=== PATIENT | male | born 1960 | race Caucasian/White ===

== ENCOUNTER 2019-03-09 16:16 | Inpatient (IN) | payer OTHER ==
[2019-03-09 19:29] VITALS: BMI 25.8
--- NOTE | 2019-03-09 21:44 | HP ---
COWS - Scale Resting Pulse: 0= OR 80 or Below Sweatin=Flushed/Facial Moisture Restless Observation: 1= Difficult to Sit Still Pupil Size: 1= Pupils >than Normal Bone or Joint Aches: 2= Severe Diffuse Aches Runny Nose/ Eye Tearin= Runny Nose/Eyes GI Upset > 30mins: 2= Nausea/Diarrhea Tremor Observation: 2= Slight Tremor Visible Yawning Observation: 0= None Anxiety or Irritability: 1=Feels Anxious/Irritable Goose Flesh Skin: 0=Smooth Skin COWS Score: 13 CIWA Score Nausea/Vomitin Muscle Tremors: 2 Anxiety: 2 Agitation: 2 Paroxysmal Sweats: 2 Orientation: 0-Oriented Tacttile Disturbances: 2-Mild Itch/Numbness/Burn Auditory Disturbances: 2-Mild Harshness/Frighten Visual Disturbances: 2-Mild Sensitivity Headache: 2-Mild CIWA-Ar Total Score: 18 - Admission Criteria OASAS Guidelines: Admission for Medically Managed Detox: Requires at least one of the followin. CIWA greater than 12 2. Seizures within the past 24 hours 3. Delirium tremens within the past 24 hours 4. Hallucinations within the past 24 hours 5. Acute intervention needed for co occurring medical disorder 6. Acute intervention needed for co occurring psychiatric disorder 7. Severe withdrawal that cannot be handled at a lower level of care (continued vomiting, continued diarrhea, abnormal vital signs) requiring intravenous medication and/or fluids 8. Admission ROS BHS - HPI Chief Complaint: DEPENDENT ON ETOH AND HEROIN ON 120 MG. OF MMTP - LAST DOSE THIS AM Allergies/Adverse Reactions: Allergies Allergy/AdvReac Type Severity Reaction Status Date / Time fish derived Allergy Verified 03/09/19 19:17 History of Present Illness: THE PT. IS REQUESTING ADMISSION TO THE DETOX UNIT AND CAME FOR MEDICAL CLEARANCE AND H AND PE Exam Limitations: No Limitations - Ebola screening Have you traveled outside of the country in the last 21 days: No Have you had contact with anyone from an Ebola affected area: No Have you been sick,other than usual withdrawal symptoms: No Do you have a fever: No - Review of Systems Constitutional: See HPI, Malaise, Weakness, Unintentional Wgt. Loss EENT: reports: See HPI Respiratory: reports: See HPI Cardiac: reports: See HPI GI: reports: See HPI, Nausea, Abdominal cramping : reports: See HPI Musculoskeletal: reports: Muscle Pain, Muscle Weakness Neuro: reports: See HPI, Headache, Tremors, Weakness Endocrine: reports: See HPI, Increased Thirst, Increased Urine Hematology: reports: See HPI Psychiatric: reports: Judgement Intact, Orientated x3, Anxious, Depressed Patient History - Patient Medical History Hx Asthma: No Hx Cardiac Disorders: No Hx Hypertension: Yes Hx Pacemaker: Yes Hx Seizures: No Hx Diabetes: Yes (TYPE I) Hx Gastrointestinal Disorders: No Hx Sexually Transmitted Disorders: No Hx Renal Disease (ESRD): No Hx Human Immunodeficiency Virus (HIV): No Hx Hepatitis C: No Hx Depression: Yes (ANXIETY) - Patient Surgical History Past Surgical History: No - Smoking Cessation Smoking history: Never smoked Have you smoked in the past 12 months: No Hx Chewing Tobacco Use: No Initiated information on smoking cessation: No 'Breaking Loose' booklet given: 03/09/19 - Substance & Tx. History Hx Alcohol Use: Yes Hx Substance Use: Yes Substance Use Type: Alcohol, Heroin Hx Substance Use Treatment: Yes - Substances abused Alcohol Substance route: Oral Frequency: Daily Amount used: 6 packs Age of first use: 17 Date of last use: 03/09/19 Heroin Other (specify): SNIFF Frequency: Daily Amount used: 6 BAGS Age of first use: 18 Date of last use: 03/09/19 Family Disease History - Family Disease History Family Disease History: Diabetes: Mother (), Heart Disease: Mother, CA: Father () Admission Physical Exam BHS - Vital Signs Vital Signs: Vital Signs - 24 hr 03/09/19 03/09/19 19:06 21:15 Temperature 98.6 F 98.6 F Pulse Rate 55 L 55 L Respiratory 18 18 Rate Blood Pressure 112/68 112/68 - Physical General Appearance: Yes: No Apparent Distress, Nourished, Appropriately Dressed , Tremorous, Sweating, Anxious HEENTM: Yes: Hearing grossly Normal, Normocephalic, Normal Voice, EMMA, Pharynx Normal Respiratory: Yes: Chest Non-Tender, Lungs Clear, Normal Breath Sounds, No Respiratory Distress, No Accessory Muscle Use Neck: Yes: No masses,lesions,Nodules, Supple, Trachea in good position Breast: Yes: Breast Exam Deferred, Axillae without masses Cardiology: Yes: Regular Rhythm, S1, S2, Bradycardia Abdominal: Yes: Normal Bowel Sounds, Non Tender, Flat, Soft Back: Yes: Normal Inspection Musculoskeletal: Yes: full range of Motion, Muscle Pain, Muscle weakness Extremities: Yes: Normal Capillary Refill, Normal Range of Motion, Non-Tender, Tremors 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: 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 NML intact, Fully Oriented, Alert, Motor Strength 5/5, Normal Response, Numbness, Depressed Affect Integumentary: Yes: Normal Color, Warm, Moist Lymphatic: Yes: Within Normal Limits - Diagnostic (1) EtOH dependence Current Visit: Yes Status: Chronic Qualifiers: Substance use status: uncomplicated Qualified Code(s): F10.20 - Alcohol dependence, uncomplicated (2) Heroin dependence Current Visit: Yes Status: Chronic (3) Diabetes 1.5, managed as type 1 Current Visit: Yes Status: Acute (4) HTN (hypertension) Current Visit: Yes Status: Chronic Qualifiers: Hypertension type: essential hypertension Qualified Code(s): I10 - Essential (primary) hypertension (5) Hypercholesteremia Current Visit: Yes Status: Chronic (6) Neuropathy Current Visit: Yes Status: Chronic (7) Anxiety and depression Current Visit: Yes Status: Chronic (8) Methadone maintenance therapy patient Current Visit: Yes Status: Chronic Cleared for Admission S - Detox or Rehab [facility] Level of Care: Medically Supervised Detox Regimen/Protocol: Librium Breathalyzer - Breathalyzer Breathalyzer: 0 Urine Drug Screen - Test Device Lot number: [id number] Expiration date: 12/04/20 - Control Is test valid?: Yes - Results Drug screen NEGATIVE: No Urine drug screen results: SIVA-Cocaine, FEN-Fentanyl, MOP-Opiates, MTD-Methadone Inpatient Rehab Admission - Rehab Decision to Admit Inpatient rehab admission?: No
[2019-03-09] MEDS ORDERED: MENTHOL/PHENOL 1 EACH UD MM PRN (21:52)
[2019-03-09] MEDS ORDERED: MAG HYDROX/AL HYDROX/SIMETH 30 ML UNIT-DOSE CUP PO PRN (21:52)
[2019-03-09] MEDS ORDERED: METHOCARBAMOL 500 MG TABLET PO PRN (21:52)
[2019-03-09] MEDS ORDERED: MAGNESIUM HYDROX 2400MG/30ML ORAL SUSPENSION 30 ML CUP PO PRN (21:52)
[2019-03-09] MEDS ORDERED: MAGNESIUM CITRATE 300 ML BOTTLE PO PRN (21:52)
[2019-03-09] MEDS ORDERED: chlordiazePOXIDE HCL 25 MG CAPSULE PO ONE (21:52)
[2019-03-09] MEDS ORDERED: ACETAMINOPHEN 325 MG TABLET (FP) PO PRN ×2 (21:52)
[2019-03-09] MEDS ORDERED: MELATONIN 5 MG TABLETS PO PRN (21:52)
[2019-03-09] MEDS ORDERED: BISMUTH SUBSALICYLATE 524 MG/30 ML UD PO PRN (21:52)
[2019-03-09] MEDS ORDERED: hydrOXYzine PAMOATE 25 MG CAPSULE (FP) PO PRN (21:52)
[2019-03-09] MEDS ORDERED: chlordiazePOXIDE HCL 25 MG CAPSULE PO PRN (21:52)
[2019-03-09] MEDS ORDERED: IBUPROFEN 400 MG TABLET (FP) PO PRN (21:52)
[2019-03-09] MEDS ORDERED: PATIENT'S OWN MEDICATION (NON-FORMULARY) (Gabapentin [Gabapentin] 600 MG) PO SCH (22:00)
[2019-03-09] MEDS ORDERED: PATIENT'S OWN MEDICATION (NON-FORMULARY) (Enalapril Maleate [Vasotec] 20 MG) PO SCH (22:00)
[2019-03-09] MEDS: LEVOTHYROXINE NA 100 MCG TABLET (FP) PO SCH (23:33)
[2019-03-09] MEDS: ATORVASTATIN CA 40 MG TABLET (FP) PO SCH (23:47)
[2019-03-09] MEDS: THIAMINE HCL 100 MG TABLET (FP) PO SCH (23:48)
[2019-03-09] MEDS: ENALAPRIL MALEATE 10 MG TABLET (FP) PO SCH (23:48)
[2019-03-09] MEDS: GABAPENTIN 300 MG CAPSULE (FP) PO SCH (23:48)
[2019-03-09] MEDS: INSULIN SLIDING SCALE (NOVOLOG) 1 VIAL SQ SCH (23:48)
[2019-03-09] MEDS: amLODIPine BESYLATE 10 MG TABLET (FP) PO SCH (23:48)
[2019-03-09] MEDS: chlordiazePOXIDE HCL 25 MG CAPSULE PO SCH (23:56)
[2019-03-10] MEDS: chlordiazePOXIDE HCL 25 MG CAPSULE PO SCH ×4 (05:21→22:20)
[2019-03-10] MEDS: INSULIN SLIDING SCALE (NOVOLOG) 1 VIAL SQ SCH ×4 (07:11→22:32)
[2019-03-10] MEDS: LEVOTHYROXINE NA 100 MCG TABLET (FP) PO SCH (07:11)
[2019-03-10] MEDS: GABAPENTIN 300 MG CAPSULE (FP) PO SCH ×2 (10:09→22:19)
[2019-03-10] MEDS: amLODIPine BESYLATE 10 MG TABLET (FP) PO SCH (10:09)
[2019-03-10] MEDS: PRENATAL VITAMINS W/ FOLIC ACID TABLET (FP) PO SCH (10:09)
[2019-03-10] MEDS: ENALAPRIL MALEATE 10 MG TABLET (FP) PO SCH (10:12)
[2019-03-10 10:32] LABS: HEMATOCRIT 34.2 % (35.4-49); HEMOGLOBIN 11.6 GM/dL (11.7-16.9); MCH 31.5 pg (25.7-33.7); MCHC 33.9 g/dl (32.0-35.9); MEAN CELL VOLUME 93.1 fl (80-96); MEAN PLT VOLUME 9.2 fl (7.5-11.1); PLATELET COUNT 202 K/MM3 (134-434); RBC 3.67 M/mm3 (4.00-5.60); RDW 12.4 % (11.9-15.9); WHITE BLOOD COUNT 4.6 K/mm3 (4.0-10.0)
[2019-03-10 10:47] LABS: ALBUMIN 2.8 g/dl (3.4-5.0); BILIRUBIN,TOTAL 0.2 mg/dL (0.2-1); CALCIUM 8.8 mg/dL (8.5-10.1); CREATININE 1.3 mg/dL (0.55-1.3); TOT PROT 5.6 g/dl (6.4-8.2)
[2019-03-10] MEDS: METHADONE HCL 40 MG DISPERSABLE TABLET PO SCH (11:50)
--- NOTE | 2019-03-10 12:19 | PN ---
S CIWA - CIWA Score Nausea/Vomitin Muscle Tremors: 2 Anxiety: 2 Agitation: 2 Paroxysmal Sweats: 1-Minimal Palms Moist Orientation: 0-Oriented Tacttile Disturbances: 1-Very Mild Itch/Numbness Auditory Disturbances: 1-Very Mild Visual Disturbances: 0-None Headache: 2-Mild CIWA-Ar Total Score: 13 BHS COWS - Scale Resting Pulse: 0= [place] 80 or Below Sweatin= Chills/Flushing Restless Observation: 1= Difficult to Sit Still Pupil Size: 1= Pupils >than Normal Bone or Joint Aches: 2= Severe Diffuse Aches Runny Nose/ Eye Tearin= Nasal Congestion GI Upset > 30mins: 2= Nausea/Diarrhea Tremor Observation of Outstretched Hands: 2= Slight Tremor Visible Yawning Observation: 1= 1-2x During Session Anxiety or Irritability: 2=Irritable/Anxious Goose Flesh Skin: 0=Smooth Skin COWS Score: 13 BHS Progress Note (SOAP) Subjective: alert,irritable,anxious,pain in the body and back,tremor Objective: 03/10/19 12:17 Vital Signs Temperature 97.6 F 03/10/19 10:05 Pulse Rate 53 L 03/10/19 10:05 Respiratory Rate 20 03/10/19 10:05 Blood Pressure 102/61 03/10/19 10:05 O2 Sat by Pulse Oximetry (%) Laboratory Last Values WBC 4.6 K/mm3 (4.0-10.0) 03/10/19 07:00 RBC 3.67 M/mm3 (4.00-5.60) L 03/10/19 07:00 Hgb 11.6 GM/dL (11.7-16.9) L 03/10/19 07:00 Hct 34.2 % (35.4-49) L 03/10/19 07:00 MCV 93.1 fl (80-96) 03/10/19 07:00 MCH 31.5 pg (25.7-33.7) 03/10/19 07:00 MCHC 33.9 g/dl (32.0-35.9) 03/10/19 07:00 RDW 12.4 % (11.9-15.9) 03/10/19 07:00 Plt Count 202 K/MM3 (134-434) 03/10/19 07:00 MPV 9.2 fl (7.5-11.1) 03/10/19 07:00 Sodium 137 mmol/L (136-145) 03/10/19 07:00 Potassium 4.0 mmol/L (3.5-5.1) 03/10/19 07:00 Chloride 101 mmol/L (98-107) 03/10/19 07:00 Carbon Dioxide 32 mmol/L (21-32) 03/10/19 07:00 Anion Gap 5 MMOL/L (8-16) L 03/10/19 07:00 BUN 16 mg/dL (7-18) 03/10/19 07:00 Creatinine 1.3 mg/dL (0.55-1.3) 03/10/19 07:00 Est GFR (CKD-EPI)AfAm 70.69 03/10/19 07:00 Est GFR (CKD-EPI)NonAf 60.99 03/10/19 07:00 POC Glucometer 480 UNITS (80-120) 03/10/19 11:45 Random Glucose 180 mg/dL (74-106) H 03/10/19 07:00 Calcium 8.8 mg/dL (8.5-10.1) 03/10/19 07:00 Total Bilirubin 0.2 mg/dL (0.2-1) 03/10/19 07:00 AST 19 U/L (15-37) 03/10/19 07:00 ALT 30 U/L (13-61) 03/10/19 07:00 Alkaline Phosphatase 144 U/L (45-117) H 03/10/19 07:00 Total Protein 5.6 g/dl (6.4-8.2) L 03/10/19 07:00 Albumin 2.8 g/dl (3.4-5.0) L 03/10/19 07:00 RPR Titer Nonreactive (NONREACTIVE) 03/10/19 07:00 other labs pending Assessment: 03/10/19 12:18 withdrawal symptom Plan: continue detox librium regimen,mmtp 120 mgs/day,bgm monitoring with insulin coverage
[2019-03-10] MEDS: THIAMINE HCL 100 MG TABLET (FP) PO SCH (22:19)
[2019-03-10] MEDS: ATORVASTATIN CA 40 MG TABLET (FP) PO SCH (22:20)
[2019-03-11] MEDS: METHADONE HCL 40 MG DISPERSABLE TABLET PO SCH (05:17)
[2019-03-11] MEDS: chlordiazePOXIDE HCL 25 MG CAPSULE PO SCH ×3 (05:18→18:26)
[2019-03-11] MEDS: INSULIN SLIDING SCALE (NOVOLOG) 1 VIAL SQ SCH ×4 (06:27→22:55)
[2019-03-11] MEDS: LEVOTHYROXINE NA 100 MCG TABLET (FP) PO SCH (06:27)
--- NOTE | 2019-03-11 10:25 | PN ---
[facility] CIWA - CIWA Score Nausea/Vomitin-Mild Nausea/No Vomiting Muscle Tremors: 3 Anxiety: 2 Agitation: 2 Paroxysmal Sweats: 1-Minimal Palms Moist Orientation: 0-Oriented Tacttile Disturbances: 1-Very Mild Itch/Numbness Auditory Disturbances: 0-None Visual Disturbances: 0-None Headache: 0-None Present CIWA-Ar Total Score: 10 S Progress Note (SOAP) Subjective: ambulating with cane received methadone 120 mg po today feeling better discuss alcohol misuse related hyper and hypo glycemia Objective: 03/11/19 10:24 Vital Signs Temperature 97.2 F L 03/11/19 09:36 Pulse Rate 57 L 03/11/19 09:36 Respiratory Rate 20 03/11/19 09:36 Blood Pressure 98/56 L 03/11/19 09:36 O2 Sat by Pulse Oximetry (%) Laboratory Last Values WBC 4.6 K/mm3 (4.0-10.0) 03/10/19 07:00 RBC 3.67 M/mm3 (4.00-5.60) L 03/10/19 07:00 Hgb 11.6 GM/dL (11.7-16.9) L 03/10/19 07:00 Hct 34.2 % (35.4-49) L 03/10/19 07:00 MCV 93.1 fl (80-96) 03/10/19 07:00 MCH 31.5 pg (25.7-33.7) 03/10/19 07:00 MCHC 33.9 g/dl (32.0-35.9) 03/10/19 07:00 RDW 12.4 % (11.9-15.9) 03/10/19 07:00 Plt Count 202 K/MM3 (134-434) 03/10/19 07:00 MPV 9.2 fl (7.5-11.1) 03/10/19 07:00 Sodium 137 mmol/L (136-145) 03/10/19 07:00 Potassium 4.0 mmol/L (3.5-5.1) 03/10/19 07:00 Chloride 101 mmol/L (98-107) 03/10/19 07:00 Carbon Dioxide 32 mmol/L (21-32) 03/10/19 07:00 Anion Gap 5 MMOL/L (8-16) L 03/10/19 07:00 BUN 16 mg/dL (7-18) 03/10/19 07:00 Creatinine 1.3 mg/dL (0.55-1.3) 03/10/19 07:00 Est GFR (CKD-EPI)AfAm 70.69 03/10/19 07:00 Est GFR (CKD-EPI)NonAf 60.99 03/10/19 07:00 POC Glucometer 464 UNITS (80-120) 03/11/19 05:17 Random Glucose 180 mg/dL (74-106) H 03/10/19 07:00 Calcium 8.8 mg/dL (8.5-10.1) 03/10/19 07:00 Total Bilirubin 0.2 mg/dL (0.2-1) 03/10/19 07:00 AST 19 U/L (15-37) 03/10/19 07:00 ALT 30 U/L (13-61) 03/10/19 07:00 Alkaline Phosphatase 144 U/L (45-117) H 03/10/19 07:00 Total Protein 5.6 g/dl (6.4-8.2) L 03/10/19 07:00 Albumin 2.8 g/dl (3.4-5.0) L 03/10/19 07:00 RPR Titer Nonreactive (NONREACTIVE) 03/10/19 07:00 lab noted Assessment: 03/11/19 10:24 alcohol withdrawal sx Plan: continue detox
[2019-03-11] MEDS: PRENATAL VITAMINS W/ FOLIC ACID TABLET (FP) PO SCH (10:48)
[2019-03-11] MEDS: amLODIPine BESYLATE 10 MG TABLET (FP) PO SCH (10:49)
[2019-03-11] MEDS: GABAPENTIN 300 MG CAPSULE (FP) PO SCH ×2 (10:49→22:49)
[2019-03-11] MEDS: ENALAPRIL MALEATE 10 MG TABLET (FP) PO SCH (10:50)
[2019-03-11] MEDS: THIAMINE HCL 100 MG TABLET (FP) PO SCH (22:49)
[2019-03-11] MEDS: ATORVASTATIN CA 40 MG TABLET (FP) PO SCH (22:49)
[2019-03-11] MEDS: chlordiazePOXIDE HCL 10 MG CAPSULE PO SCH (22:49)
[2019-03-11] MEDS: INSULIN (LEVEMIR) 100 UNITS/ML UNITS SQ SCH (22:52)
[2019-03-11] MEDS ORDERED: chlordiazePOXIDE HCL 10 MG CAPSULE PO PRN (23:00)
[2019-03-12] MEDS: INSULIN SLIDING SCALE (NOVOLOG) 1 VIAL SQ SCH ×4 (02:00→22:44)
[2019-03-12] MEDS: chlordiazePOXIDE HCL 10 MG CAPSULE PO SCH ×4 (05:38→22:45)
[2019-03-12] MEDS: METHADONE HCL 40 MG DISPERSABLE TABLET PO SCH (05:38)
[2019-03-12] MEDS: LEVOTHYROXINE NA 100 MCG TABLET (FP) PO SCH (07:53)
[2019-03-12] MEDS: GABAPENTIN 300 MG CAPSULE (FP) PO SCH ×2 (10:16→22:41)
[2019-03-12] MEDS: amLODIPine BESYLATE 10 MG TABLET (FP) PO SCH (10:16)
[2019-03-12] MEDS: ENALAPRIL MALEATE 10 MG TABLET (FP) PO SCH (10:16)
[2019-03-12] MEDS: PRENATAL VITAMINS W/ FOLIC ACID TABLET (FP) PO SCH (10:16)
--- NOTE | 2019-03-12 15:46 | PN ---
S CIWA - CIWA Score Nausea/Vomitin-No Nausea/No Vomiting Muscle Tremors: None Anxiety: 3 Agitation: 2 Paroxysmal Sweats: No Perspiration Orientation: 0-Oriented Tacttile Disturbances: 1-Very Mild Itch/Numbness Auditory Disturbances: 0-None Visual Disturbances: 1-Very Mild Sensitivity Headache: 0-None Present CIWA-Ar Total Score: 7 BHS Progress Note (SOAP) Subjective: Body Aches, Anxious. Objective: PATIENT A & O X 3, OBSERVED AMBULATING ON UNIT UNASSISTED. IN NO ACUTE DISTRESS. 03/12/19 15:43 Vital Signs Temperature 98.4 F 03/12/19 13:48 Pulse Rate 65 03/12/19 13:48 Respiratory Rate 16 03/12/19 13:48 Blood Pressure 101/58 L 03/12/19 13:48 O2 Sat by Pulse Oximetry (%) Laboratory Tests 03/09/19 03/10/19 03/10/19 23:37 05:22 07:00 WBC 4.6 RBC 3.67 L Hgb 11.6 L Hct 34.2 L MCV 93.1 MCH 31.5 MCHC 33.9 RDW 12.4 Plt Count 202 MPV 9.2 Sodium Potassium Chloride Carbon Dioxide Anion Gap BUN Creatinine Est GFR (CKD-EPI)AfAm Est GFR (CKD-EPI)NonAf POC Glucometer 377 127 Random Glucose Hemoglobin A1c % Calcium Total Bilirubin AST ALT Alkaline Phosphatase Total Protein Albumin RPR Titer 03/10/19 03/10/19 03/10/19 07:00 07:00 11:45 WBC RBC Hgb Hct MCV MCH MCHC RDW Plt Count MPV Sodium 137 Potassium 4.0 Chloride 101 Carbon Dioxide 32 Anion Gap 5 L BUN 16 Creatinine 1.3 Est GFR (CKD-EPI)AfAm 70.69 Est GFR (CKD-EPI)NonAf 60.99 POC Glucometer 480 Random Glucose 180 H Hemoglobin A1c % Calcium 8.8 Total Bilirubin 0.2 AST 19 ALT 30 Alkaline Phosphatase 144 H Total Protein 5.6 L Albumin 2.8 L RPR Titer Nonreactive 03/10/19 03/10/19 03/11/19 16:39 22:17 05:17 WBC RBC Hgb Hct MCV MCH MCHC RDW Plt Count MPV Sodium Potassium Chloride Carbon Dioxide Anion Gap BUN Creatinine Est GFR (CKD-EPI)AfAm Est GFR (CKD-EPI)NonAf POC Glucometer [phone] Random Glucose Hemoglobin A1c % Calcium Total Bilirubin AST ALT Alkaline Phosphatase Total Protein Albumin RPR Titer 03/11/19 03/11/19 03/11/19 11:21 16:29 20:45 WBC RBC Hgb Hct MCV MCH MCHC RDW Plt Count MPV Sodium Potassium Chloride Carbon Dioxide Anion Gap BUN Creatinine Est GFR (CKD-EPI)AfAm Est GFR (CKD-EPI)NonAf POC Glucometer 473 318 376 Random Glucose Hemoglobin A1c % Calcium Total Bilirubin AST ALT Alkaline Phosphatase Total Protein Albumin RPR Titer 03/12/19 03/12/19 03/12/19 05:41 07:30 14:54 WBC RBC Hgb Hct MCV MCH MCHC RDW Plt Count MPV Sodium Potassium Chloride Carbon Dioxide Anion Gap BUN Creatinine Est GFR (CKD-EPI)AfAm Est GFR (CKD-EPI)NonAf POC Glucometer [phone] Random Glucose Hemoglobin A1c % 15.6 H Calcium Total Bilirubin AST ALT Alkaline Phosphatase Total Protein Albumin RPR Titer LABS NOTED. Assessment: 03/12/19 15:44 WITHDRAWAL SYMPTOMS. HYPERGLYCEMIA. ELEVATED ALKALINE PHOSPHATASE LEVEL. ANEMIA. 03/12/19 15:45 Plan: CONTINUE DETOX. INCREASE DAILY PO WATER INTAKE. PATIENT IS CURRENTLY RECEIVING DAILY MVI CONTAINING B VITAMINS AND IRON WHILE ADMITTED FOR DETOX. PATIENT SCHEDULED FOR D/C TOMORROW.
[2019-03-12] MEDS: ATORVASTATIN CA 40 MG TABLET (FP) PO SCH (22:41)
[2019-03-12] MEDS: THIAMINE HCL 100 MG TABLET (FP) PO SCH (22:41)
[2019-03-12] MEDS: INSULIN (LEVEMIR) 100 UNITS/ML UNITS SQ SCH (22:44)
[2019-03-13] MEDS: METHADONE HCL 40 MG DISPERSABLE TABLET PO SCH (05:48)
[2019-03-13] MEDS: LEVOTHYROXINE NA 100 MCG TABLET (FP) PO SCH (06:01)
[2019-03-13] MEDS ORDERED: INSULIN SLIDING SCALE (NOVOLOG) 1 VIAL SQ ONE (07:34)
[2019-03-13] MEDS: INSULIN SLIDING SCALE (NOVOLOG) 1 VIAL SQ SCH ×2 (07:35→11:42)
[2019-03-13 09:33] VITALS: BP 92/58; PULSE 65; TEMP 97.6
[2019-03-13] MEDS: PRENATAL VITAMINS W/ FOLIC ACID TABLET (FP) PO SCH (10:14)
[2019-03-13] MEDS: GABAPENTIN 300 MG CAPSULE (FP) PO SCH (10:15)
[2019-03-13] MEDS: amLODIPine BESYLATE 10 MG TABLET (FP) PO SCH (10:15)
[2019-03-13] MEDS: chlordiazePOXIDE HCL 10 MG CAPSULE PO SCH (10:15)
[2019-03-13] MEDS: ENALAPRIL MALEATE 10 MG TABLET (FP) PO SCH (10:15)
--- NOTE | 2019-03-13 19:36 | DS ---
[facility] Detox Discharge Summary Admission Date: 03/09/19 Discharge Date: 03/13/19 - History Present History: Alcohol Dependence, Opioid Dependence, MMTP Additional Comments: PATIENT GOING TO [facility] ([place], [place]) FOR AFTERCARE. PATIENT WAS DISCHARGED FROM DETOX UNIT IN STABLE MEDICAL CONDITION. Pertinent Past History: Type I DM, HTN, Hypercholesterolemia, History Of Neuropathy, Depression, Anxiety , History Of Pacemaker Placement. M.M.T.P. - Physical Exam Results Vital Signs: Vital Signs Temperature 97.6 F 03/13/19 09:33 Pulse Rate 65 03/13/19 09:33 Respiratory Rate 17 03/13/19 09:33 Blood Pressure 92/58 L 03/13/19 09:33 O2 Sat by Pulse Oximetry (%) Pertinent Admission Physical Exam Findings: WITHDRAWAL SYMPTOMS. Laboratory Tests 03/09/19 03/10/19 03/10/19 23:37 05:22 07:00 WBC 4.6 RBC 3.67 L Hgb 11.6 L Hct 34.2 L MCV 93.1 MCH 31.5 MCHC 33.9 RDW 12.4 Plt Count 202 MPV 9.2 Sodium Potassium Chloride Carbon Dioxide Anion Gap BUN Creatinine Est GFR (CKD-EPI)AfAm Est GFR (CKD-EPI)NonAf POC Glucometer 377 127 Random Glucose Hemoglobin A1c % Calcium Total Bilirubin AST ALT Alkaline Phosphatase Total Protein Albumin RPR Titer 03/10/19 03/10/19 03/10/19 07:00 07:00 11:45 WBC RBC Hgb Hct MCV MCH MCHC RDW Plt Count MPV Sodium 137 Potassium 4.0 Chloride 101 Carbon Dioxide 32 Anion Gap 5 L BUN 16 Creatinine 1.3 Est GFR (CKD-EPI)AfAm 70.69 Est GFR (CKD-EPI)NonAf 60.99 POC Glucometer 480 Random Glucose 180 H Hemoglobin A1c % Calcium 8.8 Total Bilirubin 0.2 AST 19 ALT 30 Alkaline Phosphatase 144 H Total Protein 5.6 L Albumin 2.8 L RPR Titer Nonreactive 03/10/19 03/10/19 03/11/19 16:39 22:17 05:17 WBC RBC Hgb Hct MCV MCH MCHC RDW Plt Count MPV Sodium Potassium Chloride Carbon Dioxide Anion Gap BUN Creatinine Est GFR (CKD-EPI)AfAm Est GFR (CKD-EPI)NonAf POC Glucometer [phone] Random Glucose Hemoglobin A1c % Calcium Total Bilirubin AST ALT Alkaline Phosphatase Total Protein Albumin RPR Titer 03/11/19 03/11/19 03/11/19 11:21 16:29 20:45 WBC RBC Hgb Hct MCV MCH MCHC RDW Plt Count MPV Sodium Potassium Chloride Carbon Dioxide Anion Gap BUN Creatinine Est GFR (CKD-EPI)AfAm Est GFR (CKD-EPI)NonAf POC Glucometer 473 318 376 Random Glucose Hemoglobin A1c % Calcium Total Bilirubin AST ALT Alkaline Phosphatase Total Protein Albumin RPR Titer 03/12/19 03/12/19 03/12/19 05:41 07:30 14:54 WBC RBC Hgb Hct MCV MCH MCHC RDW Plt Count MPV Sodium Potassium Chloride Carbon Dioxide Anion Gap BUN Creatinine Est GFR (CKD-EPI)AfAm Est GFR (CKD-EPI)NonAf POC Glucometer [phone] Random Glucose Hemoglobin A1c % 15.6 H Calcium Total Bilirubin AST ALT Alkaline Phosphatase Total Protein Albumin RPR Titer 03/12/19 03/12/19 03/13/19 16:31 21:28 05:48 WBC RBC Hgb Hct MCV MCH MCHC RDW Plt Count MPV Sodium Potassium Chloride Carbon Dioxide Anion Gap BUN Creatinine Est GFR (CKD-EPI)AfAm Est GFR (CKD-EPI)NonAf POC Glucometer [phone] Random Glucose Hemoglobin A1c % Calcium Total Bilirubin AST ALT Alkaline Phosphatase Total Protein Albumin RPR Titer 03/13/19 11:39 WBC RBC Hgb Hct MCV MCH MCHC RDW Plt Count MPV Sodium Potassium Chloride Carbon Dioxide Anion Gap BUN Creatinine Est GFR (CKD-EPI)AfAm Est GFR (CKD-EPI)NonAf POC Glucometer 418 Random Glucose Hemoglobin A1c % Calcium Total Bilirubin AST ALT Alkaline Phosphatase Total Protein Albumin RPR Titer LABS NOTED. - Treatment Hospital Course: Detox Protocol Followed, Detoxed Safely, Responded well, Discharged Condition Good, Rehab Referral Accepted Patient has Accepted a Rehab Referral to: [facility] ([place], [place]). - Medication Discharge Medications: Ambulatory Orders Insulin Glargine,Hum.rec.anlog [Lantus] 20 unit SQ HS 03/09/19 Amlodipine Besylate 10 mg PO DAILY 30 Days #30 tablet 03/13/19 Atorvastatin Ca [Lipitor] 40 mg PO HS 30 Days #30 tablet 03/13/19 Enalapril Maleate [Vasotec] 20 mg PO DAILY 30 Days #30 tablet 03/13/19 Levothyroxine Sodium [Synthroid] 200 mcg PO DAILY 30 Days #30 tablet 03/13/19 Pantoprazole Sodium [Protonix] 40 mg PO DAILY 30 Days #30 tablet. 03/13/19 - Diagnosis (1) Diabetes 1.5, managed as type 1 Status: Acute (2) Anxiety and depression Status: Chronic (3) EtOH dependence Status: Chronic Qualifiers: Substance use status: uncomplicated Qualified Code(s): F10.20 - Alcohol dependence, uncomplicated (4) HTN (hypertension) Status: Chronic Qualifiers: Hypertension type: essential hypertension Qualified Code(s): I10 - Essential (primary) hypertension (5) Heroin dependence Status: Chronic (6) Hypercholesteremia Status: Chronic (7) Methadone maintenance therapy patient Status: Chronic (8) Neuropathy Status: Chronic - AMA Did Patient Leave Against Medical Advice: No
== END 2019-03-13 17:15 | disposition home or self-care (01) | DRG 773 ==
LOC: YASAS 16:16 → Y3N 22:54
PROVIDERS: ADMIT Surgery; ATTEND Surgery
PROC: HZ2ZZZZ Detoxification Services for Substance Abuse Treatment (ICD-10-PCS; principal; 2019-03-09)
DX: F10.230 Alcohol dependence with withdrawal, uncomplicated (principal); F11.20 Opioid dependence, uncomplicated; F41.9 Anxiety disorder, unspecified; F32.9 Major depressive disorder, single episode, unspecified; G62.9 Polyneuropathy, unspecified; E10.9 Type 1 diabetes mellitus without complications; Z79.4 Long term (current) use of insulin; I10 Essential (primary) hypertension; E78.00 Pure hypercholesterolemia, unspecified; D64.9 Anemia, unspecified; R94.5 Abnormal results of liver function studies; Z95.0 Presence of cardiac pacemaker
CPT/HCPCS: 36415; 80053; 82962; 83036; 85027; 86593

== ENCOUNTER 2020-01-17 13:49 | Day surgery (SDC) | payer OTHER ==
[2020-01-17] MEDS ORDERED: CEFTRIAXONE 2 GM in DEXTROSE 5%-WATER 100 ML IVPB ONE (14:30)
[2020-01-17] MEDS ORDERED: DEXTROSE 5%-WATER 100 ML IVPB ONE (14:46)
[2020-01-17 15:37] VITALS: BP 124/78; PULSE 76; TEMP 98.4
== END 2020-01-17 15:40 | disposition home or self-care (01) ==
LOC: JINFUSION 13:49 → J7W 13:51 → JINFUSION 15:40
PROVIDERS: ATTEND Internal Medicine Infectious Disease
PROC: 3E033GC Introduction of Other Therapeutic Substance into Peripheral Vein, Percutaneous Approach (ICD-10-PCS; principal; 2020-01-17)
DX: M86.9 Osteomyelitis, unspecified (principal); L03.116 Cellulitis of left lower limb; E13.40 Other specified diabetes mellitus with diabetic neuropathy, unspecified; I10 Essential (primary) hypertension
CPT/HCPCS: 96365

== ENCOUNTER 2020-02-25 12:50 | Inpatient (IN) | payer OTHER ==
--- NOTE | 2020-02-25 13:40 | PDOC ---
History of Present Illness - General Chief Complaint: Wound Stated Complaint: ADMIT PER DOCTOR Time Seen by Provider: 02/25/20 13:30 History Source: Patient - History of Present Illness Initial Comments: 02/25/20 14:06 Chief complaint: Gangrene to the toe Patient 59-year-old male with history of diabetes, prior amputation to the left little toe who was sent by his it assistant to be admitted to have the second toe amputated as it has now turned black. Patient denies any fever or feeling ill. GENERAL/CONSTITUTIONAL: No fever, weakness. dizziness HEAD, EYES, EARS, NOSE AND THROAT: No change in vision. No ear pain or discharge. No sore throat. CARDIOVASCULAR: No chest pain RESPIRATORY: No shortness of breath or cough GASTROINTESTINAL: No pain, nausea, vomiting, diarrhea or constipation GENITOURINARY: No dysuria MUSCULOSKELETAL: No neck or back pain SKIN: No rash, + gangrene to toe NEUROLOGIC: No headache, vertigo, loss of consciousness, or loss of sensation. GENERAL: The patient is awake, alert, and fully oriented, in no acute distress. HEAD: Normal with no signs of trauma. EYES: Pupils equal, round and reactive to light, sclera anicteric, conjunctiva clear. ENT: pharynx: no erythema, no exudate, uvula midline NECK: supple CHEST: clear, nontender, rr ABD: soft, nontender BACK: no tenderness or signs of injury EXTREMITIES: Left foot with right toe previously amputated, second left toe black, no signs of cellulitis. Rest of extremities, normal range of motion, no edema. NEUROLOGICAL: Normal speech, normal gait. SKIN: Warm, Dry Past History - Past Medical History Allergies/Adverse Reactions: Allergies Allergy/AdvReac Type Severity Reaction Status Date / Time fish derived Allergy Verified 01/09/20 11:30 Home Medications: Ambulatory Orders Levothyroxine Sodium [Levo-T] 175 mcg PO DAILY 01/09/20 Docusate Sodium [Colace -] 100 mg PO Q8H PRN #90 capsule 01/14/20 Methadone 130 mg 02/04/20 Amox-Tr/K Cl [Augmentin - 875Mg Tablet] 1 tab PO BID #28 tablet 02/16/20 Collagenase Clostridium Hist. [Santyl -] 1 applic TP DAILY #1 tube 02/16/20 Gabapentin 600 mg PO TID #90 tablet 02/16/20 Insulin Glargine,Hum.rec.anlog [Harshaaglliliya Mohanpen U-100] 35 unit SQ HS #3 insuln.pen 02/16/20 Levothyroxine [Synthroid -] 75 mcg PO DAILY@0700 #30 tablet 02/16/20 Levothyroxine [Synthroid -] 100 mcg PO DAILY@0700 #30 tablet 02/16/20 Lisinopril 20 mg PO DAILY #30 tablet 02/16/20 Metformin HCl [Glucophage] 1,000 mg PO BID #60 tablet 02/16/20 Methadone [Dolophine -] 130 mg PO DAILY@0600 tablet 02/16/20 Methadone [Dolophine -] 130 mg PO DAILY@0600 tablet 02/16/20 Anemia: No Asthma: No Cardiac Disorders: No COPD: No Diabetes: Yes GI Disorders: No HTN: Yes Seizures: No Thyroid Disease: Yes - Surgical History Neurologic Surgery: No - Immunization History Immunization Up to Date: No - Psycho Social/Smoking Cessation Hx Smoking History: Never smoked Have you smoked in the past 12 months: No Number of Cigarettes Smoked Daily: 10 Information on smoking cessation initiated: No 'Breaking Loose' booklet given: 03/09/19 Hx Alcohol Use: No Drug/Substance Use Hx: No Substance Use Type: Heroin Hx Substance Use Treatment: Yes *Physical Exam - Vital Signs Last Vital Signs Temp Pulse Resp BP Pulse Ox 98.3 F 70 18 163/80 100 02/25/20 12:51 02/25/20 12:51 02/25/20 12:51 02/25/20 12:51 02/25/20 12:51 Heart Score/ECG Review - ECG Intrepretation Rhythm: Regular Rhythm Comment:: 02/25/20 14:29 Normal sinus rhythm at 61, QTc 416, no ST or T wave changes, done at 14: 20 ED Treatment Course - LABORATORY CBC & Chemistry Diagram: 02/25/20 14:15 02/25/20 14:15 Medical Decision Making - Medical Decision Making 02/25/20 14:27 59-year-old male with history of diabetes, sent by his it assistant for admission for amputation of the left second toe. Patient will get preop labs, no signs of illness, fever or sepsis. No signs of cellulitis. Discussed with his it assistant, Dr. Rothman, patient to be admitted under his regular medical doctor. 02/25/20 15:30 Discussed with patient's primary care doctor, Dr. Valentine. She will admit patient. She is requesting lactic acid, blood cultures, Zosyn and vancomycin. Work-up is stable. Discharge - Discharge Information Problems reviewed: Yes Clinical Impression/Diagnosis: Gangrene of toe of left foot Condition: Disposition: HOME - Admission Yes - Follow up/Referral - Patient Discharge Instructions - Post Discharge Activity
--- NOTE | 2020-02-25 14:53 | PDOC ---
*Physical Exam - Vital Signs Last Vital Signs Temp Pulse Resp BP Pulse Ox 98.3 F 70 18 163/80 100 02/25/20 12:51 02/25/20 12:51 02/25/20 12:51 02/25/20 12:51 02/25/20 12:51 ED Treatment Course - LABORATORY CBC & Chemistry Diagram: 03/02/20 11:57 03/01/20 07:15 Medical Decision Making - Medical Decision Making 02/25/20 14:52 The patient was seen and evaluated in conjunction with MAKI Cohen under my direct supervision, ancillary studies were reviewed. I independently interviewed and evaluated the patient and I agree with the plan as outlined by MAKI Cohen . 59-year-old gentleman presenting with a necrotic/gangreneous 2nd toe without any systemic complaints including fever. he well-appearing in no distress, afebrile with normal vital signs Will admit for further management Discharge - Discharge Information Problems reviewed: Yes Clinical Impression/Diagnosis: Gangrene of toe of left foot Condition: Disposition: HOME - Follow up/Referral - Patient Discharge Instructions - Post Discharge Activity
[2020-02-25 14:57] LABS: BASO % 1.1 % (0-2.0); HEMATOCRIT 29.1 % (35.4-49); HEMOGLOBIN 9.7 GM/dL (11.7-16.9); LYMPH % 18.8 % (8-40); MCH 28.2 pg (25.7-33.7); MCHC 33.3 g/dl (32.0-35.9); MEAN CELL VOLUME 84.8 fl (80-96); MEAN PLT VOLUME 7.7 fl (7.5-11.1); NEUT % 64.1 % (42.8-82.8); PLATELET COUNT 345 K/MM3 (134-434); RBC 3.43 M/mm3 (4.00-5.60); WHITE BLOOD COUNT 4.9 K/mm3 (4.0-10.0)
[2020-02-25] MEDS ORDERED: PIPERACILLIN/TAZOB 3.375 GM 3.375 GM in DEXTROSE 5%-WATER - 50 ML IVPB ONE (15:01)
[2020-02-25] MEDS ORDERED: VANCOMYCIN 1 GM in D5W (PRE-DOCKED) 1,000 MG/250 ML IVPB ONE (15:01)
[2020-02-25 15:04] LABS: INR 1.1 (0.83-1.09)
[2020-02-25 15:07] LABS: ACTIVATED PTT 35.4 SECONDS (25.2-36.5)
--- NOTE | 2020-02-25 15:18 | EKG ---
Test Reason : Blood Pressure : / mmHG Vent. Rate : 061 BPM Atrial Rate : 061 BPM P-R Int : 138 ms QRS Dur : 074 ms QT Int : 414 ms P-R-T Axes : 062 044 030 degrees QTc Int : 416 ms NORMAL SINUS RHYTHM NORMAL ECG WHEN COMPARED WITH ECG OF 04-FEB-2020 15:42, NONSPECIFIC T WAVE ABNORMALITY, IMPROVED IN INFERIOR LEADS NONSPECIFIC T WAVE ABNORMALITY NO LONGER EVIDENT IN ANTEROLATERAL LEADS QT HAS SHORTENED Confirmed by ANITA HA, FILEMON ([id number]) on 02/25/2020 3:17:43 PM Referred By: Confirmed By:FILEMON HOWARD MD
[2020-02-25 15:31] LABS: BILIRUBIN,TOTAL 0.2 mg/dL (0.2-1); BLOOD UREA NITROGEN 21.9 mg/dL (7-18); CALCIUM 9.2 mg/dL (8.5-10.1); CREATININE 1.1 mg/dL (0.55-1.3); POTASSIUM 5.6 mmol/L (3.5-5.1); TOT PROT 7.7 g/dl (6.4-8.2)
[2020-02-25] MEDS ORDERED: VANCOMYCIN 1 GRAM (PRE-DOCKED) 1,000 MG/250 ML BAG IVPB ONE (15:36)
[2020-02-25] MEDS ORDERED: PIPERACILLIN/TAZOB 3.375 GM 3.375 GM/50 ML BAG IVPB ONE (15:37)
--- NOTE | 2020-02-25 20:56 | HP ---
Admitting History and Physical - Admission History of Present Illness: Pt is a 59 y/o male w/ PMH significant for diabetes, HTN and substance abuse(on methadone) who was recently dc'ed from [facility] for diabetic foot ulcer/gangrene(s/p amputation Lt 5th digit) presenting with a necrotic/gangreneous Lt 2nd toe. Pt complains of pain to lt 2nd toe but denies any fever/chills/oozing from toe. Pt was sent by his php mysql developer for probable amputation of that toe. - Past Medical History Cardiovascular: Yes: HTN Psych: Yes: Addictions Endocrine: Yes: Diabetes Mellitus, Hypothyroidism - Past Surgical History Additional Past Surgical History: Amputation lt 5th digit - Smoking History Smoking history: Never smoked Have you smoked in the past 12 months: No Aproximately how many cigarettes per day: 10 - Alcohol/Substance Use Hx Alcohol Use: No - Social History History of Recent Travel: No Home Medications - Allergies Allergies/Adverse Reactions: Allergies Allergy/AdvReac Type Severity Reaction Status Date / Time fish derived Allergy Verified 01/09/20 11:30 - Home Medications Home Medications: Ambulatory Orders Levothyroxine Sodium [Levo-T] 175 mcg PO DAILY 01/09/20 Docusate Sodium [Colace -] 100 mg PO Q8H PRN #90 capsule 01/14/20 Methadone 130 mg 02/04/20 Amox-Tr/K Cl [Augmentin - 875Mg Tablet] 1 tab PO BID #28 tablet 02/16/20 Collagenase Clostridium Hist. [Santyl -] 1 applic TP DAILY #1 tube 02/16/20 Gabapentin 600 mg PO TID #90 tablet 02/16/20 Insulin Glargine,Hum.rec.anlog [Basaglar Kwikpen U-100] 35 unit SQ HS #3 insuln.pen 02/16/20 Levothyroxine [Synthroid -] 75 mcg PO DAILY@0700 #30 tablet 02/16/20 Levothyroxine [Synthroid -] 100 mcg PO DAILY@0700 #30 tablet 02/16/20 Lisinopril 20 mg PO DAILY #30 tablet 02/16/20 Metformin HCl [Glucophage] 1,000 mg PO BID #60 tablet 02/16/20 Methadone [Dolophine -] 130 mg PO DAILY@0600 tablet 02/16/20 Methadone [Dolophine -] 130 mg PO DAILY@0600 tablet 02/16/20 Family Medical History Family History: Unremarkable Review of Systems - Review of Systems Constitutional: reports: No Symptoms Eyes: reports: No Symptoms HENT: reports: No Symptoms Neck: reports: No Symptoms Cardiovascular: reports: No Symptoms Respiratory: reports: No Symptoms Gastrointestinal: reports: No Symptoms Genitourinary: reports: No Symptoms Physical Examination Vital Signs: Vital Signs Temperature 98.6 F 02/25/20 16:57 Pulse Rate 78 02/25/20 16:57 Respiratory Rate 19 02/25/20 16:57 Blood Pressure 148/76 02/25/20 16:57 O2 Sat by Pulse Oximetry (%) 98 02/25/20 16:57 Constitutional: Yes: No Distress Eyes: Yes: WNL HENT: Yes: WNL Neck: Yes: WNL, Supple Cardiovascular: Yes: WNL, Regular Rate and Rhythm Respiratory: Yes: WNL, Regular, CTA Bilaterally Gastrointestinal: Yes: WNL, Normal Bowel Sounds, Soft Extremities: Yes: Other (Lt 5th toe amputation Lt 2nd toe gangrene) Edema: No 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: WNL, Alert, Oriented ...Motor Strength: WNL Labs: CBC, BMP 02/25/20 14:15 02/25/20 14:15 Problem List - Problems (1) Gangrene of toe of left foot Assessment/Plan: Cont IV zosyn/vanco Podiatry/ID consults Probable amputation Code(s): I96 - GANGRENE, NOT ELSEWHERE CLASSIFIED (2) Diabetes Assessment/Plan: Cont sliding scale w/ coverage Code(s): E11.9 - TYPE 2 DIABETES MELLITUS WITHOUT COMPLICATIONS (3) Hypothyroid Code(s): E03.9 - HYPOTHYROIDISM, UNSPECIFIED (4) HTN (hypertension) Code(s): I10 - ESSENTIAL (PRIMARY) HYPERTENSION Qualifiers: Hypertension type: essential hypertension Qualified Code(s): I10 - Essential (primary) hypertension (5) Methadone maintenance therapy patient Code(s): F11.20 - OPIOID DEPENDENCE, UNCOMPLICATED
[2020-02-25] MEDS ORDERED: DOCUSATE SODIUM 100 MG CAPSULE (FP) PO PRN (23:00)
[2020-02-25] MEDS: GABAPENTIN 300 MG CAPSULE PO SCH (23:46)
[2020-02-26] MEDS ORDERED: METHADONE HCL 10 MG TABLET PO SCH (06:00)
[2020-02-26] MEDS: INSULIN SLIDING SCALE (NOVOLOG) 1 VIAL SQ SCH ×4 (06:03→21:37)
[2020-02-26] MEDS ORDERED: LEVOTHYROXINE NA 75 MCG TABLET (FP) ONE (06:07)
[2020-02-26] MEDS ORDERED: LEVOTHYROXINE NA 100 MCG TABLET (FP) ONE (06:07)
[2020-02-26] MEDS: LEVOTHYROXINE 75 MCG, LEVOTHYROXINE 100 MCG PO SCH (06:08)
[2020-02-26] MEDS: GABAPENTIN 300 MG CAPSULE PO SCH ×3 (06:08→21:37)
[2020-02-26] MEDS ORDERED: LEVOTHYROXINE NA 100 MCG TABLET (FP) PO SCH (07:00)
[2020-02-26] MEDS ORDERED: LEVOTHYROXINE NA 75 MCG TABLET (FP) PO SCH (07:00)
[2020-02-26 07:59] LABS: BASO % 1.2 % (0-2.0); EOS % 12.5 % (0-4.5); HEMATOCRIT 27.8 % (35.4-49); HEMOGLOBIN 9.3 GM/dL (11.7-16.9); LYMPH % 27.4 % (8-40); MCH 28.3 pg (25.7-33.7); MCHC 33.5 g/dl (32.0-35.9); MEAN CELL VOLUME 84.5 fl (80-96); MEAN PLT VOLUME 7.5 fl (7.5-11.1); MONO % 7.2 % (3.8-10.2); NEUT % 51.7 % (42.8-82.8); PLATELET COUNT 351 K/MM3 (134-434); RDW 14.8 % (11.9-15.9); WHITE BLOOD COUNT 4.6 K/mm3 (4.0-10.0)
[2020-02-26 08:33] LABS: ALBUMIN 2.9 g/dl (3.4-5.0); BILIRUBIN,TOTAL 0.4 mg/dL (0.2-1); BLOOD UREA NITROGEN 16.8 mg/dL (7-18); CALCIUM 9.4 mg/dL (8.5-10.1); CREATININE 1.1 mg/dL (0.55-1.3); POTASSIUM 5.3 mmol/L (3.5-5.1); TOT PROT 7.4 g/dl (6.4-8.2)
[2020-02-26] MEDS: LISINOPRIL 20 MG TABLET (FP) PO SCH (10:25)
[2020-02-26] MEDS: HEPARIN NA (PORCINE) 5,000 UNITS/ML 1ML VIAL SQ SCH ×2 (10:25→21:37)
[2020-02-26] MEDS: COLLAGENASE CLOSTRIDIUM HIST. 30 GRAMS TUBE TP SCH (11:14)
[2020-02-26] MEDS ORDERED: METHADONE 120 MG, METHADONE 10 MG PO ONE (11:30)
--- NOTE | 2020-02-26 11:38 | CON.ID ---
Consult Consult Specialty:: infectious diseases Referred by:: Reason for Consultation:: gangrene of the toe - History of Present Illness Chief Complaint: gangrene of the toe History of Present Illness: 59 y/o male w/ PMH significant for diabetes, HTN and substance abuse(on methadone) who was recently dc'ed from [facility] for diabetic foot ulcer/gangrene(s/p amputation Lt 5th digit) presenting with a necro tic/gangreneous Lt 2nd toe. Pt complains of pain to lt 2nd toe but denies any fever/chills/oozing from toe. pakn is for amputation of the other toe also - History Source History Provided By: Patient Limitations to Obtaining History: No Limitations - Past Medical History Cardio/Vascular: Yes: HTN Psych: Yes: Addictions Endocrine: Yes: Diabetes Mellitus, Hypothyroidism - Alcohol/Substance Use Hx Alcohol Use: No - Smoking History Smoking history: Never smoked Have you smoked in the past 12 months: No Aproximately how many cigarettes per day: 10 - Social History Usual Living Arrangement: Other (with sister) History of Recent Travel: No Home Medications - Allergies Allergies/Adverse Reactions: Allergies Allergy/AdvReac Type Severity Reaction Status Date / Time fish derived Allergy Verified 01/09/20 11:30 - Home Medications Home Medications: Ambulatory Orders Levothyroxine Sodium [Levo-T] 175 mcg PO DAILY 01/09/20 Docusate Sodium [Colace -] 100 mg PO Q8H PRN #90 capsule 01/14/20 Methadone 130 mg 02/04/20 Amox-Tr/K Cl [Augmentin - 875Mg Tablet] 1 tab PO BID #28 tablet 02/16/20 Collagenase Clostridium Hist. [Santyl -] 1 applic TP DAILY #1 tube 02/16/20 Gabapentin 600 mg PO TID #90 tablet 02/16/20 Insulin Glargine,Hum.rec.anlog [Basaglar Kwikpen U-100] 35 unit SQ HS #3 insuln.pen 02/16/20 Levothyroxine [Synthroid -] 75 mcg PO DAILY@0700 #30 tablet 02/16/20 Levothyroxine [Synthroid -] 100 mcg PO DAILY@0700 #30 tablet 02/16/20 Lisinopril 20 mg PO DAILY #30 tablet 02/16/20 Metformin HCl [Glucophage] 1,000 mg PO BID #60 tablet 02/16/20 Methadone [Dolophine -] 130 mg PO DAILY@0600 tablet 02/16/20 Methadone [Dolophine -] 130 mg PO DAILY@0600 tablet 02/16/20 Review of Systems - Review of Systems Constitutional: reports: No Symptoms Eyes: reports: No Symptoms HENT: reports: No Symptoms Neck: reports: No Symptoms Cardiovascular: reports: No Symptoms Respiratory: reports: No Symptoms Gastrointestinal: reports: No Symptoms Genitourinary: reports: No Symptoms Musculoskeletal: reports: No Symptoms Integumentary: reports: No Symptoms Neurological: reports: No Symptoms Endocrine: reports: No Symptoms Hematology/Lymphatic: reports: No Symptoms Psychiatric: reports: No Symptoms Physical Exam Vital Signs: Vital Signs Temperature 97.8 F 02/26/20 06:00 Pulse Rate 59 L 02/26/20 06:00 Respiratory Rate 20 02/26/20 06:00 Blood Pressure 112/59 L 02/26/20 06:00 O2 Sat by Pulse Oximetry (%) 100 02/25/20 22:01 Constitutional: Yes: Well Nourished, No Distress, Calm Eyes: Yes: Conjunctiva Clear, EOM Intact HENT: Yes: Atraumatic, Normocephalic Neck: Yes: Supple, Trachea Midline Cardiovascular: Yes: Regular Rate and Rhythm Respiratory: Yes: Regular, CTA Bilaterally Gastrointestinal: Yes: Normal Bowel Sounds, Soft Musculoskeletal: Yes: WNL Extremities: Yes: Other Wound/Incision: Yes: Dressing Dry and Intact 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: Alert, Oriented Psychiatric: Yes: Alert, Oriented Labs: CBC, BMP 02/26/20 07:00 02/26/20 07:00 Assessment/Plan Assessment/Plan Problem List - Problems (1) Gangrenous toe Code(s): I96 - GANGRENE, NOT ELSEWHERE CLASSIFIED (2) Diabetes 1.5, managed as type 1 Code(s): E13.9 - OTHER SPECIFIED DIABETES MELLITUS WITHOUT COMPLICATIONS (3) HTN (hypertension) Code(s): I10 - ESSENTIAL (PRIMARY) HYPERTENSION Qualifiers: Hypertension type: essential hypertension Qualified Code(s): I10 - Essential (primary) hypertension (4) Methadone maintenance therapy patient Code(s): F11.20 - OPIOID DEPENDENCE, UNCOMPLICATED (5) Neuropathy Code(s): G62.9 - POLYNEUROPATHY, UNSPECIFIED Assessment/Plan Lt toe/MT OM/ cellulitis, Gangrene Lt foot /soft tissue air Nonhealing diabetic foot wound Uncontrolled IDDM HTN diabetic neuropathy plan will start patient on ceftriaxone plan for amputation rest as per the team
[2020-02-26] MEDS ORDERED: METHADONE HCL 10 MG TABLET ONE (12:12)
[2020-02-26] MEDS ORDERED: METHADONE HCL 40 MG DISPERSABLE TABLET ONE (12:12)
[2020-02-26] MEDS ORDERED: DEXTROSE 5%-WATER - 50 ML IVPB ONE (12:12)
[2020-02-26] MEDS ORDERED: cefTRIAXone SODIUM 1 GM VIAL ONE (12:12)
--- NOTE | 2020-02-26 12:15 | CONSULT ---
- Consultation REQUESTING PROVIDER: Adolfo Hernandez - Vascular Surgery CONSULT REQUEST: We have been asked to surgically evaluate this patient for (specify). PCP: Jimena Valentine HPI: Called to eval 59 yo male with PMHX as noted below. Well know to the Vascular Surgery Service. Last seen/consult by Dr. Hernandez 02/05/20 for same problem. He had Arterial Doppler/PVR which showed arterial calcification with good flow to the foot. Patient is followed by Dr. Ott (Podiatry). Smoking history: Former smoker Have you smoked in the past 12 months: No PMHx: HTN, DM, Hypothyroidism PSHx: 02/11/20: Amputation 5th toe left and 5th met head distal 1/4 to 1/3 left. debridement dorsal necrotic wound and I&D abscess over shaft of 2nd metatarsal. skin flap 5th metatarsophalangeal joint area (Stepp[place]) Allergies: Fish derived. ROS: Constitutional: Yes: No Distress Edema: No Peripheral Pulses WNL: No (Right DP 1+, left pedal not palpable.) Wound/Incision: Yes: Other (Necrotic wound dorsal left foot ~3 cm, discolored 5th toe.) PE: GEN: a&o. nad LLE: left foot 2nd toe mumified (tip to base), well demarcated. No streaking cellulitis. Dopplerable AT, PT, DP NEURO: Normal speech, gait not observed. PSYCH: Cooperative. Good eye contact. Appropriate mood and affect. Last Vital Signs Temp Pulse Resp BP Pulse Ox 97.8 F 59 L 20 112/59 L 100 02/26/20 06:00 02/26/20 06:00 02/26/20 06:00 02/26/20 06:00 02/25/20 22:01 CBC, BMP 02/26/20 07:00 02/26/20 07:00 INR, PTT INR 1.10 (0.83-1.09) H 02/25/20 14:15 Problem List - Problems (1) Gangrene of toe of left foot Assessment/Plan: Worsening infection of left foot without evidence for severe arterial occlusive disease. Normal PVR suggests adequate flow to foot and most likely distal disease in the pedal branches. There is no indication for vascular intervention. Cont medical management Podiatry/[place] for wound management On behalf of Dr. Hernandez, thank you for the opportunity to participate in your patient's care Code(s): I96 - GANGRENE, NOT ELSEWHERE CLASSIFIED (2) Diabetes Code(s): E11.9 - TYPE 2 DIABETES MELLITUS WITHOUT COMPLICATIONS (3) Hypothyroid Code(s): E03.9 - HYPOTHYROIDISM, UNSPECIFIED (4) HTN (hypertension) Code(s): I10 - ESSENTIAL (PRIMARY) HYPERTENSION Qualifiers: Hypertension type: essential hypertension Qualified Code(s): I10 - Essential (primary) hypertension Visit type - Case Type Case Type: ED Admission - Emergency Emergency Visit: Yes ED Registration Date: 02/25/20 Care time: The patient presented to the Emergency Department on the above date and was hospitalized for further evaluation of their emergent condition. - New patient This patient is new to me today: Yes Date on this admission: 02/26/20
[2020-02-26] MEDS: CEFTRIAXONE 1 GM in DEXTROSE 5%-WATER - 50 ML IVPB SCH (12:33)
--- NOTE | 2020-02-26 15:52 | CONSULT ---
Consult Consult Specialty:: Podiatry - History of Present Illness Chief Complaint: Gangarene with chronic wounds left foot History of Present Illness: Pt is known to me from previous admission. Amputation on last admission 5th toe and 5th met head left. Was offered debridement and amputation of second toe but refused at that time. Presented to office with gangarene 2nd toe left and previous sx left and wound with exposed tendon over 2nd metatarsal. - Past Medical History Cardio/Vascular: Yes: HTN Psych: Yes: Addictions Endocrine: Yes: Diabetes Mellitus, Hypothyroidism - Alcohol/Substance Use Hx Alcohol Use: No - Smoking History Smoking history: Never smoked Have you smoked in the past 12 months: No Aproximately how many cigarettes per day: 10 - Social History Usual Living Arrangement: Other (with sister) History of Recent Travel: No Home Medications - Allergies Allergies/Adverse Reactions: Allergies Allergy/AdvReac Type Severity Reaction Status Date / Time fish derived Allergy Verified 01/09/20 11:30 - Home Medications Home Medications: Ambulatory Orders Levothyroxine Sodium [Levo-T] 175 mcg PO DAILY 01/09/20 Docusate Sodium [Colace -] 100 mg PO Q8H PRN #90 capsule 01/14/20 Methadone 130 mg 02/04/20 Amox-Tr/K Cl [Augmentin - 875Mg Tablet] 1 tab PO BID #28 tablet 02/16/20 Collagenase Clostridium Hist. [Santyl -] 1 applic TP DAILY #1 tube 02/16/20 Gabapentin 600 mg PO TID #90 tablet 02/16/20 Insulin Glargine,Hum.rec.anlog [Basaglar Kwikpen U-100] 35 unit SQ HS #3 insuln.pen 02/16/20 Levothyroxine [Synthroid -] 75 mcg PO DAILY@0700 #30 tablet 02/16/20 Levothyroxine [Synthroid -] 100 mcg PO DAILY@0700 #30 tablet 02/16/20 Lisinopril 20 mg PO DAILY #30 tablet 02/16/20 Metformin HCl [Glucophage] 1,000 mg PO BID #60 tablet 02/16/20 Methadone [Dolophine -] 130 mg PO DAILY@0600 tablet 02/16/20 Methadone [Dolophine -] 130 mg PO DAILY@0600 tablet 02/16/20 Physical Exam Vital Signs: Vital Signs Temperature 97.8 F 02/26/20 06:00 Pulse Rate 59 L 02/26/20 06:00 Respiratory Rate 20 02/26/20 06:00 Blood Pressure 112/59 L 02/26/20 06:00 O2 Sat by Pulse Oximetry (%) 100 02/25/20 22:01 Wound/Incision: Yes: Other (+retention sutures in place lateral left foot, +necrosis noted over wound, +dry gangarene 2nd toe to MPJ left, +grade 2-3 wound left dorsum 2nd metatarsal with exposed tendon,) Labs: CBC, BMP 02/26/20 07:00 02/26/20 07:00 Assessment/Plan gangarene left wounds x 2 left pvd Read and appreciated vascular recommendations stating no vascular intervention at this time again. Discussed with patient and agreed to amputation of 2nd toe and debridement of 2nd metatarsal with resection and debridement of wound. Also agreed to removal of sutures and further debridement lateral left foot. Sanyl to wound on dorsum of foot. Will schedule for OR Saturday or Saturday. Please maximize for OR. Will follow. MRI left foot. Hgba1c 14 on 01/11. Will consult endocrinology as well. ID on case.
[2020-02-26] MEDS: ACETAMINOPHEN 325 MG TABLET (FP) PO PRN (16:38)
--- NOTE | 2020-02-26 17:09 | PN ---
Progress Note, Physician History of Present Illness: no complaints - Current Medication List Current Medications: Active Medications Acetaminophen (Tylenol -) 650 mg PO Q6H PRN PRN Reason: MODERATE PAIN Last Admin: 02/26/20 16:38 Dose: 650 mg Documented by: Collagenase (Santyl -) 1 applic TP DAILY [facility]; Protocol Last Admin: 02/26/20 11:14 Dose: 1 applic Documented by: Docusate Sodium (Colace -) 100 mg PO Q8H PRN PRN Reason: CONSTIPATION Gabapentin (Neurontin -) 600 mg PO TID [facility] Last Admin: 02/26/20 15:07 Dose: 600 mg Documented by: Heparin Sodium (Porcine) (Heparin -) 5,000 unit SQ BID [facility] Last Admin: 02/26/20 10:25 Dose: 5,000 unit Documented by: Ceftriaxone Sodium 1 gm/ (Dextrose) 50 mls @ 100 mls/hr IVPB DAILY [facility]; Protocol Last Admin: 02/26/20 12:33 Dose: 100 mls/hr Documented by: Insulin Aspart (Novolog Vial Sliding Scale -) 1 vial SQ ACHS [facility]; Protocol Last Admin: 02/26/20 16:40 Dose: 2 units Documented by: Levothyroxine Sodium 75 mcg/ (Levothyroxine Sodium 100 mcg) 175 mcg PO DAILY@0700 [facility] Last Admin: 02/26/20 06:08 Dose: 175 mcg Documented by: Lisinopril (Prinivil) 20 mg PO DAILY [facility] Last Admin: 02/26/20 10:25 Dose: 20 mg Documented by: Methadone HCl 120 mg/ (Methadone HCl 10 mg) 130 mg PO DAILY@0600 [facility] - Objective Vital Signs: Vital Signs Temperature 97.9 F 02/26/20 16:11 Pulse Rate 60 02/26/20 16:11 Respiratory Rate 20 02/26/20 16:11 Blood Pressure 139/77 02/26/20 16:11 O2 Sat by Pulse Oximetry (%) 100 02/25/20 22:01 Constitutional: Yes: No Distress HENT: Yes: Atraumatic Neck: Yes: Supple Cardiovascular: Yes: Regular Rate and Rhythm Respiratory: Yes: CTA Bilaterally Gastrointestinal: Yes: Normal Bowel Sounds Extremities: Yes: Other (left foot/ 2 toe gangreane) 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: Alert, Oriented Labs: CBC, BMP 02/26/20 07:00 02/26/20 07:00 INR, PTT INR 1.10 (0.83-1.09) H 02/25/20 14:15 Problem List - Problems (1) Gangrene of toe of left foot Assessment/Plan: iv abx for debridement all consults reviewed Code(s): I96 - GANGRENE, NOT ELSEWHERE CLASSIFIED (2) Diabetes Code(s): E11.9 - TYPE 2 DIABETES MELLITUS WITHOUT COMPLICATIONS (3) Hyperglycemia Code(s): R73.9 - HYPERGLYCEMIA, UNSPECIFIED (4) Hypothyroid Code(s): E03.9 - HYPOTHYROIDISM, UNSPECIFIED (5) HTN (hypertension) Code(s): I10 - ESSENTIAL (PRIMARY) HYPERTENSION Qualifiers: Hypertension type: essential hypertension Qualified Code(s): I10 - Essential (primary) hypertension (6) Hypercholesteremia Code(s): E78.00 - PURE HYPERCHOLESTEROLEMIA, UNSPECIFIED Assessment/Plan COVERING FOR DR ODOM TODAY
[2020-02-27] MEDS: ACETAMINOPHEN 325 MG TABLET (FP) PO PRN ×4 (01:33→21:42)
[2020-02-27] MEDS ORDERED: METHADONE HCL 40 MG DISPERSABLE TABLET ONE (06:05)
[2020-02-27] MEDS ORDERED: METHADONE HCL 10 MG TABLET ONE (06:05)
[2020-02-27] MEDS ORDERED: LEVOTHYROXINE NA 75 MCG TABLET (FP) ONE (06:06)
[2020-02-27] MEDS ORDERED: LEVOTHYROXINE NA 100 MCG TABLET (FP) ONE (06:06)
[2020-02-27] MEDS: LEVOTHYROXINE 75 MCG, LEVOTHYROXINE 100 MCG PO SCH (06:07)
[2020-02-27] MEDS: METHADONE 120 MG, METHADONE 10 MG PO SCH (06:08)
[2020-02-27] MEDS: GABAPENTIN 300 MG CAPSULE PO SCH ×3 (06:08→21:37)
[2020-02-27] MEDS: INSULIN SLIDING SCALE (NOVOLOG) 1 VIAL SQ SCH ×4 (06:14→21:37)
[2020-02-27 07:35] LABS: BASO % 1.2 % (0-2.0); EOS % 11.7 % (0-4.5); HEMATOCRIT 28.5 % (35.4-49); HEMOGLOBIN 9.6 GM/dL (11.7-16.9); LYMPH % 15.2 % (8-40); MCH 28.2 pg (25.7-33.7); MCHC 33.5 g/dl (32.0-35.9); MEAN CELL VOLUME 84.2 fl (80-96); MEAN PLT VOLUME 7.7 fl (7.5-11.1); MONO % 6.8 % (3.8-10.2); NEUT % 65.1 % (42.8-82.8); PLATELET COUNT 345 K/MM3 (134-434); RBC 3.39 M/mm3 (4.00-5.60); RDW 14.6 % (11.9-15.9); WHITE BLOOD COUNT 3.6 K/mm3 (4.0-10.0)
[2020-02-27 07:50] LABS: ALBUMIN 2.7 g/dl (3.4-5.0); BILIRUBIN,TOTAL 0.4 mg/dL (0.2-1); BLOOD UREA NITROGEN 21.5 mg/dL (7-18); CALCIUM 9.2 mg/dL (8.5-10.1); CREATININE 1.1 mg/dL (0.55-1.3); POTASSIUM 5.3 mmol/L (3.5-5.1)
[2020-02-27] MEDS ORDERED: PT OWN MED DRAWER 7, Y5N ONE (09:32)
[2020-02-27] MEDS ORDERED: DEXTROSE 5%-WATER - 50 ML IVPB ONE (09:32)
[2020-02-27] MEDS ORDERED: cefTRIAXone SODIUM 1 GM VIAL ONE (09:32)
[2020-02-27] MEDS: LISINOPRIL 20 MG TABLET (FP) PO SCH (10:06)
[2020-02-27] MEDS: HEPARIN NA (PORCINE) 5,000 UNITS/ML 1ML VIAL SQ SCH ×2 (10:07→21:37)
[2020-02-27] MEDS: CEFTRIAXONE 1 GM in DEXTROSE 5%-WATER - 50 ML IVPB SCH (10:07)
[2020-02-27] MEDS: COLLAGENASE CLOSTRIDIUM HIST. 30 GRAMS TUBE TP SCH (10:16)
[2020-02-27] MEDS ORDERED: INSULIN (NOVOLOG) ASPART 100 UNITS/ML 10ML VIAL ONE (12:05)
--- NOTE | 2020-02-27 20:02 | PN ---
Progress Note, Physician History of Present Illness: Pt without specific complaints. Pain in foot controlled. Afebrile, tolerating antibiotics. - Current Medication List Current Medications: Active Medications Acetaminophen (Tylenol -) 650 mg PO Q6H PRN PRN Reason: MODERATE PAIN Last Admin: 02/27/20 15:01 Dose: 650 mg Documented by: Collagenase (Santyl -) 1 applic TP DAILY [facility]; Protocol Last Admin: 02/27/20 10:16 Dose: 1 applic Documented by: Docusate Sodium (Colace -) 100 mg PO Q8H PRN PRN Reason: CONSTIPATION Gabapentin (Neurontin -) 600 mg PO TID [facility] Last Admin: 02/27/20 14:55 Dose: 600 mg Documented by: Heparin Sodium (Porcine) (Heparin -) 5,000 unit SQ BID [facility] Last Admin: 02/27/20 10:07 Dose: 5,000 unit Documented by: Ceftriaxone Sodium 1 gm/ (Dextrose) 50 mls @ 100 mls/hr IVPB DAILY [facility]; Protocol Last Admin: 02/27/20 10:07 Dose: 100 mls/hr Documented by: Insulin Aspart (Novolog Vial Sliding Scale -) 1 vial SQ ACHS [facility]; Protocol Last Admin: 02/27/20 16:44 Dose: 4 units Documented by: Levothyroxine Sodium 75 mcg/ (Levothyroxine Sodium 100 mcg) 175 mcg PO DAILY@0700 [facility] Last Admin: 02/27/20 06:07 Dose: 175 mcg Documented by: Lisinopril (Prinivil) 20 mg PO DAILY [facility] Last Admin: 02/27/20 10:06 Dose: 20 mg Documented by: Methadone HCl 120 mg/ (Methadone HCl 10 mg) 130 mg PO DAILY@0600 [facility] Last Admin: 02/27/20 06:08 Dose: 130 mg Documented by: - Objective Vital Signs: Vital Signs Temperature 97.8 F 02/27/20 16:48 Pulse Rate 61 02/27/20 16:48 Respiratory Rate 17 02/27/20 16:48 Blood Pressure 103/58 L 02/27/20 16:48 O2 Sat by Pulse Oximetry (%) 100 02/25/20 22:01 Constitutional: Yes: No Distress, Calm Cardiovascular: Yes: Regular Rate and Rhythm Respiratory: Yes: Regular Gastrointestinal: Yes: Normal Bowel Sounds, Soft Genitourinary: Yes: WNL Extremities: Yes: Other (2nd toe gangrenous, +pain/edema 5th toe amputated) Wound/Incision: Yes: Dressing Dry and Intact 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: Alert, Oriented Labs: CBC, BMP 02/27/20 06:18 02/27/20 06:18 INR, PTT INR 1.10 (0.83-1.09) H 02/25/20 14:15 Microbiology 02/25/20 15:27 Blood - Peripheral Venous Blood Culture - Preliminary NO GROWTH OBTAINED AFTER 48 HOURS, INCUBATION TO CONTINUE FOR 3 DAYS. 02/25/20 15:15 Blood - Peripheral Venous Blood Culture - Preliminary NO GROWTH OBTAINED AFTER 48 HOURS, INCUBATION TO CONTINUE FOR 3 DAYS. - ....Imaging X-ray: Report Reviewed MRI: Pending Assessment/Plan Lt 2nd toe gangrene s/p Lt 5th toe ampution/OM, exposed tendon/wound Uncontrolled DM -- continue antibiotics -- awaiting amputation -- Podiatry following -- follow up MRI results -- Endocrine eval -- continue wound care
--- NOTE | 2020-02-27 22:22 | PN ---
Progress Note, Physician History of Present Illness: Pt complains of pain to lt foot - Current Medication List Current Medications: Active Medications Acetaminophen (Tylenol -) 650 mg PO Q6H PRN PRN Reason: MODERATE PAIN Last Admin: 02/27/20 21:42 Dose: 650 mg Documented by: Collagenase (Santyl -) 1 applic TP DAILY [facility]; Protocol Last Admin: 02/27/20 10:16 Dose: 1 applic Documented by: Docusate Sodium (Colace -) 100 mg PO Q8H PRN PRN Reason: CONSTIPATION Gabapentin (Neurontin -) 600 mg PO TID [facility] Last Admin: 02/27/20 21:37 Dose: 600 mg Documented by: Heparin Sodium (Porcine) (Heparin -) 5,000 unit SQ BID [facility] Last Admin: 02/27/20 21:37 Dose: 5,000 unit Documented by: Ceftriaxone Sodium 1 gm/ (Dextrose) 50 mls @ 100 mls/hr IVPB DAILY [facility]; Protocol Last Admin: 02/27/20 10:07 Dose: 100 mls/hr Documented by: Insulin Aspart (Novolog Vial Sliding Scale -) 1 vial SQ ACHS [facility]; Protocol Last Admin: 02/27/20 21:37 Dose: 6 units Documented by: Levothyroxine Sodium 75 mcg/ (Levothyroxine Sodium 100 mcg) 175 mcg PO DAILY@0700 [facility] Last Admin: 02/27/20 06:07 Dose: 175 mcg Documented by: Lisinopril (Prinivil) 20 mg PO DAILY [facility] Last Admin: 02/27/20 10:06 Dose: 20 mg Documented by: Methadone HCl 120 mg/ (Methadone HCl 10 mg) 130 mg PO DAILY@0600 [facility] Last Admin: 02/27/20 06:08 Dose: 130 mg Documented by: - Objective Vital Signs: Vital Signs Temperature 97.8 F 02/27/20 16:48 Pulse Rate 61 02/27/20 16:48 Respiratory Rate 17 02/27/20 16:48 Blood Pressure 103/58 L 02/27/20 16:48 O2 Sat by Pulse Oximetry (%) 100 02/25/20 22:01 Cardiovascular: Yes: WNL, Regular Rate and Rhythm Respiratory: Yes: WNL, Regular, CTA Bilaterally Gastrointestinal: Yes: WNL, Normal Bowel Sounds, Soft Extremities: Yes: Other (Lt 2nd toe gangrenous) Labs: CBC, BMP 02/27/20 06:18 05/23/20 06:18 INR, PTT INR 1.10 (0.83-1.09) H 02/25/20 14:15 Problem List - Problems (1) Gangrene of toe of left foot Assessment/Plan: Cont IV antibiotics No vascular intervention Podiatry consult/ID consults Code(s): I96 - GANGRENE, NOT ELSEWHERE CLASSIFIED (2) Diabetes Assessment/Plan: Cont sliding scale w/ coverage Code(s): E11.9 - TYPE 2 DIABETES MELLITUS WITHOUT COMPLICATIONS (3) Hypothyroid Assessment/Plan: Cont levothyroxine Code(s): E03.9 - HYPOTHYROIDISM, UNSPECIFIED (4) HTN (hypertension) Assessment/Plan: BP stable Code(s): I10 - ESSENTIAL (PRIMARY) HYPERTENSION Qualifiers: Hypertension type: essential hypertension Qualified Code(s): I10 - Essential (primary) hypertension (5) Methadone maintenance therapy patient Assessment/Plan: Cont methadone Code(s): F11.20 - OPIOID DEPENDENCE, UNCOMPLICATED
--- NOTE | 2020-02-27 23:57 | CONSULT ---
Consult Consult Specialty:: Endocrine Referred by:: DMT2 Reason for Consultation:: DMT2/Hypothyroidism - History of Present Illness Chief Complaint: feet pain/ tired History of Present Illness: 59 y/o male w/ PMH DMT2,HYpothyroidism,HTN and substance abuse(on methadone) who was recently dc'ed from [facility] for diabetic foot ulcer/gangrene(s/p amputation Lt 5th digit) presenting with a necrotic/gangreneous Lt 2nd toe. Pt complains of pain to lt 2nd toe surgical amputation of left 2nd toe planned for gangrenous infection, has had recurrent high sugars,and feels diet as well as insulin not enough for control denies low sugars. - Past Medical History Cardio/Vascular: Yes: HTN Psych: Yes: Addictions Endocrine: Yes: Diabetes Mellitus, Hypothyroidism - Alcohol/Substance Use Hx Alcohol Use: No - Smoking History Smoking history: Never smoked Have you smoked in the past 12 months: No Aproximately how many cigarettes per day: 10 - Social History Usual Living Arrangement: Other (with sister) History of Recent Travel: No Home Medications - Allergies Allergies/Adverse Reactions: Allergies Allergy/AdvReac Type Severity Reaction Status Date / Time fish derived Allergy Verified 01/09/20 11:30 - Home Medications Home Medications: Ambulatory Orders Levothyroxine Sodium [Levo-T] 175 mcg PO DAILY 01/09/20 Docusate Sodium [Colace -] 100 mg PO Q8H PRN #90 capsule 01/14/20 Methadone 130 mg 02/04/20 Amox-Tr/K Cl [Augmentin - 875Mg Tablet] 1 tab PO BID #28 tablet 02/16/20 Collagenase Clostridium Hist. [Santyl -] 1 applic TP DAILY #1 tube 02/16/20 Gabapentin 600 mg PO TID #90 tablet 02/16/20 Insulin Glargine,Hum.rec.anlog [Basaglar Kwikpen U-100] 35 unit SQ HS #3 insuln.pen 02/16/20 Levothyroxine [Synthroid -] 75 mcg PO DAILY@0700 #30 tablet 02/16/20 Levothyroxine [Synthroid -] 100 mcg PO DAILY@0700 #30 tablet 02/16/20 Lisinopril 20 mg PO DAILY #30 tablet 02/16/20 Metformin HCl [Glucophage] 1,000 mg PO BID #60 tablet 02/16/20 Methadone [Dolophine -] 130 mg PO DAILY@0600 tablet 02/16/20 Methadone [Dolophine -] 130 mg PO DAILY@0600 tablet 02/16/20 Review of Systems - Review of Systems Constitutional: reports: Lethargy, Unintentional Wgt. Loss Eyes: reports: No Symptoms HENT: reports: No Symptoms Neck: reports: No Symptoms Cardiovascular: reports: No Symptoms Respiratory: reports: No Symptoms Gastrointestinal: reports: Constipation, Indigestion, Nausea Genitourinary: reports: No Symptoms Breasts: reports: No Symptoms Reported Musculoskeletal: reports: Decreased ROM, Extremity Pain, Joint Pain, Muscle Pain, Muscle Cramps, Muscle Weakness Integumentary: reports: Wound Neurological: reports: Numbness, Weakness Endocrine: reports: Unexplained Weight Loss Physical Exam Vital Signs: Vital Signs Temperature 98.3 F 02/27/20 22:00 Pulse Rate 68 02/27/20 22:00 Respiratory Rate 20 02/27/20 22:00 Blood Pressure 132/74 02/27/20 22:00 O2 Sat by Pulse Oximetry (%) 100 02/25/20 22:01 Labs: CBC, BMP 02/27/20 06:18 02/27/20 06:18 Problem List - Problems (1) Gangrene of toe of left foot Code(s): I96 - GANGRENE, NOT ELSEWHERE CLASSIFIED (2) Diabetes Code(s): E11.9 - TYPE 2 DIABETES MELLITUS WITHOUT COMPLICATIONS (3) Diabetes Code(s): E11.9 - TYPE 2 DIABETES MELLITUS WITHOUT COMPLICATIONS (4) Diabetes 1.5, managed as type 1 Code(s): E13.9 - OTHER SPECIFIED DIABETES MELLITUS WITHOUT COMPLICATIONS (5) Hyperglycemia Code(s): R73.9 - HYPERGLYCEMIA, UNSPECIFIED Assessment/Plan Current Active Problems dmt2,diabetic neuropathy hyperglycmeia htn hypothyroidism Gangrene of toe of left foot (Acute) Abnormal Lab Results 02/27/20 02/27/20 06:18 06:18 WBC 3.6 L RBC 3.39 L Hgb 9.6 L Hct 28.5 L Eosinophils % 11.7 H Potassium 5.3 H Anion Gap 2 L BUN 21.5 H Random Glucose 131 H Alkaline Phosphatase 139 H C-Reactive Protein 2.5 H Albumin 2.7 L Laboratory Results - last 24 hr 02/27/20 02/27/2020 05:56 06:18 06:18 WBC 3.6 L RBC 3.39 L Hgb 9.6 L Hct 28.5 L MCV 84.2 MCH 28.2 MCHC 33.5 RDW 14.6 Plt Count 345 MPV 7.7 Absolute Neuts (auto) 2.3 Neutrophils % 65.1 D Lymphocytes % 15.2 D Monocytes % 6.8 Eosinophils % 11.7 H Basophils % 1.2 Nucleated RBC % 0 Sodium 136 Potassium 5.3 H Chloride 102 Carbon Dioxide 31 Anion Gap 2 L BUN 21.5 H Creatinine 1.1 Est GFR (CKD-EPI)AfAm 85.91 Est GFR (CKD-EPI)NonAf 74.12 POC Glucometer 136 Random Glucose 131 H Calcium 9.2 Total Bilirubin 0.4 AST 37 ALT 33 Alkaline Phosphatase 139 H C-Reactive Protein 2.5 H Total Protein 7.0 Albumin 2.7 L 02/27/20 02/27/20 02/27/20 12:15 16:43 21:35 WBC RBC Hgb Hct MCV MCH MCHC RDW Plt Count MPV Absolute Neuts (auto) Neutrophils % Lymphocytes % Monocytes % Eosinophils % Basophils % Nucleated RBC % Sodium Potassium Chloride Carbon Dioxide Anion Gap BUN Creatinine Est GFR (CKD-EPI)AfAm Est GFR (CKD-EPI)NonAf POC Glucometer 194 217 272 Random Glucose Calcium Total Bilirubin AST ALT Alkaline Phosphatase C-Reactive Protein Total Protein Albumin Laboratory Tests 01/12/20 01/14/20 07:34 06:00 Hemoglobin A1c % 14.0 H TSH 6.06 H plan: levemir 25units am novolog scale acmeal levothyroxine 200mcg am
[2020-02-28] MEDS ORDERED: METHADONE HCL 40 MG DISPERSABLE TABLET ONE (06:13)
[2020-02-28] MEDS ORDERED: METHADONE HCL 10 MG TABLET ONE (06:13)
[2020-02-28] MEDS: LEVOTHYROXINE NA 200 MCG TABLET PO SCH (06:18)
[2020-02-28] MEDS: GABAPENTIN 300 MG CAPSULE PO SCH ×3 (06:18→21:05)
[2020-02-28] MEDS: METHADONE 120 MG, METHADONE 10 MG PO SCH (06:18)
[2020-02-28] MEDS: INSULIN SLIDING SCALE (NOVOLOG) 1 VIAL SQ SCH ×4 (06:18→21:05)
[2020-02-28] MEDS: INSULIN (LEVEMIR) 100 UNITS/ML UNITS SQ SCH (06:19)
--- NOTE | 2020-02-28 06:45 | CON.CARD ---
Consult Consult Specialty:: Cardiology - History of Present Illness History of Present Illness: Pt is a 59 y/o male w/ PMH significant for diabetes, HTN and substance abuse(on methadone) who was recently dc'ed from [facility] for diabetic foot ulcer/gangrene(s/p amputation Lt 5th digit) presenting with a necrotic/gangreneous Lt 2nd toe. Pt complains of pain to lt 2nd toe but denies any fever/chills/oozing from toe. Pt was sent by his sprinkler repair technician for probable amputation of that toe. - History Source History Provided By: Patient, Medical Record - Past Medical History Cardio/Vascular: Yes: HTN Psych: Yes: Addictions Endocrine: Yes: Diabetes Mellitus, Hypothyroidism - Alcohol/Substance Use Hx Alcohol Use: No - Smoking History Smoking history: Never smoked Have you smoked in the past 12 months: No Aproximately how many cigarettes per day: 10 - Social History Usual Living Arrangement: Other (with sister) History of Recent Travel: No Home Medications - Allergies Allergies/Adverse Reactions: Allergies Allergy/AdvReac Type Severity Reaction Status Date / Time fish derived Allergy Verified 01/09/20 11:30 - Home Medications Home Medications: Ambulatory Orders Levothyroxine Sodium [Levo-T] 175 mcg PO DAILY 01/09/20 Docusate Sodium [Colace -] 100 mg PO Q8H PRN #90 capsule 01/14/20 Methadone 130 mg 02/04/20 Amox-Tr/K Cl [Augmentin - 875Mg Tablet] 1 tab PO BID #28 tablet 02/16/20 Collagenase Clostridium Hist. [Santyl -] 1 applic TP DAILY #1 tube 02/16/20 Gabapentin 600 mg PO TID #90 tablet 02/16/20 Insulin Glargine,Hum.rec.anlog [Basaglar Kwikpen U-100] 35 unit SQ HS #3 insuln.pen 02/16/20 Levothyroxine [Synthroid -] 75 mcg PO DAILY@0700 #30 tablet 02/16/20 Levothyroxine [Synthroid -] 100 mcg PO DAILY@0700 #30 tablet 02/16/20 Lisinopril 20 mg PO DAILY #30 tablet 02/16/20 Metformin HCl [Glucophage] 1,000 mg PO BID #60 tablet 02/16/20 Methadone [Dolophine -] 130 mg PO DAILY@0600 tablet 02/16/20 Methadone [Dolophine -] 130 mg PO DAILY@0600 tablet 02/16/20 Review of Systems - Review of Systems Constitutional: reports: No Symptoms Eyes: reports: No Symptoms HENT: reports: No Symptoms Neck: reports: No Symptoms Cardiovascular: reports: No Symptoms Gastrointestinal: reports: No Symptoms Genitourinary: reports: No Symptoms Breasts: reports: No Symptoms Reported Musculoskeletal: reports: No Symptoms Integumentary: reports: No Symptoms Neurological: reports: No Symptoms Endocrine: reports: No Symptoms Hematology/Lymphatic: reports: No Symptoms Psychiatric: reports: No Symptoms Vital Signs: Vital Signs Temperature 98.5 F 02/28/20 05:52 Pulse Rate 67 02/28/20 05:52 Respiratory Rate 22 H 02/28/20 05:52 Blood Pressure 138/69 02/28/20 05:52 O2 Sat by Pulse Oximetry (%) 100 02/25/20 22:01 Constitutional: Yes: Well Nourished, No Distress, Calm Eyes: Yes: WNL, Conjunctiva Clear, EOM Intact HENT: Yes: WNL, Atraumatic, Normocephalic Neck: Yes: WNL, Supple, Trachea Midline Respiratory: Yes: WNL, Regular, CTA Bilaterally Gastrointestinal: Yes: WNL, Normal Bowel Sounds Renal/: Yes: WNL Cardiovascular: Yes: WNL, Regular Rate and Rhythm Musculoskeletal: Yes: WNL Extremities: Yes: Amputation, Other (gangrene) Integumentary: Yes: WNL 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: WNL, Alert, Oriented ...Motor Strength: WNL Psychiatric: Yes: WNL, Alert, Oriented - Other Data Labs, Other Data: CBC, BMP 02/27/20 06:18 02/27/20 06:18 INR, PTT INR 1.10 (0.83-1.09) H 02/25/20 14:15 Imaging - Results Chest X-ray: Image Reviewed (wnl) EKG: Image Reviewed (sr wnl) Problem List - Problems (1) Gangrene of toe of left foot Code(s): I96 - GANGRENE, NOT ELSEWHERE CLASSIFIED (2) Diabetes Code(s): E11.9 - TYPE 2 DIABETES MELLITUS WITHOUT COMPLICATIONS (3) Diabetes Code(s): E11.9 - TYPE 2 DIABETES MELLITUS WITHOUT COMPLICATIONS (4) Diabetes 1.5, managed as type 1 Code(s): E13.9 - OTHER SPECIFIED DIABETES MELLITUS WITHOUT COMPLICATIONS (5) Diabetic foot infection Code(s): E11.628 - TYPE 2 DIABETES MELLITUS WITH OTHER SKIN COMPLICATIONS; L08.9 - LOCAL INFECTION OF THE SKIN AND SUBCUTANEOUS TISSUE, UNSP (6) Gangrenous toe Code(s): I96 - GANGRENE, NOT ELSEWHERE CLASSIFIED (7) Hyperglycemia Code(s): R73.9 - HYPERGLYCEMIA, UNSPECIFIED (8) Hypothyroid Code(s): E03.9 - HYPOTHYROIDISM, UNSPECIFIED (9) Hypothyroidism Code(s): E03.9 - HYPOTHYROIDISM, UNSPECIFIED (10) Wound of foot Code(s): S91.309A - UNSPECIFIED OPEN WOUND, UNSPECIFIED FOOT, INITIAL ENCOUNTER (11) Anxiety and depression Code(s): F41.9 - ANXIETY DISORDER, UNSPECIFIED; F32.9 - MAJOR DEPRESSIVE DISORDER, SINGLE EPISODE, UNSPECIFIED (12) EtOH dependence Code(s): F10.20 - ALCOHOL DEPENDENCE, UNCOMPLICATED Qualifiers: Substance use status: uncomplicated Qualified Code(s): F10.20 - Alcohol dependence, uncomplicated (13) HTN (hypertension) Code(s): I10 - ESSENTIAL (PRIMARY) HYPERTENSION Qualifiers: Hypertension type: essential hypertension Qualified Code(s): I10 - Es sential (primary) hypertension (14) Heroin dependence Code(s): F11.20 - OPIOID DEPENDENCE, UNCOMPLICATED (15) Hypercholesteremia Code(s): E78.00 - PURE HYPERCHOLESTEROLEMIA, UNSPECIFIED (16) Methadone maintenance therapy patient Code(s): F11.20 - OPIOID DEPENDENCE, UNCOMPLICATED (17) Neuropathy Code(s): G62.9 - POLYNEUROPATHY, UNSPECIFIED Assessment/Plan diabetes mellitus, HTN and substance abuse(on methadone) who was recently dc'ed from [facility] for diabetic foot ulcer/gangrene(s/p amputation Lt 5th digit) presenting with a necrotic/gangreneous Lt 2nd toe. Pt complains of pain to lt 2nd toe but denies any fever/chills/oozing from toe. Pt was sent by his sprinkler repair technician for probable amputation of that toe. Patient denies any cardiac problems. NO angina h/o CAD/[place]/CHF EKG WNL Plan ECHO - if normal patient is cleared cardiac duncan for toe amputation. Will need MIBI stress test for risks stratification - this could be done as the outpatient. Keep LDL below 70 mg /dl DVT plx
[2020-02-28] MEDS ORDERED: cefTRIAXone SODIUM 1 GM VIAL ONE (08:23)
[2020-02-28] MEDS ORDERED: DEXTROSE 5%-WATER - 50 ML IVPB ONE (08:24)
[2020-02-28] MEDS: LISINOPRIL 20 MG TABLET (FP) PO SCH (09:19)
[2020-02-28] MEDS: HEPARIN NA (PORCINE) 5,000 UNITS/ML 1ML VIAL SQ SCH ×2 (09:19→21:05)
[2020-02-28] MEDS: CEFTRIAXONE 1 GM in DEXTROSE 5%-WATER - 50 ML IVPB SCH (09:19)
[2020-02-28] MEDS: COLLAGENASE CLOSTRIDIUM HIST. 30 GRAMS TUBE TP SCH (09:20)
--- NOTE | 2020-02-28 10:52 | PN ---
Progress Note, Physician History of Present Illness: Pt is a 59 y/o male w/ PMH significant for diabetes, HTN and substance abuse(on methadone) who was recently dc'ed from [facility] for diabetic foot ulcer/gangrene(s/p amputation Lt 5th digit) presenting with a necrotic/gangreneous Lt 2nd toe. Pt complains of pain to lt 2nd toe but denies any fever/chills/oozing from toe. Pt was sent by his sole rougher for probable amputation of that toe. - Current Medication List Current Medications: Active Medications Acetaminophen (Tylenol -) 650 mg PO Q4H PRN PRN Reason: MODERATE PAIN Collagenase (Santyl -) 1 applic TP DAILY [facility]; Protocol Last Admin: 02/28/20 09:20 Dose: 1 applic Documented by: Docusate Sodium (Colace -) 100 mg PO Q8H PRN PRN Reason: CONSTIPATION Gabapentin (Neurontin -) 600 mg PO TID [facility] Last Admin: 02/28/20 06:18 Dose: 600 mg Documented by: Heparin Sodium (Porcine) (Heparin -) 5,000 unit SQ BID [facility] Last Admin: 02/28/20 09:19 Dose: 5,000 unit Documented by: Ceftriaxone Sodium 1 gm/ (Dextrose) 50 mls @ 100 mls/hr IVPB DAILY [facility]; Protocol Last Admin: 02/28/20 09:19 Dose: 100 mls/hr Documented by: Insulin Aspart (Novolog Vial Sliding Scale -) 1 vial SQ ACHS [facility]; Protocol Last Admin: 02/28/20 06:18 Dose: 6 units Documented by: Insulin Detemir (Levemir Vial) 20 units SQ AM [facility] Last Admin: 02/28/20 06:19 Dose: 20 units Documented by: Levothyroxine Sodium (Synthroid -) 200 mcg PO DAILY@0700 [facility] Last Admin: 02/28/20 06:18 Dose: 200 mcg Documented by: Lisinopril (Prinivil) 20 mg PO DAILY [facility] Last Admin: 02/28/20 09:19 Dose: 20 mg Documented by: Methadone HCl 120 mg/ (Methadone HCl 10 mg) 130 mg PO DAILY@0600 [facility] Last Admin: 02/28/20 06:18 Dose: 130 mg Documented by: - Objective Vital Signs: Vital Signs Temperature 98.1 F 02/28/20 10:00 Pulse Rate 65 02/28/20 10:00 Respiratory Rate 20 02/28/20 10:00 Blood Pressure 107/66 02/28/20 10:00 O2 Sat by Pulse Oximetry (%) 100 02/25/20 22:01 Eyes: Yes: WNL, Conjunctiva Clear, EOM Intact HENT: Yes: WNL, Atraumatic, Normocephalic Neck: Yes: WNL, Supple, Trachea Midline Cardiovascular: Yes: WNL, Regular Rate and Rhythm Respiratory: Yes: WNL, Regular, CTA Bilaterally Gastrointestinal: Yes: WNL, Normal Bowel Sounds Genitourinary: Yes: WNL Musculoskeletal: Yes: WNL Extremities: Yes: Amputation, Other (toe gangrene) Edema: No Integumentary: Yes: WNL 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: WNL, Alert, Oriented ...Motor Strength: WNL Psychiatric: Yes: WNL Labs: CBC, BMP 02/27/20 06:18 02/27/20 06:18 INR, PTT INR 1.10 (0.83-1.09) H 02/25/20 14:15 Problem List - Problems (1) Gangrene of toe of left foot Code(s): I96 - GANGRENE, NOT ELSEWHERE CLASSIFIED (2) Diabetes Code(s): E11.9 - TYPE 2 DIABETES MELLITUS WITHOUT COMPLICATIONS (3) Diabetes Code(s): E11.9 - TYPE 2 DIABETES MELLITUS WITHOUT COMPLICATIONS (4) Diabetes 1.5, managed as type 1 Code(s): E13.9 - OTHER SPECIFIED DIABETES MELLITUS WITHOUT COMPLICATIONS (5) Diabetic foot infection Code(s): E11.628 - TYPE 2 DIABETES MELLITUS WITH OTHER SKIN COMPLICATIONS; L08.9 - LOCAL INFECTION OF THE SKIN AND SUBCUTANEOUS TISSUE, UNSP (6) Gangrenous toe Code(s): I96 - GANGRENE, NOT ELSEWHERE CLASSIFIED (7) Hyperglycemia Code(s): R73.9 - HYPERGLYCEMIA, UNSPECIFIED (8) Hypothyroid Code(s): E03.9 - HYPOTHYROIDISM, UNSPECIFIED (9) Hypothyroidism Code(s): E03.9 - HYPOTHYROIDISM, UNSPECIFIED (10) Wound of foot Code(s): S91.309A - UNSPECIFIED OPEN WOUND, UNSPECIFIED FOOT, INITIAL ENCOUNTER (11) Anxiety and depression Code(s): F41.9 - ANXIETY DISORDER, UNSPECIFIED; F32.9 - MAJOR DEPRESSIVE DISORDER, SINGLE EPISODE, UNSPECIFIED (12) EtOH dependence Code(s): F10.20 - ALCOHOL DEPENDENCE, UNCOMPLICATED Qualifiers: Substance use status: uncomplicated Qualified Code(s): F10.20 - Alcohol dependence, uncomplicated (13) HTN (hypertension) Code(s): I10 - ESSENTIAL (PRIMARY) HYPERTENSION Qualifiers: Hypertension type: essential hypertension Qualified Code(s): I10 - Essential (primary) hypertension (14) Heroin dependence Code(s): F11.20 - OPIOID DEPENDENCE, UNCOMPLICATED (15) Hypercholesteremia Code(s): E78.00 - PURE HYPERCHOLESTEROLEMIA, UNSPECIFIED (16) Methadone maintenance therapy patient Code(s): F11.20 - OPIOID DEPENDENCE, UNCOMPLICATED (17) Neuropathy Code(s): G62.9 - POLYNEUROPATHY, UNSPECIFIED Assessment/Plan diabetes mellitus, HTN and substance abuse(on methadone) who was recently dc'ed from [facility] for diabetic foot ulcer/gangrene(s/p amputation Lt 5th digit) presenting with a necrotic/gangreneous Lt 2nd toe. Pt complains of pain to lt 2nd toe but denies any fever/chills/oozing from toe. Pt was sent by his sole rougher for probable amputation of that toe. Patient denies any cardiac problems. NO angina h/o CAD/[place]/CHF EKG WNL Plan ECHO - if normal patient is cleared cardiac duncan for toe amputation. Will need MIBI stress test for risks stratification - this could be done as the outpatient. Keep LDL below 70 mg /dl DVT plx
[2020-02-28] MEDS ORDERED: INSULIN (NOVOLOG) ASPART 100 UNITS/ML 10ML VIAL ONE (12:08)
--- NOTE | 2020-02-28 12:26 | PN ---
Progress Note, Physician History of Present Illness: Pt is known to me from previous admission. Amputation on last admission 5th toe and 5th met head left. Was offered debridement and amputation of second toe but refused at that time. Presented to office with gangarene 2nd toe left and previous sx left and wound with exposed tendon over 2nd metatarsal. - Current Medication List Current Medications: Active Medications Acetaminophen (Tylenol -) 650 mg PO Q4H PRN PRN Reason: MODERATE PAIN Collagenase (Santyl -) 1 applic TP DAILY [facility]; Protocol Last Admin: 02/28/20 09:20 Dose: 1 applic Documented by: Docusate Sodium (Colace -) 100 mg PO Q8H PRN PRN Reason: CONSTIPATION Gabapentin (Neurontin -) 600 mg PO TID [facility] Last Admin: 02/28/20 06:18 Dose: 600 mg Documented by: Heparin Sodium (Porcine) (Heparin -) 5,000 unit SQ BID [facility] Last Admin: 02/28/20 09:19 Dose: 5,000 unit Documented by: Ceftriaxone Sodium 1 gm/ (Dextrose) 50 mls @ 100 mls/hr IVPB DAILY [facility]; Protocol Last Admin: 02/28/20 09:19 Dose: 100 mls/hr Documented by: Insulin Aspart (Novolog Vial Sliding Scale -) 1 vial SQ ACHS [facility]; Protocol Last Admin: 02/28/20 12:01 Dose: 3 units Documented by: Insulin Detemir (Levemir Vial) 20 units SQ AM [facility] Last Admin: 02/28/20 06:19 Dose: 20 units Documented by: Levothyroxine Sodium (Synthroid -) 200 mcg PO DAILY@0700 [facility] Last Admin: 02/28/20 06:18 Dose: 200 mcg Documented by: Lisinopril (Prinivil) 20 mg PO DAILY [facility] Last Admin: 02/28/20 09:19 Dose: 20 mg Documented by: Methadone HCl 120 mg/ (Methadone HCl 10 mg) 130 mg PO DAILY@0600 [facility] Last Admin: 02/28/20 06:18 Dose: 130 mg Documented by: - Objective Vital Signs: Vital Signs Temperature 98.1 F 02/28/20 10:00 Pulse Rate 65 02/28/20 10:00 Respiratory Rate 20 02/28/20 10:00 Blood Pressure 107/66 02/28/20 10:00 O2 Sat by Pulse Oximetry (%) 100 02/25/20 22:01 Wound/Incision: Yes: Other (lateral left foot wound granulating sutures intact, +grade 3 wound dorsum of 2nd metatarsal shaft left unchanged, +gangarene 2nd toe to mpj, dry in nature left foot, mri + for om to base of 2nd met and all of toe, discussed with radiology,) Labs: CBC, BMP 02/27/20 06:18 02/27/20 06:18 INR, PTT INR 1.10 (0.83-1.09) H 02/25/20 14:15 Assessment/Plan gangarene left om 2nd ray left wounds x 2 left pvd Dressing change done. Discussed sx at length. Pt will need suture removal left lateral foot. Pt needs amputation of 2nd gangrenous toe left, +aggressive debridement discussed of wound 2nd metatarsal dorsum with debridement of underlying bone as far proximal as necessary. Pt fully understands all risks benefits and alternatives. Refusing TMA. Advised that might need as vascular status in foot distally shows calcifications on xray. Abx as per ID. Covid 19 swab as per OR protocol. Pt is an add on for Saturday at this time. Please maximize for OR. Consult done by endocrine. MRI reviewed.
[2020-02-28] MEDS: ACETAMINOPHEN 325 MG TABLET (FP) PO PRN (20:27)
[2020-02-29] MEDS ORDERED: METHADONE HCL 10 MG TABLET ONE (06:00)
[2020-02-29] MEDS ORDERED: METHADONE HCL 40 MG DISPERSABLE TABLET ONE (06:00)
[2020-02-29] MEDS: INSULIN SLIDING SCALE (NOVOLOG) 1 VIAL SQ SCH ×5 (06:03→21:18)
[2020-02-29] MEDS: METHADONE 120 MG, METHADONE 10 MG PO SCH (06:03)
[2020-02-29] MEDS: GABAPENTIN 300 MG CAPSULE PO SCH ×3 (06:03→21:16)
[2020-02-29] MEDS: INSULIN (LEVEMIR) 100 UNITS/ML UNITS SQ SCH (06:04)
[2020-02-29] MEDS: ACETAMINOPHEN 325 MG TABLET (FP) PO PRN ×4 (06:31→21:17)
[2020-02-29] MEDS: LEVOTHYROXINE NA 200 MCG TABLET PO SCH (06:50)
[2020-02-29 08:05] LABS: CHOLESTEROL 143 mg/dL (50-200); HDL CHOLESTEROL 41 mg/dL (40-60); LDL CHOLESTEROL (ONLY SJRH) 78 mg/dL (5-100); TRIGLYCERIDES 188 mg/dL (0-150)
[2020-02-29] MEDS ORDERED: DEXTROSE 5%-WATER - 50 ML IVPB ONE (08:53)
[2020-02-29] MEDS ORDERED: cefTRIAXone SODIUM 1 GM VIAL ONE (08:53)
[2020-02-29] MEDS: LISINOPRIL 20 MG TABLET (FP) PO SCH (10:04)
[2020-02-29] MEDS: HEPARIN NA (PORCINE) 5,000 UNITS/ML 1ML VIAL SQ SCH ×2 (10:04→21:16)
[2020-02-29] MEDS: CEFTRIAXONE 1 GM in DEXTROSE 5%-WATER - 50 ML IVPB SCH (10:05)
[2020-02-29] MEDS: COLLAGENASE CLOSTRIDIUM HIST. 30 GRAMS TUBE TP SCH (10:05)
--- NOTE | 2020-02-29 10:33 | PN ---
Progress Note, Physician History of Present Illness: Pt is a 59 y/o male w/ PMH significant for diabetes, HTN and substance abuse(on methadone) who was recently dc'ed from [facility] for diabetic foot ulcer/gangrene(s/p amputation Lt 5th digit) presenting with a necrotic/gangreneous Lt 2nd toe. Pt complains of pain to lt 2nd toe but denies any fever/chills/oozing from toe. Pt was sent by his printer maintainer for probable amputation of that toe. - Current Medication List Current Medications: Active Medications Acetaminophen (Tylenol -) 650 mg PO Q4H PRN PRN Reason: MODERATE PAIN Last Admin: 02/29/20 06:31 Dose: 650 mg Documented by: Collagenase (Santyl -) 1 applic TP DAILY [facility]; Protocol Last Admin: 02/29/20 10:05 Dose: 1 applic Documented by: Docusate Sodium (Colace -) 100 mg PO Q8H PRN PRN Reason: CONSTIPATION Gabapentin (Neurontin -) 600 mg PO TID [facility] Last Admin: 02/29/20 06:03 Dose: 600 mg Documented by: Heparin Sodium (Porcine) (Heparin -) 5,000 unit SQ BID [facility] Last Admin: 02/29/20 10:04 Dose: 5,000 unit Documented by: Ceftriaxone Sodium 1 gm/ (Dextrose) 50 mls @ 100 mls/hr IVPB DAILY [facility]; Protocol Last Admin: 02/29/20 10:05 Dose: 100 mls/hr Documented by: Insulin Aspart (Novolog Vial Sliding Scale -) 1 vial SQ ACHS [facility]; Protocol Last Admin: 02/29/20 06:03 Dose: 3 units Documented by: Insulin Detemir (Levemir Vial) 20 units SQ AM [facility] Last Admin: 02/29/20 06:04 Dose: 20 units Documented by: Levothyroxine Sodium (Synthroid -) 200 mcg PO DAILY@0700 [facility] Last Admin: 02/29/20 06:50 Dose: 200 mcg Documented by: Lisinopril (Prinivil) 20 mg PO DAILY [facility] Last Admin: 02/29/20 10:04 Dose: 20 mg Documented by: Methadone HCl 120 mg/ (Methadone HCl 10 mg) 130 mg PO DAILY@0600 [facility] Last Admin: 02/29/20 06:03 Dose: 130 mg Documented by: - Objective Vital Signs: Vital Signs Temperature 98.1 F 02/29/20 05:54 Pulse Rate 60 02/29/20 05:54 Respiratory Rate 22 H 02/29/20 05:54 Blood Pressure 113/61 02/29/20 05:54 O2 Sat by Pulse Oximetry (%) 100 02/25/20 22:01 Eyes: Yes: WNL, Conjunctiva Clear, EOM Intact HENT: Yes: WNL, Atraumatic, Normocephalic Neck: Yes: WNL, Supple, Trachea Midline Cardiovascular: Yes: WNL, Regular Rate and Rhythm Respiratory: Yes: WNL, Regular, CTA Bilaterally Gastrointestinal: Yes: WNL, Normal Bowel Sounds Genitourinary: Yes: WNL Musculoskeletal: Yes: WNL Extremities: Yes: Other (gangrene) Edema: No Integumentary: Yes: WNL 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: WNL, Alert, Oriented ...Motor Strength: WNL Psychiatric: Yes: WNL Labs: CBC, BMP 02/27/20 06:18 02/27/20 06:18 INR, PTT INR 1.10 (0.83-1.09) H 02/25/20 14:15 Problem List - Problems (1) Gangrene of toe of left foot Code(s): I96 - GANGRENE, NOT ELSEWHERE CLASSIFIED (2) Diabetes Code(s): E11.9 - TYPE 2 DIABETES MELLITUS WITHOUT COMPLICATIONS (3) Diabetes Code(s): E11.9 - TYPE 2 DIABETES MELLITUS WITHOUT COMPLICATIONS (4) Diabetes 1.5, managed as type 1 Code(s): E13.9 - OTHER SPECIFIED DIABETES MELLITUS WITHOUT COMPLICATIONS (5) Diabetic foot infection Code(s): E11.628 - TYPE 2 DIABETES MELLITUS WITH OTHER SKIN COMPLICATIONS; L08.9 - LOCAL INFECTION OF THE SKIN AND SUBCUTANEOUS TISSUE, UNSP (6) Gangrenous toe Code(s): I96 - GANGRENE, NOT ELSEWHERE CLASSIFIED (7) Hyperglycemia Code(s): R73.9 - HYPERGLYCEMIA, UNSPECIFIED (8) Hypothyroid Code(s): E03.9 - HYPOTHYROIDISM, UNSPECIFIED (9) Hypothyroidism Code(s): E03.9 - HYPOTHYROIDISM, UNSPECIFIED (10) Wound of foot Code(s): S91.309A - UNSPECIFIED OPEN WOUND, UNSPECIFIED FOOT, INITIAL ENCOUNTER (11) Anxiety and depression Code(s): F41.9 - ANXIETY DISORDER, UNSPECIFIED; F32.9 - MAJOR DEPRESSIVE DISORDER, SINGLE EPISODE, UNSPECIFIED (12) EtOH dependence Code(s): F10.20 - ALCOHOL DEPENDENCE, UNCOMPLICATED Qualifiers: Substance use status: uncomplicated Qualified Code(s): F10.20 - Alcohol dependence, uncomplicated (13) HTN (hypertension) Code(s): I10 - ESSENTIAL (PRIMARY) HYPERTENSION Qualifiers: Hypertension type: essential hypertension Qualified Code(s): I10 - Essential (primary) hypertension (14) Heroin dependence Code(s): F11.20 - OPIOID DEPENDENCE, UNCOMPLICATED (15) Hypercholesteremia Code(s): E78.00 - PURE HYPERCHOLESTEROLEMIA, UNSPECIFIED (16) Methadone maintenance therapy patient Code(s): F11.20 - OPIOID DEPENDENCE, UNCOMPLICATED (17) Neuropathy Code(s): G62.9 - POLYNEUROPATHY, UNSPECIFIED Assessment/Plan diabetes mellitus, HTN and substance abuse(on methadone) who was recently dc'ed from [facility] for diabetic foot ulcer/gangrene(s/p amputation Lt 5th digit) presenting with a necrotic/gangreneous Lt 2nd toe. Pt complains of pain to lt 2nd toe but denies any fever/chills/oozing from toe. Pt was sent by his printer maintainer for probable amputation of that toe. Patient denies any cardiac problems. NO angina h/o CAD/AK/CHF EKG WNL Plan ECHO - if normal patient is cleared cardiac duncan for toe amputation. Will need MIBI stress test for risks stratification - this could be done as the outpatient. Keep LDL below 70 mg /dl DVT plx Awaiting OR for amputation /debridement in AM
[2020-02-29] MEDS ORDERED: INSULIN (NOVOLOG) ASPART 100 UNITS/ML 10ML VIAL ONE (11:47)
--- NOTE | 2020-02-29 12:25 | PN ---
Progress Note, Physician History of Present Illness: Pt is known to me from previous admission. Amputation on last admission 5th toe and 5th met head left. Was offered debridement and amputation of second toe but refused at that time. Presented to office with gangarene 2nd toe left and previous sx left and wound with exposed tendon over 2nd metatarsal. Pt refused covid 19 test yesterday. Did it this morning. - Current Medication List Current Medications: Active Medications Acetaminophen (Tylenol -) 650 mg PO Q4H PRN PRN Reason: MODERATE PAIN Last Admin: 02/29/20 06:31 Dose: 650 mg Documented by: Collagenase (Santyl -) 1 applic TP DAILY [facility]; Protocol Last Admin: 02/29/20 10:05 Dose: 1 applic Documented by: Docusate Sodium (Colace -) 100 mg PO Q8H PRN PRN Reason: CONSTIPATION Gabapentin (Neurontin -) 600 mg PO TID [facility] Last Admin: 02/29/20 06:03 Dose: 600 mg Documented by: Heparin Sodium (Porcine) (Heparin -) 5,000 unit SQ BID [facility] Last Admin: 02/29/20 10:04 Dose: 5,000 unit Documented by: Ceftriaxone Sodium 1 gm/ (Dextrose) 50 mls @ 100 mls/hr IVPB DAILY [facility]; Protocol Last Admin: 02/29/20 10:05 Dose: 100 mls/hr Documented by: Insulin Aspart (Novolog Vial Sliding Scale -) 1 vial SQ ACHS [facility]; Protocol Last Admin: 02/29/20 11:51 Dose: 5 units Documented by: Insulin Detemir (Levemir Vial) 20 units SQ AM [facility] Last Admin: 02/29/20 06:04 Dose: 20 units Documented by: Levothyroxine Sodium (Synthroid -) 200 mcg PO DAILY@0700 [facility] Last Admin: 02/29/20 06:50 Dose: 200 mcg Documented by: Lisinopril (Prinivil) 20 mg PO DAILY [facility] Last Admin: 02/29/20 10:04 Dose: 20 mg Documented by: Methadone HCl 120 mg/ (Methadone HCl 10 mg) 130 mg PO DAILY@0600 [facility] Last Admin: 02/29/20 06:03 Dose: 130 mg Documented by: - Objective Vital Signs: Vital Signs Temperature 98.1 F 02/29/20 05:54 Pulse Rate 66 02/29/20 10:00 Respiratory Rate 20 02/29/20 10:00 Blood Pressure 136/76 02/29/20 10:00 O2 Sat by Pulse Oximetry (%) 100 02/25/20 22:01 Wound/Incision: Yes: Other (dressing intact left foot, wounds unchanged, gangarene of 2nd toe, om, wound dorsum, sutures intact) Labs: CBC, BMP 02/27/20 06:18 02/27/20 06:18 INR, PTT INR 1.10 (0.83-1.09) H 02/25/20 14:15 Assessment/Plan gangarene left om 2nd ray left wounds x 2 left pvd Discussed sx again. Advised him of delay that he created due to refusal of covid 19 test for a second time as per or protocol. Pt fully understands all risks benefits and alternatives. Refusing TMA. Advised that might need as vascular status in foot distally shows calcifications on xray. Abx as per ID. Covid 19 swab as per OR protocol delayed by patient. Pt was an add on for Saturday but at this time improbable that covid test is back in time. Please maximize for OR. Consult done by endocrine. Will most likely be done on Saturday due to delay in covid testing.
--- NOTE | 2020-02-29 17:22 | PN ---
Progress Note, Physician History of Present Illness: Pt without any complaints. Surgery postponed awaiting repeat COVID test results per Podiatry. - Current Medication List Current Medications: Active Medications Acetaminophen (Tylenol -) 650 mg PO Q4H PRN PRN Reason: MODERATE PAIN Last Admin: 02/29/20 06:31 Dose: 650 mg Documented by: Collagenase (Santyl -) 1 applic TP DAILY [facility]; Protocol Last Admin: 02/29/20 10:05 Dose: 1 applic Documented by: Docusate Sodium (Colace -) 100 mg PO Q8H PRN PRN Reason: CONSTIPATION Gabapentin (Neurontin -) 600 mg PO TID [facility] Last Admin: 02/29/20 14:27 Dose: 600 mg Documented by: Heparin Sodium (Porcine) (Heparin -) 5,000 unit SQ BID [facility] Last Admin: 02/29/20 10:04 Dose: 5,000 unit Documented by: Ceftriaxone Sodium 1 gm/ (Dextrose) 50 mls @ 100 mls/hr IVPB DAILY [facility]; Protocol Last Admin: 02/29/20 10:05 Dose: 100 mls/hr Documented by: Insulin Aspart (Novolog Vial Sliding Scale -) 1 vial SQ ACHS [facility]; Protocol Last Admin: 02/29/20 11:51 Dose: 5 units Documented by: Insulin Detemir (Levemir Vial) 20 units SQ AM [facility] Last Admin: 02/29/20 06:04 Dose: 20 units Documented by: Levothyroxine Sodium (Synthroid -) 200 mcg PO DAILY@0700 [facility] Last Admin: 02/29/20 06:50 Dose: 200 mcg Documented by: Lisinopril (Prinivil) 20 mg PO DAILY [facility] Last Admin: 02/29/20 10:04 Dose: 20 mg Documented by: Methadone HCl 120 mg/ (Methadone HCl 10 mg) 130 mg PO DAILY@0600 [facility] Last Admin: 02/29/20 06:03 Dose: 130 mg Documented by: - Objective Vital Signs: Vital Signs Temperature 98.2 F 02/29/20 15:17 Pulse Rate 63 02/29/20 15:17 Respiratory Rate 20 02/29/20 15:17 Blood Pressure 127/69 02/29/20 15:17 O2 Sat by Pulse Oximetry (%) 100 02/25/20 22:01 Constitutional: Yes: No Distress Cardiovascular: Yes: Regular Rate and Rhythm Respiratory: Yes: Regular Gastrointestinal: Yes: Normal Bowel Sounds, Soft Extremities: Yes: Amputation Wound/Incision: Yes: Dressing Dry and Intact 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: Alert, Oriented Labs: CBC, BMP 02/27/20 06:18 02/27/20 06:18 INR, PTT INR 1.10 (0.83-1.09) H 02/25/20 14:15 Laboratory Last Values WBC 3.6 K/mm3 (4.0-10.0) L 02/27/20 06:18 RBC 3.39 M/mm3 (4.00-5.60) L 02/27/20 06:18 Hgb 9.6 GM/dL (11.7-16.9) L 02/27/20 06:18 Hct 28.5 % (35.4-49) L 02/27/20 06:18 MCV 84.2 fl (80-96) 02/27/20 06:18 MCH 28.2 pg (25.7-33.7) 02/27/20 06:18 MCHC 33.5 g/dl (32.0-35.9) 02/27/20 06:18 RDW 14.6 % (11.9-15.9) 02/27/20 06:18 Plt Count 345 K/MM3 (134-434) 02/27/20 06:18 MPV 7.7 fl (7.5-11.1) 02/27/20 06:18 Absolute Neuts (auto) 2.3 K/mm3 (1.5-8.0) 02/27/20 06:18 Neutrophils % 65.1 % (42.8-82.8) D 02/27/20 06:18 Lymphocytes % 15.2 % (8-40) D 02/27/20 06:18 Monocytes % 6.8 % (3.8-10.2) 02/27/20 06:18 Eosinophils % 11.7 % (0-4.5) H 02/27/20 06:18 Basophils % 1.2 % (0-2.0) 02/27/20 06:18 Nucleated RBC % 0 % (0-0) 02/27/20 06:18 PT with INR 13.00 SEC (9.7-13.0) 02/25/20 14:15 INR 1.10 (0.83-1.09) H 02/25/20 14:15 PTT (Actin FS) 35.4 SECONDS (25.2-36.5) 02/25/20 14:15 Sodium 136 mmol/L (136-145) 02/27/20 06:18 Potassium 5.3 mmol/L (3.5-5.1) H 02/27/20 06:18 Chloride 102 mmol/L (98-107) 02/27/20 06:18 Carbon Dioxide 31 mmol/L (21-32) 02/27/20 06:18 Anion Gap 2 MMOL/L (8-16) L 02/27/20 06:18 BUN 21.5 mg/dL (7-18) H 02/27/20 06:18 Creatinine 1.1 mg/dL (0.55-1.3) 02/27/20 06:18 Est GFR (CKD-EPI)AfAm 85.91 02/27/20 06:18 Est GFR (CKD-EPI)NonAf 74.12 02/27/20 06:18 POC Glucometer 113 UNITS (80-120) 02/29/20 16:47 Random Glucose 131 mg/dL (74-106) H 02/27/20 06:18 Lactic Acid 1.8 mmol/L (0.4-2.0) 02/25/20 15:15 Calcium 9.2 mg/dL (8.5-10.1) 02/27/20 06:18 Total Bilirubin 0.4 mg/dL (0.2-1) 02/27/20 06:18 AST 37 U/L (15-37) 02/27/20 06:18 ALT 33 U/L (13-61) 02/27/20 06:18 Alkaline Phosphatase 139 U/L (45-117) H 02/27/20 06:18 C-Reactive Protein 2.5 MG/DL (0.00-0.3) H 02/27/20 06:18 Total Protein 7.0 g/dl (6.4-8.2) 02/27/20 06:18 Albumin 2.7 g/dl (3.4-5.0) L 02/27/20 06:18 Triglycerides 188 mg/dL (0-150) H 02/29/20 06:56 Cholesterol 143 mg/dL (50-200) 02/29/20 06:56 Total LDL Cholesterol 78 mg/dL (5-100) 02/29/20 06:56 HDL Cholesterol 41 mg/dL (40-60) 02/29/20 06:56 COVID-19 ([place]) Not detected (Not Detected) 02/25/20 14:17 Blood Type O POSITIVE 02/25/20 14:15 Antibody Screen Negative 02/25/20 14:15 Assessment/Plan Lt 2nd toe gangrene Cellulitis/ abscess and OM of Lt 2nd MT s/p Lt 5th toe ampution/OM, exposed tendon/wound Uncontrolled DM -- continue antibiotics, awaiting amputation -- pt COVID PCR negative 02/25/20, no symptoms -- Podiatry following -- MRI results noted -- Endocrine eval -- continue wound care Pt afebrile, without pain
--- NOTE | 2020-02-29 21:12 | PN ---
Progress Note (short form) - Note Progress Note: fasting sugars elevated,overall improved Current Active Problems dmt2,neuropathy hyperglycemia hypothyroidism Gangrene of toe of left foot (Acute) Abnormal Lab Results 02/29/20 06:56 Triglycerides 188 H Laboratory Results - last 24 hr 02/29/20 02/29/20 02/29/20 05:57 06:56 11:39 POC Glucometer 159 212 Triglycerides 188 H Cholesterol 143 Total LDL Cholesterol 78 HDL Cholesterol 41 02/29/20 02/29/20 16:47 20:59 POC Glucometer 113 282 Triglycerides Cholesterol Total LDL Cholesterol HDL Cholesterol plan: bgm qid novolog scale changes in control levemir 25 units am titrate as needed for control synthroid 200mcg daily Problem List - Problems (1) Gangrene of toe of left foot Code(s): I96 - GANGRENE, NOT ELSEWHERE CLASSIFIED (2) Diabetes Code(s): E11.9 - TYPE 2 DIABETES MELLITUS WITHOUT COMPLICATIONS (3) Diabetes Code(s): E11.9 - TYPE 2 DIABETES MELLITUS WITHOUT COMPLICATIONS (4) Diabetes 1.5, managed as type 1 Code(s): E13.9 - OTHER SPECIFIED DIABETES MELLITUS WITHOUT COMPLICATIONS (5) Hyperglycemia Code(s): R73.9 - HYPERGLYCEMIA, UNSPECIFIED
--- NOTE | 2020-02-29 21:30 | PN ---
Progress Note, Physician History of Present Illness: Pt had refused COVID testing wc delayed surgery Pt agreed to COVID testing today - Current Medication List Current Medications: Active Medications Acetaminophen (Tylenol -) 650 mg PO Q4H PRN PRN Reason: MODERATE PAIN Last Admin: 02/29/20 21:17 Dose: 650 mg Documented by: Collagenase (Santyl -) 1 applic TP DAILY [facility]; Protocol Last Admin: 02/29/20 10:05 Dose: 1 applic Documented by: Docusate Sodium (Colace -) 100 mg PO Q8H PRN PRN Reason: CONSTIPATION Gabapentin (Neurontin -) 600 mg PO TID [facility] Last Admin: 02/29/20 21:16 Dose: 600 mg Documented by: Heparin Sodium (Porcine) (Heparin -) 5,000 unit SQ BID [facility] Last Admin: 02/29/20 21:16 Dose: 5,000 unit Documented by: Ceftriaxone Sodium 1 gm/ (Dextrose) 50 mls @ 100 mls/hr IVPB DAILY [facility]; Protocol Last Admin: 02/29/20 10:05 Dose: 100 mls/hr Documented by: Insulin Aspart (Novolog Vial Sliding Scale -) 1 vial SQ ACHS [facility]; Protocol Last Admin: 02/29/20 21:18 Dose: 6 units Documented by: Insulin Detemir (Levemir Vial) 25 units SQ AM [facility] Levothyroxine Sodium (Synthroid -) 200 mcg PO DAILY@0700 [facility] Last Admin: 02/29/20 06:50 Dose: 200 mcg Documented by: Lisinopril (Prinivil) 20 mg PO DAILY [facility] Last Admin: 02/29/20 10:04 Dose: 20 mg Documented by: Methadone HCl 120 mg/ (Methadone HCl 10 mg) 130 mg PO DAILY@0600 [facility] Last Admin: 02/29/20 06:03 Dose: 130 mg Documented by: - Objective Vital Signs: Vital Signs Temperature 98.6 F 02/29/20 18:00 Pulse Rate 70 02/29/20 18:00 Respiratory Rate 20 02/29/20 18:00 Blood Pressure 132/65 02/29/20 18:00 O2 Sat by Pulse Oximetry (%) 100 02/25/20 22:01 Cardiovascular: Yes: WNL, Regular Rate and Rhythm Respiratory: Yes: WNL, Regular, CTA Bilaterally Gastrointestinal: Yes: WNL, Normal Bowel Sounds, Soft Extremities: Yes: Other (Lt 2nd toe gangrenous) Labs: CBC, BMP 02/27/20 06:18 02/27/20 06:18 INR, PTT INR 1.10 (0.83-1.09) H 02/25/20 14:15 Problem List - Problems (1) Gangrene of toe of left foot Assessment/Plan: Cont IV antibiotic No vascular intervention Probable amputation once COVID results are finalized Code(s): I96 - GANGRENE, NOT ELSEWHERE CLASSIFIED (2) Diabetes Assessment/Plan: Cont sliding scale w/ coverage Cont levemir Code(s): E11.9 - TYPE 2 DIABETES MELLITUS WITHOUT COMPLICATIONS (3) Hypothyroid Assessment/Plan: Cont levothyroxine Code(s): E03.9 - HYPOTHYROIDISM, UNSPECIFIED (4) HTN (hypertension) Assessment/Plan: BP stable Code(s): I10 - ESSENTIAL (PRIMARY) HYPERTENSION Qualifiers: Hypertension type: essential hypertension Qualified Code(s): I10 - Essential (primary) hypertension (5) Methadone maintenance therapy patient Assessment/Plan: Cont methadone Code(s): F11.20 - OPIOID DEPENDENCE, UNCOMPLICATED
[2020-03-01] MEDS ORDERED: METHADONE HCL 10 MG TABLET ONE (05:42)
[2020-03-01] MEDS ORDERED: METHADONE HCL 40 MG DISPERSABLE TABLET ONE (05:43)
[2020-03-01] MEDS: METHADONE 120 MG, METHADONE 10 MG PO SCH (06:27)
[2020-03-01] MEDS: GABAPENTIN 300 MG CAPSULE PO SCH ×3 (06:28→21:58)
[2020-03-01] MEDS: INSULIN (LEVEMIR) 100 UNITS/ML UNITS SQ SCH (06:29)
[2020-03-01] MEDS: LEVOTHYROXINE NA 200 MCG TABLET PO SCH (06:31)
[2020-03-01] MEDS: INSULIN SLIDING SCALE (NOVOLOG) 1 VIAL SQ SCH ×4 (06:31→21:59)
[2020-03-01 08:11] LABS: EOS % 12.7 % (0-4.5); HEMATOCRIT 27.2 % (35.4-49); HEMOGLOBIN 9.2 GM/dL (11.7-16.9); MCH 28.5 pg (25.7-33.7); MCHC 33.8 g/dl (32.0-35.9); MEAN CELL VOLUME 84.2 fl (80-96); MEAN PLT VOLUME 7.9 fl (7.5-11.1); MONO % 9.2 % (3.8-10.2); NEUT % 58.1 % (42.8-82.8); PLATELET COUNT 266 K/MM3 (134-434); RBC 3.23 M/mm3 (4.00-5.60); WHITE BLOOD COUNT 4.9 K/mm3 (4.0-10.0)
[2020-03-01 08:45] LABS: POTASSIUM 5.2 mmol/L (3.5-5.1)
[2020-03-01 09:16] LABS: ALBUMIN 2.7 g/dl (3.4-5.0); BILIRUBIN,TOTAL 0.3 mg/dL (0.2-1); BLOOD UREA NITROGEN 25.2 mg/dL (7-18); CALCIUM 8.8 mg/dL (8.5-10.1); CREATININE 1.2 mg/dL (0.55-1.3); TOT PROT 6.8 g/dl (6.4-8.2)
[2020-03-01] MEDS ORDERED: DEXTROSE 5%-WATER - 50 ML IVPB ONE (09:18)
[2020-03-01] MEDS ORDERED: cefTRIAXone SODIUM 1 GM VIAL ONE (09:18)
[2020-03-01] MEDS: ACETAMINOPHEN 325 MG TABLET (FP) PO PRN ×2 (09:26→19:15)
[2020-03-01] MEDS: CEFTRIAXONE 1 GM in DEXTROSE 5%-WATER - 50 ML IVPB SCH (09:26)
[2020-03-01] MEDS: COLLAGENASE CLOSTRIDIUM HIST. 30 GRAMS TUBE TP SCH (09:27)
[2020-03-01] MEDS: HEPARIN NA (PORCINE) 5,000 UNITS/ML 1ML VIAL SQ SCH ×2 (09:27→21:57)
[2020-03-01] MEDS: LISINOPRIL 20 MG TABLET (FP) PO SCH (09:27)
--- NOTE | 2020-03-01 12:59 | PN ---
Progress Note, Physician History of Present Illness: stable no new issues awaiting surgery - Current Medication List Current Medications: Active Medications Acetaminophen (Tylenol -) 650 mg PO Q4H PRN PRN Reason: MODERATE PAIN Last Admin: 03/01/20 09:26 Dose: 650 mg Documented by: Collagenase (Santyl -) 1 applic TP DAILY [facility]; Protocol Last Admin: 03/01/20 09:27 Dose: 1 applic Documented by: Docusate Sodium (Colace -) 100 mg PO Q8H PRN PRN Reason: CONSTIPATION Gabapentin (Neurontin -) 600 mg PO TID [facility] Last Admin: 03/01/20 06:28 Dose: 600 mg Documented by: Heparin Sodium (Porcine) (Heparin -) 5,000 unit SQ BID [facility] Last Admin: 03/01/20 09:27 Dose: 5,000 unit Documented by: Ceftriaxone Sodium 1 gm/ (Dextrose) 50 mls @ 100 mls/hr IVPB DAILY [facility]; Protocol Last Admin: 03/01/20 09:26 Dose: 100 mls/hr Documented by: Insulin Aspart (Novolog Vial Sliding Scale -) 1 vial SQ ACHS [facility]; Protocol Last Admin: 03/01/20 11:38 Dose: Not Given Documented by: Insulin Detemir (Levemir Vial) 25 units SQ AM [facility] Last Admin: 03/01/20 06:29 Dose: 25 units Documented by: Levothyroxine Sodium (Synthroid -) 200 mcg PO DAILY@0700 [facility] Last Admin: 03/01/20 06:31 Dose: 200 mcg Documented by: Lisinopril (Prinivil) 20 mg PO DAILY [facility] Last Admin: 03/01/20 09:27 Dose: 20 mg Documented by: Methadone HCl 120 mg/ (Methadone HCl 10 mg) 130 mg PO DAILY@0600 [facility] Last Admin: 03/01/20 06:27 Dose: 130 mg Documented by: - Objective Vital Signs: Vital Signs Temperature 97.9 F 03/01/20 09:07 Pulse Rate 69 03/01/20 09:07 Respiratory Rate 18 03/01/20 09:07 Blood Pressure 149/77 03/01/20 09:07 O2 Sat by Pulse Oximetry (%) 99 03/01/20 09:00 Constitutional: Yes: No Distress, Calm Cardiovascular: Yes: S1, S2 Respiratory: Yes: Regular, CTA Bilaterally Gastrointestinal: Yes: Normal Bowel Sounds, Soft Musculoskeletal: Yes: WNL Extremities: Yes: Other Wound/Incision: Yes: Dressing Dry and Intact 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: Alert, Oriented Psychiatric: Yes: Alert, Oriented Labs: CBC, BMP 03/01/20 07:15 03/01/20 07:15 INR, PTT INR 1.10 (0.83-1.09) H 02/25/20 14:15 Assessment/Plan Lt 2nd toe gangrene Cellulitis/ abscess and OM of Lt 2nd MT s/p Lt 5th toe ampution/OM, exposed tendon/wound Uncontrolled DM -- continue antibiotics, awaiting amputation -- pt COVID PCR negative 02/25/20, no symptoms -- Podiatry following -- MRI results noted -- Endocrine eval -- continue wound care Pt afebrile, without pain
[2020-03-01] MEDS ORDERED: PT OWN MED DRAWER 7, Y5N ONE ×2 (14:37→17:10)
[2020-03-01] MEDS ORDERED: PROMETHAZINE HCL 25 MG/1 ML VIAL IVPUSH PRN (14:47)
[2020-03-01] MEDS ORDERED: ONDANSETRON 4 MG/2 ML VIAL IVPUSH PRN (14:47)
--- NOTE | 2020-03-01 15:28 | PN ---
Progress Note, Physician History of Present Illness: no complaints - Current Medication List Current Medications: Active Medications Acetaminophen (Tylenol -) 650 mg PO Q4H PRN PRN Reason: MODERATE PAIN Last Admin: 03/01/20 09:26 Dose: 650 mg Documented by: Collagenase (Santyl -) 1 applic TP DAILY [facility]; Protocol Last Admin: 03/01/20 09:27 Dose: 1 applic Documented by: Docusate Sodium (Colace -) 100 mg PO Q8H PRN PRN Reason: CONSTIPATION Fentanyl (Sublimaze Injection -) 50 mcg IVPUSH [id number] PRN PRN Reason: PAIN-PACU ORDER X 4 DOSES ONLY Gabapentin (Neurontin -) 600 mg PO TID [facility] Last Admin: 03/01/20 14:19 Dose: 600 mg Documented by: Heparin Sodium (Porcine) (Heparin -) 5,000 unit SQ BID [facility] Last Admin: 03/01/20 09:27 Dose: 5,000 unit Documented by: Ceftriaxone Sodium 1 gm/ (Dextrose) 50 mls @ 100 mls/hr IVPB DAILY [facility]; Protocol Last Admin: 03/01/20 09:26 Dose: 100 mls/hr Documented by: Lactated Ringer's (Lactated Ringers Solution) 1,000 mls @ 75 mls/hr IV ASDIR [facility] Insulin Aspart (Novolog Vial Sliding Scale -) 1 vial SQ ACHS [facility]; Protocol Last Admin: 03/01/20 11:38 Dose: Not Given Documented by: Insulin Detemir (Levemir Vial) 25 units SQ AM [facility] Last Admin: 03/01/20 06:29 Dose: 25 units Documented by: Levothyroxine Sodium (Synthroid -) 200 mcg PO DAILY@0700 [facility] Last Admin: 03/01/20 06:31 Dose: 200 mcg Documented by: Lisinopril (Prinivil) 20 mg PO DAILY [facility] Last Admin: 03/01/20 09:27 Dose: 20 mg Documented by: Methadone HCl 120 mg/ (Methadone HCl 10 mg) 130 mg PO DAILY@0600 [facility] Last Admin: 03/01/20 06:27 Dose: 130 mg Documented by: Ondansetron HCl (Zofran Injection) 4 mg IVPUSH Q6H PRN PRN Reason: NAUSEA AND/OR VOMITING Promethazine HCl (Phenergan Injection -) 12.5 mg IVPUSH Q6H PRN PRN Reason: NAUSEA-FOR RESCUE AFTER 15 MIN - Objective Vital Signs: Vital Signs Temperature 98.1 F 03/01/20 13:51 Pulse Rate 63 03/01/20 13:51 Respiratory Rate 03/01/20 13:51 Blood Pressure 127/74 03/01/20 13:51 O2 Sat by Pulse Oximetry (%) 99 03/01/20 09:00 Constitutional: Yes: No Distress HENT: Yes: Atraumatic Neck: Yes: Supple Cardiovascular: Yes: Regular Rate and Rhythm Respiratory: Yes: CTA Bilaterally Gastrointestinal: Yes: Normal Bowel Sounds Extremities: Yes: Other (L foot in dressing) 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: Alert, Oriented Labs: CBC, BMP 03/01/20 07:15 03/01/20 07:15 INR, PTT INR 1.10 (0.83-1.09) H 02/25/20 14:15 Problem List - Problems (1) Gangrene of toe of left foot Assessment/Plan: iv abx for debridement all consults reviewed Code(s): I96 - GANGRENE, NOT ELSEWHERE CLASSIFIED (2) Diabetes Assessment/Plan: on insulin sliding scale Code(s): E11.9 - TYPE 2 DIABETES MELLITUS WITHOUT COMPLICATIONS (3) Hyperglycemia Code(s): R73.9 - HYPERGLYCEMIA, UNSPECIFIED (4) Hypothyroid Assessment/Plan: on meds Code(s): E03.9 - HYPOTHYROIDISM, UNSPECIFIED (5) HTN (hypertension) Code(s): I10 - ESSENTIAL (PRIMARY) HYPERTENSION Qualifiers: Hypertension type: essential hypertension Qualified Code(s): I10 - Essential (primary) hypertension (6) Hypercholesteremia Code(s): E78.00 - PURE HYPERCHOLESTEROLEMIA, UNSPECIFIED Assessment/Plan COVERING FOR DR ODOM TODAY
[2020-03-01] MEDS: LACTATED RINGERS SOLUTION 1,000 ML IV SCH (17:00)
--- NOTE | 2020-03-01 18:27 | PN ---
Progress Note, Physician Chief Complaint: Pt A&Ox3; no chest pain or dyspnea. History of Present Illness: 59-year-old white male w/ PMH significant for diabetes, PAD (s/p amputation of 5th toe, metatarsal head great toe left foot),HTN and substance abuse(on methadone) who was recently dc'ed from [facility] for diabetic foot ulcer/gangrene(s/p amputation Lt 5th digit) presenting with a necrotic/gangreneous Lt 2nd toe. Pt complains of pain to lt 2nd toe but denies any fever/chills/oozing from toe. Pt was sent by his pocket setter lockstitch for probable amputation of that toe. GENERAL/CONSTITUTIONAL: No fever, weakness. dizziness - Current Medication List Current Medications: Active Medications Acetaminophen (Tylenol -) 650 mg PO Q4H PRN PRN Reason: MODERATE PAIN Last Admin: 03/01/20 09:26 Dose: 650 mg Documented by: Collagenase (Santyl -) 1 applic TP DAILY [facility]; Protocol Last Admin: 03/01/20 09:27 Dose: 1 applic Documented by: Docusate Sodium (Colace -) 100 mg PO Q8H PRN PRN Reason: CONSTIPATION Fentanyl (Sublimaze Injection -) 50 mcg IVPUSH [id number] PRN PRN Reason: PAIN-PACU ORDER X 4 DOSES ONLY Gabapentin (Neurontin -) 600 mg PO TID [facility] Last Admin: 03/01/20 14:19 Dose: 600 mg Documented by: Heparin Sodium (Porcine) (Heparin -) 5,000 unit SQ BID [facility] Last Admin: 03/01/20 09:27 Dose: 5,000 unit Documented by: Ceftriaxone Sodium 1 gm/ (Dextrose) 50 mls @ 100 mls/hr IVPB DAILY [facility]; Protocol Last Admin: 03/01/20 09:26 Dose: 100 mls/hr Documented by: Lactated Ringer's (Lactated Ringers Solution) 1,000 mls @ 75 mls/hr IV ASDIR [facility] Last Admin: 03/01/20 17:00 Dose: 75 mls/hr Documented by: Insulin Aspart (Novolog Vial Sliding Scale -) 1 vial SQ ACHS [facility]; Protocol Last Admin: 03/01/20 17:00 Dose: 4 units Documented by: Insulin Detemir (Levemir Vial) 25 units SQ AM [facility] Last Admin: 03/01/20 06:29 Dose: 25 units Documented by: Levothyroxine Sodium (Synthroid -) 200 mcg PO DAILY@0700 [facility] Last Admin: 03/01/20 06:31 Dose: 200 mcg Documented by: Lisinopril (Prinivil) 20 mg PO DAILY [facility] Last Admin: 03/01/20 09:27 Dose: 20 mg Documented by: Methadone HCl 120 mg/ (Methadone HCl 10 mg) 130 mg PO DAILY@0600 [facility] Last Admin: 03/01/20 06:27 Dose: 130 mg Documented by: Ondansetron HCl (Zofran Injection) 4 mg IVPUSH Q6H PRN PRN Reason: NAUSEA AND/OR VOMITING Promethazine HCl (Phenergan Injection -) 12.5 mg IVPUSH Q6H PRN PRN Reason: NAUSEA-FOR RESCUE AFTER 15 MIN - Objective Vital Signs: Vital Signs Temperature 98.1 F 03/01/20 18:15 Pulse Rate 66 03/01/20 18:15 Respiratory Rate 18 03/01/20 18:15 Blood Pressure 119/74 03/01/20 18:15 O2 Sat by Pulse Oximetry (%) 99 03/01/20 09:00 Eyes: Yes: WNL HENT: Yes: WNL Cardiovascular: Yes: S1, S2 Respiratory: Yes: Regular, Tachypnea ...Rectal Exam: Yes: Deferred Musculoskeletal: Yes: Joint Stiffness, Muscle Weakness, Other Extremities: Yes: Cool Edema: Yes Edema: LLE: Trace, RLE: Trace Peripheral Pulses WNL: No Peripheral Pulses: Left Doralis Pedis: 1+, Right Dorsalis Pedis: 1+ Integumentary: Yes: Venous Stasis Changes Wound/Incision: Yes: Dressing Dry and Intact 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: Alert, Oriented Labs: CBC, BMP 03/01/20 07:15 03/01/20 07:15 INR, PTT INR 1.10 (0.83-1.09) H 02/25/20 14:15 Assessment/Plan 59 yr old with PMHx diabetes mellitus, HTN and substance abuse(on methadone) who was recently dc'ed from [facility] for diabetic foot ulcer/gangrene(s/p amputation Lt 5th digit) presenting with a necrotic/gangreneous Lt 2nd toe. Pt complains of pain to lt 2nd toe but denies any fever/chills/oozing from toe. Pt was sent by his pocket setter lockstitch for probable amputation of that toe. Patient denies any cardiac problems. NO angina h/o CAD/[place]/CHF EKG WNL Plan COVID not detected x 2. Lisinopril held (hyperkalemia); restart at low dose when K+ WNL (HTN; DM; CHF). ECHO - if normal, patient is cleared cardiac duncan for toe amputation. Will need MIBI stress test for risk stratification - this may be done as an outpatient. Keep LDL below 70 mg /dl with statin, diet, exercise. DVT plx Awaiting OR for amputation /debridement in AM
[2020-03-01 19:43] LABS: INR 1.02 (0.83-1.09)
[2020-03-02] MEDS ORDERED: METHADONE HCL 10 MG TABLET ONE (05:23)
[2020-03-02] MEDS ORDERED: METHADONE HCL 40 MG DISPERSABLE TABLET ONE (05:24)
[2020-03-02] MEDS: LEVOTHYROXINE NA 200 MCG TABLET PO SCH (06:36)
[2020-03-02] MEDS: GABAPENTIN 300 MG CAPSULE PO SCH ×3 (06:36→21:09)
[2020-03-02] MEDS: METHADONE 120 MG, METHADONE 10 MG PO SCH (06:36)
[2020-03-02] MEDS: INSULIN (LEVEMIR) 100 UNITS/ML UNITS SQ SCH (06:38)
[2020-03-02] MEDS: INSULIN SLIDING SCALE (NOVOLOG) 1 VIAL SQ SCH ×4 (06:38→21:10)
[2020-03-02] MEDS: HEPARIN NA (PORCINE) 5,000 UNITS/ML 1ML VIAL SQ SCH ×2 (09:03→21:08)
--- NOTE | 2020-03-02 09:03 | PN ---
Progress Note, Physician History of Present Illness: Pt is a 59 y/o male w/ PMH significant for diabetes, HTN and substance abuse(on methadone) who was recently dc'ed from [facility] for diabetic foot ulcer/gangrene(s/p amputation Lt 5th digit) presenting with a necrotic/gangreneous Lt 2nd toe. Pt complains of pain to lt 2nd toe but denies any fever/chills/oozing from toe. Pt was sent by his key punch operator for probable amputation of that toe. - Current Medication List Current Medications: Active Medications Acetaminophen (Tylenol -) 650 mg PO Q4H PRN PRN Reason: MODERATE PAIN Last Admin: 03/01/20 19:15 Dose: 650 mg Documented by: Collagenase (Santyl -) 1 applic TP DAILY [facility]; Protocol Last Admin: 03/01/20 09:27 Dose: 1 applic Documented by: Docusate Sodium (Colace -) 100 mg PO Q8H PRN PRN Reason: CONSTIPATION Fentanyl (Sublimaze Injection -) 50 mcg IVPUSH [id number] PRN PRN Reason: PAIN-PACU ORDER X 4 DOSES ONLY Gabapentin (Neurontin -) 600 mg PO TID [facility] Last Admin: 03/02/20 06:36 Dose: 600 mg Documented by: Heparin Sodium (Porcine) (Heparin -) 5,000 unit SQ BID [facility] Last Admin: 03/01/20 21:57 Dose: 5,000 unit Documented by: Ceftriaxone Sodium 1 gm/ (Dextrose) 50 mls @ 100 mls/hr IVPB DAILY [facility]; Protocol Last Admin: 03/01/20 09:26 Dose: 100 mls/hr Documented by: Lactated Ringer's (Lactated Ringers Solution) 1,000 mls @ 75 mls/hr IV ASDIR [facility] Last Admin: 03/01/20 17:00 Dose: 75 mls/hr Documented by: Insulin Aspart (Novolog Vial Sliding Scale -) 1 vial SQ ACHS [facility]; Protocol Last Admin: 03/02/20 06:38 Dose: Not Given Documented by: Insulin Detemir (Levemir Vial) 25 units SQ AM [facility] Last Admin: 03/02/20 06:38 Dose: Not Given Documented by: Levothyroxine Sodium (Synthroid -) 200 mcg PO DAILY@0700 [facility] Last Admin: 03/02/20 06:36 Dose: 200 mcg Documented by: Methadone HCl 120 mg/ (Methadone HCl 10 mg) 130 mg PO DAILY@0600 [facility] Last Admin: 03/02/20 06:36 Dose: 130 mg Documented by: Ondansetron HCl (Zofran Injection) 4 mg IVPUSH Q6H PRN PRN Reason: NAUSEA AND/OR VOMITING Promethazine HCl (Phenergan Injection -) 12.5 mg IVPUSH Q6H PRN PRN Reason: NAUSEA-FOR RESCUE AFTER 15 MIN - Objective Vital Signs: Vital Signs Temperature 97.4 F L 03/01/20 21:55 Pulse Rate 61 03/01/20 21:55 Respiratory Rate 18 03/01/20 21:55 Blood Pressure 137/77 03/01/20 21:55 O2 Sat by Pulse Oximetry (%) 99 03/01/20 21:00 Eyes: Yes: WNL, Conjunctiva Clear, EOM Intact HENT: Yes: WNL, Atraumatic, Normocephalic Neck: Yes: WNL, Supple, Trachea Midline Cardiovascular: Yes: WNL, Regular Rate and Rhythm Respiratory: Yes: WNL, Regular, CTA Bilaterally Gastrointestinal: Yes: WNL, Normal Bowel Sounds Genitourinary: Yes: WNL Musculoskeletal: Yes: WNL Extremities: Yes: Other (gangrene) Edema: No Integumentary: Yes: WNL 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: WNL, Alert, Oriented ...Motor Strength: WNL Psychiatric: Yes: WNL Labs: CBC, BMP 03/01/20 07:15 03/01/20 07:15 INR, PTT INR 1.02 (0.83-1.09) 03/01/20 18:55 Problem List - Problems (1) Gangrene of toe of left foot Code(s): I96 - GANGRENE, NOT ELSEWHERE CLASSIFIED (2) Diabetes Code(s): E11.9 - TYPE 2 DIABETES MELLITUS WITHOUT COMPLICATIONS (3) Diabetes Code(s): E11.9 - TYPE 2 DIABETES MELLITUS WITHOUT COMPLICATIONS (4) Diabetes 1.5, managed as type 1 Code(s): E13.9 - OTHER SPECIFIED DIABETES MELLITUS WITHOUT COMPLICATIONS (5) Diabetic foot infection Code(s): E11.628 - TYPE 2 DIABETES MELLITUS WITH OTHER SKIN COMPLICATIONS; L08.9 - LOCAL INFECTION OF THE SKIN AND SUBCUTANEOUS TISSUE, UNSP (6) Gangrenous toe Code(s): I96 - GANGRENE, NOT ELSEWHERE CLASSIFIED (7) Hyperglycemia Code(s): R73.9 - HYPERGLYCEMIA, UNSPECIFIED (8) Hypothyroid Code(s): E03.9 - HYPOTHYROIDISM, UNSPECIFIED (9) Hypothyroidism Code(s): E03.9 - HYPOTHYROIDISM, UNSPECIFIED (10) Wound of foot Code(s): S91.309A - UNSPECIFIED OPEN WOUND, UNSPECIFIED FOOT, INITIAL ENCOUNTER (11) Anxiety and depression Code(s): F41.9 - ANXIETY DISORDER, UNSPECIFIED; F32.9 - MAJOR DEPRESSIVE DISORDER, SINGLE EPISODE, UNSPECIFIED (12) EtOH dependence Code(s): F10.20 - ALCOHOL DEPENDENCE, UNCOMPLICATED Qualifiers: Substance use status: uncomplicated Qualified Code(s): F10.20 - Alcohol dependence, uncomplicated (13) HTN (hypertension) Code(s): I10 - ESSENTIAL (PRIMARY) HYPERTENSION Qualifiers: Hypertension type: essential hypertension Qualified Code(s): I10 - Essential (primary) hypertension (14) Heroin dependence Code(s): F11.20 - OPIOID DEPENDENCE, UNCOMPLICATED (15) Hypercholesteremia Code(s): E78.00 - PURE HYPERCHOLESTEROLEMIA, UNSPECIFIED (16) Methadone maintenance therapy patient Code(s): F11.20 - OPIOID DEPENDENCE, UNCOMPLICATED (17) Neuropathy Code(s): G62.9 - POLYNEUROPATHY, UNSPECIFIED Assessment/Plan 59 yr old with PMHx diabetes mellitus, HTN and substance abuse(on methadone) who was recently dc'ed from [facility] for diabetic foot ulcer/gangrene(s/p amputation Lt 5th digit) presenting with a necrotic/gangreneous Lt 2nd toe. Pt complains of pain to lt 2nd toe but denies any fever/chills/oozing from toe. Pt was sent by his key punch operator for probable amputation of that toe. Patient denies any cardiac problems. NO angina h/o CAD/[place]/CHF EKG WNL Plan COVID not detected x 2. Lisinopril held (hyperkalemia); restart at low dose when K+ WNL (HTN; DM; CHF). ECHO - if normal, patient is cleared cardiac duncan for toe amputation. Will need MIBI stress test for risk stratification - this may be done as anoutpatient. Keep LDL below 70 mg /dl with statin, diet, exercise. DVT plx Awaiting OR for amputation /debridement in AM
[2020-03-02] MEDS: CEFTRIAXONE 1 GM in DEXTROSE 5%-WATER - 50 ML IVPB SCH ×2 (09:04→21:07)
[2020-03-02] MEDS: COLLAGENASE CLOSTRIDIUM HIST. 30 GRAMS TUBE TP SCH (09:04)
[2020-03-02] MEDS ORDERED: LIDOCAINE HCL 1%, 10 MG/ML (20ML VIAL) ONE (09:15)
--- NOTE | 2020-03-02 09:32 | PN ---
Progress Note, Physician History of Present Illness: stable no new issues - Current Medication List Current Medications: Active Medications Acetaminophen (Tylenol -) 650 mg PO Q4H PRN PRN Reason: MODERATE PAIN Last Admin: 03/01/20 19:15 Dose: 650 mg Documented by: Collagenase (Santyl -) 1 applic TP DAILY [facility]; Protocol Last Admin: 03/02/20 09:04 Dose: Not Given Documented by: Docusate Sodium (Colace -) 100 mg PO Q8H PRN PRN Reason: CONSTIPATION Fentanyl (Sublimaze Injection -) 50 mcg IVPUSH [id number] PRN PRN Reason: PAIN-PACU ORDER X 4 DOSES ONLY Gabapentin (Neurontin -) 600 mg PO TID [facility] Last Admin: 03/02/20 06:36 Dose: 600 mg Documented by: Heparin Sodium (Porcine) (Heparin -) 5,000 unit SQ BID [facility] Last Admin: 03/02/20 09:03 Dose: Not Given Documented by: Ceftriaxone Sodium 1 gm/ (Dextrose) 50 mls @ 100 mls/hr IVPB DAILY [facility]; Protocol Last Admin: 03/02/20 09:04 Dose: Not Given Documented by: Lactated Ringer's (Lactated Ringers Solution) 1,000 mls @ 75 mls/hr IV ASDIR [facility] Last Admin: 03/01/20 17:00 Dose: 75 mls/hr Documented by: Insulin Aspart (Novolog Vial Sliding Scale -) 1 vial SQ ACHS [facility]; Protocol Last Admin: 03/02/20 06:38 Dose: Not Given Documented by: Insulin Detemir (Levemir Vial) 25 units SQ AM [facility] Last Admin: 03/02/20 06:38 Dose: Not Given Documented by: Levothyroxine Sodium (Synthroid -) 200 mcg PO DAILY@0700 [facility] Last Admin: 03/02/20 06:36 Dose: 200 mcg Documented by: Methadone HCl 120 mg/ (Methadone HCl 10 mg) 130 mg PO DAILY@0600 [facility] Last Admin: 03/02/20 06:36 Dose: 130 mg Documented by: Ondansetron HCl (Zofran Injection) 4 mg IVPUSH Q6H PRN PRN Reason: NAUSEA AND/OR VOMITING Promethazine HCl (Phenergan Injection -) 12.5 mg IVPUSH Q6H PRN PRN Reason: NAUSEA-FOR RESCUE AFTER 15 MIN - Objective Vital Signs: Vital Signs Temperature 97.4 F L 03/01/20 21:55 Pulse Rate 61 03/01/20 21:55 Respiratory Rate 18 03/01/20 21:55 Blood Pressure 137/77 03/01/20 21:55 O2 Sat by Pulse Oximetry (%) 99 03/01/20 21:00 Constitutional: Yes: No Distress, Calm Cardiovascular: Yes: S1, S2 Respiratory: Yes: Regular, CTA Bilaterally Gastrointestinal: Yes: Normal Bowel Sounds, Soft Musculoskeletal: Yes: WNL Extremities: Yes: WNL 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: Alert, Oriented Psychiatric: Yes: Alert, Oriented Labs: CBC, BMP 03/01/20 07:15 03/01/20 07:15 INR, PTT INR 1.02 (0.83-1.09) 03/01/20 18:55 Assessment/Plan Lt 2nd toe gangrene Cellulitis/ abscess and OM of Lt 2nd MT s/p Lt 5th toe ampution/OM, exposed tendon/wound Uncontrolled DM -- continue antibiotics, awaiting amputation -- pt COVID PCR negative 02/25/20, no symptoms -- Podiatry following -- MRI results noted -- Endocrine eval -- continue wound care Pt afebrile, without pain
[2020-03-02] MEDS ORDERED: SUCCINYLCHOLINE CHLORIDE 200 MG/10 ML SYRINGE ONE (09:38)
[2020-03-02] MEDS ORDERED: MIDAZOLAM HCL 2 MG/2 ML SINGLE DOSE VIAL ONE (09:38)
[2020-03-02] MEDS ORDERED: PROPOFOL 20 ML ONE (09:38)
[2020-03-02] MEDS ORDERED: LIDOCAINE HCL 1%, 10 MG/ML (50 mL VIAL) INF ONE (09:55)
[2020-03-02] MEDS ORDERED: BACITRACIN 50,000 UNITS VIAL TP ONE (10:00)
--- NOTE | 2020-03-02 10:53 | OP ---
Operative Note - Note: Operative Date: 03/02/20 Pre-Operative Diagnosis: Osteomyelitis 2nd toe and metatarsal left foot to base. Chronic wound dorsum midshaft 2nd metatarsal left foot. Retention sutures lateral foot. Necrosis of wound lateral left foot. Operation: Amputation gangrenous 2nd toe left. Resection of 2nd metatarsal to base. Incision and drainage left foot dorsal abscess. Removal of sutures lateral left foot. Application of 12 micro vancomycin beads. Application of primematrix to decfect 2nd ray. Application primematrix to lateral wound. Retention sutures 2nd ray area. Findings: gangarene, necrotic tissue, abscess, osteomyelitis, poor bleeding of surgical site Implants: vancomycin beads, primematrix Post-Operative Diagnosis: Same as Pre-op Surgeon: Jaron Rothman Seed Collector: Jordan Christianson Anesthesia: General Specimens Removed: Bone and soft tissue Estimated Blood Loss (mls): 10 Instrument used (Debridements only): 15 blade, saggital saw Drains & Tubes with Location: 1/4 inch plain packing Operative Report Dictated: No
[2020-03-02] MEDS ORDERED: HYDROmorphone HCl 2 MG/ML VIAL IVPB ONE (10:54)
[2020-03-02] MEDS ORDERED: HYDROmorphone HCl 2 MG/ML VIAL ONE ×2 (10:55→11:06)
[2020-03-02] MEDS ORDERED: ACETAMINOPHEN INJECTION 100 ML IVPB ONE (10:55)
[2020-03-02] MEDS ORDERED: ACETAMINOPHEN 1000 MG/100 ML VIAL (NON FORMULARY) IVPB ONE (11:00)
[2020-03-02] MEDS ORDERED: HYDROmorphone HCl 2 MG/ML VIAL IVPUSH ONE (11:00)
[2020-03-02] MEDS: LACTATED RINGERS SOLUTION 1,000 ML IV SCH ×2 (12:00→21:10)
[2020-03-02 12:16] LABS: BASO % 0.8 % (0-2.0); EOS % 9.6 % (0-4.5); HEMATOCRIT 27.6 % (35.4-49); HEMOGLOBIN 9.1 GM/dL (11.7-16.9); LYMPH % 19.4 % (8-40); MCH 28.3 pg (25.7-33.7); MCHC 33.2 g/dl (32.0-35.9); MEAN CELL VOLUME 85.3 fl (80-96); MEAN PLT VOLUME 7.6 fl (7.5-11.1); MONO % 6.3 % (3.8-10.2); NEUT % 63.9 % (42.8-82.8); PLATELET COUNT 262 K/MM3 (134-434); RBC 3.23 M/mm3 (4.00-5.60); RDW 15.4 % (11.9-15.9); WHITE BLOOD COUNT 5.1 K/mm3 (4.0-10.0)
[2020-03-02] MEDS ORDERED: PROMETHAZINE HCL 25 MG/1 ML VIAL IVPUSH PRN (19:24)
[2020-03-02] MEDS ORDERED: DOCUSATE SODIUM 100 MG CAPSULE (FP) PO PRN (19:24)
[2020-03-02] MEDS ORDERED: ONDANSETRON 4 MG/2 ML VIAL IVPUSH PRN (19:24)
[2020-03-02] MEDS ORDERED: cefTRIAXone SODIUM 1 GM VIAL ONE (21:05)
[2020-03-02] MEDS ORDERED: DEXTROSE 5%-WATER - 50 ML IVPB ONE (21:05)
[2020-03-02] MEDS ORDERED: INSULIN (NOVOLOG) ASPART 100 UNITS/ML 10ML VIAL ONE (21:05)
[2020-03-02] MEDS: ACETAMINOPHEN 325 MG TABLET (FP) PO PRN (21:21)
[2020-03-02] MEDS: KETOROLAC TROMETHAMINE 15 MG/ML VIAL IVPUSH PRN (21:22)
--- NOTE | 2020-03-02 21:33 | PN ---
Progress Note, Physician - Current Medication List Current Medications: Active Medications Acetaminophen (Tylenol -) 650 mg PO Q4H PRN PRN Reason: PAIN LEVEL 1-5 Last Admin: 03/02/20 21:21 Dose: 650 mg Documented by: Docusate Sodium (Colace -) 100 mg PO Q8H PRN PRN Reason: CONSTIPATION Fentanyl (Sublimaze Injection -) 50 mcg IVPUSH [id number] PRN PRN Reason: PAIN-PACU ORDER X 4 DOSES ONLY Gabapentin (Neurontin -) 600 mg PO TID [facility] Last Admin: 03/02/20 21:09 Dose: 600 mg Documented by: Heparin Sodium (Porcine) (Heparin -) 5,000 unit SQ BID [facility] Last Admin: 03/02/20 21:08 Dose: 5,000 unit Documented by: Ceftriaxone Sodium 1 gm/ (Dextrose) 50 mls @ 100 mls/hr IVPB DAILY [facility]; Protocol Last Admin: 03/02/20 21:07 Dose: 100 mls/hr Documented by: Lactated Ringer's (Lactated Ringers Solution) 1,000 mls @ 75 mls/hr IV ASDIR [facility] Last Admin: 03/02/20 21:10 Dose: Not Given Documented by: Insulin Aspart (Novolog Vial Sliding Scale -) 1 vial SQ ACHS [facility]; Protocol Last Admin: 03/02/20 21:10 Dose: 4 units Documented by: Insulin Detemir (Levemir Vial) 25 units SQ AM [facility] Ketorolac Tromethamine (Toradol Injection -) 30 mg IVPUSH Q8H PRN PRN Reason: PAIN LEVEL 6-10 Stop: 03/07/20 21:17 Last Admin: 03/02/20 21:22 Dose: 30 mg Documented by: Levothyroxine Sodium (Synthroid -) 200 mcg PO DAILY@0700 [facility] Methadone HCl 120 mg/ (Methadone HCl 10 mg) 130 mg PO DAILY@0600 [facility] Ondansetron HCl (Zofran Injection) 4 mg IVPUSH Q6H PRN PRN Reason: NAUSEA AND/OR VOMITING Promethazine HCl (Phenergan Injection -) 12.5 mg IVPUSH Q6H PRN PRN Reason: NAUSEA-FOR RESCUE AFTER 15 MIN - Objective Vital Signs: Vital Signs Temperature 98.2 F 03/02/20 21:00 Pulse Rate 68 03/02/20 21:00 Respiratory Rate 20 27/20 21:00 Blood Pressure 127/73 03/02/20 21:00 O2 Sat by Pulse Oximetry (%) 98 03/02/20 21:00 Cardiovascular: Yes: WNL, Regular Rate and Rhythm Respiratory: Yes: WNL, Regular, CTA Bilaterally Gastrointestinal: Yes: WNL, Normal Bowel Sounds, Soft Extremities: Yes: Other (Lt foot indressing) Labs: CBC, BMP 03/02/20 11:57 03/01/20 07:15 INR, PTT INR 1.02 (0.83-1.09) 03/01/20 18:55 Problem List - Problems (1) Gangrene of toe of left foot Assessment/Plan: Cont IV antibiotic COVID negative Amputation gangrenous 2nd toe left. Resection of 2nd metatarsal to base. Incision and drainage left foot dorsal abscess. Code(s): I96 - GANGRENE, NOT ELSEWHERE CLASSIFIED (2) Diabetes Assessment/Plan: Cont sliding scale w/ coverage Cont levemir Code(s): E11.9 - TYPE 2 DIABETES MELLITUS WITHOUT COMPLICATIONS (3) Hypothyroid Assessment/Plan: Cont levothyroxine Code(s): E03.9 - HYPOTHYROIDISM, UNSPECIFIED (4) HTN (hypertension) Assessment/Plan: BP stable Code(s): I10 - ESSENTIAL (PRIMARY) HYPERTENSION Qualifiers: Hypertension type: essential hypertension Qualified Code(s): I10 - Essential (primary) hypertension (5) Methadone maintenance therapy patient Assessment/Plan: Cont methadone Code(s): F11.20 - OPIOID DEPENDENCE, UNCOMPLICATED
[2020-03-03] MEDS: ACETAMINOPHEN 325 MG TABLET (FP) PO PRN ×3 (01:33→21:49)
[2020-03-03] MEDS ORDERED: METHADONE HCL 10 MG TABLET ONE (05:18)
[2020-03-03] MEDS ORDERED: METHADONE HCL 40 MG DISPERSABLE TABLET ONE (05:18)
[2020-03-03] MEDS: KETOROLAC TROMETHAMINE 15 MG/ML VIAL IVPUSH PRN ×3 (05:39→19:45)
[2020-03-03] MEDS: GABAPENTIN 300 MG CAPSULE PO SCH ×3 (05:40→21:42)
[2020-03-03] MEDS: METHADONE 120 MG, METHADONE 10 MG PO SCH (05:41)
[2020-03-03] MEDS: LEVOTHYROXINE NA 200 MCG TABLET PO SCH (06:00)
[2020-03-03] MEDS: INSULIN SLIDING SCALE (NOVOLOG) 1 VIAL SQ SCH ×4 (06:02→21:50)
[2020-03-03] MEDS: INSULIN (LEVEMIR) 100 UNITS/ML UNITS SQ SCH (06:10)
[2020-03-03] MEDS ORDERED: cefTRIAXone SODIUM 1 GM VIAL ONE (09:22)
[2020-03-03] MEDS ORDERED: DEXTROSE 5%-WATER - 50 ML IVPB ONE (09:22)
[2020-03-03] MEDS: CEFTRIAXONE 1 GM in DEXTROSE 5%-WATER - 50 ML IVPB SCH (09:24)
[2020-03-03] MEDS: HEPARIN NA (PORCINE) 5,000 UNITS/ML 1ML VIAL SQ SCH ×2 (09:25→21:43)
--- NOTE | 2020-03-03 10:52 | PN ---
Progress Note, Physician History of Present Illness: stable no new issues post op - Current Medication List Current Medications: Active Medications Acetaminophen (Tylenol -) 650 mg PO Q4H PRN PRN Reason: PAIN LEVEL 1-5 Last Admin: 03/03/20 05:43 Dose: 650 mg Documented by: Docusate Sodium (Colace -) 100 mg PO Q8H PRN PRN Reason: CONSTIPATION Fentanyl (Sublimaze Injection -) 50 mcg IVPUSH [id number] PRN PRN Reason: PAIN-PACU ORDER X 4 DOSES ONLY Gabapentin (Neurontin -) 600 mg PO TID [facility] Last Admin: 03/03/20 05:40 Dose: 600 mg Documented by: Heparin Sodium (Porcine) (Heparin -) 5,000 unit SQ BID [facility] Last Admin: 03/03/20 09:25 Dose: 5,000 unit Documented by: Ceftriaxone Sodium 1 gm/ (Dextrose) 50 mls @ 100 mls/hr IVPB DAILY [facility]; Protocol Last Admin: 03/03/20 09:24 Dose: 100 mls/hr Documented by: Lactated Ringer's (Lactated Ringers Solution) 1,000 mls @ 75 mls/hr IV ASDIR [facility] Last Admin: 03/02/20 21:10 Dose: Not Given Documented by: Insulin Aspart (Novolog Vial Sliding Scale -) 1 vial SQ ACHS [facility]; Protocol Last Admin: 03/03/20 06:02 Dose: 4 units Documented by: Insulin Detemir (Levemir Vial) 25 units SQ AM [facility] Last Admin: 03/03/20 06:10 Dose: 25 units Documented by: Ketorolac Tromethamine (Toradol Injection -) 30 mg IVPUSH Q8H PRN PRN Reason: PAIN LEVEL 6-10 Stop: 03/07/20 21:17 Last Admin: 03/03/20 05:39 Dose: 30 mg Documented by: Levothyroxine Sodium (Synthroid -) 200 mcg PO DAILY@0700 [facility] Last Admin: 03/03/20 06:00 Dose: 200 mcg Documented by: Methadone HCl 120 mg/ (Methadone HCl 10 mg) 130 mg PO DAILY@0600 [facility] Last Admin: 03/03/20 05:41 Dose: 130 mg Documented by: Ondansetron HCl (Zofran Injection) 4 mg IVPUSH Q6H PRN PRN Reason: NAUSEA AND/OR VOMITING Promethazine HCl (Phenergan Injection -) 12.5 mg IVPUSH Q6H PRN PRN Reason: NAUSEA-FOR RESCUE AFTER 15 MIN - Objective Vital Signs: Vital Signs Temperature 98.3 F 03/03/20 05:40 Pulse Rate 65 03/03/20 05:40 Respiratory Rate 03/03/20 05:40 Blood Pressure 123/66 03/03/20 05:40 O2 Sat by Pulse Oximetry (%) 98 03/02/20 21:00 Constitutional: Yes: No Distress, Calm Cardiovascular: Yes: S1, S2 Respiratory: Yes: Regular, CTA Bilaterally Gastrointestinal: Yes: Normal Bowel Sounds, Soft Musculoskeletal: Yes: WNL Extremities: Yes: Other Wound/Incision: Yes: Dressing Dry and Intact 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: Alert, Oriented Psychiatric: Yes: Alert, Oriented Labs: CBC, BMP 03/02/20 11:57 03/01/20 07:15 INR, PTT INR 1.02 (0.83-1.09) 03/01/20 18:55 Assessment/Plan Lt 2nd toe gangrene Cellulitis/ abscess and OM of Lt 2nd MT s/p Lt 5th toe ampution/OM, exposed tendon/wound Uncontrolled DM -- continue antibiotics, awaiting results -- pt COVID PCR negative 02/25/20, no symptoms -- Podiatry following -- MRI results noted -- Endocrine eval -- continue wound care Pt afebrile, without pain
--- NOTE | 2020-03-03 13:35 | ECHO ---
Name: BRICE JANES Exam:Adult Echocardiogram Study Date: 03/03/2020 12:16 PM Age: 59 yrs Reason For Study: Evaluate EF Height: 69 in Weight: 170 lb BSA: 1.9 m2 MMode/2D Measurements & Calculations IVSd: 0.88 cm Ao root diam: 3.4 cm LVIDd: 4.7 cm LA dimension: 3.4 cm LVIDs: 3.1 cm LVPWd: 0.82 cm EDV(Teich): 103.3 ml LVOT diam: 2.0 cm ESV(Teich): 36.9 ml LAV (MOD-bp): 40.0 ml TAPSE: 2.6 cm RV S Franco: 14.6 cm/sec Doppler Measurements & Calculations MV E max franco: 107.5 cm/sec Ao V2 max: 142.5 cm/sec MV A max franco: 103.1 cm/sec Ao max P.1 mmHg MV E/A: 1.0 Ao V2 mean: 94.8 cm/sec MV dec time: 0.25 sec Ao mean P.1 mmHg Ao V2 VTI: 27.7 cm DEN(I,D): 2.9 cm2 DEN(V,D): 2.7 cm2 LV V1 max P.1 mmHg SV(LVOT): 80.1 ml LV V1 mean P.6 mmHg LV V1 max: 123.9 cm/sec LV V1 mean: 71.9 cm/sec LV V1 VTI: 25.8 cm PA V2 max: 93.7 cm/sec Med Peak E' Franco: 9.2 cm/sec PA max P.5 mmHg Med E/e': 11.7 PA acc slope: 882.5 cm/sec2 Lat Peak E' Franco: 9.3 cm/sec PA acc time: 0.11 sec Lat E/e': 11.6 PA pr(Accel): 31.5 mmHg Pulm Sys Franco: 64.2 cm/sec Pulm Greene Franco: 39.5 cm/sec Pulm S/D: 1.6 Tech Comments TDS due to poor acoustic windows and orientation of patient's heart. Procedure A complete two-dimensional transthoracic echocardiogram was performed (2D, M-mode, Doppler and color flow Doppler). Left Ventricle The left ventricular size, thickness and function are normal. Ejection Fraction = 55-60%. The left ve ntricular wall motion is normal. Right Ventricle The right ventricle is normal in size and function. Atria Normal left and right atrial size and function. Mitral Valve There is no mitral regurgitation noted. Tricuspid Valve There is trace tricuspid regurgitation. There was insufficient TR detected to calculate RV systolic p ressure. Aortic Valve No hemodynamically significant valvular aortic stenosis. No aortic regurgitation is present. Pulmonic Valve There is no pulmonic valvular regurgitation. Great Vessels The aortic root is normal size. Pericardium/Pleura There is no pericardial effusion. Interpretation Summary The left ventricular size, thickness and function are normal The right ventricle is normal in size and function. There is trace tricuspid regurgitation. MD Ruel Bailey 03/03/2020 01:34 PM
--- NOTE | 2020-03-03 15:08 | PN ---
Progress Note (short form) - Note Progress Note: POD#1 No pain. Pt walked on foot immediately after sx against medical advice. +dressing clean, dry and intact, normal post op non compliant patient Dressing change tomorrow. Will follow. HBO consult.
--- NOTE | 2020-03-03 16:50 | PN ---
Progress Note, Physician History of Present Illness: 59-year-old white male w/ PMH significant for diabetes, PAD (s/p amputation of 5th toe, metatarsal head great toe left foot),HTN and substance abuse(on methadone) who was recently dc'ed from [facility] for diabetic foot ulcer/gangrene(s/p amputation Lt 5th digit) presenting with a ne crotic/gangreneous Lt 2nd toe. Pt complains of pain to lt 2nd toe but denies any fever/chills/oozing from toe. Pt was sent by his clinical law professor for probable amputation of that toe. GENERAL/CONSTITUTIONAL: No fever, weakness. dizziness - Current Medication List Current Medications: Active Medications Acetaminophen (Tylenol -) 650 mg PO Q4H PRN PRN Reason: PAIN LEVEL 1-5 Last Admin: 03/03/20 05:43 Dose: 650 mg Documented by: Docusate Sodium (Colace -) 100 mg PO Q8H PRN PRN Reason: CONSTIPATION Fentanyl (Sublimaze Injection -) 50 mcg IVPUSH [id number] PRN PRN Reason: PAIN-PACU ORDER X 4 DOSES ONLY Gabapentin (Neurontin -) 600 mg PO TID [facility] Last Admin: 03/03/20 13:31 Dose: 600 mg Documented by: Heparin Sodium (Porcine) (Heparin -) 5,000 unit SQ BID [facility] Last Admin: 03/03/20 09:25 Dose: 5,000 unit Documented by: Ceftriaxone Sodium 1 gm/ (Dextrose) 50 mls @ 100 mls/hr IVPB DAILY [facility]; Protocol Last Admin: 03/03/20 09:24 Dose: 100 mls/hr Documented by: Lactated Ringer's (Lactated Ringers Solution) 1,000 mls @ 75 mls/hr IV ASDIR [facility] Last Admin: 03/02/20 21:10 Dose: Not Given Documented by: Insulin Aspart (Novolog Vial Sliding Scale -) 1 vial SQ ACHS [facility]; Protocol Last Admin: 03/03/20 16:25 Dose: Not Given Documented by: Insulin Detemir (Levemir Vial) 25 units SQ AM [facility] Last Admin: 03/03/20 06:10 Dose: 25 units Documented by: Ketorolac Tromethamine (Toradol Injection -) 30 mg IVPUSH Q8H PRN PRN Reason: PAIN LEVEL 6-10 Stop: 03/07/20 21:17 Last Admin: 03/03/20 11:51 Dose: 30 mg Documented by: Levothyroxine Sodium (Synthroid -) 200 mcg PO DAILY@0700 [facility] Last Admin: 03/03/20 06:00 Dose: 200 mcg Documented by: Methadone HCl 120 mg/ (Methadone HCl 10 mg) 130 mg PO DAILY@0600 [facility] Last Admin: 03/03/20 05:41 Dose: 130 mg Documented by: Ondansetron HCl (Zofran Injection) 4 mg IVPUSH Q6H PRN PRN Reason: NAUSEA AND/OR VOMITING Promethazine HCl (Phenergan Injection -) 12.5 mg IVPUSH Q6H PRN PRN Reason: NAUSEA-FOR RESCUE AFTER 15 MIN - Objective Vital Signs: Vital Signs Temperature 97.9 F 03/03/20 13:08 Pulse Rate 71 03/03/20 10:00 Respiratory Rate 18 03/03/20 10:00 Blood Pressure 135/78 03/03/20 10:00 O2 Sat by Pulse Oximetry (%) 97 03/03/20 10:00 Labs: CBC, BMP 03/02/20 11:57 03/01/20 07:15 INR, PTT INR 1.02 (0.83-1.09) 03/01/20 18:55 Assessment/Plan 59 yr old with PMHx diabetes mellitus, HTN, ?hypothyroid, and substance abuse(on methadone) who was recently dc'ed from [facility] for diabetic foot ulcer/gangrene(s/p amputation Lt 5th digit) presenting with a necrotic/gangreneous Lt 2nd toe. Pt complains of pain to lt 2nd toe but denies any fever/chills/oozing from toe. Pt was sent by his clinical law professor for probable amputation of that toe. Patient denies any cardiac problems. NO angina h/o CAD/UT/CHF EKG WNL Plan s/p amputation of left 2nd toeand debridement; pain management, wound care. f/u with surgeon MARICHUY not detected x 2. Lisinopril held (hyperkalemia); restart at low dose when K+ WNL (HTN; DM; CHF); f/u electrolytes, BUN/Cr in am. ECHO: normal LVEF; trace TR. F/u free T4 (elevated TSH). Will need MIBI stress test for risk stratification - this may be done as an outpatient. Keep LDL below 70 mg /dl with statin, diet, exercise. DVT plx
[2020-03-03 18:31] VITALS: BMI 25.1
[2020-03-03] MEDS: LACTATED RINGERS SOLUTION 1,000 ML IV SCH (20:00)
--- NOTE | 2020-03-03 23:35 | PN ---
Progress Note, Physician History of Present Illness: Pt still complaining of pain - Current Medication List Current Medications: Active Medications Acetaminophen (Tylenol -) 650 mg PO Q4H PRN PRN Reason: PAIN LEVEL 1-5 Last Admin: 03/03/20 21:49 Dose: 650 mg Documented by: Docusate Sodium (Colace -) 100 mg PO Q8H PRN PRN Reason: CONSTIPATION Fentanyl (Sublimaze Injection -) 50 mcg IVPUSH [id number] PRN PRN Reason: PAIN-PACU ORDER X 4 DOSES ONLY Gabapentin (Neurontin -) 600 mg PO TID [facility] Last Admin: 03/03/20 21:42 Dose: 600 mg Documented by: Heparin Sodium (Porcine) (Heparin -) 5,000 unit SQ BID [facility] Last Admin: 03/03/20 21:43 Dose: 5,000 unit Documented by: Ceftriaxone Sodium 1 gm/ (Dextrose) 50 mls @ 100 mls/hr IVPB DAILY [facility]; Protocol Last Admin: 03/03/20 09:24 Dose: 100 mls/hr Documented by: Lactated Ringer's (Lactated Ringers Solution) 1,000 mls @ 75 mls/hr IV ASDIR [facility] Last Admin: 03/02/20 21:10 Dose: Not Given Documented by: Insulin Aspart (Novolog Vial Sliding Scale -) 1 vial SQ ACHS [facility]; Protocol Last Admin: 03/03/20 21:50 Dose: 5 units Documented by: Insulin Detemir (Levemir Vial) 25 units SQ AM [facility] Last Admin: 03/03/20 06:10 Dose: 25 units Documented by: Ketorolac Tromethamine (Toradol Injection -) 30 mg IVPUSH Q8H PRN PRN Reason: PAIN LEVEL 6-10 Stop: 03/07/20 21:17 Last Admin: 03/03/20 19:45 Dose: 30 mg Documented by: Levothyroxine Sodium (Synthroid -) 200 mcg PO DAILY@0700 [facility] Last Admin: 03/03/20 06:00 Dose: 200 mcg Documented by: Methadone HCl 120 mg/ (Methadone HCl 10 mg) 130 mg PO DAILY@0600 [facility] Last Admin: 03/03/20 05:41 Dose: 130 mg Documented by: Ondansetron HCl (Zofran Injection) 4 mg IVPUSH Q6H PRN PRN Reason: NAUSEA AND/OR VOMITING Promethazine HCl (Phenergan Injection -) 12.5 mg IVPUSH Q6H PRN PRN Reason: NAUSEA-FOR RESCUE AFTER 15 MIN - Objective Vital Signs: Vital Signs Temperature 98.1 F 03/03/20 22:00 Pulse Rate 66 03/03/20 22:00 Respiratory Rate 18 03/03/20 22:00 Blood Pressure 147/72 03/03/20 22:00 O2 Sat by Pulse Oximetry (%) 99 03/03/20 20:48 Cardiovascular: Yes: WNL, Regular Rate and Rhythm Respiratory: Yes: WNL, Regular, CTA Bilaterally Gastrointestinal: Yes: WNL, Normal Bowel Sounds, Soft Extremities: Yes: Other (Lt foot in dressing) Labs: CBC, BMP 03/02/20 11:57 03/01/20 07:15 INR, PTT INR 1.02 (0.83-1.09) 03/01/20 18:55 Problem List - Problems (1) Gangrene of toe of left foot Assessment/Plan: Cont IV zosyn/vanco S/P amputation gangrenous 2nd toe left. Resection of 2nd metatarsal to base. Incision and drainage left foot dorsal abscess Follow cultures Cont toradol for pain As per podiatry/ID Wound care as per podiatry Code(s): I96 - GANGRENE, NOT ELSEWHERE CLASSIFIED (2) Diabetes Assessment/Plan: Cont sliding scale w/ coverage Cont levemir Code(s): E11.9 - TYPE 2 DIABETES MELLITUS WITHOUT COMPLICATIONS (3) Hypothyroid Assessment/Plan: Cont levothyroxine Code(s): E03.9 - HYPOTHYROIDISM, UNSPECIFIED (4) HTN (hypertension) Assessment/Plan: BP stable Code(s): I10 - ESSENTIAL (PRIMARY) HYPERTENSION Qualifiers: Hypertension type: essential hypertension Qualified Code(s): I10 - Essential (primary) hypertension (5) Methadone maintenance therapy patient Assessment/Plan: Cont methadone Code(s): F11.20 - OPIOID DEPENDENCE, UNCOMPLICATED
[2020-03-04] MEDS ORDERED: METHADONE HCL 10 MG TABLET ONE (05:05)
[2020-03-04] MEDS ORDERED: METHADONE HCL 40 MG DISPERSABLE TABLET ONE (05:05)
[2020-03-04] MEDS: GABAPENTIN 300 MG CAPSULE PO SCH ×3 (05:26→21:49)
[2020-03-04] MEDS: METHADONE 120 MG, METHADONE 10 MG PO SCH (05:27)
[2020-03-04] MEDS: KETOROLAC TROMETHAMINE 15 MG/ML VIAL IVPUSH PRN ×2 (05:28→18:52)
[2020-03-04] MEDS: INSULIN (LEVEMIR) 100 UNITS/ML UNITS SQ SCH (06:23)
[2020-03-04] MEDS: LEVOTHYROXINE NA 200 MCG TABLET PO SCH (06:23)
[2020-03-04] MEDS: INSULIN SLIDING SCALE (NOVOLOG) 1 VIAL SQ SCH ×4 (06:25→22:11)
[2020-03-04] MEDS ORDERED: INSULIN (NOVOLOG) ASPART 100 UNITS/ML 10ML VIAL ONE ×3 (06:42→20:12)
[2020-03-04] MEDS ORDERED: INSULIN (LEVEMIR) 100 UNITS/ML UNITS SQ ONE ×2 (06:42→20:13)
[2020-03-04 07:23] LABS: BASO % 0.7 % (0-2.0); EOS % 7.8 % (0-4.5); HEMATOCRIT 28.1 % (35.4-49); HEMOGLOBIN 9.4 GM/dL (11.7-16.9); LYMPH % 22.2 % (8-40); MCH 28.6 pg (25.7-33.7); MCHC 33.5 g/dl (32.0-35.9); MEAN CELL VOLUME 85.5 fl (80-96); MEAN PLT VOLUME 8.3 fl (7.5-11.1); MONO % 10.2 % (3.8-10.2); NEUT % 59.1 % (42.8-82.8); PLATELET COUNT 252 K/MM3 (134-434); RBC 3.28 M/mm3 (4.00-5.60); RDW 15.7 % (11.9-15.9); WHITE BLOOD COUNT 5.8 K/mm3 (4.0-10.0)
[2020-03-04 07:37] LABS: BLOOD UREA NITROGEN 37.2 mg/dL (7-18); CREATININE 1.4 mg/dL (0.55-1.3)
[2020-03-04 08:05] LABS: POTASSIUM 6.2 mmol/L (3.5-5.1)
[2020-03-04] MEDS ORDERED: cefTRIAXone SODIUM 1 GM VIAL ONE (09:34)
[2020-03-04] MEDS ORDERED: DEXTROSE 5%-WATER - 50 ML IVPB ONE ×3 (09:34→16:56)
[2020-03-04] MEDS: CEFTRIAXONE 1 GM in DEXTROSE 5%-WATER - 50 ML IVPB SCH (09:42)
[2020-03-04] MEDS: HEPARIN NA (PORCINE) 5,000 UNITS/ML 1ML VIAL SQ SCH ×2 (09:43→21:48)
--- NOTE | 2020-03-04 09:59 | PN ---
Progress Note, Physician Chief Complaint: POD#2 - Current Medication List Current Medications: Active Medications Acetaminophen (Tylenol -) 650 mg PO Q4H PRN PRN Reason: PAIN LEVEL 1-5 Last Admin: 03/03/20 21:49 Dose: 650 mg Documented by: Docusate Sodium (Colace -) 100 mg PO Q8H PRN PRN Reason: CONSTIPATION Fentanyl (Sublimaze Injection -) 50 mcg IVPUSH [id number] PRN PRN Reason: PAIN-PACU ORDER X 4 DOSES ONLY Gabapentin (Neurontin -) 600 mg PO TID [facility] Last Admin: 03/04/20 05:26 Dose: 600 mg Documented by: Heparin Sodium (Porcine) (Heparin -) 5,000 unit SQ BID [facility] Last Admin: 03/04/20 09:43 Dose: 5,000 unit Documented by: Ceftriaxone Sodium 1 gm/ (Dextrose) 50 mls @ 100 mls/hr IVPB DAILY [facility]; Protocol Last Admin: 03/04/20 09:42 Dose: 100 mls/hr Documented by: Lactated Ringer's (Lactated Ringers Solution) 1,000 mls @ 75 mls/hr IV ASDIR [facility] Last Admin: 03/03/20 20:00 Dose: Not Given Documented by: Insulin Aspart (Novolog Vial Sliding Scale -) 1 vial SQ ACHS [facility]; Protocol Last Admin: 03/04/20 06:25 Dose: 2 units Documented by: Insulin Detemir (Levemir Vial) 25 units SQ AM [facility] Last Admin: 03/04/20 06:23 Dose: 25 units Documented by: Ketorolac Tromethamine (Toradol Injection -) 30 mg IVPUSH Q8H PRN PRN Reason: PAIN LEVEL 6-10 Stop: 03/07/20 21:17 Last Admin: 03/04/20 05:28 Dose: 30 mg Documented by: Levothyroxine Sodium (Synthroid -) 200 mcg PO DAILY@0700 [facility] Last Admin: 03/04/20 06:23 Dose: 200 mcg Documented by: Methadone HCl 120 mg/ (Methadone HCl 10 mg) 130 mg PO DAILY@0600 [facility] Last Admin: 03/04/20 05:27 Dose: 130 mg Documented by: Ondansetron HCl (Zofran Injection) 4 mg IVPUSH Q6H PRN PRN Reason: NAUSEA AND/OR VOMITING Promethazine HCl (Phenergan Injection -) 12.5 mg IVPUSH Q6H PRN PRN Reason: NAUSEA-FOR RESCUE AFTER 15 MIN - Objective Vital Signs: Vital Signs Temperature 97.7 F 03/04/20 06:00 Pulse Rate 59 L 03/04/20 06:00 Respiratory Rate 18 03/04/20 06:00 Blood Pressure 152/78 03/04/20 06:00 O2 Sat by Pulse Oximetry (%) 99 03/03/20 20:48 Wound/Incision: Yes: Other (retention sutures and packing in place, -drainage, - mal odor, -cellulitis,) Labs: CBC, BMP 03/04/20 06:20 03/04/20 06:20 INR, PTT INR 1.02 (0.83-1.09) 03/01/20 18:55 Assessment/Plan post wounds x 2 left pvd Packing pulled. Fiber wire resected proximal wound. Primatrix in place laterally and in the defect of the 2nd ray. Betadine dressing applied. Wound vac ordered. IVABX as per ID. HBO consult ordered. Can be dc from Podiatry standpoint tomorrow. Wound vac at home. Follow up in [facility]. Will follow till DC.
--- NOTE | 2020-03-04 11:11 | PN ---
Progress Note, Physician History of Present Illness: stable post op growing pseudomonas - Current Medication List Current Medications: Active Medications Acetaminophen (Tylenol -) 650 mg PO Q4H PRN PRN Reason: PAIN LEVEL 1-5 Last Admin: 03/03/20 21:49 Dose: 650 mg Documented by: Docusate Sodium (Colace -) 100 mg PO Q8H PRN PRN Reason: CONSTIPATION Fentanyl (Sublimaze Injection -) 50 mcg IVPUSH [id number] PRN PRN Reason: PAIN-PACU ORDER X 4 DOSES ONLY Gabapentin (Neurontin -) 600 mg PO TID [facility] Last Admin: 03/04/20 05:26 Dose: 600 mg Documented by: Heparin Sodium (Porcine) (Heparin -) 5,000 unit SQ BID [facility] Last Admin: 03/04/20 09:43 Dose: 5,000 unit Documented by: Insulin Aspart (Novolog Vial Sliding Scale -) 1 vial SQ ACHS [facility]; Protocol Last Admin: 03/04/20 06:25 Dose: 2 units Documented by: Insulin Detemir (Levemir Vial) 25 units SQ AM [facility] Last Admin: 03/04/20 06:23 Dose: 25 units Documented by: Ketorolac Tromethamine (Toradol Injection -) 30 mg IVPUSH Q8H PRN PRN Reason: PAIN LEVEL 6-10 Stop: 03/07/20 21:17 Last Admin: 03/04/20 05:28 Dose: 30 mg Documented by: Levothyroxine Sodium (Synthroid -) 200 mcg PO DAILY@0700 [facility] Last Admin: 03/04/20 06:23 Dose: 200 mcg Documented by: Methadone HCl 120 mg/ (Methadone HCl 10 mg) 130 mg PO DAILY@0600 [facility] Last Admin: 03/04/20 05:27 Dose: 130 mg Documented by: Ondansetron HCl (Zofran Injection) 4 mg IVPUSH Q6H PRN PRN Reason: NAUSEA AND/OR VOMITING Promethazine HCl (Phenergan Injection -) 12.5 mg IVPUSH Q6H PRN PRN Reason: NAUSEA-FOR RESCUE AFTER 15 MIN - Objective Vital Signs: Vital Signs Temperature 97.7 F 03/04/20 06:00 Pulse Rate 59 L 03/04/20 06:00 Respiratory Rate 18 03/04/20 06:00 Blood Pressure 152/78 03/04/20 06:00 O2 Sat by Pulse Oximetry (%) 99 03/03/20 20:48 Constitutional: Yes: No Distress, Calm Cardiovascular: Yes: S1, S2 Respiratory: Yes: Regular, CTA Bilaterally Gastrointestinal: Yes: Normal Bowel Sounds, Soft Musculoskeletal: Yes: WNL Extremities: Yes: Other Wound/Incision: Yes: Dressing Dry and Intact 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: Alert, Oriented Psychiatric: Yes: Alert, Oriented Labs: CBC, BMP 03/04/20 06:20 INR, PTT INR 1.02 (0.83-1.09) 03/01/20 18:55 Assessment/Plan Lt 2nd toe gangrene Cellulitis/ abscess and OM of Lt 2nd MT s/p Lt 5th toe ampution/OM, exposed tendon/wound Uncontrolled DM -wound cx noted will start patient on zosyn
[2020-03-04 11:15] LABS: ALBUMIN 2.9 g/dl (3.4-5.0); BILIRUBIN,TOTAL 0.2 mg/dL (0.2-1); BLOOD UREA NITROGEN 36.4 mg/dL (7-18); CALCIUM 8.8 mg/dL (8.5-10.1); CREATININE 1.4 mg/dL (0.55-1.3); POTASSIUM 5.8 mmol/L (3.5-5.1); TOT PROT 7.2 g/dl (6.4-8.2)
[2020-03-04] MEDS ORDERED: PIPERACILLIN/TAZOBACTAM 3.375 GM VIAL IVPB ONE ×2 (11:52→16:56)
[2020-03-04] MEDS: PIPERACILLIN/TAZOB 3.375 GM 3.375 GM in DEXTROSE 5%-WATER - 50 ML IVPB SCH ×2 (12:00→17:07)
[2020-03-04] MEDS: ACETAMINOPHEN 325 MG TABLET (FP) PO PRN (16:29)
--- NOTE | 2020-03-04 22:43 | PN ---
Progress Note, Physician History of Present Illness: No new complaints - Current Medication List Current Medications: Active Medications Acetaminophen (Tylenol -) 650 mg PO Q4H PRN PRN Reason: PAIN LEVEL 1-5 Last Admin: 03/04/20 16:29 Dose: 650 mg Documented by: Docusate Sodium (Colace -) 100 mg PO Q8H PRN PRN Reason: CONSTIPATION Fentanyl (Sublimaze Injection -) 50 mcg IVPUSH [id number] PRN PRN Reason: PAIN-PACU ORDER X 4 DOSES ONLY Gabapentin (Neurontin -) 600 mg PO TID [facility] Last Admin: 03/04/20 21:49 Dose: 600 mg Documented by: Heparin Sodium (Porcine) (Heparin -) 5,000 unit SQ BID [facility] Last Admin: 03/04/20 21:48 Dose: 5,000 unit Documented by: Piperacillin Sod/Tazobactam (Sod 3.375 gm/ Dextrose) 50 mls @ 100 mls/hr IVPB Q8H-IV [facility]; Protocol Last Admin: 03/04/20 17:07 Dose: 100 mls/hr Documented by: Insulin Aspart (Novolog Vial Sliding Scale -) 1 vial SQ ACHS [facility]; Protocol Last Admin: 03/04/20 22:11 Dose: 4 units Documented by: Insulin Detemir (Levemir Vial) 25 units SQ AM [facility] Last Admin: 03/04/20 06:23 Dose: 25 units Documented by: Ketorolac Tromethamine (Toradol Injection -) 30 mg IVPUSH Q8H PRN PRN Reason: PAIN LEVEL 6-10 Stop: 03/07/20 21:17 Last Admin: 03/04/20 18:52 Dose: 30 mg Documented by: Levothyroxine Sodium (Synthroid -) 200 mcg PO DAILY@0700 [facility] Last Admin: 03/04/20 06:23 Dose: 200 mcg Documented by: Methadone HCl 120 mg/ (Methadone HCl 10 mg) 130 mg PO DAILY@0600 [facility] Last Admin: 03/04/20 05:27 Dose: 130 mg Documented by: Ondansetron HCl (Zofran Injection) 4 mg IVPUSH Q6H PRN PRN Reason: NAUSEA AND/OR VOMITING Promethazine HCl (Phenergan Injection -) 12.5 mg IVPUSH Q6H PRN PRN Reason: NAUSEA-FOR RESCUE AFTER 15 MIN - Objective Vital Signs: Vital Signs Temperature 98.1 F 03/04/20 21:59 Pulse Rate 59 L 03/04/20 21:59 Respiratory Rate 18 03/04/20 21:59 Blood Pressure 144/80 03/04/20 21:59 O2 Sat by Pulse Oximetry (%) 97 03/04/20 09:00 Respiratory: Yes: WNL, Regular, CTA Bilaterally Gastrointestinal: Yes: WNL, Normal Bowel Sounds, Soft Extremities: Yes: Other (S/P amputation lt 2nd toe Wound vac on Lt foot) Labs: CBC, BMP 03/04/20 06:20 03/04/20 09:58 INR, PTT INR 1.02 (0.83-1.09) 03/01/20 18:55 Problem List - Problems (1) Gangrene of toe of left foot Assessment/Plan: Cont IV antibiotic COVID negative Amputation gangrenous 2nd toe left. Resection of 2nd metatarsal to base. Incision and drainage left foot dorsal abscess. Await cultures Code(s): I96 - GANGRENE, NOT ELSEWHERE CLASSIFIED (2) Diabetes Assessment/Plan: Cont sliding scale w/ coverage Cont levemir Code(s): E11.9 - TYPE 2 DIABETES MELLITUS WITHOUT COMPLICATIONS (3) Hypothyroid Assessment/Plan: Cont levothyroxine Code(s): E03.9 - HYPOTHYROIDISM, UNSPECIFIED (4) HTN (hypertension) Assessment/Plan: BP stable Code(s): I10 - ESSENTIAL (PRIMARY) HYPERTENSION Qualifiers: Hypertension type: essential hypertension Qualified Code(s): I10 - Essential (primary) hypertension (5) Methadone maintenance therapy patient Assessment/Plan: Cont methadone Code(s): F11.20 - OPIOID DEPENDENCE, UNCOMPLICATED
[2020-03-05] MEDS ORDERED: DEXTROSE 5%-WATER - 50 ML IVPB ONE ×3 (01:28→16:00)
[2020-03-05] MEDS ORDERED: PIPERACILLIN/TAZOBACTAM 3.375 GM VIAL IVPB ONE ×3 (01:28→16:00)
[2020-03-05] MEDS: PIPERACILLIN/TAZOB 3.375 GM 3.375 GM in DEXTROSE 5%-WATER - 50 ML IVPB SCH ×3 (01:42→17:49)
[2020-03-05] MEDS ORDERED: METHADONE HCL 10 MG TABLET ONE (04:30)
[2020-03-05] MEDS ORDERED: METHADONE HCL 40 MG DISPERSABLE TABLET ONE (04:30)
--- NOTE | 2020-03-05 05:18 | PN ---
Progress Note, Physician Chief Complaint: Pt A&Ox3; no chest pain or dyspnea; LE intermittent pain at surgical site. History of Present Illness: 59-year-old white male w/ PMH significant for diabetes, PAD (s/p amputation of 5th toe, metatarsal head great toe left foot),HTN and substance abuse(on methadone) who was recently dc'ed from [facility] for diabetic foot ulcer/gangrene(s/p amputation Lt 5th digit) presenting with a necrotic/gangreneous Lt 2nd toe. Pt complains of pain to lt 2nd toe but denies any fever/chills/oozing from toe. Pt was sent by his mannequin mold maker for probable amputation of that toe. GENERAL/CONSTITUTIONAL: No fever, weakness. dizziness - Current Medication List Current Medications: Active Medications Acetaminophen (Tylenol -) 650 mg PO Q4H PRN PRN Reason: PAIN LEVEL 1-5 Last Admin: 03/04/20 16:29 Dose: 650 mg Documented by: Docusate Sodium (Colace -) 100 mg PO Q8H PRN PRN Reason: CONSTIPATION Fentanyl (Sublimaze Injection -) 50 mcg IVPUSH [id number] PRN PRN Reason: PAIN-PACU ORDER X 4 DOSES ONLY Gabapentin (Neurontin -) 600 mg PO TID [facility] Last Admin: 03/04/20 21:49 Dose: 600 mg Documented by: Heparin Sodium (Porcine) (Heparin -) 5,000 unit SQ BID [facility] Last Admin: 03/04/20 21:48 Dose: 5,000 unit Documented by: Piperacillin Sod/Tazobactam (Sod 3.375 gm/ Dextrose) 50 mls @ 100 mls/hr IVPB Q8H-IV [facility]; Protocol Last Admin: 03/05/20 01:42 Dose: 100 mls/hr Documented by: Insulin Aspart (Novolog Vial Sliding Scale -) 1 vial SQ ACHS [facility]; Protocol Last Admin: 03/04/20 22:11 Dose: 4 units Documented by: Insulin Detemir (Levemir Vial) 25 units SQ AM [facility] Last Admin: 03/04/20 06:23 Dose: 25 units Documented by: Ketorolac Tromethamine (Toradol Injection -) 30 mg IVPUSH Q8H PRN PRN Reason: PAIN LEVEL 6-10 Stop: 03/07/20 21:17 Last Admin: 03/04/20 18:52 Dose: 30 mg Documented by: Levothyroxine Sodium (Synthroid -) 200 mcg PO DAILY@0700 [facility] Last Admin: 03/04/20 06:23 Dose: 200 mcg Documented by: Methadone HCl 120 mg/ (Methadone HCl 10 mg) 130 mg PO DAILY@0600 [facility] Last Admin: 03/04/20 05:27 Dose: 130 mg Documented by: Ondansetron HCl (Zofran Injection) 4 mg IVPUSH Q6H PRN PRN Reason: NAUSEA AND/OR VOMITING Promethazine HCl (Phenergan Injection -) 12.5 mg IVPUSH Q6H PRN PRN Reason: NAUSEA-FOR RESCUE AFTER 15 MIN - Objective Vital Signs: Vital Signs Temperature 98 F 03/05/20 01:44 Pulse Rate 61 03/05/20 01:44 Respiratory Rate 18 03/05/20 01:44 Blood Pressure 136/81 03/05/20 01:44 O2 Sat by Pulse Oximetry (%) 97 03/04/20 21:00 Constitutional: Yes: No Distress Eyes: Yes: WNL HENT: Yes: WNL Neck: Yes: WNL Cardiovascular: Yes: Regular Rate and Rhythm Respiratory: Yes: WNL Gastrointestinal: Yes: Soft ...Rectal Exam: Yes: Deferred Genitourinary: No: Anuria Breast(s): Yes: WNL Musculoskeletal: Yes: Muscle Weakness Extremities: Yes: Cool Edema: No Peripheral Pulses WNL: No Peripheral Pulses: Left Doralis Pedis: 1+, Right Dorsalis Pedis: 1+ Wound/Incision: Yes: Dressing Dry and Intact 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: WNL Psychiatric: Yes: WNL Labs: CBC, BMP 03/04/20 06:20 03/04/20 09:58 INR, PTT INR 1.02 (0.83-1.09) 03/01/20 18:55 - ....Imaging Chest X-ray: Image Reviewed EKG: Image Reviewed Assessment/Plan 59 yr old with PMHx diabetes mellitus, HTN, ?hypothyroid, and substance abuse(on methadone) who was recently dc'ed from [facility] for diabetic foot ulcer/gangrene(s/p amputation Lt 5th digit) presenting with a necrotic/gangreneous Lt 2nd toe. Pt complains of pain to lt 2nd toe but denies any fever/chills/oozing from toe. 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 Patient denies any cardiac problems. NO angina h/o CAD/ME/CHF EKG WNL hyperkalemia Plan s/p amputation of left 2nd toe and debridement; pain management, wound care. f/u with surgeon UMESHID not detected x 2. Lisinopril stopped (hyperkalemia). ECHO: normal LVEF; trace TR. Elecvated TSH; mildly elevated free T4. Will need MIBI stress test for risk stratification - this may be done as an outpatient. Keep LDL below 70 mg /dl with statin, diet, exercise. DVT plx
[2020-03-05] MEDS: GABAPENTIN 300 MG CAPSULE PO SCH ×3 (05:22→22:28)
[2020-03-05] MEDS: METHADONE 120 MG, METHADONE 10 MG PO SCH (05:23)
[2020-03-05] MEDS: KETOROLAC TROMETHAMINE 15 MG/ML VIAL IVPUSH PRN ×2 (05:39→16:12)
[2020-03-05] MEDS: INSULIN (LEVEMIR) 100 UNITS/ML UNITS SQ SCH (06:00)
[2020-03-05] MEDS: LEVOTHYROXINE NA 200 MCG TABLET PO SCH (06:00)
[2020-03-05] MEDS: INSULIN SLIDING SCALE (NOVOLOG) 1 VIAL SQ SCH ×4 (06:01→22:28)
[2020-03-05] MEDS ORDERED: INSULIN (NOVOLOG) ASPART 100 UNITS/ML 10ML VIAL ONE (09:06)
[2020-03-05 09:58] LABS: HEMATOCRIT 28.8 % (35.4-49); HEMOGLOBIN 9.5 GM/dL (11.7-16.9); MCH 28.3 pg (25.7-33.7); MCHC 32.9 g/dl (32.0-35.9); MEAN PLT VOLUME 8.4 fl (7.5-11.1); PLATELET COUNT 309 K/MM3 (134-434); RBC 3.35 M/mm3 (4.00-5.60); RDW 15.7 % (11.9-15.9); WHITE BLOOD COUNT 4.9 K/mm3 (4.0-10.0)
[2020-03-05] MEDS: HEPARIN NA (PORCINE) 5,000 UNITS/ML 1ML VIAL SQ SCH ×2 (10:19→22:27)
[2020-03-05 10:24] LABS: ALBUMIN 2.9 g/dl (3.4-5.0); BILIRUBIN,TOTAL 0.3 mg/dL (0.2-1); BLOOD UREA NITROGEN 30.5 mg/dL (7-18); CALCIUM 8.8 mg/dL (8.5-10.1); CREATININE 1.4 mg/dL (0.55-1.3); POTASSIUM 5.2 mmol/L (3.5-5.1); TOT PROT 7.2 g/dl (6.4-8.2)
--- NOTE | 2020-03-05 11:38 | PN ---
Progress Note, Physician History of Present Illness: stable no new issues - Current Medication List Current Medications: Active Medications Acetaminophen (Tylenol -) 650 mg PO Q4H PRN PRN Reason: PAIN LEVEL 1-5 Last Admin: 03/04/20 16:29 Dose: 650 mg Documented by: Docusate Sodium (Colace -) 100 mg PO Q8H PRN PRN Reason: CONSTIPATION Fentanyl (Sublimaze Injection -) 50 mcg IVPUSH [id number] PRN PRN Reason: PAIN-PACU ORDER X 4 DOSES ONLY Gabapentin (Neurontin -) 600 mg PO TID [facility] Last Admin: 03/05/20 05:22 Dose: 600 mg Documented by: Heparin Sodium (Porcine) (Heparin -) 5,000 unit SQ BID [facility] Last Admin: 03/05/20 10:19 Dose: 5,000 unit Documented by: Piperacillin Sod/Tazobactam (Sod 3.375 gm/ Dextrose) 50 mls @ 100 mls/hr IVPB Q8H-IV [facility]; Protocol Last Admin: 03/05/20 10:20 Dose: 100 mls/hr Documented by: Insulin Aspart (Novolog Vial Sliding Scale -) 1 vial SQ ACHS [facility]; Protocol Last Admin: 03/05/20 10:20 Dose: 4 units Documented by: Insulin Detemir (Levemir Vial) 25 units SQ AM [facility] Last Admin: 03/05/20 06:00 Dose: 25 units Documented by: Ketorolac Tromethamine (Toradol Injection -) 30 mg IVPUSH Q8H PRN PRN Reason: PAIN LEVEL 6-10 Stop: 03/07/20 21:17 Last Admin: 03/05/20 05:39 Dose: 30 mg Documented by: Levothyroxine Sodium (Synthroid -) 200 mcg PO DAILY@0700 [facility] Last Admin: 03/05/20 06:00 Dose: 200 mcg Documented by: Methadone HCl 120 mg/ (Methadone HCl 10 mg) 130 mg PO DAILY@0600 [facility] Last Admin: 03/05/20 05:23 Dose: 130 mg Documented by: Ondansetron HCl (Zofran Injection) 4 mg IVPUSH Q6H PRN PRN Reason: NAUSEA AND/OR VOMITING Promethazine HCl (Phenergan Injection -) 12.5 mg IVPUSH Q6H PRN PRN Reason: NAUSEA-FOR RESCUE AFTER 15 MIN - Objective Vital Signs: Vital Signs Temperature 98.3 F 03/05/20 10:00 Pulse Rate 70 03/05/20 10:00 Respiratory Rate 18 03/05/20 10:00 Blood Pressure 135/73 03/05/20 10:00 O2 Sat by Pulse Oximetry (%) 97 03/05/20 09:00 Constitutional: Yes: No Distress, Calm Cardiovascular: Yes: S1, S2 Respiratory: Yes: Regular, CTA Bilaterally Gastrointestinal: Yes: Normal Bowel Sounds, Soft Musculoskeletal: Yes: WNL Extremities: Yes: Other Wound/Incision: Yes: Other (wound vaac in place) Labs: CBC, BMP 03/05/20 08:30 03/05/20 08:30 INR, PTT INR 1.02 (0.83-1.09) 03/01/20 18:55 Assessment/Plan Lt 2nd toe gangrene Cellulitis/ abscess and OM of Lt 2nd MT s/p Lt 5th toe ampution/OM, exposed tendon/wound Uncontrolled DM -wound cx noted will start patient on zosyn please check with podiatry team if the cx are from the margins and if the margins were clean
[2020-03-05] MEDS: ACETAMINOPHEN 325 MG TABLET (FP) PO PRN ×2 (14:18→22:44)
--- NOTE | 2020-03-05 23:05 | PN ---
Progress Note, Physician History of Present Illness: No new complaints - Current Medication List Current Medications: Active Medications Acetaminophen (Tylenol -) 650 mg PO Q4H PRN PRN Reason: PAIN LEVEL 1-5 Last Admin: 03/05/20 22:44 Dose: 650 mg Documented by: Docusate Sodium (Colace -) 100 mg PO Q8H PRN PRN Reason: CONSTIPATION Fentanyl (Sublimaze Injection -) 50 mcg IVPUSH [id number] PRN PRN Reason: PAIN-PACU ORDER X 4 DOSES ONLY Gabapentin (Neurontin -) 600 mg PO TID [facility] Last Admin: 03/05/20 22:28 Dose: 600 mg Documented by: Heparin Sodium (Porcine) (Heparin -) 5,000 unit SQ BID [facility] Last Admin: 03/05/20 22:27 Dose: 5,000 unit Documented by: Piperacillin Sod/Tazobactam (Sod 3.375 gm/ Dextrose) 50 mls @ 100 mls/hr IVPB Q8H-IV [facility]; Protocol Last Admin: 03/05/20 17:49 Dose: 100 mls/hr Documented by: Insulin Aspart (Novolog Vial Sliding Scale -) 1 vial SQ ACHS [facility]; Protocol Last Admin: 03/05/20 22:28 Dose: 4 units Documented by: Insulin Detemir (Levemir Vial) 25 units SQ AM [facility] Last Admin: 03/05/20 06:00 Dose: 25 units Documented by: Ketorolac Tromethamine (Toradol Injection -) 30 mg IVPUSH Q8H PRN PRN Reason: PAIN LEVEL 6-10 Stop: 03/07/20 21:17 Last Admin: 03/05/20 16:12 Dose: 30 mg Documented by: Levothyroxine Sodium (Synthroid -) 200 mcg PO DAILY@0700 [facility] Last Admin: 03/05/20 06:00 Dose: 200 mcg Documented by: Methadone HCl 120 mg/ (Methadone HCl 10 mg) 130 mg PO DAILY@0600 [facility] Last Admin: 03/05/20 05:23 Dose: 130 mg Documented by: Ondansetron HCl (Zofran Injection) 4 mg IVPUSH Q6H PRN PRN Reason: NAUSEA AND/OR VOMITING Promethazine HCl (Phenergan Injection -) 12.5 mg IVPUSH Q6H PRN PRN Reason: NAUSEA-FOR RESCUE AFTER 15 MIN - Objective Vital Signs: Vital Signs Temperature 98.3 F 03/05/20 10:00 Pulse Rate 70 03/05/20 10:00 Respiratory Rate 18 03/05/20 10:00 Blood Pressure 135/73 03/05/20 10:00 O2 Sat by Pulse Oximetry (%) 97 03/05/20 09:00 Cardiovascular: Yes: WNL, Regular Rate and Rhythm Respiratory: Yes: WNL, Regular, CTA Bilaterally Gastrointestinal: Yes: WNL, Normal Bowel Sounds, Soft Extremities: Yes: Other (Lt foot w/ wound vac) Labs: CBC, BMP 03/05/20 08:30 03/05/20 08:30 INR, PTT INR 1.02 (0.83-1.09) 03/01/20 18:55 Problem List - Problems (1) Gangrene of toe of left foot Assessment/Plan: Cont IV antibiotic COVID negative Amputation gangrenous 2nd toe left. Resection of 2nd metatarsal to base. Incision and drainage left foot dorsal abscess. Await cultures Code(s): I96 - GANGRENE, NOT ELSEWHERE CLASSIFIED (2) Diabetes Assessment/Plan: Cont sliding scale w/ coverage Cont levemir Code(s): E11.9 - TYPE 2 DIABETES MELLITUS WITHOUT COMPLICATIONS (3) Hypothyroid Assessment/Plan: Cont levothyroxine Code(s): E03.9 - HYPOTHYROIDISM, UNSPECIFIED (4) HTN (hypertension) Assessment/Plan: BP stable Code(s): I10 - ESSENTIAL (PRIMARY) HYPERTENSION Qualifiers: Hypertension type: essential hypertension Qualified Code(s): I10 - Essential (primary) hypertension (5) Methadone maintenance therapy patient Assessment/Plan: Cont methadone Code(s): F11.20 - OPIOID DEPENDENCE, UNCOMPLICATED
[2020-03-06] MEDS ORDERED: PIPERACILLIN/TAZOBACTAM 3.375 GM VIAL IVPB ONE ×4 (01:53→22:47)
[2020-03-06] MEDS ORDERED: DEXTROSE 5%-WATER - 50 ML IVPB ONE ×4 (01:54→22:47)
[2020-03-06] MEDS: KETOROLAC TROMETHAMINE 15 MG/ML VIAL IVPUSH PRN ×2 (02:14→10:20)
[2020-03-06] MEDS: PIPERACILLIN/TAZOB 3.375 GM 3.375 GM in DEXTROSE 5%-WATER - 50 ML IVPB SCH ×3 (02:14→18:18)
[2020-03-06] MEDS ORDERED: METHADONE HCL 40 MG DISPERSABLE TABLET ONE (05:23)
[2020-03-06] MEDS ORDERED: METHADONE HCL 10 MG TABLET ONE (05:23)
[2020-03-06] MEDS: METHADONE 120 MG, METHADONE 10 MG PO SCH (05:31)
[2020-03-06] MEDS: GABAPENTIN 300 MG CAPSULE PO SCH ×3 (05:32→21:16)
[2020-03-06] MEDS: INSULIN (LEVEMIR) 100 UNITS/ML UNITS SQ SCH (06:16)
[2020-03-06] MEDS: INSULIN SLIDING SCALE (NOVOLOG) 1 VIAL SQ SCH ×4 (06:16→21:26)
[2020-03-06] MEDS: LEVOTHYROXINE NA 200 MCG TABLET PO SCH (06:17)
[2020-03-06] MEDS ORDERED: INSULIN (NOVOLOG) ASPART 100 UNITS/ML 10ML VIAL ONE (10:09)
[2020-03-06] MEDS: HEPARIN NA (PORCINE) 5,000 UNITS/ML 1ML VIAL SQ SCH ×2 (10:11→21:16)
--- NOTE | 2020-03-06 11:52 | PN ---
Progress Note, Physician History of Present Illness: stable no new issues - Current Medication List Current Medications: Active Medications Acetaminophen (Tylenol -) 650 mg PO Q4H PRN PRN Reason: PAIN LEVEL 1-5 Last Admin: 03/05/20 22:44 Dose: 650 mg Documented by: Docusate Sodium (Colace -) 100 mg PO Q8H PRN PRN Reason: CONSTIPATION Fentanyl (Sublimaze Injection -) 50 mcg IVPUSH [id number] PRN PRN Reason: PAIN-PACU ORDER X 4 DOSES ONLY Gabapentin (Neurontin -) 600 mg PO TID [facility] Last Admin: 03/06/20 05:32 Dose: 600 mg Documented by: Heparin Sodium (Porcine) (Heparin -) 5,000 unit SQ BID [facility] Last Admin: 03/06/20 10:11 Dose: 5,000 unit Documented by: Piperacillin Sod/Tazobactam (Sod 3.375 gm/ Dextrose) 50 mls @ 100 mls/hr IVPB Q8H-IV [facility]; Protocol Last Admin: 03/06/20 10:11 Dose: 100 mls/hr Documented by: Insulin Aspart (Novolog Vial Sliding Scale -) 1 vial SQ ACHS [facility]; Protocol Last Admin: 03/06/20 10:18 Dose: 2 units Documented by: Insulin Detemir (Levemir Vial) 25 units SQ AM [facility] Last Admin: 03/06/20 06:16 Dose: 25 units Documented by: Ketorolac Tromethamine (Toradol Injection -) 30 mg IVPUSH Q8H PRN PRN Reason: PAIN LEVEL 6-10 Stop: 03/07/20 21:17 Last Admin: 03/06/20 10:20 Dose: 30 mg Documented by: Levothyroxine Sodium (Synthroid -) 200 mcg PO DAILY@0700 [facility] Last Admin: 03/06/20 06:17 Dose: 200 mcg Documented by: Methadone HCl 120 mg/ (Methadone HCl 10 mg) 130 mg PO DAILY@0600 [facility] Last Admin: 03/06/20 05:31 Dose: 130 mg Documented by: Ondansetron HCl (Zofran Injection) 4 mg IVPUSH Q6H PRN PRN Reason: NAUSEA AND/OR VOMITING Promethazine HCl (Phenergan Injection -) 12.5 mg IVPUSH Q6H PRN PRN Reason: NAUSEA-FOR RESCUE AFTER 15 MIN - Objective Vital Signs: Vital Signs Temperature 98.2 F 03/06/20 10:00 Pulse Rate 78 03/06/20 10:00 Respiratory Rate 18 03/06/20 10:00 Blood Pressure 122/74 03/06/20 10:00 O2 Sat by Pulse Oximetry (%) 100 03/06/20 09:00 Constitutional: Yes: No Distress, Calm Cardiovascular: Yes: S1, S2 Respiratory: Yes: Regular, CTA Bilaterally Gastrointestinal: Yes: Normal Bowel Sounds, Soft Musculoskeletal: Yes: WNL Extremities: Yes: Other 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: Alert, Oriented Psychiatric: Yes: Alert, Oriented Labs: CBC, BMP 03/05/20 08:30 03/05/20 08:30 INR, PTT INR 1.02 (0.83-1.09) 03/01/20 18:55 Assessment/Plan Lt 2nd toe gangrene Cellulitis/ abscess and OM of Lt 2nd MT s/p Lt 5th toe ampution/OM, exposed tendon/wound Uncontrolled DM -wound cx noted will start patient on zosyn please check with podiatry team if the cx are from the margins and if the margins were clean
--- NOTE | 2020-03-06 13:09 | PN ---
Progress Note, Physician History of Present Illness: pod#4 - Current Medication List Current Medications: Active Medications Acetaminophen (Tylenol -) 650 mg PO Q4H PRN PRN Reason: PAIN LEVEL 1-5 Last Admin: 03/05/20 22:44 Dose: 650 mg Documented by: Docusate Sodium (Colace -) 100 mg PO Q8H PRN PRN Reason: CONSTIPATION Fentanyl (Sublimaze Injection -) 50 mcg IVPUSH [id number] PRN PRN Reason: PAIN-PACU ORDER X 4 DOSES ONLY Gabapentin (Neurontin -) 600 mg PO TID [facility] Last Admin: 03/06/20 05:32 Dose: 600 mg Documented by: Heparin Sodium (Porcine) (Heparin -) 5,000 unit SQ BID [facility] Last Admin: 03/06/20 10:11 Dose: 5,000 unit Documented by: Piperacillin Sod/Tazobactam (Sod 3.375 gm/ Dextrose) 50 mls @ 100 mls/hr IVPB Q8H-IV [facility]; Protocol Last Admin: 03/06/20 10:11 Dose: 100 mls/hr Documented by: Insulin Aspart (Novolog Vial Sliding Scale -) 1 vial SQ ACHS [facility]; Protocol Last Admin: 03/06/20 10:18 Dose: 2 units Documented by: Insulin Detemir (Levemir Vial) 25 units SQ AM [facility] Last Admin: 03/06/20 06:16 Dose: 25 units Documented by: Ketorolac Tromethamine (Toradol Injection -) 30 mg IVPUSH Q8H PRN PRN Reason: PAIN LEVEL 6-10 Stop: 03/07/20 21:17 Last Admin: 03/06/20 10:20 Dose: 30 mg Documented by: Levothyroxine Sodium (Synthroid -) 200 mcg PO DAILY@0700 [facility] Last Admin: 03/06/20 06:17 Dose: 200 mcg Documented by: Methadone HCl 120 mg/ (Methadone HCl 10 mg) 130 mg PO DAILY@0600 [facility] Last Admin: 03/06/20 05:31 Dose: 130 mg Documented by: Ondansetron HCl (Zofran Injection) 4 mg IVPUSH Q6H PRN PRN Reason: NAUSEA AND/OR VOMITING Promethazine HCl (Phenergan Injection -) 12.5 mg IVPUSH Q6H PRN PRN Reason: NAUSEA-FOR RESCUE AFTER 15 MIN - Objective Vital Signs: Vital Signs Temperature 98.2 F 03/06/20 10:00 Pulse Rate 78 03/06/20 10:00 Respiratory Rate 18 03/06/20 10:00 Blood Pressure 122/74 03/06/20 10:00 O2 Sat by Pulse Oximetry (%) 100 03/06/20 09:00 Wound/Incision: Yes: Other (+vac in place and producing minimal drainage, wbc wnl, -cellulitis,) Labs: CBC, BMP 03/05/20 08:30 03/05/20 08:30 INR, PTT INR 1.02 (0.83-1.09) 03/01/20 18:55 Assessment/Plan post wounds x 2 left pvd Continue wound vac on both sx locations. IVABX as per ID. HBO consult ordered. Wound vac at home. Follow up in [facility]. Will follow till DC.
--- NOTE | 2020-03-06 19:14 | PN ---
Progress Note, Physician History of Present Illness: Pt agitated today bc he states that no one has told him anything about his Condition? - Current Medication List Current Medications: Active Medications Acetaminophen (Tylenol -) 650 mg PO Q4H PRN PRN Reason: PAIN LEVEL 1-5 Last Admin: 03/05/20 22:44 Dose: 650 mg Documented by: Docusate Sodium (Colace -) 100 mg PO Q8H PRN PRN Reason: CONSTIPATION Fentanyl (Sublimaze Injection -) 50 mcg IVPUSH [id number] PRN PRN Reason: PAIN-PACU ORDER X 4 DOSES ONLY Gabapentin (Neurontin -) 600 mg PO TID [facility] Last Admin: 03/06/20 13:49 Dose: 600 mg Documented by: Heparin Sodium (Porcine) (Heparin -) 5,000 unit SQ BID [facility] Last Admin: 03/06/20 10:11 Dose: 5,000 unit Documented by: Piperacillin Sod/Tazobactam (Sod 3.375 gm/ Dextrose) 50 mls @ 100 mls/hr IVPB Q8H-IV [facility]; Protocol Last Admin: 03/06/20 18:18 Dose: 100 mls/hr Documented by: Insulin Aspart (Novolog Vial Sliding Scale -) 1 vial SQ ACHS [facility]; Protocol Last Admin: 03/06/20 17:15 Dose: Not Given Documented by: Insulin Detemir (Levemir Vial) 25 units SQ AM [facility] Last Admin: 03/06/20 06:16 Dose: 25 units Documented by: Ketorolac Tromethamine (Toradol Injection -) 30 mg IVPUSH Q8H PRN PRN Reason: PAIN LEVEL 6-10 Stop: 03/07/20 21:17 Last Admin: 03/06/20 10:20 Dose: 30 mg Documented by: Levothyroxine Sodium (Synthroid -) 200 mcg PO DAILY@0700 [facility] Last Admin: 03/06/20 06:17 Dose: 200 mcg Documented by: Methadone HCl 120 mg/ (Methadone HCl 10 mg) 130 mg PO DAILY@0600 [facility] Last Admin: 03/06/20 05:31 Dose: 130 mg Documented by: Ondansetron HCl (Zofran Injection) 4 mg IVPUSH Q6H PRN PRN Reason: NAUSEA AND/OR VOMITING Promethazine HCl (Phenergan Injection -) 12.5 mg IVPUSH Q6H PRN PRN Reason: NAUSEA-FOR RESCUE AFTER 15 MIN - Objective Vital Signs: Vital Signs Temperature 97.8 F 03/06/20 14:25 Pulse Rate 55 L 03/06/20 14:25 Respiratory Rate 03/06/20 14:25 Blood Pressure 142/71 03/06/20 14:25 O2 Sat by Pulse Oximetry (%) 100 03/06/20 09:00 Cardiovascular: Yes: WNL, Regular Rate and Rhythm Respiratory: Yes: WNL, Regular, CTA Bilaterally Gastrointestinal: Yes: WNL, Normal Bowel Sounds, Soft Extremities: Yes: Other (Lt foot w/ wound vac on) Labs: CBC, BMP 03/05/20 08:30 03/05/20 08:30 INR, PTT INR 1.02 (0.83-1.09) 03/01/20 18:55 Problem List - Problems (1) Gangrene of toe of left foot Assessment/Plan: Cont IV zosyn S/P amputation gangrenous 2nd toe left. Resection of 2nd metatarsal to base. Incision and drainage left foot dorsal abscess Wound culture shows pseudomonas Cont wound vac Code(s): I96 - GANGRENE, NOT ELSEWHERE CLASSIFIED (2) Diabetes Assessment/Plan: Cont sliding scale w/ coverage Cont levemir Code(s): E11.9 - TYPE 2 DIABETES MELLITUS WITHOUT COMPLICATIONS (3) Hypothyroid Assessment/Plan: Cont levothyroxine Code(s): E03.9 - HYPOTHYROIDISM, UNSPECIFIED (4) HTN (hypertension) Assessment/Plan: BP stable Code(s): I10 - ESSENTIAL (PRIMARY) HYPERTENSION Qualifiers: Hypertension type: essential hypertension Qualified Code(s): I10 - Essential (primary) hypertension (5) Methadone maintenance therapy patient Assessment/Plan: Cont methadone Code(s): F11.20 - OPIOID DEPENDENCE, UNCOMPLICATED
[2020-03-06] MEDS ORDERED: ACETAMINOPHEN 325 MG TABLET (FP) PO PRN (20:26)
[2020-03-06] MEDS: ACETAMINOPHEN 325 MG TABLET (FP) PO PRN (21:26)
[2020-03-07] MEDS: PIPERACILLIN/TAZOB 3.375 GM 3.375 GM in DEXTROSE 5%-WATER - 50 ML IVPB SCH ×3 (01:40→17:09)
[2020-03-07] MEDS ORDERED: METHADONE HCL 10 MG TABLET ONE (05:53)
[2020-03-07] MEDS ORDERED: METHADONE HCL 40 MG DISPERSABLE TABLET ONE (05:53)
[2020-03-07] MEDS: METHADONE 120 MG, METHADONE 10 MG PO SCH (06:01)
[2020-03-07] MEDS: GABAPENTIN 300 MG CAPSULE PO SCH ×3 (06:02→22:23)
[2020-03-07] MEDS: INSULIN (LEVEMIR) 100 UNITS/ML UNITS SQ SCH (06:03)
[2020-03-07] MEDS: LEVOTHYROXINE NA 200 MCG TABLET PO SCH (06:04)
[2020-03-07] MEDS: INSULIN SLIDING SCALE (NOVOLOG) 1 VIAL SQ SCH ×4 (06:17→22:26)
[2020-03-07 06:24] LABS: EOS % 8.7 % (0-4.5); HEMATOCRIT 30.2 % (35.4-49); LYMPH % 18.5 % (8-40); MCH 28.5 pg (25.7-33.7); MEAN CELL VOLUME 86.2 fl (80-96); MEAN PLT VOLUME 7.9 fl (7.5-11.1); MONO % 7.3 % (3.8-10.2); NEUT % 64.5 % (42.8-82.8); PLATELET COUNT 314 K/MM3 (134-434); WHITE BLOOD COUNT 5.7 K/mm3 (4.0-10.0)
[2020-03-07 07:05] LABS: BILIRUBIN,TOTAL 0.4 mg/dL (0.2-1); BLOOD UREA NITROGEN 32.9 mg/dL (7-18); CALCIUM 8.9 mg/dL (8.5-10.1); CREATININE 1.5 mg/dL (0.55-1.3); POTASSIUM 5.4 mmol/L (3.5-5.1); TOT PROT 7.4 g/dl (6.4-8.2)
[2020-03-07] MEDS ORDERED: INSULIN (NOVOLOG) ASPART 100 UNITS/ML 10ML VIAL ONE ×2 (09:34→22:16)
[2020-03-07] MEDS ORDERED: DEXTROSE 5%-WATER - 50 ML IVPB ONE ×2 (09:34→16:25)
[2020-03-07] MEDS ORDERED: PIPERACILLIN/TAZOBACTAM 3.375 GM VIAL IVPB ONE ×2 (09:34→16:25)
[2020-03-07] MEDS: HEPARIN NA (PORCINE) 5,000 UNITS/ML 1ML VIAL SQ SCH ×2 (09:51→22:25)
[2020-03-07] MEDS: ACETAMINOPHEN 325 MG TABLET (FP) PO PRN ×2 (10:35→20:27)
--- NOTE | 2020-03-07 12:42 | PN ---
Progress Note, Physician History of Present Illness: stable no new issues - Current Medication List Current Medications: Active Medications Acetaminophen (Tylenol -) 650 mg PO Q4H PRN PRN Reason: PAIN LEVEL 1-5 Last Admin: 03/07/20 10:35 Dose: 650 mg Documented by: Docusate Sodium (Colace -) 100 mg PO Q8H PRN PRN Reason: CONSTIPATION Fentanyl (Sublimaze Injection -) 50 mcg IVPUSH [id number] PRN PRN Reason: PAIN-PACU ORDER X 4 DOSES ONLY Gabapentin (Neurontin -) 600 mg PO TID [facility] Last Admin: 03/07/20 06:02 Dose: 600 mg Documented by: Heparin Sodium (Porcine) (Heparin -) 5,000 unit SQ BID [facility] Last Admin: 03/07/20 09:51 Dose: 5,000 unit Documented by: Piperacillin Sod/Tazobactam (Sod 3.375 gm/ Dextrose) 50 mls @ 100 mls/hr IVPB Q8H-IV [facility]; Protocol Last Admin: 03/07/20 09:51 Dose: 100 mls/hr Documented by: Insulin Aspart (Novolog Vial Sliding Scale -) 1 vial SQ ACHS [facility]; Protocol Last Admin: 03/07/20 12:05 Dose: 4 units Documented by: Insulin Detemir (Levemir Vial) 25 units SQ AM [facility] Last Admin: 03/07/20 06:03 Dose: 25 units Documented by: Levothyroxine Sodium (Synthroid -) 200 mcg PO DAILY@0700 [facility] Last Admin: 03/07/20 06:04 Dose: 200 mcg Documented by: Methadone HCl 120 mg/ (Methadone HCl 10 mg) 130 mg PO DAILY@0600 [facility] Last Admin: 03/07/20 06:01 Dose: 130 mg Documented by: Ondansetron HCl (Zofran Injection) 4 mg IVPUSH Q6H PRN PRN Reason: NAUSEA AND/OR VOMITING Promethazine HCl (Phenergan Injection -) 12.5 mg IVPUSH Q6H PRN PRN Reason: NAUSEA-FOR RESCUE AFTER 15 MIN - Objective Vital Signs: Vital Signs Temperature 98.7 F 03/07/20 10:00 Pulse Rate 71 03/07/20 10:00 Respiratory Rate 16 03/07/20 10:00 Blood Pressure 138/71 03/07/20 10:00 O2 Sat by Pulse Oximetry (%) 100 03/07/20 09:00 Constitutional: Yes: No Distress, Calm Neck: Yes: Supple, Trachea Midline Cardiovascular: Yes: Regular Rate and Rhythm Respiratory: Yes: Regular, CTA Bilaterally Gastrointestinal: Yes: Normal Bowel Sounds, Soft Musculoskeletal: Yes: WNL Extremities: Yes: Other Wound/Incision: Yes: Dressing Dry and Intact, Other 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: Alert, Oriented Psychiatric: Yes: Alert, Oriented Labs: CBC, BMP 03/07/20 06:00 03/07/20 06:00 INR, PTT INR 1.02 (0.83-1.09) 03/01/20 18:55 Assessment/Plan Lt 2nd toe gangrene Cellulitis/ abscess and OM of Lt 2nd MT s/p Lt 5th toe ampution/OM, exposed tendon/wound Uncontrolled DM plan continue zosyn will need it for another 5 weeks wound care will d/w podiatry
--- NOTE | 2020-03-07 15:57 | PN ---
Progress Note, Physician History of Present Illness: Pt is a 59 y/o male w/ PMH significant for diabetes, HTN and substance abuse(on methadone) who was recently dc'ed from [facility] for diabetic foot ulcer/gangrene(s/p amputation Lt 5th digit) presenting with a necrotic/gangreneous Lt 2nd toe. Pt complains of pain to lt 2nd toe but denies any fever/chills/oozing from toe. Pt was sent by his insurance salesman for probable amputation of that toe. - Current Medication List Current Medications: Active Medications Acetaminophen (Tylenol -) 650 mg PO Q4H PRN PRN Reason: PAIN LEVEL 1-5 Last Admin: 03/07/20 10:35 Dose: 650 mg Documented by: Docusate Sodium (Colace -) 100 mg PO Q8H PRN PRN Reason: CONSTIPATION Fentanyl (Sublimaze Injection -) 50 mcg IVPUSH [id number] PRN PRN Reason: PAIN-PACU ORDER X 4 DOSES ONLY Gabapentin (Neurontin -) 600 mg PO TID [facility] Last Admin: 03/07/20 14:08 Dose: 600 mg Documented by: Heparin Sodium (Porcine) (Heparin -) 5,000 unit SQ BID [facility] Last Admin: 03/07/20 09:51 Dose: 5,000 unit Documented by: Piperacillin Sod/Tazobactam (Sod 3.375 gm/ Dextrose) 50 mls @ 100 mls/hr IVPB Q8H-IV [facility]; Protocol Last Admin: 03/07/20 09:51 Dose: 100 mls/hr Documented by: Insulin Aspart (Novolog Vial Sliding Scale -) 1 vial SQ ACHS [facility]; Protocol Last Admin: 03/07/20 12:05 Dose: 4 units Documented by: Insulin Detemir (Levemir Vial) 25 units SQ AM [facility] Last Admin: 03/07/20 06:03 Dose: 25 units Documented by: Levothyroxine Sodium (Synthroid -) 200 mcg PO DAILY@0700 [facility] Last Admin: 03/07/20 06:04 Dose: 200 mcg Documented by: Methadone HCl 120 mg/ (Methadone HCl 10 mg) 130 mg PO DAILY@0600 [facility] Last Admin: 03/07/20 06:01 Dose: 130 mg Documented by: Ondansetron HCl (Zofran Injection) 4 mg IVPUSH Q6H PRN PRN Reason: NAUSEA AND/OR VOMITING Promethazine HCl (Phenergan Injection -) 12.5 mg IVPUSH Q6H PRN PRN Reason: NAUSEA-FOR RESCUE AFTER 15 MIN - Objective Vital Signs: Vital Signs Temperature 98.4 F 03/07/20 14:58 Pulse Rate 67 03/07/20 14:58 Respiratory Rate 18 03/07/20 14:58 Blood Pressure 149/83 03/07/20 14:58 O2 Sat by Pulse Oximetry (%) 100 03/07/20 09:00 Eyes: Yes: WNL, Conjunctiva Clear, EOM Intact HENT: Yes: WNL, Atraumatic, Normocephalic Neck: Yes: WNL, Supple, Trachea Midline Cardiovascular: Yes: WNL, Regular Rate and Rhythm Respiratory: Yes: WNL, Regular, CTA Bilaterally Gastrointestinal: Yes: WNL, Normal Bowel Sounds Genitourinary: Yes: WNL Musculoskeletal: Yes: WNL Extremities: Yes: Other (vacu drain in place , gangrene , amputations) Edema: No Integumentary: Yes: WNL 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: WNL, Alert, Oriented ...Motor Strength: WNL Psychiatric: Yes: WNL Labs: CBC, BMP 03/07/20 06:00 03/07/20 06:00 INR, PTT INR 1.02 (0.83-1.09) 03/01/20 18:55 Problem List - Problems (1) Gangrene of toe of left foot Code(s): I96 - GANGRENE, NOT ELSEWHERE CLASSIFIED (2) Diabetes Code(s): E11.9 - TYPE 2 DIABETES MELLITUS WITHOUT COMPLICATIONS (3) Diabetes Code(s): E11.9 - TYPE 2 DIABETES MELLITUS WITHOUT COMPLICATIONS (4) Diabetes 1.5, managed as type 1 Code(s): E13.9 - OTHER SPECIFIED DIABETES MELLITUS WITHOUT COMPLICATIONS (5) Diabetic foot infection Code(s): E11.628 - TYPE 2 DIABETES MELLITUS WITH OTHER SKIN COMPLICATIONS; L08.9 - LOCAL INFECTION OF THE SKIN AND SUBCUTANEOUS TISSUE, UNSP (6) Gangrenous toe Code(s): I96 - GANGRENE, NOT ELSEWHERE CLASSIFIED (7) Hyperglycemia Code(s): R73.9 - HYPERGLYCEMIA, UNSPECIFIED (8) Hypothyroid Code(s): E03.9 - HYPOTHYROIDISM, UNSPECIFIED (9) Hypothyroidism Code(s): E03.9 - HYPOTHYROIDISM, UNSPECIFIED (10) Wound of foot Code(s): S91.309A - UNSPECIFIED OPEN WOUND, UNSPECIFIED FOOT, INITIAL ENCOUNTER (11) Anxiety and depression Code(s): F41.9 - ANXIETY DISORDER, UNSPECIFIED; F32.9 - MAJOR DEPRESSIVE DISORDER, SINGLE EPISODE, UNSPECIFIED (12) EtOH dependence Code(s): F10.20 - ALCOHOL DEPENDENCE, UNCOMPLICATED Qualifiers: Substance use status: uncomplicated Qualified Code(s): F10.20 - Alcohol dependence, uncomplicated (13) HTN (hypertension) Code(s): I10 - ESSENTIAL (PRIMARY) HYPERTENSION Qualifiers: Hypertension type: essential hypertension Qualified Code(s): I10 - Essential (primary) hypertension (14) Heroin dependence Code(s): F11.20 - OPIOID DEPENDENCE, UNCOMPLICATED (15) Hypercholesteremia Code(s): E78.00 - PURE HYPERCHOLESTEROLEMIA, UNSPECIFIED (16) Methadone maintenance therapy patient Code(s): F11.20 - OPIOID DEPENDENCE, UNCOMPLICATED (17) Neuropathy Code(s): G62.9 - POLYNEUROPATHY, UNSPECIFIED Assessment/Plan 59 yr old with PMHx diabetes mellitus, HTN and substance abuse(on methadone) who was recently dc'ed from [facility] for diabetic foot ulcer/gangrene(s/p amputation Lt 5th digit) presenting with a necrotic/gangreneous Lt 2nd toe. Pt complains of pain to lt 2nd toe but denies any fever/chills/oozing from toe. Pt was sent by his insurance salesman for probable amputation of that toe. Patient denies any cardiac problems. NO angina h/o CAD/AL/CHF EKG WNL Plan COVID not detected x 2. Lisinopril held (hyperkalemia); restart at low dose when K+ WNL (HTN; DM; CHF). ECHO - if normal, patient is cleared cardiac duncan for toe amputation. Will need MIBI stress test for risk stratification - this may be done as anoutpatient. Keep LDL below 70 mg /dl with statin, diet, exercise. DVT plx
--- NOTE | 2020-03-07 21:57 | PN ---
Progress Note, Physician History of Present Illness: No new complaints - Current Medication List Current Medications: Active Medications Acetaminophen (Tylenol -) 650 mg PO Q4H PRN PRN Reason: PAIN LEVEL 1-5 Last Admin: 03/07/20 20:27 Dose: 650 mg Documented by: Docusate Sodium (Colace -) 100 mg PO Q8H PRN PRN Reason: CONSTIPATION Fentanyl (Sublimaze Injection -) 50 mcg IVPUSH [id number] PRN PRN Reason: PAIN-PACU ORDER X 4 DOSES ONLY Gabapentin (Neurontin -) 600 mg PO TID [facility] Last Admin: 03/07/20 14:08 Dose: 600 mg Documented by: Heparin Sodium (Porcine) (Heparin -) 5,000 unit SQ BID [facility] Last Admin: 03/07/20 09:51 Dose: 5,000 unit Documented by: Piperacillin Sod/Tazobactam (Sod 3.375 gm/ Dextrose) 50 mls @ 100 mls/hr IVPB Q8H-IV [facility]; Protocol Last Admin: 03/07/20 17:09 Dose: 100 mls/hr Documented by: Insulin Aspart (Novolog Vial Sliding Scale -) 1 vial SQ ACHS [facility]; Protocol Last Admin: 03/07/20 16:56 Dose: Not Given Documented by: Insulin Detemir (Levemir Vial) 25 units SQ AM [facility] Last Admin: 03/07/20 06:03 Dose: 25 units Documented by: Levothyroxine Sodium (Synthroid -) 200 mcg PO DAILY@0700 [facility] Last Admin: 03/07/20 06:04 Dose: 200 mcg Documented by: Methadone HCl 120 mg/ (Methadone HCl 10 mg) 130 mg PO DAILY@0600 [facility] Last Admin: 03/07/20 06:01 Dose: 130 mg Documented by: Ondansetron HCl (Zofran Injection) 4 mg IVPUSH Q6H PRN PRN Reason: NAUSEA AND/OR VOMITING Promethazine HCl (Phenergan Injection -) 12.5 mg IVPUSH Q6H PRN PRN Reason: NAUSEA-FOR RESCUE AFTER 15 MIN - Objective Vital Signs: Vital Signs Temperature 98.2 F 03/07/20 16:56 Pulse Rate 64 03/07/20 16:56 Respiratory Rate 18 03/07/20 16:56 Blood Pressure 151/85 03/07/20 16:56 O2 Sat by Pulse Oximetry (%) 100 03/07/20 09:00 Cardiovascular: Yes: WNL, Regular Rate and Rhythm Respiratory: Yes: WNL, Regular, CTA Bilaterally Gastrointestinal: Yes: WNL, Normal Bowel Sounds, Soft Extremities: Yes: Other (Lt foot w/ wound vac wc has some drainage) Labs: CBC, BMP 03/07/20 06:00 03/07/20 06:00 INR, PTT INR 1.02 (0.83-1.09) 03/01/20 18:55 Problem List - Problems (1) Gangrene of toe of left foot Assessment/Plan: Cont IV antibiotic COVID negative Amputation gangrenous 2nd toe left. Resection of 2nd metatarsal to base. Incision and drainage left foot dorsal abscess. Cont IV antibx for another 5 weeks Cont wound vac Code(s): I96 - GANGRENE, NOT ELSEWHERE CLASSIFIED (2) Diabetes Assessment/Plan: Cont sliding scale w/ coverage Cont levemir Code(s): E11.9 - TYPE 2 DIABETES MELLITUS WITHOUT COMPLICATIONS (3) Hypothyroid Assessment/Plan: Cont levothyroxine Code(s): E03.9 - HYPOTHYROIDISM, UNSPECIFIED (4) HTN (hypertension) Assessment/Plan: BP stable Code(s): I10 - ESSENTIAL (PRIMARY) HYPERTENSION Qualifiers: Hypertension type: essential hypertension Qualified Code(s): I10 - Essential (primary) hypertension (5) Methadone maintenance therapy patient Assessment/Plan: Cont methadone Code(s): F11.20 - OPIOID DEPENDENCE, UNCOMPLICATED
[2020-03-08] MEDS ORDERED: PIPERACILLIN/TAZOBACTAM 3.375 GM VIAL IVPB ONE ×3 (01:20→17:17)
[2020-03-08] MEDS ORDERED: DEXTROSE 5%-WATER - 50 ML IVPB ONE ×3 (01:21→17:17)
[2020-03-08] MEDS: PIPERACILLIN/TAZOB 3.375 GM 3.375 GM in DEXTROSE 5%-WATER - 50 ML IVPB SCH ×3 (01:30→18:44)
[2020-03-08] MEDS ORDERED: KETOROLAC TROMETHAMINE 30 MG/1 ML VIAL IVPUSH ONE ×2 (02:45→20:30)
[2020-03-08] MEDS ORDERED: METHADONE HCL 10 MG TABLET ONE (06:11)
[2020-03-08] MEDS ORDERED: METHADONE HCL 40 MG DISPERSABLE TABLET ONE (06:12)
[2020-03-08] MEDS: ACETAMINOPHEN 325 MG TABLET (FP) PO PRN ×2 (06:44→18:46)
[2020-03-08] MEDS: GABAPENTIN 300 MG CAPSULE PO SCH ×3 (06:45→21:32)
[2020-03-08] MEDS: LEVOTHYROXINE NA 200 MCG TABLET PO SCH (06:46)
[2020-03-08] MEDS: METHADONE 120 MG, METHADONE 10 MG PO SCH (06:46)
[2020-03-08] MEDS: INSULIN SLIDING SCALE (NOVOLOG) 1 VIAL SQ SCH ×4 (06:48→21:33)
[2020-03-08] MEDS: INSULIN (LEVEMIR) 100 UNITS/ML UNITS SQ SCH (06:48)
[2020-03-08] MEDS ORDERED: INSULIN (NOVOLOG) ASPART 100 UNITS/ML 10ML VIAL ONE (06:58)
[2020-03-08] MEDS ORDERED: INSULIN (LEVEMIR) 100 UNITS/ML UNITS SQ ONE (06:59)
[2020-03-08] MEDS: HEPARIN NA (PORCINE) 5,000 UNITS/ML 1ML VIAL SQ SCH ×2 (09:54→21:32)
--- NOTE | 2020-03-08 12:38 | PN ---
Progress Note, Physician History of Present Illness: stable no issues - Current Medication List Current Medications: Active Medications Acetaminophen (Tylenol -) 650 mg PO Q4H PRN PRN Reason: PAIN LEVEL 1-5 Last Admin: 03/08/20 06:44 Dose: 650 mg Documented by: Docusate Sodium (Colace -) 100 mg PO Q8H PRN PRN Reason: CONSTIPATION Fentanyl (Sublimaze Injection -) 50 mcg IVPUSH [id number] PRN PRN Reason: PAIN-PACU ORDER X 4 DOSES ONLY Gabapentin (Neurontin -) 600 mg PO TID [facility] Last Admin: 03/08/20 06:45 Dose: 600 mg Documented by: Heparin Sodium (Porcine) (Heparin -) 5,000 unit SQ BID [facility] Last Admin: 03/08/20 09:54 Dose: 5,000 unit Documented by: Piperacillin Sod/Tazobactam (Sod 3.375 gm/ Dextrose) 50 mls @ 100 mls/hr IVPB Q8H-IV [facility]; Protocol Last Admin: 03/08/20 09:54 Dose: 100 mls/hr Documented by: Insulin Aspart (Novolog Vial Sliding Scale -) 1 vial SQ ACHS [facility]; Protocol Last Admin: 03/08/20 10:09 Dose: Not Given Documented by: Insulin Detemir (Levemir Vial) 25 units SQ AM [facility] Last Admin: 03/08/20 06:48 Dose: 25 units Documented by: Levothyroxine Sodium (Synthroid -) 200 mcg PO DAILY@0700 [facility] Last Admin: 03/08/20 06:46 Dose: 200 mcg Documented by: Methadone HCl 120 mg/ (Methadone HCl 10 mg) 130 mg PO DAILY@0600 [facility] Last Admin: 03/08/20 06:46 Dose: 130 mg Documented by: Ondansetron HCl (Zofran Injection) 4 mg IVPUSH Q6H PRN PRN Reason: NAUSEA AND/OR VOMITING Promethazine HCl (Phenergan Injection -) 12.5 mg IVPUSH Q6H PRN PRN Reason: NAUSEA-FOR RESCUE AFTER 15 MIN - Objective Vital Signs: Vital Signs Temperature 98.0 F 03/08/20 10:00 Pulse Rate 66 03/08/20 10:00 Respiratory Rate 18 03/08/20 10:00 Blood Pressure 130/81 03/08/20 10:00 O2 Sat by Pulse Oximetry (%) 99 03/07/20 21:00 Constitutional: Yes: No Distress, Calm Cardiovascular: Yes: S1, S2 Respiratory: Yes: Regular, CTA Bilaterally Gastrointestinal: Yes: Normal Bowel Sounds, Soft Musculoskeletal: Yes: WNL Extremities: Yes: WNL Wound/Incision: Yes: Other (wound vac in place) 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: Alert, Oriented Labs: CBC, BMP 03/07/20 06:00 03/07/20 06:00 INR, PTT INR 1.02 (0.83-1.09) 03/01/20 18:55 Assessment/Plan Lt 2nd toe gangrene Cellulitis/ abscess and OM of Lt 2nd MT s/p Lt 5th toe ampution/OM, exposed tendon/wound Uncontrolled DM plan continue zosyn will need it for another 5 weeks wound care will d/w podiatry
--- NOTE | 2020-03-08 16:58 | PN ---
Progress Note, Physician Chief Complaint: Pt A&Ox3;sitting at bedside; c/o tape being tight on toes; wonders if VAC is working. History of Present Illness: 59-year-old white male w/ PMH significant for diabetes, PAD (s/p amputation of 5th toe, metatarsal head great toe left foot),HTN and substance abuse(on methadone) who was recently dc'ed from [facility] for diabetic foot ulcer/gangrene(s/p amputation Lt 5th digit) presenting with a necrotic/gangreneous Lt 2nd toe. Pt complains of pain to lt 2nd toe but denies any fever/chills/oozing from toe. Pt was sent by his online merchandising manager for probable amputation of that toe. GENERAL/CONSTITUTIONAL: No fever, weakness. dizziness - Current Medication List Current Medications: Active Medications Acetaminophen (Tylenol -) 650 mg PO Q4H PRN PRN Reason: PAIN LEVEL 1-5 Last Admin: 03/08/20 06:44 Dose: 650 mg Documented by: Docusate Sodium (Colace -) 100 mg PO Q8H PRN PRN Reason: CONSTIPATION Fentanyl (Sublimaze Injection -) 50 mcg IVPUSH [id number] PRN PRN Reason: PAIN-PACU ORDER X 4 DOSES ONLY Gabapentin (Neurontin -) 600 mg PO TID [facility] Last Admin: 03/08/20 14:21 Dose: 600 mg Documented by: Heparin Sodium (Porcine) (Heparin -) 5,000 unit SQ BID [facility] Last Admin: 03/08/20 09:54 Dose: 5,000 unit Documented by: Piperacillin Sod/Tazobactam (Sod 3.375 gm/ Dextrose) 50 mls @ 100 mls/hr IVPB Q8H-IV [facility]; Protocol Last Admin: 03/08/20 09:54 Dose: 100 mls/hr Documented by: Insulin Aspart (Novolog Vial Sliding Scale -) 1 vial SQ ACHS [facility]; Protocol Last Admin: 03/08/20 10:09 Dose: Not Given Documented by: Insulin Detemir (Levemir Vial) 25 units SQ AM [facility] Last Admin: 03/08/20 06:48 Dose: 25 units Documented by: Levothyroxine Sodium (Synthroid -) 200 mcg PO DAILY@0700 [facility] Last Admin: 03/08/20 06:46 Dose: 200 mcg Documented by: Methadone HCl 120 mg/ (Methadone HCl 10 mg) 130 mg PO DAILY@0600 [facility] Last Admin: 03/08/20 06:46 Dose: 130 mg Documented by: Ondansetron HCl (Zofran Injection) 4 mg IVPUSH Q6H PRN PRN Reason: NAUSEA AND/OR VOMITING Promethazine HCl (Phenergan Injection -) 12.5 mg IVPUSH Q6H PRN PRN Reason: NAUSEA-FOR RESCUE AFTER 15 MIN - Objective Vital Signs: Vital Signs Temperature 98.0 F 03/08/20 14:57 Pulse Rate 72 03/08/20 14:57 Respiratory Rate 18 03/08/20 14:57 Blood Pressure 144/76 03/08/20 14:57 O2 Sat by Pulse Oximetry (%) 99 03/08/20 09:00 Labs: CBC, BMP 03/07/20 06:00 03/07/20 06:00 INR, PTT INR 1.02 (0.83-1.09) 03/01/20 18:55 Assessment/Plan 59 yr old with PMHx diabetes mellitus, HTN, ?hypothyroid, and substance abuse(on methadone) who was recently dc'ed from [facility] for diabetic foot ulcer/gangrene(s/p amputation Lt 5th digit) presenting with a necrotic/gangreneous Lt 2nd toe. Pt complains of pain to lt 2nd toe but denies any fever/chills/oozing from toe. Pt was sent by his online merchandising manager for probable amputation of that toe; sugery now completed. Patient denies any cardiac problems. NO angina h/o CAD/NC/CHF EKG WNL hyperkalemia Plan s/p amputation of left 2nd toe and debridement; pain management, wound care. f/u with surgeon MARICHUY not detected x 2; 3rd study pending. Lisinopril stopped (hyperkalemia). ECHO: normal LVEF; trace TR. Elecvated TSH; mildly elevated free T4. Will need MIBI stress test for risk stratification - this may be done as an outpatient. Keep LDL below 70 mg /dl with statin, diet, exercise. DVT plx
--- NOTE | 2020-03-08 17:42 | PN ---
Progress Note, Physician - Current Medication List Current Medications: Active Medications Acetaminophen (Tylenol -) 650 mg PO Q4H PRN PRN Reason: PAIN LEVEL 1-5 Last Admin: 03/08/20 06:44 Dose: 650 mg Documented by: Docusate Sodium (Colace -) 100 mg PO Q8H PRN PRN Reason: CONSTIPATION Fentanyl (Sublimaze Injection -) 50 mcg IVPUSH [id number] PRN PRN Reason: PAIN-PACU ORDER X 4 DOSES ONLY Gabapentin (Neurontin -) 600 mg PO TID [facility] Last Admin: 03/08/20 14:21 Dose: 600 mg Documented by: Heparin Sodium (Porcine) (Heparin -) 5,000 unit SQ BID [facility] Last Admin: 03/08/20 09:54 Dose: 5,000 unit Documented by: Piperacillin Sod/Tazobactam (Sod 3.375 gm/ Dextrose) 50 mls @ 100 mls/hr IVPB Q8H-IV [facility]; Protocol Last Admin: 03/08/20 09:54 Dose: 100 mls/hr Documented by: Insulin Aspart (Novolog Vial Sliding Scale -) 1 vial SQ ACHS [facility]; Protocol Last Admin: 03/08/20 17:19 Dose: 6 units Documented by: Insulin Detemir (Levemir Vial) 25 units SQ AM [facility] Last Admin: 03/08/20 06:48 Dose: 25 units Documented by: Levothyroxine Sodium (Synthroid -) 200 mcg PO DAILY@0700 [facility] Last Admin: 03/08/20 06:46 Dose: 200 mcg Documented by: Methadone HCl 120 mg/ (Methadone HCl 10 mg) 130 mg PO DAILY@0600 [facility] Last Admin: 03/08/20 06:46 Dose: 130 mg Documented by: Ondansetron HCl (Zofran Injection) 4 mg IVPUSH Q6H PRN PRN Reason: NAUSEA AND/OR VOMITING Promethazine HCl (Phenergan Injection -) 12.5 mg IVPUSH Q6H PRN PRN Reason: NAUSEA-FOR RESCUE AFTER 15 MIN - Objective Vital Signs: Vital Signs Temperature 98.0 F 03/08/20 14:57 Pulse Rate 72 03/08/20 14:57 Respiratory Rate 18 03/08/20 14:57 Blood Pressure 144/76 03/08/20 14:57 O2 Sat by Pulse Oximetry (%) 99 03/08/20 09:00 Constitutional: Yes: No Distress HENT: Yes: Atraumatic Neck: Yes: Supple Cardiovascular: Yes: Regular Rate and Rhythm Respiratory: Yes: CTA Bilaterally Gastrointestinal: Yes: Normal Bowel Sounds Extremities: Yes: Other (left toe gangrene) 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: Alert, Oriented Labs: CBC, BMP 03/07/20 06:00 03/07/20 06:00 INR, PTT INR 1.02 (0.83-1.09) 03/01/20 18:55 Problem List - Problems (1) Gangrene of toe of left foot Assessment/Plan: iv abx all consults reviewed Code(s): I96 - GANGRENE, NOT ELSEWHERE CLASSIFIED (2) Diabetes Assessment/Plan: on insulin sliding scale Code(s): E11.9 - TYPE 2 DIABETES MELLITUS WITHOUT COMPLICATIONS (3) Hyperglycemia Code(s): R73.9 - HYPERGLYCEMIA, UNSPECIFIED (4) Hypothyroid Assessment/Plan: on meds Code(s): E03.9 - HYPOTHYROIDISM, UNSPECIFIED (5) HTN (hypertension) Code(s): I10 - ESSENTIAL (PRIMARY) HYPERTENSION Qualifiers: Hypertension type: essential hypertension Qualified Code(s): I10 - E ssential (primary) hypertension (6) Hypercholesteremia Code(s): E78.00 - PURE HYPERCHOLESTEROLEMIA, UNSPECIFIED
[2020-03-09] MEDS ORDERED: PIPERACILLIN/TAZOBACTAM 3.375 GM VIAL IVPB ONE ×2 (02:00→09:15)
[2020-03-09] MEDS ORDERED: DEXTROSE 5%-WATER - 50 ML IVPB ONE ×2 (02:00→09:15)
[2020-03-09] MEDS: PIPERACILLIN/TAZOB 3.375 GM 3.375 GM in DEXTROSE 5%-WATER - 50 ML IVPB SCH ×2 (02:27→09:28)
[2020-03-09] MEDS: ACETAMINOPHEN 325 MG TABLET (FP) PO PRN (02:35)
[2020-03-09] MEDS ORDERED: METHADONE HCL 10 MG TABLET ONE (05:46)
[2020-03-09] MEDS ORDERED: METHADONE HCL 40 MG DISPERSABLE TABLET ONE (05:47)
[2020-03-09] MEDS: INSULIN (LEVEMIR) 100 UNITS/ML UNITS SQ SCH (06:13)
[2020-03-09] MEDS: GABAPENTIN 300 MG CAPSULE PO SCH ×2 (06:14→14:29)
[2020-03-09] MEDS: INSULIN SLIDING SCALE (NOVOLOG) 1 VIAL SQ SCH ×2 (06:15→11:40)
[2020-03-09] MEDS: METHADONE 120 MG, METHADONE 10 MG PO SCH (06:20)
[2020-03-09] MEDS: LEVOTHYROXINE NA 200 MCG TABLET PO SCH (06:26)
[2020-03-09] MEDS ORDERED: INSULIN (NOVOLOG) ASPART 100 UNITS/ML 10ML VIAL ONE (06:54)
[2020-03-09] MEDS ORDERED: INSULIN (LEVEMIR) 100 UNITS/ML UNITS SQ ONE (06:55)
[2020-03-09] MEDS: HEPARIN NA (PORCINE) 5,000 UNITS/ML 1ML VIAL SQ SCH (09:28)
--- NOTE | 2020-03-09 10:50 | PN ---
Progress Note, Physician History of Present Illness: Pt is a 59 y/o male w/ PMH significant for diabetes, HTN and substance abuse(on methadone) who was recently dc'ed from [facility] for diabetic foot ulcer/gangrene(s/p amputation Lt 5th digit) presenting with a necrotic/gangreneous Lt 2nd toe. Pt complains of pain to lt 2nd toe but denies any fever/chills/oozing from toe. Pt was sent by his bicycle racer for probable amputation of that toe. - Current Medication List Current Medications: Active Medications Acetaminophen (Tylenol -) 650 mg PO Q4H PRN PRN Reason: PAIN LEVEL 1-5 Last Admin: 03/09/20 02:35 Dose: 650 mg Documented by: Docusate Sodium (Colace -) 100 mg PO Q8H PRN PRN Reason: CONSTIPATION Fentanyl (Sublimaze Injection -) 50 mcg IVPUSH [id number] PRN PRN Reason: PAIN-PACU ORDER X 4 DOSES ONLY Gabapentin (Neurontin -) 600 mg PO TID [facility] Last Admin: 03/09/20 06:14 Dose: 600 mg Documented by: Heparin Sodium (Porcine) (Heparin -) 5,000 unit SQ BID [facility] Last Admin: 03/09/20 09:28 Dose: 5,000 unit Documented by: Piperacillin Sod/Tazobactam (Sod 3.375 gm/ Dextrose) 50 mls @ 100 mls/hr IVPB Q8H-IV [facility]; Protocol Last Admin: 03/09/20 09:28 Dose: 100 mls/hr Documented by: Insulin Aspart (Novolog Vial Sliding Scale -) 1 vial SQ ACHS [facility]; Protocol Last Admin: 03/09/20 06:15 Dose: 4 units Documented by: Insulin Detemir (Levemir Vial) 25 units SQ AM [facility] Last Admin: 03/09/20 06:13 Dose: 25 units Documented by: Levothyroxine Sodium (Synthroid -) 200 mcg PO DAILY@0700 [facility] Last Admin: 03/09/20 06:26 Dose: 200 mcg Documented by: Methadone HCl 120 mg/ (Methadone HCl 10 mg) 130 mg PO DAILY@0600 [facility] Last Admin: 03/09/20 06:20 Dose: 130 mg Documented by: Ondansetron HCl (Zofran Injection) 4 mg IVPUSH Q6H PRN PRN Reason: NAUSEA AND/OR VOMITING Promethazine HCl (Phenergan Injection -) 12.5 mg IVPUSH Q6H PRN PRN Reason: NAUSEA-FOR RESCUE AFTER 15 MIN - Objective Vital Signs: Vital Signs Temperature 98.3 F 03/09/20 08:46 Pulse Rate 65 03/09/20 08:46 Respiratory Rate 18 03/09/20 08:46 Blood Pressure 142/87 03/09/20 08:46 O2 Sat by Pulse Oximetry (%) 99 03/08/20 21:00 Eyes: Yes: WNL, Conjunctiva Clear, EOM Intact HENT: Yes: WNL, Atraumatic, Normocephalic Neck: Yes: WNL, Supple, Trachea Midline Cardiovascular: Yes: WNL, Regular Rate and Rhythm Respiratory: Yes: WNL, Regular, CTA Bilaterally Gastrointestinal: Yes: WNL, Normal Bowel Sounds Genitourinary: Yes: WNL Musculoskeletal: Yes: WNL Extremities: Yes: Amputation Edema: No Integumentary: Yes: WNL 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: WNL, Alert, Oriented ...Motor Strength: WNL Psychiatric: Yes: WNL Labs: CBC, BMP 03/07/20 06:00 03/07/20 06:00 INR, PTT INR 1.02 (0.83-1.09) 03/01/20 18:55 Problem List - Problems (1) Gangrene of toe of left foot Code(s): I96 - GANGRENE, NOT ELSEWHERE CLASSIFIED (2) Diabetes Code(s): E11.9 - TYPE 2 DIABETES MELLITUS WITHOUT COMPLICATIONS (3) Diabetes Code(s): E11.9 - TYPE 2 DIABETES MELLITUS WITHOUT COMPLICATIONS (4) Diabetes 1.5, managed as type 1 Code(s): E13.9 - OTHER SPECIFIED DIABETES MELLITUS WITHOUT COMPLICATIONS (5) Diabetic foot infection Code(s): E11.628 - TYPE 2 DIABETES MELLITUS WITH OTHER SKIN COMPLICATIONS; L08.9 - LOCAL INFECTION OF THE SKIN AND SUBCUTANEOUS TISSUE, UNSP (6) Gangrenous toe Code(s): I96 - GANGRENE, NOT ELSEWHERE CLASSIFIED (7) Hyperglycemia Code(s): R73.9 - HYPERGLYCEMIA, UNSPECIFIED (8) Hypothyroid Code(s): E03.9 - HYPOTHYROIDISM, UNSPECIFIED (9) Hypothyroidism Code(s): E03.9 - HYPOTHYROIDISM, UNSPECIFIED (10) Wound of foot Code(s): S91.309A - UNSPECIFIED OPEN WOUND, UNSPECIFIED FOOT, INITIAL ENCOUNTER (11) Anxiety and depression Code(s): F41.9 - ANXIETY DISORDER, UNSPECIFIED; F32.9 - MAJOR DEPRESSIVE DISORDER, SINGLE EPISODE, UNSPECIFIED (12) EtOH dependence Code(s): F10.20 - ALCOHOL DEPENDENCE, UNCOMPLICATED Qualifiers: Substance use status: uncomplicated Qualified Code(s): F10.20 - Alcohol dependence, uncomplicated (13) HTN (hypertension) Code(s): I10 - ESSENTIAL (PRIMARY) HYPERTENSION Qualifiers: Hypertension type: essential hypertension Qualified Code(s): I10 - Essential (primary) hypertension (14) Heroin dependence Code(s): F11.20 - OPIOID DEPENDENCE, UNCOMPLICATED (15) Hypercholesteremia Code(s): E78.00 - PURE HYPERCHOLESTEROLEMIA, UNSPECIFIED (16) Methadone maintenance therapy patient Code(s): F11.20 - OPIOID DEPENDENCE, UNCOMPLICATED (17) Neuropathy Code(s): G62.9 - POLYNEUROPATHY, UNSPECIFIED Assessment/Plan 59 yr old with PMHx diabetes mellitus, HTN, ?hypothyroid, and substance abuse(on methadone) who was recently dc'ed from [facility] for diabetic foot ulcer/gangrene(s/p amputation Lt 5th digit) presenting with a necrotic/gangreneous Lt 2nd toe. Pt complains of pain to lt 2nd toe but denies any fever/chills/oozing from toe. Pt was sent by his bicycle racer for probable amputation of that toe; sugery now completed. Patient denies any cardiac problems. NO angina h/o CAD/OK/CHF EKG WNL hyperkalemia Plan s/p amputation of left 2nd toe and debridement; pain management, wound care. f/u with surgeon COVID not detected x 2; 3rd study pending. Lisinopril stopped (hyperkalemia). ECHO: normal LVEF; trace TR. Elecvated TSH; mildly elevated free T4. Will need MIBI stress test for risk stratification - this may be done as an outpatient. Keep LDL below 70 mg /dl with statin, diet, exercise. DVT plx
--- NOTE | 2020-03-09 10:53 | PN ---
Progress Note, Physician History of Present Illness: stable no issues - Current Medication List Current Medications: Active Medications Acetaminophen (Tylenol -) 650 mg PO Q4H PRN PRN Reason: PAIN LEVEL 1-5 Last Admin: 03/09/20 02:35 Dose: 650 mg Documented by: Docusate Sodium (Colace -) 100 mg PO Q8H PRN PRN Reason: CONSTIPATION Fentanyl (Sublimaze Injection -) 50 mcg IVPUSH [id number] PRN PRN Reason: PAIN-PACU ORDER X 4 DOSES ONLY Gabapentin (Neurontin -) 600 mg PO TID [facility] Last Admin: 03/09/20 06:14 Dose: 600 mg Documented by: Heparin Sodium (Porcine) (Heparin -) 5,000 unit SQ BID [facility] Last Admin: 03/09/20 09:28 Dose: 5,000 unit Documented by: Piperacillin Sod/Tazobactam (Sod 3.375 gm/ Dextrose) 50 mls @ 100 mls/hr IVPB Q8H-IV [facility]; Protocol Last Admin: 03/09/20 09:28 Dose: 100 mls/hr Documented by: Insulin Aspart (Novolog Vial Sliding Scale -) 1 vial SQ ACHS [facility]; Protocol Last Admin: 03/09/20 06:15 Dose: 4 units Documented by: Insulin Detemir (Levemir Vial) 25 units SQ AM [facility] Last Admin: 03/09/20 06:13 Dose: 25 units Documented by: Levothyroxine Sodium (Synthroid -) 200 mcg PO DAILY@0700 [facility] Last Admin: 03/09/20 06:26 Dose: 200 mcg Documented by: Methadone HCl 120 mg/ (Methadone HCl 10 mg) 130 mg PO DAILY@0600 [facility] Last Admin: 03/09/20 06:20 Dose: 130 mg Documented by: Ondansetron HCl (Zofran Injection) 4 mg IVPUSH Q6H PRN PRN Reason: NAUSEA AND/OR VOMITING Promethazine HCl (Phenergan Injection -) 12.5 mg IVPUSH Q6H PRN PRN Reason: NAUSEA-FOR RESCUE AFTER 15 MIN - Objective Vital Signs: Vital Signs Temperature 98.3 F 03/09/20 08:46 Pulse Rate 65 03/09/20 08:46 Respiratory Rate 18 03/09/20 08:46 Blood Pressure 142/87 03/09/20 08:46 O2 Sat by Pulse Oximetry (%) 99 03/08/20 21:00 Constitutional: Yes: No Distress, Calm Cardiovascular: Yes: S1, S2 Respiratory: Yes: Regular, CTA Bilaterally Gastrointestinal: Yes: Normal Bowel Sounds, Soft Musculoskeletal: Yes: WNL Extremities: Yes: Other Wound/Incision: Yes: Dressing Dry and Intact 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: Alert, Oriented Labs: CBC, BMP 03/07/20 06:00 03/07/20 06:00 INR, PTT INR 1.02 (0.83-1.09) 03/01/20 18:55 Assessment/Plan Lt 2nd toe gangrene Cellulitis/ abscess and OM of Lt 2nd MT s/p Lt 5th toe ampution/OM, exposed tendon/wound Uncontrolled DM plan continue zosyn will need it for another 5 weeks wound care will d/w podiatry
--- NOTE | 2020-03-09 12:10 | PN ---
Progress Note, Physician Chief Complaint: POD#7 - Current Medication List Current Medications: Active Medications Acetaminophen (Tylenol -) 650 mg PO Q4H PRN PRN Reason: PAIN LEVEL 1-5 Last Admin: 03/09/20 02:35 Dose: 650 mg Documented by: Docusate Sodium (Colace -) 100 mg PO Q8H PRN PRN Reason: CONSTIPATION Fentanyl (Sublimaze Injection -) 50 mcg IVPUSH [id number] PRN PRN Reason: PAIN-PACU ORDER X 4 DOSES ONLY Gabapentin (Neurontin -) 600 mg PO TID [facility] Last Admin: 03/09/20 06:14 Dose: 600 mg Documented by: Heparin Sodium (Porcine) (Heparin -) 5,000 unit SQ BID [facility] Last Admin: 03/09/20 09:28 Dose: 5,000 unit Documented by: Piperacillin Sod/Tazobactam (Sod 3.375 gm/ Dextrose) 50 mls @ 100 mls/hr IVPB Q8H-IV [facility]; Protocol Last Admin: 03/09/20 09:28 Dose: 100 mls/hr Documented by: Insulin Aspart (Novolog Vial Sliding Scale -) 1 vial SQ ACHS [facility]; Protocol Last Admin: 03/09/20 11:40 Dose: 4 units Documented by: Insulin Detemir (Levemir Vial) 25 units SQ AM [facility] Last Admin: 03/09/20 06:13 Dose: 25 units Documented by: Levothyroxine Sodium (Synthroid -) 200 mcg PO DAILY@0700 [facility] Last Admin: 03/09/20 06:26 Dose: 200 mcg Documented by: Methadone HCl 120 mg/ (Methadone HCl 10 mg) 130 mg PO DAILY@0600 [facility] Last Admin: 03/09/20 06:20 Dose: 130 mg Documented by: Ondansetron HCl (Zofran Injection) 4 mg IVPUSH Q6H PRN PRN Reason: NAUSEA AND/OR VOMITING Promethazine HCl (Phenergan Injection -) 12.5 mg IVPUSH Q6H PRN PRN Reason: NAUSEA-FOR RESCUE AFTER 15 MIN - Objective Vital Signs: Vital Signs Temperature 98.3 F 03/09/20 08:46 Pulse Rate 65 03/09/20 08:46 Respiratory Rate 18 03/09/20 08:46 Blood Pressure 142/87 03/09/20 08:46 O2 Sat by Pulse Oximetry (%) 99 03/08/20 21:00 Extremities: Yes: Other (+wound vac in place and no drainage noted today) Labs: CBC, BMP 03/07/20 06:00 03/07/20 06:00 INR, PTT INR 1.02 (0.83-1.09) 03/01/20 18:55 Assessment/Plan post wounds x 2 left pvd Continue wound vac on both sx locations. IVABX as per ID. Waiting for PIC line. HBO consult ordered. Wound vac at home. Follow up in [facility]. Will follow till DC.
[2020-03-09 13:56] VITALS: BP 129/76; PULSE 68; TEMP 98.6
--- NOTE | 2020-03-10 11:42 | PATH ---
Surgical Pathology Report Patient Name: JANES NARVAEZ Med. Rec. #: [id number] /Age/Gender: 1960 (Age: 59) / M Account: [id number] Location: [facility] MED/SURG Taken: 03/02/2020 Received: 03/02/2020 Reported: 03/03/2020 Physicians: Jaron Rothman DPM Specimen(s) Received A: LEFT SECOND TOE METATARSAL B: DISTAL ONE THIRD OF SECOND METATARSAL LEFT C: MIDDLE ONE THIRD OF SECOND METATARSAL LEFT D: CLEAN MARGIN LEFT SECOND METATARSAL Clinical History Gangrene of toe Final Diagnosis A. LEFT SECOND TOE, AMPUTATION: AMPUTATED TOE SHOWING GANGRENOUS NECROSIS WITH SEVERE ACUTE AND CHRONIC INFLAMMATION, ABSCESS FORMATION, INVOLVING SKIN AND SOFT TISSUE MARGIN. BONE SHOWING NECROSIS AND ACUTE OSTEOMYELITIS, INVOLVING BONE MARGIN. B. DISTAL THIRD OF METATARSAL, LEFT, EXCISION: PORTION OF BONE WITH FOCAL ACUTE OSTEOMYELITIS. C. MIDDLE THIRD OF METATARSAL, LEFT, EXCISION: PORTION OF BONE WITH FOCAL ACUTE OSTEOMYELITIS. D. CLEAN MARGIN OF LEFT SECOND METATARSAL, EXCISION: PORTION OF BONE WITH FOCAL ACUTE OSTEOMYELITIS. Electronically Signed Sukhjinder Maza M.D. Gross Description A. Received in formalin labeled "left second toe," is a 5.2 x 1.5 x 1.5 cm toe amputation. The entire epidermal surface displays a black-dutta, gangrenous lesion involving the skin and soft tissue margin as well as the underlying bone. Manager Battery sections are submitted in 3 cassettes as follows: 1-lesion with underlying bone, following decalcification; 2-bone margin, following decalcification; 3-skin and soft tissue margin. B. Received in formalin labeled "distal third of second metatarsal left," is a 2.3 x 1.8 x 1.3 cm jones-yellow portion of bone. A direct customer service representative full-thickness section is submitted in one cassette, following decalcification. C. Received in formalin labeled "middle third of second metatarsal left," is a 1.8 x 1.3 x 0.6 cm jones-yellow portion of bone. The specimen is sectioned and entirely submitted in one cassette, following decalcification. D. Received in formalin labeled "clean margin left second metatarsal," is a 1.0 x 0.8 x 0.6 cm jones-yellow portion of bone as well as a 1.0 x 0.6 x 0.1 cm bone shave. The elongated portion of bone is bisected and the specimen is entirely submitted in one cassette, following decalcification. 03/02/[address] [facility]03/02/2020
--- NOTE | 2020-03-29 11:47 | OP ---
DATE OF OPERATION: 03/02/2020 SURGEON: Jaron Rothman DPM CHAIN HOOKER: Jordan Christianson DPM PREOPERATIVE DIAGNOSIS: Gangrene, left 2nd toe, with osteomyelitis, 2nd ray. Chronic wound, dorsum, 2nd metatarsal. Retention sutures, left foot. Necrosis of wound, lateral left foot. PROCEDURE: Amputation of 2nd toe, left foot. Resection of 2nd metatarsal to base. Incision and drainage of left foot dorsal abscess. Removal of sutures, lateral left foot. Application of vancomycin beads, application of PriMatrix graft. Retention sutures, 2nd metatarsal area. DESCRIPTION OF PROCEDURE: After noting all preoperative vital signs within normal limits and after the surgical consent was signed and witnessed, the patient was brought to the OR, placed on the table in a supine position. The patient had an IV line in place when coming to the OR. The patient is neuropathic. The patient's left foot was then prepped and draped in the usual sterile fashion. At this time, utilizing sharp and blunt dissection, the gangrenous 2nd toe was resected and sent down to pathology. Attention was then directed to the 2nd metatarsal area where an incision was created going from distal to proximal including the dorsal wound on the 2nd ray. This incision was deepened using sharp and blunt dissection to the level of the 2nd metatarsal. The wound was excised. The 2nd metatarsal was examined. Based on MRI results and appearance, appeared to have osteomyelitis through the distal four fifths of the metatarsal. This area was resected and sent down to pathology. This created a defect in the area. All necrotic tissue was then debrided from the 2nd ray area. This was sent down to pathology. A flush was then done with copious amounts of sterile saline that had antibiotic irrigation added to it. Once this was done and the area was noted to be clean and free from any necrotic tissue, vancomycin beads were prepared and 12 of them were put into place along the 2nd ray defect. Once this was done, a PriMatrix graft was then applied into the defect. Skin was re-approximated 2nd ray utilizing retention sutures proximally with FiberWire, distally with nylon. Attention was then directed to the lateral aspect of the left foot where the sutures from the prior surgery were resected and sent down to pathology. Necrotic tissue there was debrided and sent down to pathology as well. Utilizing a portion of the PriMatrix graft, it was applied over the lateral aspect of the left foot. Xeroform gauze, dry sterile gauze, and a Margie dressing were then applied. Patient tolerated the anesthesia and the procedure well. Patient returned to recovery room, vital signs stable and vascular status intact. CARLA Boudreaux/[id number] MTDD
== END 2020-03-09 17:59 | DRG 314 ==
LOC: JER 12:50 → JERBED 14:53 → J7W 22:53
PROVIDERS: ADMIT Internal Medicine; ATTEND Internal Medicine
PROC: 0QBP0ZZ Excision of Left Metatarsal, Open Approach (ICD-10-PCS; 2020-03-02)
PROC: 3E0102A Introduction of Anti-Infective Envelope into Subcutaneous Tissue, Open Approach (ICD-10-PCS; 2020-03-02)
PROC: 0Y6S0Z0 Detachment at Left 2nd Toe, Complete, Open Approach (ICD-10-PCS; principal; 2020-03-02 09:30)
PROC: 0Y9N0ZZ Drainage of Left Foot, Open Approach (ICD-10-PCS; 2020-03-02 09:30)
PROC: 02HV33Z Insertion of Infusion Device into Superior Vena Cava, Percutaneous Approach (ICD-10-PCS; 2020-03-09)
PROC: B548ZZA Ultrasonography of Superior Vena Cava, Guidance (ICD-10-PCS; 2020-03-09)
DX: E11.52 Type 2 diabetes mellitus with diabetic peripheral angiopathy with gangrene (principal); I96 Gangrene, not elsewhere classified; L03.116 Cellulitis of left lower limb; E87.5 Hyperkalemia; F11.20 Opioid dependence, uncomplicated; E11.40 Type 2 diabetes mellitus with diabetic neuropathy, unspecified; E11.65 Type 2 diabetes mellitus with hyperglycemia; I10 Essential (primary) hypertension; Z79.4 Long term (current) use of insulin; E78.00 Pure hypercholesterolemia, unspecified; E03.9 Hypothyroidism, unspecified; F41.9 Anxiety disorder, unspecified; F10.20 Alcohol dependence, uncomplicated; Z89.422 Acquired absence of other left toe(s); Z11.59 Encounter for screening for other viral diseases
CPT/HCPCS: 36415; 36558; 71045-TC-FY; 73630-TC-LT; 73718-TC-LT; 77001-TC-FY; 80048; 80053; 80061; 82962; 83605; 83721; 84439; 85025; 85027; 85610; 85730; 86140; 86850; 86900; 86901; 87040; 87070; 87075; 87186; 87205; 88305-TC; 88311-TC; 93005; 93010; 93306-TC; 94760; 99285-25; C1751; J0131; J1644; U0003

== ENCOUNTER 2020-03-25 14:01 | Inpatient (IN) | payer OTHER ==
--- NOTE | 2020-03-25 14:15 | PDOC ---
History of Present Illness - General Chief Complaint: Wound Stated Complaint: PRE OP EVALUATION Time Seen by Provider: 03/25/20 14:15 History Source: Patient Exam Limitations: No Limitations - History of Present Illness Initial Comments: 59 year old male with PHM HTN, DM, osteomyelitis s/p multiple toe amputations with current PICC line, on methadone presented to ED for admission for toe amputation by Dr. Rothman. Pt reported he was at [facility] for wound care, was using stick-dressings. Pt denied fever, chills, nausea, vomiting, lightheadedness, passing out, chest pain, shortness of breath. Pt reported he was given Oxycodone 10 mg PO once today, but his pain is still severe. Pt reported he received his IV Abx in his PICC line today. ROS General: denied fever, chills, generalized weakness. HEENT: denied sore throat, rhinorrhea, ear pain. Cardiovascular: denied chest pain, palpitations, syncope, diaphoresis. Respiratory: denied shortness of breath, cough, sputum production, hemoptysis. Gastrointestinal: denied abdominal pain, nausea, vomiting, diarrhea, constip ation, blood in stool. Genitourinary: denied dysuria, increased urinary frequency, hematuria, urinary incontinence, flank pain. Back: denied back pain. Musculoskeletal: admitted to foot pain. Neurological: denied headache, dizziness, numbness, tingling, weakness. Integumentary: denied rash, laceration, abrasion. Hematologic/Lymphatic: denied bruising or bleeding. PE Constitutional: Well-nourished, Well-developed, appearing stated age. HEENT: head is normocephalic, atraumatic. EOMI. PERRLA. Neck: supple. Full ROM. Cardiovascular: regular heart rhythm. Normal S1 and S2. no murmurs. no farhana cardial friction rub. Respiratory: clear to auscultation bilaterally. no crackles, rhonchi or wheez ing. no stridor. Gastrointestinal: soft, flat, nontender. normal bowel sounds. no rebound, guarding, or masses. Chest: PICC line in place. Extremities: peripheral pulses intact and equal. no lower extremity edema noted. Neurological: CN 2-12 grossly intact. moves all four extremities. Psych: awake, alert, oriented x3. follows commands. answers questions appropriately. Skin: diabetic ulcer to the distal dorsal portion of the left foot. missing 2nd/3rd toe on the left. 4th toe necrotic on the left. Past History - Medical History Allergies/Adverse Reactions: Allergies Allergy/AdvReac Type Severity Reaction Status Date / Time fish derived Allergy Verified 03/25/20 14:10 Home Medications: Ambulatory Orders Citalopram Hydrobromide [Citalopram HBr] 1 tab PO DAILY 03/24/20 Docusate Sodium [Move It Along] 2 tab PO HS 03/24/20 Gabapentin 600 mg PO TID 03/24/20 Insulin Lispro [Admelog] 6 unit SQ BID 03/24/20 Levothyroxine Sodium 200 mcg PO DAILY 03/24/20 Methadone HCl 13.5 ml PO DAILY 03/24/20 Piperacillin Sodium/Tazobactam 3.375 gm IV TID 03/24/20 Acetaminophen [Tylenol -] 1,000 mg PO BID 03/25/20 Calcium Alginate [Iván] 1 each TP ASDIR 03/25/20 Insulin Detemir [Levemir Flextouch] 30 unit SQ DAILY 03/25/20 Oxycodone HCl 10 mg PO DAILY PRN 03/25/20 - Psycho-Social/Smoking History Number of Cigarettes Smoked Daily: 0 ED Treatment Course - LABORATORY CBC & Chemistry Diagram: 03/25/20 14:35 03/25/20 14:35 Medical Decision Making - Medical Decision Making 59 year old male with above PMH presented to ED for admission for amputation of left foot toe 2/2 DM ulcer. Initial Vital Signs Temp Pulse Resp BP Pulse Ox 98.6 F 88 18 150/80 98 03/25/20 14:10 03/25/20 14:10 03/25/20 14:10 03/25/20 14:10 03/25/20 14:10 EKG: rate 68, regular rhythm, normal axis, normal intervals, no acute ST changes. 03/25/20 15:36 Laboratory Tests 03/25/20 03/25/20 03/25/20 14:35 14:35 14:35 Hgb 10.0 L Hct 31.1 L Plt Count 477 H D PT with INR 13.50 H INR 1.14 H PTT (Actin FS) 35.1 Sodium 137 Potassium 4.2 BUN 19.7 H Creatinine 1.3 AST 17 ALT 24 Alkaline Phosphatase 210 H Albumin 3.0 L Pt admitted under Dr. Manning's service. Signout given to Dr. Manning. CXR Report: Paul Weston Name: JANES NARVAEZ DEPARTMENT OF RADIOLOGY Phys: Mary Jo Garrido RESIDENT : 1960 Age: 59 Sex: M [facility] Acct: [id number] Loc: [address] Exam Date: 03/25/20 Status: [place] [address] Unit Number: [id number] EXAM#: TYPE/EXAM: RESULT: RAD/CHEST X-RAY PORTABLE* HISTORY PROVIDED: Admission. A single frontal portable projection of the chest at 2:37 PM is submitted. The heart size is within normal limits. There is a central venous catheter via the right internal jugular vein with distal tip in the region of the SVC. The lung murguia are free of pulmonary infiltrates or pleural effusions. IMPRESSION: No acute pathology Reported By: Jaime Cali MD 03/25/20 1526 Technologist: Will Chatman Transcribed Date/Time: 03/25/20 1526 Roof Fitter: Jaime Cali Printed Date/Time: By: Discharge - Discharge Information Problems reviewed: Yes Clinical Impression/Diagnosis: 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 Condition: Stable - Admission Yes - Follow up/Referral - Patient Discharge Instructions - Post Discharge Activity
--- NOTE | 2020-03-25 14:24 | PDOC ---
Attending Attestation - Resident Resident Name: Mary Jo Garrido - ED Attending Attestation I have performed the following: I have examined & evaluated the patient, The case was reviewed & discussed with the resident, I agree w/resident's findings & plan, Exceptions are as noted - HPI HPI: 59 yo M history HTN, DM, osteomyelitis s/p amputations to 2nd and 5th toes of the L foot, prior opiate use (on methadone) presents with necrotic toes to the L foot (great toe and 3rd toe), for amputation by Dr. Rothman. He notes that he has no sensation to most of his foot, does not feel any pain, but notes that his toes are black. - Physicial Exam PE: GENERAL: Awake, alert, and fully oriented, in no acute distress HEAD: No signs of trauma EYES: PERRLA, EOMI, sclera anicteric, conjunctiva clear ENT: Auricles normal inspection, hearing grossly normal, nares patent, oropharynx clear without exudates. Moist mucosa NECK: Normal ROM, supple, no lymphadenopathy, JVD, or masses LUNGS: Breath sounds equal, clear to auscultation bilaterally. No wheezes, and no crackles HEART: Regular rate and rhythm, normal S1 and S2, no murmurs, rubs or gallops ABDOMEN: Soft, nontender, normoactive bowel sounds. No guarding, no rebound. No masses EXTREMITIES: Normal range of motion, no edema. L foot s/p prior amputations of 2nd and 5th toes, with gangrenous great and third toes. +Large open wound from the site of the 2nd toe amputation extending into the dorsum of the foot. NEUROLOGICAL: Cranial nerves II through XII grossly intact. Normal speech. Motor intact. Dec sensation to the feet. SKIN: Warm, dry, normal turgor - Medical Decision Making Pt presents for partial foot amputation secondary to two gangrenous toes and a large wound. Discharge - Discharge Information Problems reviewed: Yes Clinical Impression/Diagnosis: 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 Condition: Stable - Follow up/Referral - Patient Discharge Instructions - Post Discharge Activity
[2020-03-25] MEDS ORDERED: ACETAMINOPHEN 325 MG TABLET (FP) PO ONE (14:27)
[2020-03-25 14:57] LABS: BASO % 0.8 % (0-2.0); HEMATOCRIT 31.1 % (35.4-49); LYMPH % 16.9 % (8-40); MCH 27.2 pg (25.7-33.7); MCHC 32.3 g/dl (32.0-35.9); MEAN CELL VOLUME 84.2 fl (80-96); MEAN PLT VOLUME 7.3 fl (7.5-11.1); MONO % 5.6 % (3.8-10.2); NEUT % 66.7 % (42.8-82.8); PLATELET COUNT 477 K/MM3 (134-434); RBC 3.69 M/mm3 (4.00-5.60); RDW 15.4 % (11.9-15.9); WHITE BLOOD COUNT 8.5 K/mm3 (4.0-10.0)
[2020-03-25 15:01] LABS: INR 1.14 (0.83-1.09); PROTHROMBIN TIME (PATIENT) 13.5 SEC (9.7-13.0)
[2020-03-25] MEDS ORDERED: ACETAMINOPHEN 325 MG TABLET (FP) ONE (15:03)
[2020-03-25 15:04] LABS: ACTIVATED PTT 35.1 SECONDS (25.2-36.5)
[2020-03-25 15:26] LABS: BILIRUBIN,TOTAL 0.3 mg/dL (0.2-1); BLOOD UREA NITROGEN 19.7 mg/dL (7-18); CALCIUM 9.6 mg/dL (8.5-10.1); CREATININE 1.3 mg/dL (0.55-1.3); POTASSIUM 4.2 mmol/L (3.5-5.1); TOT PROT 8.2 g/dl (6.4-8.2)
[2020-03-25] MEDS ORDERED: PIPERACILLIN IVPB SCH (22:00)
[2020-03-25] MEDS ORDERED: TAZOB IVPB SCH (22:00)
[2020-03-25] MEDS: INSULIN (LEVEMIR) 100 UNITS/ML UNITS SQ SCH (22:16)
[2020-03-25] MEDS: HEPARIN NA (PORCINE) 5,000 UNITS/ML 1ML VIAL SQ SCH (22:16)
[2020-03-25] MEDS: GABAPENTIN 300 MG CAPSULE PO SCH (22:17)
[2020-03-25] MEDS: ACETAMINOPHEN 500 MG TABLET (FP) PO SCH (22:18)
[2020-03-25] MEDS: oxyCODONE HCL 5 MG TABLET PO PRN (22:30)
[2020-03-25 22:36] LABS: URINE APPEARANCE CLEAR; URINE BILIRUBIN NEGATIVE (NEGATIVE); URINE COLOR YELLOW; URINE GLUCOSE (UA) 3+ (NEGATIVE); URINE KETONE NEGATIVE (NEGATIVE); URINE LEUK ESTERASE NEGATIVE (NEGATIVE); URINE NITRITE NEGATIVE (NEGATIVE); URINE PROTEIN NEGATIVE (NEGATIVE)
[2020-03-26 00:35] VITALS: BMI 25.5
[2020-03-26] MEDS ORDERED: DEXTROSE 5%-WATER - 50 ML IVPB ONE ×3 (01:56→17:07)
[2020-03-26] MEDS ORDERED: PIPERACILLIN/TAZOBACTAM 3.375 GM VIAL IVPB ONE ×3 (01:56→17:07)
[2020-03-26] MEDS: PIPERACILLIN/TAZOB 3.375 GM 3.375 GM in DEXTROSE 5%-WATER - 50 ML IVPB SCH ×3 (02:22→17:10)
[2020-03-26] MEDS ORDERED: LEVOTHYROXINE NA 100 MCG TABLET (FP) ONE (05:11)
[2020-03-26] MEDS ORDERED: LEVOTHYROXINE NA 75 MCG TABLET (FP) ONE (05:11)
[2020-03-26] MEDS: INSULIN SLIDING SCALE (NOVOLOG) 1 VIAL SQ SCH ×4 (06:23→21:21)
[2020-03-26] MEDS: GABAPENTIN 300 MG CAPSULE PO SCH ×3 (06:23→21:21)
[2020-03-26] MEDS: LEVOTHYROXINE 75 MCG, LEVOTHYROXINE 100 MCG PO SCH (06:24)
[2020-03-26] MEDS: HEPARIN NA (PORCINE) 5,000 UNITS/ML 1ML VIAL SQ SCH ×3 (06:24→21:20)
[2020-03-26 08:53] LABS: BASO % 0.8 % (0-2.0); EOS % 10.4 % (0-4.5); HEMATOCRIT 29.9 % (35.4-49); HEMOGLOBIN 9.7 GM/dL (11.7-16.9); LYMPH % 20.5 % (8-40); MCH 27.5 pg (25.7-33.7); MCHC 32.5 g/dl (32.0-35.9); MEAN CELL VOLUME 84.7 fl (80-96); MEAN PLT VOLUME 7.8 fl (7.5-11.1); MONO % 7.7 % (3.8-10.2); NEUT % 60.6 % (42.8-82.8); PLATELET COUNT 413 K/MM3 (134-434); RBC 3.53 M/mm3 (4.00-5.60); RDW 15.3 % (11.9-15.9)
[2020-03-26 08:59] LABS: INR 1.12 (0.83-1.09); PROTHROMBIN TIME (PATIENT) 13.2 SEC (9.7-13.0)
[2020-03-26] MEDS: ACETAMINOPHEN 500 MG TABLET (FP) PO SCH ×2 (09:04→21:22)
[2020-03-26 09:17] LABS: ALBUMIN 2.7 g/dl (3.4-5.0); BILIRUBIN,TOTAL 0.3 mg/dL (0.2-1); BLOOD UREA NITROGEN 17.6 mg/dL (7-18); CALCIUM 9.5 mg/dL (8.5-10.1); CREATININE 1.2 mg/dL (0.55-1.3); POTASSIUM 4.5 mmol/L (3.5-5.1); TOT PROT 7.5 g/dl (6.4-8.2)
[2020-03-26] MEDS: oxyCODONE HCL 5 MG TABLET PO PRN ×2 (09:42→17:11)
[2020-03-26] MEDS ORDERED: LEVOTHYROXINE NA 200 MCG TABLET PO SCH (10:00)
[2020-03-26] MEDS ORDERED: METHADONE HCL 10 MG TABLET PO SCH (10:00)
--- NOTE | 2020-03-26 10:09 | HP ---
Admitting History and Physical - Admission History of Present Illness: 59 yo M history HTN, DM, osteomyelitis s/p amputations to 2nd and 5th toes of the L foot, prior opiate use (on methadone) presents with necrotic toes to the L foot (great toe and 3rd toe), for amputation by Dr. Rothman. He notes that he has no sensation to most of his foot, does not feel any pain, but notes that his toes are black. - Past Medical History Cardiovascular: Yes: HTN, Other (pad) Psych: Yes: Addictions Endocrine: Yes: Diabetes Mellitus, Hypothyroidism - Smoking History Smoking history: Never smoked Have you smoked in the past 12 months: No Aproximately how many cigarettes per day: 0 - Alcohol/Substance Use Hx Alcohol Use: No - Social History History of Recent Travel: No Home Medications - Allergies Allergies/Adverse Reactions: Allergies Allergy/AdvReac Type Severity Reaction Status Date / Time fish derived Allergy Verified 03/25/20 14:10 - Home Medications Home Medications: Ambulatory Orders Gabapentin 600 mg PO TID 03/24/20 Levothyroxine Sodium 175 mcg PO DAILY 03/24/20 Acetaminophen [Tylenol -] 1,000 mg PO BID 03/25/20 Insulin Glargine,Hum.rec.anlog [Basaglar Kwikpen U-100] 35 unit SQ HS 03/25/20 Metformin HCl [Glucophage] 1,000 mg PO BID 03/25/20 Methadone [Dolophine -] 130 mg PO DAILY 03/25/20 Oxycodone HCl 10 mg PO Q8H PRN 03/25/20 Piperacillin/Tazob 3.375 gm [Zosyn] 3.375 gm IVPB TID 03/25/20 Review of Systems - Review of Systems Cardiovascular: reports: No Symptoms Respiratory: reports: No Symptoms Gastrointestinal: reports: No Symptoms Musculoskeletal: reports: Extremity Pain Physical Examination Vital Signs: Vital Signs Temperature 98.7 F 03/26/20 09:00 Pulse Rate 66 03/26/20 09:00 Respiratory Rate 20 03/26/20 09:00 Blood Pressure 164/92 03/26/20 09:00 O2 Sat by Pulse Oximetry (%) 97 03/25/20 21:00 Cardiovascular: Yes: Regular Rate and Rhythm Respiratory: Yes: Regular, CTA Bilaterally Gastrointestinal: Yes: Normal Bowel Sounds, Soft. No: Tenderness Edema: No Wound/Incision: Yes: Excoriated, Unapproximated Labs: CBC, BMP 03/26/20 07:03 03/26/20 07:03 Problem List - Problems (1) 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 Assessment/Plan: podiatry consult wound care Code(s): E11.621 - TYPE 2 DIABETES MELLITUS WITH FOOT ULCER; L97.529 - NON- PRESSURE CHRONIC ULCER OTH PRT LEFT FOOT W UNSP SEVERITY (2) Diabetes Assessment/Plan: bgm a1c Code(s): E11.9 - TYPE 2 DIABETES MELLITUS WITHOUT COMPLICATIONS (3) Gangrene of toe of left foot Assessment/Plan: for amputation Code(s): I96 - GANGRENE, NOT ELSEWHERE CLASSIFIED (4) Hypothyroid Assessment/Plan: same meds Code(s): E03.9 - HYPOTHYROIDISM, UNSPECIFIED (5) HTN (hypertension) Assessment/Plan: Vital Signs Period Temp Pulse Resp BP Sys/Greene Pulse Ox Last 24 Hr 97.4 F-98.7 F 59-88 16-20 123-164/71-92 97-98 Code(s): I10 - ESSENTIAL (PRIMARY) HYPERTENSION Qualifiers: Hypertension type: essential hypertension Qualified Code(s): I10 - Essential (primary) hypertension (6) Methadone maintenance therapy patient Assessment/Plan: methadone Code(s): F11.20 - OPIOID DEPENDENCE, UNCOMPLICATED
[2020-03-26] MEDS ORDERED: METHADONE 120 MG, METHADONE 10 MG PO SCH (13:30)
[2020-03-26] MEDS ORDERED: METHADONE HCL 40 MG DISPERSABLE TABLET ONE (13:43)
[2020-03-26] MEDS ORDERED: METHADONE HCL 10 MG TABLET ONE (13:44)
[2020-03-26] MEDS: METHADONE 120 MG, METHADONE 10 MG PO SCH (13:46)
--- NOTE | 2020-03-26 15:32 | CONSULT ---
Consult Consult Specialty:: Podiatry - History of Present Illness Chief Complaint: Gangarene left foot - Past Medical History Cardio/Vascular: Yes: HTN, Other (pad) Psych: Yes: Addictions Endocrine: Yes: Diabetes Mellitus, Hypothyroidism - Alcohol/Substance Use Hx Alcohol Use: No - Smoking History Smoking history: Never smoked Have you smoked in the past 12 months: No Aproximately how many cigarettes per day: 0 - Social History Usual Living Arrangement: Other (with sister) History of Recent Travel: No Home Medications - Allergies Allergies/Adverse Reactions: Allergies Allergy/AdvReac Type Severity Reaction Status Date / Time fish derived Allergy Verified 03/25/20 14:10 - Home Medications Home Medications: Ambulatory Orders Gabapentin 600 mg PO TID 03/24/20 Levothyroxine Sodium 175 mcg PO DAILY 03/24/20 Acetaminophen [Tylenol -] 1,000 mg PO BID 03/25/20 Insulin Glargine,Hum.rec.anlog [Basaglar Kwikpen U-100] 35 unit SQ HS 03/25/20 Metformin HCl [Glucophage] 1,000 mg PO BID 03/25/20 Methadone [Dolophine -] 130 mg PO DAILY 03/25/20 Oxycodone HCl 10 mg PO Q8H PRN 03/25/20 Piperacillin/Tazob 3.375 gm [Zosyn] 3.375 gm IVPB TID 03/25/20 Physical Exam Vital Signs: Vital Signs Temperature 98.3 F 03/26/20 14:00 Pulse Rate 61 03/26/20 14:00 Respiratory Rate 20 03/26/20 14:00 Blood Pressure 131/77 03/26/20 14:00 O2 Sat by Pulse Oximetry (%) 97 03/26/20 09:00 Wound/Incision: Yes: Other (+gangarene left big toe, 3rd toe left foot, +necrotic tissue, +pvd,) Labs: CBC, BMP 03/26/20 07:03 03/26/20 07:03 Assessment/Plan uncontrolled diabetes pvd gangarene left foot Pt was seeen by me in wound care and was advised that he may needs, partial tma, tma possible bka. Discussed with Dr. Kaufman who will evaluate him for circulatory status. Pt fully understands all proposed tx plans. States he has been unable to control his sugar. He is on schedule for Saturday for Partial TMA, TMA if cleared by vascular. Please maximize for OR. Rest as per team. Wiill follow. Daily betadine dressing to left foot.
--- NOTE | 2020-03-26 17:31 | CON.CARD ---
Consult Consult Specialty:: Cardiollogy Reason for Consultation:: Preop Evaluation - History of Present Illness Chief Complaint: PreOp for Vascular Surgery History of Present Illness: This is a 59 year old male with a PMH of HTN, DM, PVD ( s/p amputations to 2nd and 5th toes of the L foot), past osteomyelitis, and prior opiate use (on methadone). He presents now with necrosis of the toes on the left foot and an amputation is planned. No reports of chest pain or SOB. CXR is without acute pathology. - Past Medical History Cardio/Vascular: Yes: HTN, Other (pad) Psych: Yes: Addictions Endocrine: Yes: Diabetes Mellitus, Hypothyroidism - Alcohol/Substance Use Hx Alcohol Use: No - Smoking History Smoking history: Never smoked Have you smoked in the past 12 months: No Aproximately how many cigarettes per day: 0 - Social History Usual Living Arrangement: Other (with sister) History of Recent Travel: No Home Medications - Allergies Allergies/Adverse Reactions: Allergies Allergy/AdvReac Type Severity Reaction Status Date / Time fish derived Allergy Verified 03/25/20 14:10 - Home Medications Home Medications: Ambulatory Orders Gabapentin 600 mg PO TID 03/24/20 Levothyroxine Sodium 175 mcg PO DAILY 03/24/20 Acetaminophen [Tylenol -] 1,000 mg PO BID 03/25/20 Insulin Glargine,Hum.rec.anlog [Basaglar Kwikpen U-100] 35 unit SQ HS 03/25/20 Metformin HCl [Glucophage] 1,000 mg PO BID 03/25/20 Methadone [Dolophine -] 130 mg PO DAILY 03/25/20 Oxycodone HCl 10 mg PO Q8H PRN 03/25/20 Piperacillin/Tazob 3.375 gm [Zosyn] 3.375 gm IVPB TID 03/25/20 Vital Signs: Vital Signs Temperature 98.3 F 03/26/20 14:00 Pulse Rate 61 03/26/20 14:00 Respiratory Rate 20 03/26/20 14:00 Blood Pressure 131/77 03/26/20 14:00 O2 Sat by Pulse Oximetry (%) 97 03/26/20 09:00 Constitutional: Yes: No Distress HENT: Yes: Normocephalic Neck: Yes: WNL Respiratory: Yes: CTA Bilaterally Gastrointestinal: Yes: Soft Cardiovascular: Yes: Regular Rate and Rhythm Heart Sounds: Yes: S1, S2 (No MRHG) Extremities: Yes: Cool (Necrotic toes on the left foot as described), Cyanosis Edema: No 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: Alert - Other Data Labs, Other Data: CBC, BMP 03/26/20 07:03 03/26/20 07:03 INR, PTT INR 1.12 (0.83-1.09) H 03/26/20 07:03 Assessment/Plan 59 year old male with a PMH of HTN, DM, PVD ( s/p amputations to 2nd and 5th toes of the L foot), past osteomyelitis, and prior opiate use (on methadone). He presents now with necrosis of the toes on the left foot and an amputation is planned. No reports of chest pain or SOB. CXR is without acute pathology There are no direct cardiac contraindications to vascular surgery. Would not start beta blockers at this time.
--- NOTE | 2020-03-26 17:52 | EKG ---
Test Reason : Blood Pressure : / mmHG Vent. Rate : 068 BPM Atrial Rate : 068 BPM P-R Int : 130 ms QRS Dur : 088 ms QT Int : 378 ms P-R-T Axes : 056 036 020 degrees QTc Int : 401 ms NORMAL SINUS RHYTHM NONSPECIFIC T WAVE ABNORMALITY ABNORMAL ECG WHEN COMPARED WITH ECG OF 25-FEB-2020 14:20, NO SIGNIFICANT CHANGE WAS FOUND Confirmed by MD Dickens Daniel ([id number]) on 03/26/2020 5:51:31 PM Referred By: Confirmed By:Dylan Dickens MD
[2020-03-26] MEDS ORDERED: PT OWN MED DRAWER 7, Y5N ONE (18:34)
[2020-03-26] MEDS ORDERED: INSULIN (NOVOLOG) ASPART 100 UNITS/ML 10ML VIAL ONE (21:01)
--- NOTE | 2020-03-26 21:07 | PN ---
Progress Note (short form) - Note Progress Note: ID CONSULT DICTATED GANGRENE L FOOT AGREE WITH TMA CONTINUE ZOSYN LOCAL WOUND CARE
[2020-03-26] MEDS: INSULIN (LEVEMIR) 100 UNITS/ML UNITS SQ SCH (21:20)
[2020-03-27] MEDS ORDERED: PIPERACILLIN/TAZOBACTAM 3.375 GM VIAL IVPB ONE ×3 (01:26→17:01)
[2020-03-27] MEDS ORDERED: DEXTROSE 5%-WATER - 50 ML IVPB ONE ×3 (01:26→17:02)
[2020-03-27] MEDS: PIPERACILLIN/TAZOB 3.375 GM 3.375 GM in DEXTROSE 5%-WATER - 50 ML IVPB SCH ×3 (01:56→17:12)
[2020-03-27] MEDS ORDERED: LEVOTHYROXINE NA 100 MCG TABLET (FP) ONE (04:54)
[2020-03-27] MEDS ORDERED: LEVOTHYROXINE NA 75 MCG TABLET (FP) ONE (04:54)
[2020-03-27] MEDS ORDERED: METHADONE HCL 10 MG TABLET ONE (05:56)
[2020-03-27] MEDS ORDERED: METHADONE HCL 40 MG DISPERSABLE TABLET ONE (05:56)
[2020-03-27] MEDS: METHADONE 120 MG, METHADONE 10 MG PO SCH (05:57)
[2020-03-27] MEDS: HEPARIN NA (PORCINE) 5,000 UNITS/ML 1ML VIAL SQ SCH ×3 (05:58→21:30)
[2020-03-27] MEDS: GABAPENTIN 300 MG CAPSULE PO SCH ×3 (05:59→21:29)
[2020-03-27] MEDS: LEVOTHYROXINE 75 MCG, LEVOTHYROXINE 100 MCG PO SCH (06:05)
[2020-03-27] MEDS: INSULIN SLIDING SCALE (NOVOLOG) 1 VIAL SQ SCH ×4 (06:05→21:31)
[2020-03-27] MEDS: oxyCODONE HCL 5 MG TABLET PO PRN ×3 (06:13→21:28)
[2020-03-27] MEDS: ACETAMINOPHEN 500 MG TABLET (FP) PO SCH ×2 (09:06→21:29)
--- NOTE | 2020-03-27 10:57 | PN ---
Progress Note, Physician - Current Medication List Current Medications: Active Medications Acetaminophen (Tylenol -) 1,000 mg PO BID [facility] Last Admin: 03/27/20 09:06 Dose: 1,000 mg Documented by: Gabapentin (Neurontin -) 600 mg PO TID [facility] Last Admin: 03/27/20 05:59 Dose: 600 mg Documented by: Heparin Sodium (Porcine) (Heparin -) 5,000 unit SQ TID [facility] Last Admin: 03/27/20 05:58 Dose: 5,000 unit Documented by: Piperacillin Sod/Tazobactam (Sod 3.375 gm/ Dextrose) 50 mls @ 100 mls/hr IVPB Q8H-IV [facility]; Protocol Last Admin: 03/27/20 09:05 Dose: 100 mls/hr Documented by: Insulin Aspart (Novolog Vial Sliding Scale -) 1 vial SQ ACHS [facility]; Protocol Last Admin: 03/27/20 06:05 Dose: 4 units Documented by: Insulin Detemir (Levemir Vial) 35 units SQ HS [facility] Last Admin: 03/26/20 21:20 Dose: 35 units Documented by: Levothyroxine Sodium 75 mcg/ (Levothyroxine Sodium 100 mcg) 175 mcg PO DAILY@0700 [facility] Last Admin: 03/27/20 06:05 Dose: 175 mcg Documented by: Methadone HCl 120 mg/ (Methadone HCl 10 mg) 130 mg PO DAILY@0600 [facility] Last Admin: 03/27/20 05:57 Dose: 130 mg Documented by: Oxycodone HCl (Roxicodone -) 10 mg PO Q6H PRN PRN Reason: PAIN LEVEL 5-10 Last Admin: 03/27/20 06:13 Dose: 10 mg Documented by: - Objective Vital Signs: Vital Signs Temperature 98.4 F 03/27/20 09:00 Pulse Rate 64 03/27/20 09:00 Respiratory Rate 18 03/27/20 09:00 Blood Pressure 126/69 03/27/20 09:00 O2 Sat by Pulse Oximetry (%) 98 03/27/20 09:00 Cardiovascular: Yes: S1, S2 Respiratory: Yes: Regular, CTA Bilaterally Gastrointestinal: Yes: Normal Bowel Sounds, Soft Labs: CBC, BMP 03/26/20 07:03 03/26/20 07:03 INR, PTT INR 1.12 (0.83-1.09) H 03/26/20 07:03 Problem List - Problems (1) 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 Assessment/Plan: podiatry consult wound care Code(s): E11.621 - TYPE 2 DIABETES MELLITUS WITH FOOT ULCER; L97.529 - NON- PRESSURE CHRONIC ULCER OTH PRT LEFT FOOT W UNSP SEVERITY (2) Diabetes Assessment/Plan: bgm a1c Code(s): E11.9 - TYPE 2 DIABETES MELLITUS WITHOUT COMPLICATIONS (3) Gangrene of toe of left foot Assessment/Plan: for amputation vascular consult Code(s): I96 - GANGRENE, NOT ELSEWHERE CLASSIFIED (4) Hypothyroid Assessment/Plan: same meds Code(s): E03.9 - HYPOTHYROIDISM, UNSPECIFIED (5) HTN (hypertension) Code(s): I10 - ESSENTIAL (PRIMARY) HYPERTENSION Qualifiers: Hypertension type: essential hypertension Qualified Code(s): I10 - Essential (primary) hypertension (6) Methadone maintenance therapy patient Code(s): F11.20 - OPIOID DEPENDENCE, UNCOMPLICATED
[2020-03-27] MEDS ORDERED: INSULIN (NOVOLOG) ASPART 100 UNITS/ML 10ML VIAL ONE (21:20)
[2020-03-27] MEDS: INSULIN (LEVEMIR) 100 UNITS/ML UNITS SQ SCH (21:32)
[2020-03-28] MEDS ORDERED: DEXTROSE 5%-WATER - 50 ML IVPB ONE ×3 (02:24→17:13)
[2020-03-28] MEDS ORDERED: PIPERACILLIN/TAZOBACTAM 3.375 GM VIAL IVPB ONE ×3 (02:24→17:13)
[2020-03-28] MEDS: PIPERACILLIN/TAZOB 3.375 GM 3.375 GM in DEXTROSE 5%-WATER - 50 ML IVPB SCH ×3 (02:34→17:28)
[2020-03-28] MEDS: oxyCODONE HCL 5 MG TABLET PO PRN ×3 (03:30→23:37)
[2020-03-28] MEDS ORDERED: METHADONE HCL 40 MG DISPERSABLE TABLET ONE (06:21)
[2020-03-28] MEDS ORDERED: LEVOTHYROXINE NA 100 MCG TABLET (FP) ONE (06:21)
[2020-03-28] MEDS ORDERED: METHADONE HCL 10 MG TABLET ONE (06:21)
[2020-03-28] MEDS ORDERED: LEVOTHYROXINE NA 75 MCG TABLET (FP) ONE (06:21)
[2020-03-28] MEDS: METHADONE 120 MG, METHADONE 10 MG PO SCH (06:31)
[2020-03-28] MEDS: HEPARIN NA (PORCINE) 5,000 UNITS/ML 1ML VIAL SQ SCH ×2 (06:32→13:02)
[2020-03-28] MEDS: GABAPENTIN 300 MG CAPSULE PO SCH ×3 (06:32→21:23)
[2020-03-28] MEDS: LEVOTHYROXINE 75 MCG, LEVOTHYROXINE 100 MCG PO SCH (06:33)
[2020-03-28] MEDS: INSULIN SLIDING SCALE (NOVOLOG) 1 VIAL SQ SCH ×4 (06:33→21:24)
[2020-03-28] MEDS ORDERED: INSULIN (LEVEMIR) 100 UNITS/ML UNITS SQ SCH (09:46)
[2020-03-28] MEDS: ACETAMINOPHEN 500 MG TABLET (FP) PO SCH ×2 (09:46→21:23)
--- NOTE | 2020-03-28 11:25 | PN ---
Progress Note, Physician Chief Complaint: Gangarene left foot History of Present Illness: Seen by podiatry ESR/CRP elevated MRI LLE 02/27/20-Osteomyelitis- shaft and base of 2nd metatarsal - Current Medication List Current Medications: Active Medications Acetaminophen (Tylenol -) 1,000 mg PO BID [facility] Last Admin: 03/28/20 09:46 Dose: 1,000 mg Documented by: Gabapentin (Neurontin -) 600 mg PO TID [facility] Last Admin: 03/28/20 06:32 Dose: 600 mg Documented by: Heparin Sodium (Porcine) (Heparin -) 5,000 unit SQ TID [facility] Last Admin: 03/28/20 06:32 Dose: 5,000 unit Documented by: Piperacillin Sod/Tazobactam (Sod 3.375 gm/ Dextrose) 50 mls @ 100 mls/hr IVPB Q8H-IV [facility]; Protocol Last Admin: 03/28/20 09:46 Dose: 100 mls/hr Documented by: Insulin Aspart (Novolog Vial Sliding Scale -) 1 vial SQ [facility]; Protocol Insulin Detemir (Levemir Vial) [address] [facility] Levothyroxine Sodium 75 mcg/ (Levothyroxine Sodium 100 mcg) 175 mcg PO DAILY@0700 [facility] Last Admin: 03/28/20 06:33 Dose: 175 mcg Documented by: Methadone HCl 120 mg/ (Methadone HCl 10 mg) 130 mg PO DAILY@0600 [facility] Last Admin: 03/28/20 06:31 Dose: 130 mg Documented by: Oxycodone HCl (Roxicodone -) 10 mg PO Q6H PRN PRN Reason: PAIN LEVEL 5-10 Last Admin: 03/28/20 03:30 Dose: 10 mg Documented by: - Objective Vital Signs: Vital Signs Temperature 98.3 F 03/28/20 10:06 Pulse Rate 66 03/28/20 10:06 Respiratory Rate 18 03/28/20 10:06 Blood Pressure 129/73 03/28/20 10:06 O2 Sat by Pulse Oximetry (%) 97 03/27/20 21:00 Constitutional: Yes: Well Nourished, No Distress, Calm Cardiovascular: Yes: Regular Rate and Rhythm Respiratory: Yes: Regular, CTA Bilaterally Gastrointestinal: Yes: Normal Bowel Sounds, Soft Genitourinary: Yes: WNL Musculoskeletal: Yes: WNL Extremities: Yes: Other (Left foot wound) Edema: No Peripheral Pulses WNL: No Peripheral Pulses: Left Doralis Pedis: 1+, Right Dorsalis Pedis: 1+ 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: Alert, Oriented Psychiatric: Yes: Alert, Oriented Labs: CBC, BMP 03/26/20 07:03 03/26/20 07:03 INR, PTT INR 1.12 (0.83-1.09) H 03/26/20 07:03 Problem List - Problems (1) Anemia Assessment/Plan: -Previously Iron deficient -Start Iron polysaccharide 150 mg po daily -Stool OB -B12 and thyroid normal -Monitor trend -Transfuse if Hg<7.0 Problems reviewed: Yes Code(s): D64.9 - ANEMIA, UNSPECIFIED (2) 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 Assessment/Plan: -A1c at 8.4 -Levemir change to 25 U BID -Diabetic diet -BGM AC HS -ISS Problems reviewed: Yes Code(s): E11.621 - TYPE 2 DIABETES MELLITUS WITH FOOT ULCER; L97.529 - NON- PRESSURE CHRONIC ULCER OTH PRT LEFT FOOT W UNSP SEVERITY (3) Gangrene of toe of left foot Assessment/Plan: -Podiatry on board -Vascular surgery on board -Dressing to be changed by Podiatry -IV abx as per ID -ID on board -Has a tunnel cath -Needs left TMA Problems reviewed: Yes Code(s): I96 - GANGRENE, NOT ELSEWHERE CLASSIFIED (4) Methadone maintenance therapy patient Assessment/Plan: -Continue maintenance dose Problems reviewed: Yes Code(s): F11.20 - OPIOID DEPENDENCE, UNCOMPLICATED Assessment/Plan See problem list
--- NOTE | 2020-03-28 12:54 | PN ---
Progress Note (short form) - Note Progress Note: Vascular Surgery Pt seen and examined. Left foot gangrene. Pt has a palpable DP pulse in left foot. Pt needs TMA as per podiatry. Cleared for podiatry intervention. Konrad Kaufman DO
[2020-03-28 16:53] LABS: BASO % 0.7 % (0-2.0); EOS % 11.2 % (0-4.5); HEMATOCRIT 29.3 % (35.4-49); HEMOGLOBIN 9.6 GM/dL (11.7-16.9); LYMPH % 15.5 % (8-40); MCH 27.6 pg (25.7-33.7); MCHC 32.7 g/dl (32.0-35.9); MEAN CELL VOLUME 84.3 fl (80-96); MEAN PLT VOLUME 7.8 fl (7.5-11.1); MONO % 6.6 % (3.8-10.2); PLATELET COUNT 407 K/MM3 (134-434); RBC 3.48 M/mm3 (4.00-5.60); RDW 15.7 % (11.9-15.9)
[2020-03-28 17:08] LABS: INR 1.12 (0.83-1.09); PROTHROMBIN TIME (PATIENT) 13.2 SEC (9.7-13.0)
[2020-03-28] MEDS ORDERED: INSULIN (NOVOLOG) ASPART 100 UNITS/ML 10ML VIAL ONE (21:16)
[2020-03-29] MEDS ORDERED: DEXTROSE 5%-WATER - 50 ML IVPB ONE ×3 (01:19→16:50)
[2020-03-29] MEDS ORDERED: PIPERACILLIN/TAZOBACTAM 3.375 GM VIAL IVPB ONE ×5 (01:19→16:50)
[2020-03-29] MEDS: PIPERACILLIN/TAZOB 3.375 GM 3.375 GM in DEXTROSE 5%-WATER - 50 ML IVPB SCH ×3 (01:25→17:08)
[2020-03-29] MEDS ORDERED: DEXTROSE 50%-WATER - 25 GM/50 ML VIAL IVPUSH ONE (02:44)
[2020-03-29] MEDS ORDERED: DEXTROSE 5%-WATER - 1,000 ML IV SCH (02:45)
[2020-03-29] MEDS ORDERED: DEXTROSE 50%-WATER 25 GM/50 ML DISP.SYRIN ONE (03:23)
[2020-03-29] MEDS ORDERED: DEXTROSE 50%-WATER 25 GM/50 ML DISP.SYRIN IVPUSH ONE (03:30)
[2020-03-29] MEDS: INSULIN SLIDING SCALE (NOVOLOG) 1 VIAL SQ SCH ×4 (06:31→22:17)
[2020-03-29] MEDS: GABAPENTIN 300 MG CAPSULE PO SCH ×3 (06:31→21:44)
[2020-03-29] MEDS: METHADONE 120 MG, METHADONE 10 MG PO SCH ×2 (06:31→10:38)
[2020-03-29] MEDS: LEVOTHYROXINE 75 MCG, LEVOTHYROXINE 100 MCG PO SCH (06:32)
--- NOTE | 2020-03-29 06:57 | PN ---
Progress Note, Physician Chief Complaint: Podiatry History of Present Illness: Gangarene left foot - Current Medication List Current Medications: Active Medications Acetaminophen (Tylenol -) 1,000 mg PO BID [facility] Last Admin: 03/28/20 21:23 Dose: 1,000 mg Documented by: Gabapentin (Neurontin -) 600 mg PO TID [facility] Last Admin: 03/29/20 06:31 Dose: Not Given Documented by: Piperacillin Sod/Tazobactam (Sod 3.375 gm/ Dextrose) 50 mls @ 100 mls/hr IVPB Q8H-IV [facility]; Protocol Last Admin: 03/29/20 01:25 Dose: 100 mls/hr Documented by: Dextrose (D5w -) 1,000 mls @ 30 mls/hr IV ASDIR [facility] Last Admin: 03/29/20 03:15 Dose: 30 mls/hr Documented by: Insulin Aspart (Novolog Vial Sliding Scale -) 1 vial SQ [facility]; Protocol Last Admin: 03/29/20 06:31 Dose: Not Given Documented by: Insulin Detemir (Levemir Vial) 49 units SQ [facility] Last Admin: 03/28/20 21:25 Dose: 49 units Documented by: Levothyroxine Sodium 75 mcg/ (Levothyroxine Sodium 100 mcg) 175 mcg PO DAILY@0700 [facility] Last Admin: 03/29/20 06:32 Dose: Not Given Documented by: Methadone HCl 120 mg/ (Methadone HCl 10 mg) 130 mg PO DAILY@0600 [facility] Last Admin: 03/29/20 06:31 Dose: Not Given Documented by: Oxycodone HCl (Roxicodone -) 10 mg PO Q6H PRN PRN Reason: PAIN LEVEL 5-10 Last Admin: 03/28/20 23:37 Dose: 10 mg Documented by: - Objective Vital Signs: Vital Signs Temperature 98.2 F 03/29/20 06:00 Pulse Rate 59 L 03/29/20 06:00 Respiratory Rate 18 03/29/20 06:00 Blood Pressure 125/72 03/29/20 06:00 O2 Sat by Pulse Oximetry (%) 98 03/28/20 21:00 Wound/Incision: Yes: Other (+necrotic left foot with gangarene of 3rd toe and hallux left,) Labs: CBC, BMP 03/28/20 15:55 03/26/20 07:03 INR, PTT INR 1.12 (0.83-1.09) H 03/28/20 15:55 Assessment/Plan poorly controlled diabetes pvd gangarene left foot Pt scheduled for OR today 7:30am. Pt fully understands all risks benefits and alternatives. Discussed salvage of partial foot and or trans metatarsal amputation. Pt also understands that proposed procedure may fail and a below knee amputation was possible in the future as discussed prior to today. Pt asked all questions and were answered. Pt consented to debridement of bone and tissue left foot with possible trans metatarsal amputation for today. Vascular and medical clearance for planned procedure done. Pt agrees to follow up in wound care.
[2020-03-29] MEDS ORDERED: DEXAMETHASONE SOD PHOSPHATE 4 MG/1 ML VIAL ONE (07:16)
[2020-03-29] MEDS ORDERED: LIDOCAINE HCL 1%, 10 MG/ML (20ML VIAL) ONE (07:16)
[2020-03-29] MEDS ORDERED: BUPIVACAINE HCL 50 ML ONE (07:17)
[2020-03-29] MEDS ORDERED: PROPOFOL 20 ML ONE ×2 (07:40)
[2020-03-29] MEDS ORDERED: MIDAZOLAM HCL 2 MG/2 ML SINGLE DOSE VIAL ONE ×2 (07:40)
[2020-03-29] MEDS ORDERED: BUPIVACAINE HCL/PF 0.5% (5 MG/ML) 30 ML VIAL IJ ONE (07:45)
[2020-03-29] MEDS ORDERED: LIDOCAINE HCL 1%, 10 MG/ML (20ML VIAL) PNB ONE (07:45)
[2020-03-29] MEDS ORDERED: ONDANSETRON 4 MG/2 ML VIAL IVPUSH PRN ×2 (09:08→10:24)
[2020-03-29] MEDS ORDERED: PROMETHAZINE HCL 25 MG/1 ML VIAL IVPB PRN ×2 (09:08→10:24)
[2020-03-29] MEDS ORDERED: oxyCODONE HCL 5 MG TABLET PO PRN (09:08)
[2020-03-29] MEDS ORDERED: METHADONE HCL 40 MG DISPERSABLE TABLET ONE (09:38)
[2020-03-29] MEDS ORDERED: METHADONE HCL 10 MG TABLET ONE (09:38)
[2020-03-29] MEDS ORDERED: oxyCODONE HCL 5 MG TABLET ONE (09:41)
[2020-03-29] MEDS ORDERED: ACETAMINOPHEN 325 MG TABLET (FP) ONE (09:41)
--- NOTE | 2020-03-29 09:42 | OP ---
Operative Note - Note: Operative Date: 03/29/20 Pre-Operative Diagnosis: Gangarene left foot Operation: tma 1st met, 3rd met, 4th met, revision 5th metatrsal, excision of lateral wound left, skin flap left with 1/4 inch iodoform packing, retention sutures using tim and 3.0 nylon all of left foot Findings: necrotic bone and soft tissue Implants: tim Post-Operative Diagnosis: Same as Pre-op Surgeon: Jaron Rothman Plant [employer] Supervisor: Jordan Christianson Anesthesia: Local, MAC Specimens Removed: bone and necrotic skin left foot Estimated Blood Loss (mls): 50 Instrument used (Debridements only): 15 blade. 10 blade Drains & Tubes with Location: 1/4 iodoform packing
[2020-03-29] MEDS: oxyCODONE HCL 5 MG TABLET PO PRN ×3 (09:48→21:44)
[2020-03-29] MEDS ORDERED: ACETAMINOPHEN 325 MG TABLET (FP) PO ONE (09:51)
[2020-03-29] MEDS ORDERED: oxyCODONE HCL 5 MG TABLET PO ONE (09:51)
[2020-03-29] MEDS: DEXTROSE 5%-WATER - 1,000 ML IV SCH (10:47)
[2020-03-29 10:54] LABS: BASO % 0.7 % (0-2.0); EOS % 11.9 % (0-4.5); HEMATOCRIT 29.4 % (35.4-49); HEMOGLOBIN 9.7 GM/dL (11.7-16.9); LYMPH % 13.6 % (8-40); MCH 27.3 pg (25.7-33.7); MCHC 32.8 g/dl (32.0-35.9); MEAN CELL VOLUME 83.2 fl (80-96); MEAN PLT VOLUME 7.6 fl (7.5-11.1); NEUT % 66.8 % (42.8-82.8); PLATELET COUNT 379 K/MM3 (134-434); RBC 3.54 M/mm3 (4.00-5.60); RDW 15.5 % (11.9-15.9); WHITE BLOOD COUNT 7.8 K/mm3 (4.0-10.0)
--- NOTE | 2020-03-29 12:14 | PN ---
Progress Note, Physician Chief Complaint: Gangarene left foot History of Present Illness: Seen by podiatry ESR/CRP elevated MRI LLE 02/27/20-Osteomyelitis- shaft and base of 2nd metatarsal Operative Date: 03/29/20 Pre-Operative Diagnosis: Gangarene left foot Operation: tma 1st met, 3rd met, 4th met, revision 5th metatrsal, excision of lateral wound left, skin flap left with 1/4 inch iodoform packing, retention sutures using tim and 3.0 nylon all of left foot Findings: necrotic bone and soft tissue Implants: tim Post-Operative Diagnosis: Same as Pre-op Surgeon: Jaron Rothman Commercial Lines Underwriter: Jordan Christianson Anesthesia: Local, MAC Specimens Removed: bone and necrotic skin left foot C/O pain left foot Still on IV abx - Current Medication List Current Medications: Active Medications Acetaminophen (Tylenol -) 1,000 mg PO BID [facility] Fentanyl (Sublimaze Injection -) 50 mcg IVPUSH [id number] PRN PRN Reason: PAIN-PACU ORDER X 4 DOSES ONLY Stop: 03/30/20 09:07 Gabapentin (Neurontin -) 600 mg PO TID [facility] Piperacillin Sod/Tazobactam (Sod 3.375 gm/ Dextrose) 50 mls @ 100 mls/hr IVPB Q8H-IV [facility]; Protocol Last Admin: 03/29/20 10:39 Dose: Not Given Documented by: Dextrose (D5w -) 1,000 mls @ 30 mls/hr IV ASDIR [facility] Last Admin: 03/29/20 10:47 Dose: 30 mls/hr Documented by: Insulin Aspart (Novolog Vial Sliding Scale -) 1 vial SQ [facility]; Protocol Last Admin: 03/29/20 11:27 Dose: Not Given Documented by: Insulin Detemir (Levemir Vial) 49 units SQ HS [facility] Levothyroxine Sodium 75 mcg/ (Levothyroxine Sodium 100 mcg) 175 mcg PO DAILY@0700 [facility] Methadone HCl 120 mg/ (Methadone HCl 10 mg) 130 mg PO DAILY@0600 [facility] Last Admin: 03/29/20 10:38 Dose: 130 mg Documented by: Ondansetron HCl (Zofran Injection) 4 mg IVPUSH Q6H PRN PRN Reason: NAUSEA AND/OR VOMITING Stop: 03/30/20 09:07 Promethazine HCl (Phenergan Injection -) 12.5 mg IVPB Q6H PRN PRN Reason: NAUSEA-FOR RESCUE AFTER 15 MIN Stop: 03/30/20 09:07 - Objective Vital Signs: Vital Signs Temperature 98.0 F 03/29/20 10:20 Pulse Rate 60 03/29/20 10:20 Respiratory Rate 16 03/29/20 10:20 Blood Pressure 134/80 03/29/20 10:20 O2 Sat by Pulse Oximetry (%) 100 03/29/20 10:20 Constitutional: Yes: Well Nourished, No Distress, Calm Cardiovascular: Yes: Regular Rate and Rhythm Respiratory: Yes: Regular, CTA Bilaterally Gastrointestinal: Yes: Normal Bowel Sounds, Soft Genitourinary: Yes: WNL Musculoskeletal: Yes: WNL Extremities: Yes: Amputation (left TMA) Edema: No Peripheral Pulses WNL: Yes Peripheral Pulses: Right Dorsalis Pedis: 1+ Wound/Incision: Yes: Dressing Dry and Intact 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: Alert, Oriented Psychiatric: Yes: Alert, Oriented Labs: CBC, BMP 03/29/20 10:35 03/26/20 07:03 INR, PTT INR 1.12 (0.83-1.09) H 03/28/20 15:55 Problem List - Problems (1) 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 Assessment/Plan: -A1c at 8.4 -Levemir change to 25 U BID -Diabetic diet -BGM AC HS -ISS Problems reviewed: Yes Code(s): E11.621 - TYPE 2 DIABETES MELLITUS WITH FOOT ULCER; L97.529 - NON- PRESSURE CHRONIC ULCER OTH PRT LEFT FOOT W UNSP SEVERITY (2) Gangrene of toe of left foot Assessment/Plan: -Podiatry on board -Vascular surgery on board -Dressing to be changed by Podiatry -IV abx as per ID -ID on board -Has a tunnel cath Problems reviewed: Yes Code(s): I96 - GANGRENE, NOT ELSEWHERE CLASSIFIED (3) Methadone maintenance therapy patient Assessment/Plan: -Continue maintenance dose Problems reviewed: Yes Code(s): F11.20 - OPIOID DEPENDENCE, UNCOMPLICATED (4) Anemia Assessment/Plan: -Previously Iron deficient -Start Iron polysaccharide 150 mg po daily -Stool OB -B12 and thyroid normal -Monitor trend -Transfuse if Hg<7.0 Problems reviewed: Yes Code(s): D64.9 - ANEMIA, UNSPECIFIED Assessment/Plan See problem list Pt wants to go home upon discharge.
[2020-03-29] MEDS: MORPHINE SULFATE 2 MG/ML VIAL IVPUSH PRN ×3 (13:55→22:19)
[2020-03-29] MEDS: IRON POLYSACCHARIDES 150 MG CAPSULE PO SCH (13:55)
[2020-03-29] MEDS: ACETAMINOPHEN 500 MG TABLET (FP) PO SCH ×3 (14:03→17:08)
[2020-03-29] MEDS ORDERED: INSULIN (LEVEMIR) 100 UNITS/ML UNITS SQ SCH (22:00)
[2020-03-29] MEDS ORDERED: ACETAMINOPHEN 500 MG TABLET (FP) PO SCH (22:00)
[2020-03-29] MEDS: INSULIN (LEVEMIR) 100 UNITS/ML UNITS SQ SCH (22:17)
[2020-03-30] MEDS: ACETAMINOPHEN 500 MG TABLET (FP) PO SCH ×4 (00:55→11:47)
[2020-03-30] MEDS ORDERED: PIPERACILLIN/TAZOBACTAM 3.375 GM VIAL IVPB ONE ×3 (01:53→17:02)
[2020-03-30] MEDS ORDERED: DEXTROSE 5%-WATER - 50 ML IVPB ONE ×3 (01:53→17:02)
[2020-03-30] MEDS: PIPERACILLIN/TAZOB 3.375 GM 3.375 GM in DEXTROSE 5%-WATER - 50 ML IVPB SCH ×4 (01:55→17:04)
[2020-03-30] MEDS: oxyCODONE HCL 5 MG TABLET PO PRN ×5 (01:55→23:55)
[2020-03-30] MEDS: MORPHINE SULFATE 2 MG/ML VIAL IVPUSH PRN ×2 (02:36→08:27)
[2020-03-30] MEDS ORDERED: METHADONE HCL 40 MG DISPERSABLE TABLET ONE (05:08)
[2020-03-30] MEDS ORDERED: METHADONE HCL 10 MG TABLET ONE (05:09)
[2020-03-30] MEDS: GABAPENTIN 300 MG CAPSULE PO SCH ×3 (05:11→21:40)
[2020-03-30] MEDS: METHADONE 120 MG, METHADONE 10 MG PO SCH (05:11)
[2020-03-30] MEDS ORDERED: LEVOTHYROXINE NA 100 MCG TABLET (FP) ONE (06:00)
[2020-03-30] MEDS ORDERED: LEVOTHYROXINE NA 75 MCG TABLET (FP) ONE (06:00)
[2020-03-30] MEDS: LEVOTHYROXINE 75 MCG, LEVOTHYROXINE 100 MCG PO SCH (06:02)
[2020-03-30] MEDS: INSULIN SLIDING SCALE (NOVOLOG) 1 VIAL SQ SCH ×4 (06:21→21:42)
[2020-03-30] MEDS: INSULIN (LEVEMIR) 100 UNITS/ML UNITS SQ SCH ×3 (06:29→21:39)
--- NOTE | 2020-03-30 08:45 | PN ---
Progress Note, Physician Chief Complaint: s/p amputation of left foot toes under general anesthesia. History of Present Illness: post op day one - Current Medication List Current Medications: Active Medications Acetaminophen (Tylenol -) 1,000 mg PO Q6HPO [facility] Last Admin: 03/30/20 06:02 Dose: 1,000 mg Documented by: Fentanyl (Sublimaze Injection -) 50 mcg IVPUSH [id number] PRN PRN Reason: PAIN-PACU ORDER X 4 DOSES ONLY Stop: 03/30/20 09:07 Gabapentin (Neurontin -) 600 mg PO TID [facility] Last Admin: 03/30/20 05:11 Dose: 600 mg Documented by: Piperacillin Sod/Tazobactam (Sod 3.375 gm/ Dextrose) 50 mls @ 100 mls/hr IVPB Q8H-IV [facility]; Protocol Last Admin: 03/30/20 01:55 Dose: 100 mls/hr Documented by: Dextrose (D5w -) 1,000 mls @ 30 mls/hr IV ASDIR [facility] Last Admin: 03/29/20 10:47 Dose: 30 mls/hr Documented by: Insulin Aspart (Novolog Vial Sliding Scale -) 1 vial SQ ACHS [facility]; Protocol Last Admin: 03/30/20 06:21 Dose: Not Given Documented by: Insulin Detemir (Levemir Vial) 25 units SQ 0700,2200 [facility] Last Admin: 03/30/20 06:29 Dose: Not Given Documented by: Levothyroxine Sodium 75 mcg/ (Levothyroxine Sodium 100 mcg) 175 mcg PO DAILY@0700 [facility] Last Admin: 03/30/20 06:02 Dose: 175 mcg Documented by: Methadone HCl 120 mg/ (Methadone HCl 10 mg) 130 mg PO DAILY@0600 [facility] Last Admin: 03/30/20 05:11 Dose: 130 mg Documented by: Morphine Sulfate (Morphine Sulfate) 2 mg IVPUSH Q4H PRN PRN Reason: PAIN LEVEL 7 - 10 Stop: 03/30/20 12:51 Last Admin: 03/30/20 08:27 Dose: 2 mg Documented by: Ondansetron HCl (Zofran Injection) 4 mg IVPUSH Q6H PRN PRN Reason: NAUSEA AND/OR VOMITING Stop: 03/30/20 09:07 Oxycodone HCl (Roxicodone -) 10 mg PO Q4H PRN PRN Reason: PAIN LEVEL 4 - 6 Last Admin: 03/30/20 06:01 Dose: 10 mg Documented by: Polysaccharide Iron Complex (Niferex-150 -) 150 mg PO DAILY [facility] Last Admin: 03/29/20 13:55 Dose: 150 mg Documented by: Promethazine HCl (Phenergan Injection -) 12.5 mg IVPB Q6H PRN PRN Reason: NAUSEA-FOR RESCUE AFTER 15 MIN Stop: 03/30/20 09:07 - Objective Vital Signs: Vital Signs Temperature 98.7 F 03/30/20 06:00 Pulse Rate 68 03/30/20 06:00 Respiratory Rate 18 03/30/20 06:00 Blood Pressure 112/64 03/30/20 06:00 O2 Sat by Pulse Oximetry (%) 100 03/29/20 21:00 Constitutional: Yes: Well Nourished Cardiovascular: Yes: WNL Respiratory: Yes: WNL Gastrointestinal: Yes: WNL Labs: CBC, BMP 03/29/20 10:35 03/26/20 07:03 INR, PTT INR 1.12 (0.83-1.09) H 03/28/20 15:55 Assessment/Plan complaining of pain, not being helped by current opioid doses. patient is on methadone and will require higher than normal pain medication doses to achieve adequate analgesia.
[2020-03-30] MEDS: DEXTROSE 5%-WATER - 1,000 ML IV SCH (10:26)
[2020-03-30] MEDS: IRON POLYSACCHARIDES 150 MG CAPSULE PO SCH (10:30)
[2020-03-30] MEDS ORDERED: ACETAMINOPHEN 500 MG TABLET (FP) PO PRN (11:56)
--- NOTE | 2020-03-30 11:59 | PN ---
Progress Note, Physician Chief Complaint: Gangarene left foot History of Present Illness: Seen by podiatry ESR/CRP elevated MRI LLE 02/27/20-Osteomyelitis- shaft and base of 2nd metatarsal C/O pain Left foot - Current Medication List Current Medications: Active Medications Acetaminophen (Tylenol -) 1,000 mg PO Q6HPO [facility] Last Admin: 03/30/20 11:47 Dose: 1,000 mg Documented by: Gabapentin (Neurontin -) 600 mg PO TID [facility] Last Admin: 03/30/20 05:11 Dose: 600 mg Documented by: Piperacillin Sod/Tazobactam (Sod 3.375 gm/ Dextrose) 50 mls @ 100 mls/hr IVPB Q8H-IV [facility]; Protocol Last Admin: 03/30/20 10:26 Dose: 100 mls/hr Documented by: Insulin Aspart (Novolog Vial Sliding Scale -) 1 vial SQ ACHS [facility]; Protocol Last Admin: 03/30/20 11:04 Dose: 8 units Documented by: Insulin Detemir (Levemir Vial) 25 units SQ 0700,2200 [facility] Last Admin: 03/30/20 11:04 Dose: 25 units Documented by: Levothyroxine Sodium 75 mcg/ (Levothyroxine Sodium 100 mcg) 175 mcg PO D AILY@0700 [facility] Last Admin: 03/30/20 06:02 Dose: 175 mcg Documented by: Methadone HCl 120 mg/ (Methadone HCl 10 mg) 130 mg PO DAILY@0600 [facility] Last Admin: 03/30/20 05:11 Dose: 130 mg Documented by: Morphine Sulfate (Morphine Sulfate) 2 mg IVPUSH Q4H PRN PRN Reason: PAIN LEVEL 7 - 10 Stop: 03/30/20 12:51 Last Admin: 03/30/20 08:27 Dose: 2 mg Documented by: Oxycodone HCl (Roxicodone -) 10 mg PO Q4H PRN PRN Reason: PAIN LEVEL 4 - 6 Last Admin: 03/30/20 10:26 Dose: 10 mg Documented by: Polysaccharide Iron Complex (Niferex-150 -) 150 mg PO DAILY [facility] Last Admin: 03/30/20 10:30 Dose: 150 mg Documented by: - Objective Vital Signs: Vital Signs Temperature 97 F L 03/30/20 10:37 Pulse Rate 67 03/30/20 10:37 Respiratory Rate 18 03/30/20 10:37 Blood Pressure 112/68 03/30/20 10:37 O2 Sat by Pulse Oximetry (%) 100 03/30/20 09:00 Constitutional: Yes: Well Nourished, No Distress, Calm Cardiovascular: Yes: Regular Rate and Rhythm Respiratory: Yes: Regular, CTA Bilaterally Gastrointestinal: Yes: Normal Bowel Sounds, Soft Genitourinary: Yes: WNL Musculoskeletal: Yes: WNL Extremities: Yes: WNL Edema: No Peripheral Pulses WNL: Yes Wound/Incision: Yes: Dressing Dry and Intact 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: Alert, Oriented Psychiatric: Yes: Alert, Oriented Labs: CBC, BMP 03/29/20 10:35 03/26/20 07:03 INR, PTT INR 1.12 (0.83-1.09) H 03/28/20 15:55 Problem List - Problems (1) Anemia Assessment/Plan: -Previously Iron deficient -Start Iron polysaccharide 150 mg po daily -Stool OB negative -B12 and thyroid normal -Monitor trend -Transfuse if Hg<7.0 Problems reviewed: Yes Code(s): D64.9 - ANEMIA, UNSPECIFIED (2) 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 Assessment/Plan: -A1c at 8.4 -Levemir change to 25 U BID -Diabetic diet -BGM AC HS -ISS Problems reviewed: Yes Code(s): E11.621 - TYPE 2 DIABETES MELLITUS WITH FOOT ULCER; L97.529 - NON- PRESSURE CHRONIC ULCER OTH PRT LEFT FOOT W UNSP SEVERITY (3) Gangrene of toe of left foot Assessment/Plan: -Podiatry on board -Vascular surgery on board -Dressing to be changed by Podiatry -IV abx as per ID -ID on board -Has a tunnel cath -S/P TMA -Pain management Acetaminophen 1000 mg po Q6H PRN for pain 1-3 Oxycodone 15 mg po Q4H PRN for pain 4-6 Morphine 4 mg IVP Q4H PRN for pain 7-10 -Continue maintenance methadone Problems reviewed: Yes Code(s): I96 - GANGRENE, NOT ELSEWHERE CLASSIFIED (4) Methadone maintenance therapy patient Assessment/Plan: -Continue maintenance dose Problems reviewed: Yes Code(s): F11.20 - OPIOID DEPENDENCE, UNCOMPLICATED Assessment/Plan See problem list
--- NOTE | 2020-03-30 12:20 | PN ---
Progress Note, Physician Chief Complaint: POD#1 Mild pain - Current Medication List Current Medications: Active Medications Acetaminophen (Tylenol -) 1,000 mg PO Q6HPO PRN PRN Reason: PAIN LEVEL 1 - 3 Gabapentin (Neurontin -) 600 mg PO TID [facility] Last Admin: 03/30/20 05:11 Dose: 600 mg Documented by: Piperacillin Sod/Tazobactam (Sod 3.375 gm/ Dextrose) 50 mls @ 100 mls/hr IVPB Q8H-IV [facility]; Protocol Last Admin: 03/30/20 10:26 Dose: 100 mls/hr Documented by: Insulin Aspart (Novolog Vial Sliding Scale -) 1 vial SQ ACHS [facility]; Protocol Last Admin: 03/30/20 11:04 Dose: 8 units Documented by: Insulin Detemir (Levemir Vial) 25 units SQ 0700,2200 [facility] Last Admin: 03/30/20 11:04 Dose: 25 units Documented by: Levothyroxine Sodium 75 mcg/ (Levothyroxine Sodium 100 mcg) 175 mcg PO DAILY@07 00 [facility] Last Admin: 03/30/20 06:02 Dose: 175 mcg Documented by: Methadone HCl 120 mg/ (Methadone HCl 10 mg) 130 mg PO DAILY@0600 [facility] Last Admin: 03/30/20 05:11 Dose: 130 mg Documented by: Morphine Sulfate (Morphine Sulfate) 4 mg IVPUSH Q4H PRN PRN Reason: PAIN LEVEL 7 - 10 Oxycodone HCl (Roxicodone -) 15 mg PO Q4H PRN PRN Reason: PAIN LEVEL 4 - 6 Polysaccharide Iron Complex (Niferex-150 -) 150 mg PO DAILY [facility] Last Admin: 03/30/20 10:30 Dose: 150 mg Documented by: - Objective Vital Signs: Vital Signs Temperature 97 F L 03/30/20 10:37 Pulse Rate 67 03/30/20 10:37 Respiratory Rate 18 03/30/20 10:37 Blood Pressure 112/68 03/30/20 10:37 O2 Sat by Pulse Oximetry (%) 100 03/30/20 09:00 Extremities: Yes: Other (+dressing clean dry and intact) Labs: CBC, BMP 03/29/20 10:35 03/26/20 07:03 INR, PTT INR 1.12 (0.83-1.09) H 03/28/20 15:55 Assessment/Plan POD#1 pvd Dressing change tomorrow. Rest as per team. will follow.
[2020-03-30] MEDS: morphine SULFATE 4 MG/ML VIAL IVPUSH PRN ×2 (15:10→21:40)
[2020-03-31] MEDS ORDERED: DEXTROSE 5%-WATER - 50 ML IVPB ONE ×3 (01:45→17:15)
[2020-03-31] MEDS ORDERED: PIPERACILLIN/TAZOBACTAM 3.375 GM VIAL IVPB ONE ×3 (01:45→17:15)
[2020-03-31] MEDS: PIPERACILLIN/TAZOB 3.375 GM 3.375 GM in DEXTROSE 5%-WATER - 50 ML IVPB SCH ×3 (01:50→17:22)
[2020-03-31] MEDS: morphine SULFATE 4 MG/ML VIAL IVPUSH PRN ×4 (02:45→19:48)
[2020-03-31] MEDS ORDERED: METHADONE HCL 40 MG DISPERSABLE TABLET ONE (05:50)
[2020-03-31] MEDS ORDERED: METHADONE HCL 10 MG TABLET ONE (05:50)
[2020-03-31] MEDS: oxyCODONE HCL 5 MG TABLET PO PRN ×4 (05:52→22:37)
[2020-03-31] MEDS ORDERED: LEVOTHYROXINE NA 75 MCG TABLET (FP) ONE (06:00)
[2020-03-31] MEDS ORDERED: LEVOTHYROXINE NA 100 MCG TABLET (FP) ONE (06:00)
[2020-03-31] MEDS: LEVOTHYROXINE 75 MCG, LEVOTHYROXINE 100 MCG PO SCH (06:02)
[2020-03-31] MEDS: GABAPENTIN 300 MG CAPSULE PO SCH ×3 (06:02→22:23)
[2020-03-31] MEDS: METHADONE 120 MG, METHADONE 10 MG PO SCH (06:02)
[2020-03-31] MEDS: INSULIN (LEVEMIR) 100 UNITS/ML UNITS SQ SCH ×3 (06:03→22:23)
[2020-03-31] MEDS: INSULIN SLIDING SCALE (NOVOLOG) 1 VIAL SQ SCH ×4 (06:15→22:23)
[2020-03-31] MEDS: IRON POLYSACCHARIDES 150 MG CAPSULE PO SCH (09:19)
--- NOTE | 2020-03-31 09:36 | PATH ---
Surgical Pathology Report Patient Name: JANES NARVAEZ [facility]. Rec. #: [id number] /Age/Gender: 1960 (Age: 59) / M Account: [id number] Location: [address] [place] [address]/[facility] Taken: 03/29/2020 Received: 03/29/2020 Reported: 03/31/2020 Physicians: CARLA Boudreaux M.D. Specimen(s) Received A: FIRST TOE LEFT FOOT B: THIRD TOE LEFT FOOT C: FOURTH TOE LEFT FOOT D: FIRST METATARSAL HEAD,LEFT E: FOURTH METATARSAL HEAD, LEFT F: FIFTH METATARSAL HEAD, LEFT G: THIRD METATARSAL HEAD, LEFT H: TISSUE FROM LEFT FOOT Clinical History Gangrene left foot Final Diagnosis A. FIRST TOE LEFT FOOT, AMPUTATION: AMPUTATED TOE SHOWING GANGRENOUS NECROSIS WITH SEVERE ACUTE AND CHRONIC INFLAMMATION, ABSCESS FORMATION, INVOLVING SKIN AND SOFT TISSUE MARGIN. BONE WITH ACUTE OSTEOMYELITIS, INVOLVING BONE MARGIN. B. THIRD TOE LEFT FOOT, AMPUTATION: AMPUTATED TOE SHOWING GANGRENOUS NECROSIS WITH SEVERE ACUTE AND CHRONIC INFLAMMATION, ABSCESS FORMATION, INVOLVING SKIN AND SOFT TISSUE MARGIN. BONE WITH ACUTE OSTEOMYELITIS, INVOLVING BONE MARGIN. C. FOURTH TOE LEFT FOOT, AMPUTATION: AMPUTATED TOE SHOWING ACANTHOSIS, PARAKERATOSIS, AND CHRONIC INFLAMMATION BONE WITH MILD CHRONIC OSTEOMYELITIS. D. LEFT FIRST METATARSAL HEAD, RESECTION PORTION OF BONE WITH CHRONIC OSTEOMYELITIS. E. LEFT FOURTH METATARSAL, RESECTION PORTION OF BONE WITH REACTIVE CHANGE. NO EVIDENCE OF OSTEOMYELITIS. F. LEFT FIFTH METATARSAL HEAD, RESECTION PORTION OF BONE WITH CHRONIC OSTEOMYELITIS. G. THIRD METATARSAL HEAD, RESECTION: PORTION OF BONE WITH ACUTE AND CHRONIC OSTEOMYELITIS. H. TISSUE LEFT FOOT, EXCISION: PORTIONS OF SKIN AND FIBROCONNECTIVE TISSUE SHOWING GANGRENOUS NECROSIS WITH SEVERE ACUTE AND CHRONIC INFLAMMATION, ABSCESS FORMATION. Electronically Signed Sukhjinder Maza M.D. Amendments Amended: 03/31/2020 Previous Signout Date: 03/31/2020 Gross Description A. Received in formalin labeled "first toe left foot," is a 6.5 x 3.0 x 2.6 cm toe amputation. The entire epidermal surface displays a black-dutta, gangrenous lesion focally involving the skin and soft tissue margin. The lesion involves the underlying bone. Separately received within the same container is a 7.0 x 5.0 x 0.9 cm aggregate of abundant jones-glez, undesignated portions of focally necrotic soft tissue and bone. Jewelry Racker sections are submitted in 4 cassettes as follows: 1-lesion with underlying bone, following decalcification; 2-bone margin, following decalcification; 3-skin and soft tissue margin; 4-separately received bone and soft tissue, following decalcification. B. Received in formalin labeled "third toe left foot," is a 4.7 x 3.3 x 1.5 cm toe amputation. The entire epidermal surface displays a black-dutta, gangrenous lesion focally involving the skin and soft tissue margin. The lesion involves the underlying bone. Jewelry Racker sections are submitted in 3 cassettes as follows: 1-lesion with underlying bone, following decalcification; 2-bone margin, following decalcification; 3-skin and soft tissue margin. C. Received in formalin labeled "fourth toe left foot," is a 4.6 x 3.0 x 1.8 cm toe amputation. The epidermal surface is jones and grossly unremarkable. Jewelry Racker sections are submitted in 3 cassettes as follows: 3-[id number] section of toe with underlying bone, following decalcification; 2-bone margin, following decalcification; 3-skin and soft tissue margin. D. Received in formalin labeled "left first metatarsal head," is a 2.5 x 2.2 x 2.1 cm portion of bone. The specimen is surfaced by articular cartilage at one end and smooth trabecular bone at the opposing end. A senior account representative full-thickness section is submitted in one cassette, following decalcification. E. Received in formalin labeled "fourth metatarsal left," is a 2.4 x 1.8 x 1.3 cm portion of bone. The specimen is surfaced by articular cartilage at one end and smooth trabecular bone at the opposing end. A senior account representative full-thickness section is submitted in one cassette, following decalcification. F. Received in formalin labeled "left fifth metatarsal head," is a 1.5 x 1.2 x 0.9 cm portion of bone. A senior account representative full-thickness section is submitted in one cassette, following decalcification. G. Received in formalin labeled "third metatarsal head," is a 2.4 x 1.8 x 1.4 cm portion of bone. The specimen is surfaced by articular cartilage at one end and smooth trabecular bone the opposing end. A senior account representative full-thickness section is submitted in one cassette, following decalcification. H. Received in formalin labeled "tissue left foot," is a 5.5 x 4.2 x 0.9 cm aggregate of abundant unoriented and undesignated portions of focally necrotic skin and soft tissue. A Jewelry Racker portion is submitted in one cassette. 03/29/2020 [facility]03/29/2020
--- NOTE | 2020-03-31 12:06 | PN ---
Progress Note, Physician Chief Complaint: Gangarene left foot History of Present Illness: NAD pain controlled Seen by podiatry C/O pain Left foot Pathology reviewed - Current Medication List Current Medications: Active Medications Acetaminophen (Tylenol -) 1,000 mg PO Q6HPO PRN PRN Reason: PAIN LEVEL 1 - 3 Gabapentin (Neurontin -) 600 mg PO TID [facility] Last Admin: 03/31/20 06:02 Dose: 600 mg Documented by: Piperacillin Sod/Tazobactam (Sod 3.375 gm/ Dextrose) 50 mls @ 100 mls/hr IVPB Q8H-IV [facility]; Protocol Last Admin: 03/31/20 09:18 Dose: 100 mls/hr Documented by: Insulin Aspart (Novolog Vial Sliding Scale -) 1 vial SQ ACHS [facility]; Protocol Last Admin: 03/31/20 11:37 Dose: 6 units Documented by: Insulin Detemir (Levemir Vial) 25 units SQ 0700,2200 [facility] Last Admin: 03/31/20 06:59 Dose: 25 units Documented by: Levothyroxine Sodium 75 mcg/ (Levothyroxine Sodium 100 mcg) 175 mcg PO DAILY@0700 [facility] Last Admin: 03/31/20 06:02 Dose: 175 mcg Documented by: Methadone HCl 120 mg/ (Methadone HCl 10 mg) 130 mg PO DAILY@0600 [facility] Last Admin: 03/31/20 06:02 Dose: 130 mg Documented by: Morphine Sulfate (Morphine Sulfate) 4 mg IVPUSH Q4H PRN PRN Reason: PAIN LEVEL 7 - 10 Last Admin: 03/31/20 09:18 Dose: 4 mg Documented by: Oxycodone HCl (Roxicodone -) 15 mg PO Q4H PRN PRN Reason: PAIN LEVEL 4 - 6 Last Admin: 03/31/20 11:43 Dose: 15 mg Documented by: Polysaccharide Iron Complex (Niferex-150 -) 150 mg PO DAILY [facility] Last Admin: 03/31/20 09:19 Dose: 150 mg Documented by: - Objective Vital Signs: Vital Signs Temperature 98.2 F 03/31/20 09:01 Pulse Rate 76 03/31/20 09:01 Respiratory Rate 18 03/31/20 09:01 Blood Pressure 122/76 03/31/20 09:01 O2 Sat by Pulse Oximetry (%) 96 03/31/20 09:00 Constitutional: Yes: Well Nourished, No Distress, Calm Cardiovascular: Yes: Regular Rate and Rhythm Respiratory: Yes: Regular, CTA Bilaterally Gastrointestinal: Yes: Normal Bowel Sounds, Soft Labs: CBC, BMP 03/29/20 10:35 03/26/20 07:03 INR, PTT INR 1.12 (0.83-1.09) H 03/28/20 15:55 Problem List - Problems (1) Anemia Code(s): D64.9 - ANEMIA, UNSPECIFIED (2) 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
--- NOTE | 2020-03-31 14:37 | PN ---
Progress Note, Physician Chief Complaint: POD#2 - Current Medication List Current Medications: Active Medications Acetaminophen (Tylenol -) 1,000 mg PO Q6HPO PRN PRN Reason: PAIN LEVEL 1 - 3 Gabapentin (Neurontin -) 600 mg PO TID [facility] Last Admin: 03/31/20 13:56 Dose: 600 mg Documented by: Piperacillin Sod/Tazobactam (Sod 3.375 gm/ Dextrose) 50 mls @ 100 mls/hr IVPB Q8H-IV [facility]; Protocol Last Admin: 03/31/20 09:18 Dose: 100 mls/hr Documented by: Insulin Aspart (Novolog Vial Sliding Scale -) 1 vial SQ ACHS [facility]; Protocol Last Admin: 03/31/20 11:37 Dose: 6 units Documented by: Insulin Detemir (Levemir Vial) 25 units SQ 0700,2200 [facility] Last Admin: 03/31/20 06:59 Dose: 25 units Documented by: Levothyroxine Sodium 75 mcg/ (Levothyroxine Sodium 100 mcg) 175 mcg PO DAILY@0700 [facility] Last Admin: 03/31/20 06:02 Dose: 175 mcg Documented by: Methadone HCl 120 mg/ (Methadone HCl 10 mg) 130 mg PO DAILY@0600 [facility] Last Admin: 03/31/20 06:02 Dose: 130 mg Documented by: Morphine Sulfate (Morphine Sulfate) 4 mg IVPUSH Q4H PRN PRN Reason: PAIN LEVEL 7 - 10 Last Admin: 03/31/20 09:18 Dose: 4 mg Documented by: Oxycodone HCl (Roxicodone -) 15 mg PO Q4H PRN PRN Reason: PAIN LEVEL 4 - 6 Last Admin: 03/31/20 11:43 Dose: 15 mg Documented by: Polysaccharide Iron Complex (Niferex-150 -) 150 mg PO DAILY [facility] Last Admin: 03/31/20 09:19 Dose: 150 mg Documented by: - Objective Vital Signs: Vital Signs Temperature 98.2 F 03/31/20 09:01 Pulse Rate 76 03/31/20 09:01 Respiratory Rate 18 03/31/20 09:01 Blood Pressure 122/76 03/31/20 09:01 O2 Sat by Pulse Oximetry (%) 96 03/31/20 09:00 Wound/Incision: Yes: Other (+tim, nylon, packing in place left foot, +granulating, +differentiation dorsal skin from plantar skin,) Labs: CBC, BMP 03/29/20 10:35 03/26/20 07:03 INR, PTT INR 1.12 (0.83-1.09) H 03/28/20 15:55 Assessment/Plan POD#2 pvd Packing pulled. Betadine irrigation of wound area. Dry sterile gauze. Margie dressing applied. Will follow. HBO to be done outpatient. Daily betadine dressing change starting tomorrow. CBC with diff in AM.
[2020-03-31 20:53] LABS: BASO % 0.6 % (0-2.0); EOS % 7.5 % (0-4.5); HEMATOCRIT 26.2 % (35.4-49); HEMOGLOBIN 8.6 GM/dL (11.7-16.9); LYMPH % 10.9 % (8-40); MCH 27.7 pg (25.7-33.7); MEAN CELL VOLUME 84.1 fl (80-96); MEAN PLT VOLUME 7.6 fl (7.5-11.1); MONO % 7.2 % (3.8-10.2); NEUT % 73.8 % (42.8-82.8); PLATELET COUNT 352 K/MM3 (134-434); RBC 3.11 M/mm3 (4.00-5.60); RDW 15.7 % (11.9-15.9); WHITE BLOOD COUNT 11.3 K/mm3 (4.0-10.0)
[2020-04-01] MEDS: morphine SULFATE 4 MG/ML VIAL IVPUSH PRN ×4 (00:51→22:29)
[2020-04-01] MEDS ORDERED: PIPERACILLIN/TAZOBACTAM 3.375 GM VIAL IVPB ONE ×3 (02:25→16:35)
[2020-04-01] MEDS ORDERED: DEXTROSE 5%-WATER - 50 ML IVPB ONE ×3 (02:25→16:35)
[2020-04-01] MEDS: PIPERACILLIN/TAZOB 3.375 GM 3.375 GM in DEXTROSE 5%-WATER - 50 ML IVPB SCH ×4 (02:25→17:04)
[2020-04-01] MEDS: oxyCODONE HCL 5 MG TABLET PO PRN ×3 (04:08→15:00)
[2020-04-01] MEDS ORDERED: METHADONE HCL 10 MG TABLET ONE (06:30)
[2020-04-01] MEDS ORDERED: METHADONE HCL 40 MG DISPERSABLE TABLET ONE (06:30)
[2020-04-01] MEDS ORDERED: LEVOTHYROXINE NA 100 MCG TABLET (FP) ONE (06:31)
[2020-04-01] MEDS ORDERED: LEVOTHYROXINE NA 75 MCG TABLET (FP) ONE (06:31)
[2020-04-01] MEDS: METHADONE 120 MG, METHADONE 10 MG PO SCH (06:32)
[2020-04-01] MEDS: LEVOTHYROXINE 75 MCG, LEVOTHYROXINE 100 MCG PO SCH (06:33)
[2020-04-01] MEDS: GABAPENTIN 300 MG CAPSULE PO SCH ×3 (06:33→22:40)
[2020-04-01] MEDS: INSULIN SLIDING SCALE (NOVOLOG) 1 VIAL SQ SCH ×4 (06:41→22:41)
[2020-04-01] MEDS: INSULIN (LEVEMIR) 100 UNITS/ML UNITS SQ SCH ×2 (06:42→22:40)
--- NOTE | 2020-04-01 09:04 | PN ---
Progress Note, Physician - Current Medication List Current Medications: Active Medications Acetaminophen (Tylenol -) 1,000 mg PO Q6HPO PRN PRN Reason: PAIN LEVEL 1 - 3 Gabapentin (Neurontin -) 600 mg PO TID [facility] Last Admin: 04/01/20 06:33 Dose: 600 mg Documented by: Piperacillin Sod/Tazobactam (Sod 3.375 gm/ Dextrose) 50 mls @ 100 mls/hr IVPB Q8H-IV [facility]; Protocol Last Admin: 04/01/20 02:25 Dose: 100 mls/hr Documented by: Insulin Aspart (Novolog Vial Sliding Scale -) 1 vial SQ ACHS [facility]; Protocol Last Admin: 04/01/20 06:41 Dose: Not Given Documented by: Insulin Detemir (Levemir Vial) 25 units SQ 0700,2200 [facility] Last Admin: 04/01/20 06:42 Dose: 25 units Documented by: Levothyroxine Sodium 75 mcg/ (Levothyroxine Sodium 100 mcg) 175 mcg PO DAILY@0700 [facility] Last Admin: 04/01/20 06:33 Dose: 175 mcg Documented by: Methadone HCl 120 mg/ (Methadone HCl 10 mg) 130 mg PO DAILY@0600 [facility] Last Admin: 04/01/20 06:32 Dose: 130 mg Documented by: Morphine Sulfate (Morphine Sulfate) 4 mg IVPUSH Q4H PRN PRN Reason: PAIN LEVEL 7 - 10 Last Admin: 04/01/20 02:34 Dose: 4 mg Documented by: Oxycodone HCl (Roxicodone -) 15 mg PO Q4H PRN PRN Reason: PAIN LEVEL 4 - 6 Last Admin: 04/01/20 04:08 Dose: 15 mg Documented by: Polysaccharide Iron Complex (Niferex-150 -) 150 mg PO DAILY [facility] Last Admin: 03/31/20 09:19 Dose: 150 mg Documented by: - Objective Vital Signs: Vital Signs Temperature 98.1 F 04/01/20 06:00 Pulse Rate 66 04/01/20 06:00 Respiratory Rate 18 04/01/20 06:00 Blood Pressure 113/65 04/01/20 06:00 O2 Sat by Pulse Oximetry (%) 96 03/31/20 21:00 Cardiovascular: Yes: S1, S2 Respiratory: Yes: Regular, CTA Bilaterally Gastrointestinal: Yes: Normal Bowel Sounds, Soft Labs: CBC, BMP 03/31/20 20:40 03/26/20 07:03 INR, PTT INR 1.12 (0.83-1.09) H 03/28/20 15:55 Problem List - Problems (1) 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 Code(s): E11.621 - TYPE 2 DIABETES MELLITUS WITH FOOT ULCER; L97.529 - NON-PRESSURE CHRONIC ULCER OTH PRT LEFT FOOT W UNSP SEVERITY (2) Diabetes Code(s): E11.9 - TYPE 2 DIABETES MELLITUS WITHOUT COMPLICATIONS (3) Gangrene of toe of left foot Code(s): I96 - GANGRENE, NOT ELSEWHERE CLASSIFIED (4) Hypothyroid Code(s): E03.9 - HYPOTHYROIDISM, UNSPECIFIED (5) HTN (hypertension) Code(s): I10 - ESSENTIAL (PRIMARY) HYPERTENSION Qualifiers: Hypertension type: essential hypertension Qualified Code(s): I10 - Essential (primary) hypertension (6) Methadone maintenance therapy patient Code(s): F11.20 - OPIOID DEPENDENCE, UNCOMPLICATED Assessment/Plan - Problems (1) Anemia Assessment/Plan: -Previously Iron deficient -Start Iron polysaccharide 150 mg po daily -Stool OB negative -B12 and thyroid normal -Monitor trend -Transfuse if Hg<7.0 Problems reviewed: Yes Code(s): D64.9 - ANEMIA, UNSPECIFIED (2) 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 Assessment/Plan: -A1c at 8.4 -Levemir change to 25 U BID -Diabetic diet -BGM AC HS -ISS Problems reviewed: Yes Code(s): E11.621 - TYPE 2 DIABETES MELLITUS WITH FOOT ULCER; L97.529 - NON- PRESSURE CHRONIC ULCER OTH PRT LEFT FOOT W UNSP SEVERITY (3) Gangrene of toe of left foot Assessment/Plan: -Compliance with ambulation discussed -Podiatry on board -Vascular surgery on board -Dressing to be changed by Podiatry -IV abx as per ID -ID on board -Has a tunnel cath -S/P TMA -Pain management Acetaminophen 1000 mg po Q6H PRN for pain 1-3 Oxycodone 15 mg po Q4H PRN for pain 4-6 Morphine 4 mg IVP Q4H PRN for pain 7-10 -Continue maintenance methadone Problems reviewed: Yes Code(s): I96 - GANGRENE, NOT ELSEWHERE CLASSIFIED (4) Methadone maintenance therapy patient Assessment/Plan: -Continue maintenance dose Problems reviewed: Yes Code(s): F11.20 - OPIOID DEPENDENCE, UNCOMPLICATED
--- NOTE | 2020-04-01 09:15 | PN ---
Progress Note, Physician Chief Complaint: pod#3 no pain - Current Medication List Current Medications: Active Medications Acetaminophen (Tylenol -) 1,000 mg PO Q6HPO PRN PRN Reason: PAIN LEVEL 1 - 3 Gabapentin (Neurontin -) 600 mg PO TID [facility] Last Admin: 04/01/20 06:33 Dose: 600 mg Documented by: Piperacillin Sod/Tazobactam (Sod 3.375 gm/ Dextrose) 50 mls @ 100 mls/hr IVPB Q8H-IV [facility]; Protocol Last Admin: 04/01/20 02:25 Dose: 100 mls/hr Documented by: Insulin Aspart (Novolog Vial Sliding Scale -) 1 vial SQ ACHS [facility]; Protocol Last Admin: 04/01/20 06:41 Dose: Not Given Documented by: Insulin Detemir (Levemir Vial) 25 units SQ 0700,2200 [facility] Last Admin: 04/01/20 06:42 Dose: 25 units Documented by: Levothyroxine Sodium 75 mcg/ (Levothyroxine Sodium 100 mcg) 175 mcg PO DAILY@07 00 [facility] Last Admin: 04/01/20 06:33 Dose: 175 mcg Documented by: Methadone HCl 120 mg/ (Methadone HCl 10 mg) 130 mg PO DAILY@0600 [facility] Last Admin: 04/01/20 06:32 Dose: 130 mg Documented by: Morphine Sulfate (Morphine Sulfate) 4 mg IVPUSH Q4H PRN PRN Reason: PAIN LEVEL 7 - 10 Last Admin: 04/01/20 02:34 Dose: 4 mg Documented by: Oxycodone HCl (Roxicodone -) 15 mg PO Q4H PRN PRN Reason: PAIN LEVEL 4 - 6 Last Admin: 04/01/20 04:08 Dose: 15 mg Documented by: Polysaccharide Iron Complex (Niferex-150 -) 150 mg PO DAILY [facility] Last Admin: 03/31/20 09:19 Dose: 150 mg Documented by: - Objective Vital Signs: Vital Signs Temperature 98.1 F 04/01/20 06:00 Pulse Rate 66 04/01/20 06:00 Respiratory Rate 18 04/01/20 06:00 Blood Pressure 113/65 04/01/20 06:00 O2 Sat by Pulse Oximetry (%) 96 03/31/20 21:00 Wound/Incision: Yes: Other (+tim and nylon retention sutures in place) Labs: CBC, BMP 03/31/20 20:40 03/26/20 07:03 INR, PTT INR 1.12 (0.83-1.09) H 03/28/20 15:55 Assessment/Plan POD#3 pvd Betadine irrigation of wound area. Betadine dressing daily. Will follow. HBO to be done outpatient. IVABX as per ID. Daily betadine dressing changes. Dr. Christianson cover for the weekend.
[2020-04-01] MEDS ORDERED: PT OWN MED DRAWER 7, Y5N ONE ×2 (09:45→22:22)
[2020-04-01] MEDS: IRON POLYSACCHARIDES 150 MG CAPSULE PO SCH (09:51)
[2020-04-01 10:59] LABS: BASO % 0.6 % (0-2.0); EOS % 9.6 % (0-4.5); HEMATOCRIT 26.2 % (35.4-49); HEMOGLOBIN 8.6 GM/dL (11.7-16.9); LYMPH % 11.1 % (8-40); MCH 27.3 pg (25.7-33.7); MEAN CELL VOLUME 82.7 fl (80-96); MEAN PLT VOLUME 7.6 fl (7.5-11.1); MONO % 6.3 % (3.8-10.2); NEUT % 72.4 % (42.8-82.8); PLATELET COUNT 364 K/MM3 (134-434); RBC 3.17 M/mm3 (4.00-5.60); RDW 15.8 % (11.9-15.9); WHITE BLOOD COUNT 8.8 K/mm3 (4.0-10.0)
[2020-04-01 11:25] LABS: ALBUMIN 2.6 g/dl (3.4-5.0); BILIRUBIN,TOTAL 0.5 mg/dL (0.2-1); CREATININE 1.5 mg/dL (0.55-1.3); POTASSIUM 5.2 mmol/L (3.5-5.1); TOT PROT 7.2 g/dl (6.4-8.2)
--- NOTE | 2020-04-01 15:50 | PN ---
Progress Note, Physician History of Present Illness: AWAKE,ALERT NO C/O FOOT PAIN AFEBRILE PATH REPORT NOTED SURGICAL MARGINS NOT CLEAR OF INFECTED BONE WOUND C/S PSEUDOMONAS, VRE - Current Medication List Current Medications: Active Medications Acetaminophen (Tylenol -) 1,000 mg PO Q6HPO PRN PRN Reason: PAIN LEVEL 1 - 3 Gabapentin (Neurontin -) 600 mg PO TID [facility] Last Admin: 04/01/20 14:48 Dose: 600 mg Documented by: Piperacillin Sod/Tazobactam (Sod 3.375 gm/ Dextrose) 50 mls @ 100 mls/hr IVPB Q8H-IV [facility]; Protocol Last Admin: 04/01/20 02:25 Dose: 100 mls/hr Documented by: Insulin Aspart (Novolog Vial Sliding Scale -) 1 vial SQ ACHS [facility]; Protocol Last Admin: 04/01/20 12:02 Dose: Not Given Documented by: Insulin Detemir (Levemir Vial) 25 units SQ 0700,2200 [facility] Last Admin: 04/01/20 06:42 Dose: 25 units Documented by: Levothyroxine Sodium 75 mcg/ (Levothyroxine Sodium 100 mcg) 175 mcg PO DAILY@0700 [facility] Last Admin: 04/01/20 06:33 Dose: 175 mcg Documented by: Methadone HCl 120 mg/ (Methadone HCl 10 mg) 130 mg PO DAILY@0600 [facility] Last Admin: 04/01/20 06:32 Dose: 130 mg Documented by: Morphine Sulfate (Morphine Sulfate) 4 mg IVPUSH Q4H PRN PRN Reason: PAIN LEVEL 7 - 10 Last Admin: 04/01/20 02:34 Dose: 4 mg Documented by: Oxycodone HCl (Roxicodone -) 15 mg PO Q4H PRN PRN Reason: PAIN LEVEL 4 - 6 Last Admin: 04/01/20 15:00 Dose: 15 mg Documented by: Polysaccharide Iron Complex (Niferex-150 -) 150 mg PO DAILY [facility] Last Admin: 04/01/20 09:51 Dose: 150 mg Documented by: - Objective Vital Signs: Vital Signs Temperature 98.7 F 04/01/20 14:56 Pulse Rate 72 04/01/20 14:56 Respiratory Rate 20 04/01/20 14:56 Blood Pressure 126/74 04/01/20 14:56 O2 Sat by Pulse Oximetry (%) 100 04/01/20 09:00 Constitutional: Yes: Well Nourished Eyes: Yes: Conjunctiva Clear Cardiovascular: Yes: Regular Rate and Rhythm, S1, S2 Respiratory: Yes: CTA Bilaterally Gastrointestinal: Yes: Normal Bowel Sounds, Soft. No: Tenderness Extremities: Yes: Other (L FOOT SURGICAL WOUND WITH YUNIER IN PLACE NO ERYTHEMA/DRAINAGE) Labs: CBC, BMP 04/01/20 10:44 04/01/20 10:44 INR, PTT INR 1.12 (0.83-1.09) H 03/28/20 15:55 Assessment/Plan GANGRENE/OSTEOMYELITIS L FOOT CONTINUE ZOSYN ADD LINEZOLID X 14D WILL NEED TO COMPLETE 6W COURSE OF IV ANTIBIOTIC FOR OSTEO
[2020-04-01] MEDS: LINEZOLID 600 MG TABLET (RESTRICTED TO ID) PO SCH (22:39)
[2020-04-02] MEDS ORDERED: PIPERACILLIN/TAZOBACTAM 3.375 GM VIAL IVPB ONE ×3 (01:08→17:03)
[2020-04-02] MEDS ORDERED: DEXTROSE 5%-WATER - 50 ML IVPB ONE ×3 (01:09→17:03)
[2020-04-02] MEDS: oxyCODONE HCL 5 MG TABLET PO PRN ×2 (01:15→14:36)
[2020-04-02] MEDS: PIPERACILLIN/TAZOB 3.375 GM 3.375 GM in DEXTROSE 5%-WATER - 50 ML IVPB SCH ×3 (01:16→17:07)
[2020-04-02] MEDS ORDERED: METHADONE HCL 40 MG DISPERSABLE TABLET ONE (05:36)
[2020-04-02] MEDS ORDERED: LEVOTHYROXINE NA 100 MCG TABLET (FP) ONE (05:37)
[2020-04-02] MEDS ORDERED: METHADONE HCL 10 MG TABLET ONE (05:37)
[2020-04-02] MEDS ORDERED: LEVOTHYROXINE NA 75 MCG TABLET (FP) ONE (05:37)
[2020-04-02] MEDS: METHADONE 120 MG, METHADONE 10 MG PO SCH (05:53)
[2020-04-02] MEDS: GABAPENTIN 300 MG CAPSULE PO SCH ×3 (05:54→21:25)
[2020-04-02] MEDS: morphine SULFATE 4 MG/ML VIAL IVPUSH PRN ×4 (05:59→21:31)
[2020-04-02] MEDS: INSULIN SLIDING SCALE (NOVOLOG) 1 VIAL SQ SCH ×4 (05:59→21:24)
[2020-04-02] MEDS: INSULIN (LEVEMIR) 100 UNITS/ML UNITS SQ SCH ×2 (06:00→21:24)
[2020-04-02] MEDS: LEVOTHYROXINE 75 MCG, LEVOTHYROXINE 100 MCG PO SCH (06:01)
--- NOTE | 2020-04-02 08:10 | CONSULT ---
Consult Consult Specialty:: Nephrology Reason for Consultation:: ANU - History of Present Illness Chief Complaint: left foot toe necrosis History of Present Illness: Pt is a 59 year old male with pmhx of htn, dm, osteo, on methadone for hx of opiate use who is admitted with left foot toe necrosis. He is status post amputation. 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 he denies history of ckd. He denies nsaid use. He denies dysuria or hematuria. He denies fevers or chills. - History Source History Provided By: Patient - Past Medical History Cardio/Vascular: Yes: HTN, Other (pad) Psych: Yes: Addictions Endocrine: Yes: Diabetes Mellitus, Hypothyroidism - Alcohol/Substance Use Hx Alcohol Use: No - Smoking History Smoking history: Never smoked Have you smoked in the past 12 months: No Aproximately how many cigarettes per day: 0 - Social History Usual Living Arrangement: Other (with sister) History of Recent Travel: No Home Medications - Allergies Allergies/Adverse Reactions: Allergies Allergy/AdvReac Type Severity Reaction Status Date / Time fish derived Allergy Verified 03/25/20 14:10 - Home Medications Home Medications: Ambulatory Orders Gabapentin 600 mg PO TID 03/24/20 Levothyroxine Sodium 175 mcg PO DAILY 03/24/20 Acetaminophen [Tylenol -] 1,000 mg PO BID 03/25/20 Insulin Glargine,Hum.rec.anlog [Basaglar Kwikpen U-100] 35 unit SQ HS 03/25/20 Metformin HCl [Glucophage] 1,000 mg PO BID 03/25/20 Methadone [Dolophine -] 130 mg PO DAILY 03/25/20 Oxycodone HCl 10 mg PO Q8H PRN 03/25/20 Piperacillin/Tazob 3.375 gm [Zosyn] 3.375 gm IVPB TID 03/25/20 Family Medical History Family History: Denies Review of Systems - Review of Systems Constitutional: reports: No Symptoms Eyes: reports: No Symptoms HENT: reports: No Symptoms Neck: reports: No Symptoms Cardiovascular: reports: No Symptoms Respiratory: reports: No Symptoms Gastrointestinal: reports: No Symptoms Genitourinary: reports: No Symptoms Musculoskeletal: reports: No Symptoms Integumentary: reports: No Symptoms Neurological: reports: No Symptoms Endocrine: reports: No Symptoms Hematology/Lymphatic: reports: No Symptoms Psychiatric: reports: No Symptoms Physical Exam Vital Signs: Vital Signs Temperature 98.1 F 04/02/20 06:00 Pulse Rate 66 04/02/20 06:00 Respiratory Rate 20 04/02/20 06:00 Blood Pressure 125/80 04/02/20 06:00 O2 Sat by Pulse Oximetry (%) 97 04/01/20 21:00 Constitutional: Yes: Calm Eyes: Yes: Conjunctiva Clear HENT: Yes: Atraumatic Neck: Yes: Supple Cardiovascular: Yes: S1, S2 Respiratory: Yes: CTA Bilaterally Gastrointestinal: Yes: Soft Renal/: Yes: WNL Extremities: Yes: WNL Edema: No Wound/Incision: Yes: Dressing Dry and Intact 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: Oriented Psychiatric: Yes: Oriented Labs: CBC, BMP 04/01/20 10:44 04/01/20 10:44 Imaging - Results Chest X-ray: Report Reviewed Problem List - Problems (1) Amputation at midfoot Code(s): S98.319A - COMPLETE TRAUMATIC AMPUTATION OF UNSP MIDFOOT, INIT ENCNTR Qualifiers: Laterality: left (2) Diabetes Code(s): E11.9 - TYPE 2 DIABETES MELLITUS WITHOUT COMPLICATIONS Assessment/Plan Current Medications Generic Name Dose Route Start Last Admin Trade Name Freq PRN Reason Stop Dose Admin Acetaminophen 1,000 mg 03/30/20 11:56 Tylenol - PO Q6HPO PRN PAIN LEVEL 1 - 3 Gabapentin 600 mg 03/29/20 14:00 04/02/20 05:54 Neurontin - PO 600 mg TID [facility] Administration Piperacillin Sod/Tazobactam 50 mls @ 100 mls/hr 04/01/20 18:00 04/02/20 01:16 Sod 3.375 gm/ Dextrose IVPB 100 mls/hr Q8H-IV [facility] Administration Protocol Insulin Aspart 1 vial 03/29/20 11:00 04/02/20 05:59 Novolog Vial Sliding Scale - SQ Not Given ACHS [facility] Protocol Insulin Detemir 25 units 03/29/20 22:00 04/02/20 06:00 Levemir Vial SQ 25 units 0700,2200 [facility] Administration Levothyroxine Sodium 75 mcg/ 175 mcg 03/30/20 07:00 04/02/20 06:01 Levothyroxine Sodium 100 mcg PO 175 mcg DAILY@0700 [facility] Administration Linezolid 600 mg 04/01/20 22:00 04/01/20 22:39 Zyvox (Restricted To Id) - PO 600 mg BID [facility] Administration Methadone HCl 120 mg/ 130 mg 03/30/20 06:00 04/02/20 05:53 Methadone HCl 10 mg PO 130 mg DAILY@0600 [facility] Administration Morphine Sulfate 4 mg 03/30/20 12:10 04/02/20 05:59 Morphine Sulfate IVPUSH 4 mg Q4H PRN Administration PAIN LEVEL 7 - 10 Oxycodone HCl 15 mg 03/30/20 12:07 04/02/20 01:15 Roxicodone - PO 15 mg Q4H PRN Administration PAIN LEVEL 4 - 6 Polysaccharide Iron Complex 150 mg 03/29/20 13:00 04/01/20 09:51 Niferex-150 - PO 150 mg DAILY [facility] Administration Laboratory Tests 03/25/20 03/25/20 03/26/20 14:35 22:20 07:03 Sodium Potassium BUN Creatinine 1.3 1.2 Urine Protein Negative Urine Glucose (UA) 3+ H Urine Blood Negative 04/01/20 10:44 Sodium 135 L Potassium 5.2 H BUN 31.0 H Creatinine 1.5 H Urine Protein Urine Glucose (UA) Urine Blood Impression 1. 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 hyperkalemia 3. htn 4. dm 5. hx opiate use on methadone Plan - check cmp in am - check renal ultrasound - repeat ua - check protein to engraver apprentice decorative ratio - cont wound care - avoid nsaids
[2020-04-02] MEDS ORDERED: PT OWN MED DRAWER 7, Y5N ONE ×2 (09:44→21:03)
[2020-04-02] MEDS: IRON POLYSACCHARIDES 150 MG CAPSULE PO SCH (09:56)
[2020-04-02] MEDS: LINEZOLID 600 MG TABLET (RESTRICTED TO ID) PO SCH ×2 (09:56→21:25)
--- NOTE | 2020-04-02 11:34 | PN ---
Progress Note, Physician Chief Complaint: AWAKE ALERT EVENTS AND NOTES REVIEWED PATIENT DENIES FEVER OR CHILLS H/O METHADONE WITH NONCOMPLIANCE TO DIABETIC MEDICAL REGIMEN - Current Medication List Current Medications: Active Medications Acetaminophen (Tylenol -) 1,000 mg PO Q6HPO PRN PRN Reason: PAIN LEVEL 1 - 3 Gabapentin (Neurontin -) 600 mg PO TID [facility] Last Admin: 04/02/20 05:54 Dose: 600 mg Documented by: Piperacillin Sod/Tazobactam (Sod 3.375 gm/ Dextrose) 50 mls @ 100 mls/hr IVPB Q8H-IV [facility]; Protocol Last Admin: 04/02/20 09:55 Dose: 100 mls/hr Documented by: Insulin Aspart (Novolog Vial Sliding Scale -) 1 vial SQ ACHS [facility]; Protocol Last Admin: 04/02/20 05:59 Dose: Not Given Documented by: Insulin Detemir (Levemir Vial) 25 units SQ 0700,2200 [facility] Last Admin: 04/02/20 06:00 Dose: 25 units Documented by: Levothyroxine Sodium 75 mcg/ (Levothyroxine Sodium 100 mcg) 175 mcg PO DAILY@0700 [facility] Last Admin: 04/02/20 06:01 Dose: 175 mcg Documented by: Linezolid (Zyvox (Restricted To Id) -) 600 mg PO BID [facility] Last Admin: 04/02/20 09:56 Dose: 600 mg Documented by: Methadone HCl 120 mg/ (Methadone HCl 10 mg) 130 mg PO DAILY@0600 [facility] Last Admin: 04/02/20 05:53 Dose: 130 mg Documented by: Morphine Sulfate (Morphine Sulfate) 4 mg IVPUSH Q4H PRN PRN Reason: PAIN LEVEL 7 - 10 Last Admin: 04/02/20 09:57 Dose: 4 mg Documented by: Oxycodone HCl (Roxicodone -) 15 mg PO Q4H PRN PRN Reason: PAIN LEVEL 4 - 6 Last Admin: 04/02/20 01:15 Dose: 15 mg Documented by: Polysaccharide Iron Complex (Niferex-150 -) 150 mg PO DAILY [facility] Last Admin: 04/02/20 09:56 Dose: 150 mg Documented by: - Objective Vital Signs: Vital Signs Temperature 98.1 F 04/02/20 06:00 Pulse Rate 66 04/02/20 06:00 Respiratory Rate 20 04/02/20 06:00 Blood Pressure 125/80 04/02/20 06:00 O2 Sat by Pulse Oximetry (%) 97 04/01/20 21:00 Constitutional: Yes: No Distress Cardiovascular: Yes: Regular Rate and Rhythm Respiratory: Yes: WNL Gastrointestinal: Yes: WNL Genitourinary: Yes: WNL Musculoskeletal: Yes: Other Extremities: Yes: Amputation Integumentary: Yes: Other Wound/Incision: Yes: Dressing Dry and Intact (LEFT FOOT) ...Motor Strength: LLE (LEFT FOOT TOES AMPUTATED) Labs: CBC, BMP 04/01/20 10:44 04/01/20 10:44 INR, PTT INR 1.12 (0.83-1.09) H 03/28/20 15:55 Problem List - Problems (1) Amputation at midfoot Assessment/Plan: LEFT TOES Code(s): S98.319A - COMPLETE TRAUMATIC AMPUTATION OF UNSP MIDFOOT, INIT ENCNTR Qualifiers: Laterality: left (2) Anemia Code(s): D64.9 - ANEMIA, UNSPECIFIED (3) 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 Code(s): E11.621 - TYPE 2 DIABETES MELLITUS WITH FOOT ULCER; L97.529 - NON- PRESSURE CHRONIC ULCER OTH PRT LEFT FOOT W UNSP SEVERITY (4) Diabetic foot infection Code(s): E11.628 - TYPE 2 DIABETES MELLITUS WITH OTHER SKIN COMPLICATIONS; L08.9 - LOCAL INFECTION OF THE SKIN AND SUBCUTANEOUS TISSUE, UNSP (5) Gangrene of toe of left foot Code(s): I96 - GANGRENE, NOT ELSEWHERE CLASSIFIED (6) Hypothyroid Code(s): E03.9 - HYPOTHYROIDISM, UNSPECIFIED (7) Anxiety and depression Code(s): F41.9 - ANXIETY DISORDER, UNSPECIFIED; F32.9 - MAJOR DEPRESSIVE DISORDER, SINGLE EPISODE, UNSPECIFIED (8) Methadone maintenance therapy patient Code(s): F11.20 - OPIOID DEPENDENCE, UNCOMPLICATED Assessment/Plan IV ABX PER ID AWAITING CULTURE/SENSITIVITY/DURATION OF ABX WOUND CARE DAILY [facility] TO AID IN WOUND HEALING METHADONE MAINTANCE DVT PROPHYLAXIS SNF WHEN READY FOR DC
[2020-04-02 21:44] LABS: URINE APPEARANCE Clear; URINE BILIRUBIN Negative (NEGATIVE); URINE COLOR Yellow; URINE GLUCOSE (UA) Negative (NEGATIVE); URINE KETONE Negative (NEGATIVE); URINE LEUK ESTERASE Negative (NEGATIVE); URINE NITRITE Negative (NEGATIVE); URINE PROTEIN Negative (NEGATIVE); URINE UROBILINOGEN 0.2 mg/dL (0.2-1.0)
[2020-04-03] MEDS ORDERED: DEXTROSE 5%-WATER - 50 ML IVPB ONE ×3 (01:56→16:45)
[2020-04-03] MEDS ORDERED: PIPERACILLIN/TAZOBACTAM 3.375 GM VIAL IVPB ONE ×3 (01:56→16:45)
[2020-04-03] MEDS: PIPERACILLIN/TAZOB 3.375 GM 3.375 GM in DEXTROSE 5%-WATER - 50 ML IVPB SCH ×3 (02:07→17:03)
[2020-04-03] MEDS: morphine SULFATE 4 MG/ML VIAL IVPUSH PRN ×5 (02:43→22:34)
[2020-04-03] MEDS ORDERED: LEVOTHYROXINE NA 100 MCG TABLET (FP) ONE (06:18)
[2020-04-03] MEDS ORDERED: METHADONE HCL 10 MG TABLET ONE (06:18)
[2020-04-03] MEDS ORDERED: METHADONE HCL 40 MG DISPERSABLE TABLET ONE (06:18)
[2020-04-03] MEDS ORDERED: LEVOTHYROXINE NA 75 MCG TABLET (FP) ONE (06:19)
[2020-04-03] MEDS: METHADONE 120 MG, METHADONE 10 MG PO SCH (06:22)
[2020-04-03] MEDS: INSULIN (LEVEMIR) 100 UNITS/ML UNITS SQ SCH ×2 (06:23→21:23)
[2020-04-03] MEDS: GABAPENTIN 300 MG CAPSULE PO SCH ×3 (06:23→21:23)
[2020-04-03] MEDS: LEVOTHYROXINE 75 MCG, LEVOTHYROXINE 100 MCG PO SCH (06:23)
[2020-04-03] MEDS: INSULIN SLIDING SCALE (NOVOLOG) 1 VIAL SQ SCH ×4 (06:23→21:23)
[2020-04-03] MEDS: oxyCODONE HCL 5 MG TABLET PO PRN ×2 (06:29→17:02)
[2020-04-03 07:48] LABS: ALBUMIN 2.4 g/dl (3.4-5.0); BILIRUBIN,TOTAL 0.2 mg/dL (0.2-1); BLOOD UREA NITROGEN 23.8 mg/dL (7-18); CREATININE 1.4 mg/dL (0.55-1.3); POTASSIUM 4.6 mmol/L (3.5-5.1); TOT PROT 6.9 g/dl (6.4-8.2)
[2020-04-03] MEDS ORDERED: PT OWN MED DRAWER 7, Y5N ONE ×2 (09:55→21:19)
[2020-04-03] MEDS: IRON POLYSACCHARIDES 150 MG CAPSULE PO SCH (09:57)
[2020-04-03] MEDS: LINEZOLID 600 MG TABLET (RESTRICTED TO ID) PO SCH ×2 (09:58→21:23)
--- NOTE | 2020-04-03 11:10 | PN ---
Progress Note (short form) - Note Progress Note: Follow pod 3 Wound/Incision + tim and nylon retention sutures in place Assessment /plan pvd Betadine irrigation of wound area. Betadine dressing daily. Will follow HBO to be done out patient. IVABX as per ID.Daily betadine dressings Dr Rothman will follow.
--- NOTE | 2020-04-03 11:30 | PN ---
Progress Note, Physician Chief Complaint: AWAKE ALERT FEELS GOOD TODAY - Current Medication List Current Medications: Active Medications Acetaminophen (Tylenol -) 1,000 mg PO Q6HPO PRN PRN Reason: PAIN LEVEL 1 - 3 Gabapentin (Neurontin -) 600 mg PO TID [facility] Last Admin: 04/03/20 06:23 Dose: 600 mg Documented by: Piperacillin Sod/Tazobactam (Sod 3.375 gm/ Dextrose) 50 mls @ 100 mls/hr IVPB Q8H-IV [facility]; Protocol Last Admin: 04/03/20 09:58 Dose: 100 mls/hr Documented by: Insulin Aspart (Novolog Vial Sliding Scale -) 1 vial SQ ACHS [facility]; Protocol Last Admin: 04/03/20 06:23 Dose: 8 units Documented by: Insulin Detemir (Levemir Vial) 25 units SQ 0700,2200 [facility] Last Admin: 04/03/20 06:23 Dose: 25 units Documented by: Levothyroxine Sodium 75 mcg/ (Levothyroxine Sodium 100 mcg) 175 mcg PO DAILY@0700 [facility] Last Admin: 04/03/20 06:23 Dose: 175 mcg Documented by: Linezolid (Zyvox (Restricted To Id) -) 600 mg PO BID [facility] Last Admin: 04/03/20 09:58 Dose: 600 mg Documented by: Methadone HCl 120 mg/ (Methadone HCl 10 mg) 130 mg PO DAILY@0600 [facility] Last Admin: 04/03/20 06:22 Dose: 130 mg Documented by: Morphine Sulfate (Morphine Sulfate) 4 mg IVPUSH Q4H PRN PRN Reason: PAIN LEVEL 7 - 10 Last Admin: 04/03/20 10:03 Dose: 4 mg Documented by: Oxycodone HCl (Roxicodone -) 15 mg PO Q4H PRN PRN Reason: PAIN LEVEL 4 - 6 Last Admin: 04/03/20 06:29 Dose: 15 mg Documented by: Polysaccharide Iron Complex (Niferex-150 -) 150 mg PO DAILY [facility] Last Admin: 04/03/20 09:57 Dose: 150 mg Documented by: - Objective Vital Signs: Vital Signs Temperature 98.4 F 04/03/20 10:00 Pulse Rate 73 04/03/20 10:00 Respiratory Rate 18 04/03/20 10:00 Blood Pressure 119/81 04/03/20 10:00 O2 Sat by Pulse Oximetry (%) 97 04/02/20 21:00 Constitutional: Yes: No Distress Cardiovascular: Yes: Regular Rate and Rhythm Respiratory: Yes: WNL Gastrointestinal: Yes: Normal Bowel Sounds Genitourinary: Yes: WNL Musculoskeletal: Yes: Other Extremities: Yes: Amputation, Deformity Wound/Incision: Yes: Dressing Dry and Intact 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: Pre-Existing Deficit Labs: CBC, BMP 04/01/20 10:44 04/03/20 07:00 INR, PTT INR 1.12 (0.83-1.09) H 03/28/20 15:55 Problem List - Problems (1) Amputation at midfoot Code(s): S98.319A - COMPLETE TRAUMATIC AMPUTATION OF UNSP MIDFOOT, INIT ENCNTR Qualifiers: Laterality: left (2) Anemia Code(s): D64.9 - ANEMIA, UNSPECIFIED (3) 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 Code(s): E11.621 - TYPE 2 DIABETES MELLITUS WITH FOOT ULCER; L97.529 - NON- PRESSURE CHRONIC ULCER OTH PRT LEFT FOOT W UNSP SEVERITY (4) Diabetic foot infection Code(s): E11.628 - TYPE 2 DIABETES MELLITUS WITH OTHER SKIN COMPLICATIONS; L08.9 - LOCAL INFECTION OF THE SKIN AND SUBCUTANEOUS TISSUE, UNSP (5) Gangrene of toe of left foot Code(s): I96 - GANGRENE, NOT ELSEWHERE CLASSIFIED (6) Hypothyroid Code(s): E03.9 - HYPOTHYROIDISM, UNSPECIFIED (7) Anxiety and depression Code(s): F41.9 - ANXIETY DISORDER, UNSPECIFIED; F32.9 - MAJOR DEPRESSIVE DISORDER, SINGLE EPISODE, UNSPECIFIED (8) Methadone maintenance therapy patient Code(s): F11.20 - OPIOID DEPENDENCE, UNCOMPLICATED Assessment/Plan IV ABX PER ID AWAITING CULTURE/SENSITIVITY/DURATION OF ABX WOUND CARE DAILY [facility] TO AID IN WOUND HEALING METHADONE MAINTANCE DVT PROPHYLAXIS SNF WHEN READY FOR DC
--- NOTE | 2020-04-03 14:09 | PN ---
Progress Note, Physician History of Present Illness: Pt seen and examined at bedside. He is awake and alert. He denies dysuria or hematuria. - Current Medication List Current Medications: Active Medications Acetaminophen (Tylenol -) 1,000 mg PO Q6HPO PRN PRN Reason: PAIN LEVEL 1 - 3 Gabapentin (Neurontin -) 600 mg PO TID [facility] Last Admin: 04/03/20 06:23 Dose: 600 mg Documented by: Piperacillin Sod/Tazobactam (Sod 3.375 gm/ Dextrose) 50 mls @ 100 mls/hr IVPB Q8H-IV [facility]; Protocol Last Admin: 04/03/20 09:58 Dose: 100 mls/hr Documented by: Insulin Aspart (Novolog Vial Sliding Scale -) 1 vial SQ ACHS [facility]; Protocol Last Admin: 04/03/20 12:04 Dose: 8 units Documented by: Insulin Detemir (Levemir Vial) 25 units SQ 0700,2200 [facility] Last Admin: 04/03/20 06:23 Dose: 25 units Documented by: Levothyroxine Sodium 75 mcg/ (Levothyroxine Sodium 100 mcg) 175 mcg PO DAILY@0700 [facility] Last Admin: 04/03/20 06:23 Dose: 175 mcg Documented by: Linezolid (Zyvox (Restricted To Id) -) 600 mg PO BID [facility] Last Admin: 04/03/20 09:58 Dose: 600 mg Documented by: Methadone HCl 120 mg/ (Methadone HCl 10 mg) 130 mg PO DAILY@0600 [facility] Last Admin: 04/03/20 06:22 Dose: 130 mg Documented by: Morphine Sulfate (Morphine Sulfate) 4 mg IVPUSH Q4H PRN PRN Reason: PAIN LEVEL 7 - 10 Last Admin: 04/03/20 10:03 Dose: 4 mg Documented by: Oxycodone HCl (Roxicodone -) 15 mg PO Q4H PRN PRN Reason: PAIN LEVEL 4 - 6 Last Admin: 04/03/20 06:29 Dose: 15 mg Documented by: Polysaccharide Iron Complex (Niferex-150 -) 150 mg PO DAILY [facility] Last Admin: 04/03/20 09:57 Dose: 150 mg Documented by: - Objective Vital Signs: Vital Signs Temperature 98.4 F 04/03/20 10:00 Pulse Rate 73 04/03/20 10:00 Respiratory Rate 18 04/03/20 10:00 Blood Pressure 119/81 04/03/20 10:00 O2 Sat by Pulse Oximetry (%) 96 04/03/20 10:00 Constitutional: Yes: Calm Eyes: Yes: Conjunctiva Clear HENT: Yes: Atraumatic Cardiovascular: Yes: S1, S2 Respiratory: Yes: CTA Bilaterally Gastrointestinal: Yes: Normal Bowel Sounds, Soft Genitourinary: Yes: WNL Musculoskeletal: Yes: WNL Edema: No Wound/Incision: Yes: Dressing Dry and Intact 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: Oriented Psychiatric: Yes: Oriented Labs: CBC, BMP 04/01/20 10:44 04/03/20 07:00 INR, PTT INR 1.12 (0.83-1.09) H 03/28/20 15:55 Problem List - Problems (1) Amputation at midfoot Code(s): S98.319A - COMPLETE TRAUMATIC AMPUTATION OF UNSP MIDFOOT, INIT ENCNTR Qualifiers: Laterality: left (2) Diabetes Code(s): E11.9 - TYPE 2 DIABETES MELLITUS WITHOUT COMPLICATIONS Assessment/Plan Current Medications Generic Name Dose Route Start Last Admin Trade Name Freq PRN Reason Stop Dose Admin Acetaminophen 1,000 mg 03/30/20 11:56 Tylenol - PO Q6HPO PRN PAIN LEVEL 1 - 3 Gabapentin 600 mg 03/29/20 14:00 04/03/20 06:23 Neurontin - PO 600 mg TID [facility] Administration Piperacillin Sod/Tazobactam 50 mls @ 100 mls/hr 04/01/20 18:00 04/03/20 09:58 Sod 3.375 gm/ Dextrose IVPB 100 mls/hr Q8H-IV [facility] Administration Protocol Insulin Aspart 1 vial 03/29/20 11:00 04/03/20 12:04 Novolog Vial Sliding Scale - SQ 8 units ACHS [facility] Administration Protocol Insulin Detemir 25 units 03/29/20 22:00 04/03/20 06:23 Levemir Vial SQ 25 units 0700,2200 [facility] Administration Levothyroxine Sodium 75 mcg/ 175 mcg 03/30/20 07:00 04/03/20 06:23 Levothyroxine Sodium 100 mcg PO 175 mcg DAILY@0700 [facility] Administration Linezolid 600 mg 04/01/20 22:00 04/03/20 09:58 Zyvox (Restricted To Id) - PO 600 mg BID [facility] Administration Methadone HCl 120 mg/ 130 mg 03/30/20 06:00 04/03/20 06:22 Methadone HCl 10 mg PO 130 mg DAILY@0600 [facility] Administration Morphine Sulfate 4 mg 03/30/20 12:10 04/03/20 10:03 Morphine Sulfate IVPUSH 4 mg Q4H PRN Administration PAIN LEVEL 7 - 10 Oxycodone HCl 15 mg 03/30/20 12:07 04/03/20 06:29 Roxicodone - PO 15 mg Q4H PRN Administration PAIN LEVEL 4 - 6 Polysaccharide Iron Complex 150 mg 03/29/20 13:00 04/03/20 09:57 Niferex-150 - PO 150 mg DAILY [facility] Administration Impression 1. elevated rotary cutter feeder 2. hyperkalemia 3. htn 4. dm 5. hx opiate use on methadone 6. possible nephrolithiasis Plan - potassium improved - rotary cutter feeder improved - low sodium diet - ensure fluid intake - reviewed ultrasound report - check protein to rotary cutter feeder ratio - cont wound care - avoid nsaids
--- NOTE | 2020-04-04 00:26 | CONSULT ---
Consult Consult Specialty:: Endocrine Referred by:: DR.Stepanian Salmeron Reason for Consultation:: DMT1 - History of Present Illness Chief Complaint: high sugars History of Present Illness: 59 yo M history DMT1,diabetic foot infection,neurtopathy,hypothyroidism,HTN, osteomyelitis s/p amputations to 2nd and 5th toes of the L foot, admitted with foot infection gangrene,requiring surgery and amputation,has had pain and difficulty ambulating elevation in bs despite poor appetite.he denies cold intolerance or weight gain - Past Medical History Cardio/Vascular: Yes: HTN, Other (pad) Psych: Yes: Addictions Endocrine: Yes: Diabetes Mellitus, Hypothyroidism - Alcohol/Substance Use Hx Alcohol Use: No - Smoking History Smoking history: Never smoked Have you smoked in the past 12 months: No Aproximately how many cigarettes per day: 0 - Social History Usual Living Arrangement: Other (with sister) History of Recent Travel: No Home Medications - Allergies Allergies/Adverse Reactions: Allergies Allergy/AdvReac Type Severity Reaction Status Date / Time fish derived Allergy Verified 03/25/20 14:10 - Home Medications Home Medications: Ambulatory Orders Gabapentin 600 mg PO TID 03/24/20 Levothyroxine Sodium 175 mcg PO DAILY 03/24/20 Acetaminophen [Tylenol -] 1,000 mg PO BID 03/25/20 Insulin Glargine,Hum.rec.anlog [Basaglar Kwikpen U-100] 35 unit SQ HS 03/25/20 Metformin HCl [Glucophage] 1,000 mg PO BID 03/25/20 Methadone [Dolophine -] 130 mg PO DAILY 03/25/20 Oxycodone HCl 10 mg PO Q8H PRN 03/25/20 Piperacillin/Tazob 3.375 gm [Zosyn] 3.375 gm IVPB TID 03/25/20 Review of Systems - Review of Systems Constitutional: reports: Lethargy, Unintentional Wgt. Loss Eyes: reports: No Symptoms HENT: reports: No Symptoms Neck: reports: No Symptoms Cardiovascular: reports: No Symptoms Respiratory: reports: No Symptoms Gastrointestinal: reports: Bloating, Nausea Genitourinary: reports: No Symptoms Musculoskeletal: reports: Muscle Pain, Muscle Cramps, Muscle Weakness Integumentary: reports: No Symptoms, Pallor Neurological: reports: Numbness Endocrine: reports: Unexplained Weight Loss Physical Exam Vital Signs: Vital Signs Temperature 98.1 F 04/03/20 18:00 Pulse Rate 68 04/03/20 18:00 Respiratory Rate 20 04/03/20 18:00 Blood Pressure 135/78 04/03/20 18:00 O2 Sat by Pulse Oximetry (%) 96 04/03/20 10:00 Labs: CBC, BMP 04/01/20 10:44 04/03/20 07:00 Problem List - Problems (1) Adult onset hypothyroidism Code(s): E03.8 - OTHER SPECIFIED HYPOTHYROIDISM (2) 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 Code(s): E11.621 - TYPE 2 DIABETES MELLITUS WITH FOOT ULCER; L97.529 - NON- PRESSURE CHRONIC ULCER OTH PRT LEFT FOOT W UNSP SEVERITY (3) Diabetes 1.5, managed as type 1 Code(s): E13.9 - OTHER SPECIFIED DIABETES MELLITUS WITHOUT COMPLICATIONS (4) Diabetic foot infection Code(s): E11.628 - TYPE 2 DIABETES MELLITUS WITH OTHER SKIN COMPLICATIONS; L08.9 - LOCAL INFECTION OF THE SKIN AND SUBCUTANEOUS TISSUE, UNSP (5) Gangrene of toe of left foot Code(s): I96 - GANGRENE, NOT ELSEWHERE CLASSIFIED Assessment/Plan Current Active Problems e03.8 hypothyrodism shahid Amputation at midfoot (Acute) Anemia (Acute) 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 (Acute) Abnormal Lab Results 04/03/20 07:00 BUN 23.8 H Creatinine 1.4 H Random Glucose 275 H Alkaline Phosphatase 191 H Albumin 2.4 L Laboratory Results - last 24 hr 04/01/20 04/03/20 04/03/20 19:44 06:07 07:00 Sodium 137 Potassium 4.6 Chloride 102 Carbon Dioxide 27 Anion Gap 8 BUN 23.8 H Creatinine 1.4 H Est GFR (CKD-EPI)AfAm 64.18 Est GFR (CKD-EPI)NonAf 55.38 POC Glucometer 289 Random Glucose 275 H Calcium 9.0 Total Bilirubin 0.2 AST 18 ALT 37 Alkaline Phosphatase 191 H Total Protein 6.9 Albumin 2.4 L COVID-19 ([facility]) Not detected 04/03/20 04/03/20 04/03/20 11:31 16:53 21:15 Sodium Potassium Chloride Carbon Dioxide Anion Gap BUN Creatinine Est GFR (CKD-EPI)AfAm Est GFR (CKD-EPI)NonAf POC Glucometer 210 187 238 Random Glucose Calcium Total Bilirubin AST ALT Alkaline Phosphatase Total Protein Albumin COVID-19 ([facility]) plan: bgm qid novolog scale levemir 30 units am synthroid 188 mcg given alone
[2020-04-04] MEDS ORDERED: LEVOTHYROXINE NA 75 MCG TABLET (FP) PO SCH (00:32)
[2020-04-04] MEDS ORDERED: PIPERACILLIN/TAZOBACTAM 3.375 GM VIAL IVPB ONE ×2 (02:07→08:55)
[2020-04-04] MEDS ORDERED: DEXTROSE 5%-WATER - 50 ML IVPB ONE ×2 (02:07→08:55)
[2020-04-04] MEDS: morphine SULFATE 4 MG/ML VIAL IVPUSH PRN ×3 (02:28→14:18)
[2020-04-04] MEDS: PIPERACILLIN/TAZOB 3.375 GM 3.375 GM in DEXTROSE 5%-WATER - 50 ML IVPB SCH ×2 (02:28→09:14)
[2020-04-04] MEDS ORDERED: LEVOTHYROXINE NA 100 MCG TABLET (FP) ONE (06:27)
[2020-04-04] MEDS ORDERED: METHADONE HCL 40 MG DISPERSABLE TABLET ONE (06:27)
[2020-04-04] MEDS ORDERED: METHADONE HCL 10 MG TABLET ONE (06:27)
[2020-04-04] MEDS ORDERED: LEVOTHYROXINE NA 88 MCG TABLET (FP) ONE (06:28)
[2020-04-04] MEDS: METHADONE 120 MG, METHADONE 10 MG PO SCH (06:29)
[2020-04-04] MEDS: GABAPENTIN 300 MG CAPSULE PO SCH ×2 (06:31→14:02)
[2020-04-04] MEDS: INSULIN SLIDING SCALE (NOVOLOG) 1 VIAL SQ SCH ×3 (06:33→16:21)
[2020-04-04] MEDS ORDERED: INSULIN (LEVEMIR) 100 UNITS/ML UNITS SQ SCH (07:00)
[2020-04-04] MEDS ORDERED: LEVOTHYROXINE 100 MCG, LEVOTHYROXINE 88 MCG PO SCH (07:00)
[2020-04-04 08:49] LABS: BASO % 0.9 % (0-2.0); EOS % 10.9 % (0-4.5); HEMATOCRIT 27.6 % (35.4-49); HEMOGLOBIN 8.9 GM/dL (11.7-16.9); LYMPH % 10.3 % (8-40); MCH 27.2 pg (25.7-33.7); MCHC 32.4 g/dl (32.0-35.9); MEAN PLT VOLUME 7.8 fl (7.5-11.1); MONO % 6.7 % (3.8-10.2); NEUT % 71.2 % (42.8-82.8); PLATELET COUNT 400 K/MM3 (134-434); RBC 3.28 M/mm3 (4.00-5.60); RDW 15.7 % (11.9-15.9); WHITE BLOOD COUNT 10.6 K/mm3 (4.0-10.0)
--- NOTE | 2020-04-04 08:53 | DS ---
Physical Examination Vital Signs: Vital Signs Temperature 98.4 F 04/04/20 06:00 Pulse Rate 74 04/04/20 06:00 Respiratory Rate 18 04/04/20 06:00 Blood Pressure 156/77 04/04/20 06:00 O2 Sat by Pulse Oximetry (%) 100 04/03/20 21:00 Cardiovascular: Yes: S1, S2 Respiratory: Yes: Regular, CTA Bilaterally Gastrointestinal: Yes: Normal Bowel Sounds, Soft Discharge Summary Problems reviewed: Yes Reason For Visit: GANGRENE OF TOE Current Active Problems Adult onset hypothyroidism (Acute) Amputation at midfoot (Acute) Anemia (Acute) 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 (Acute) Hospital Course: - Problems (1) Anemia Assessment/Plan: -Previously Iron deficient -Start Iron polysaccharide 150 mg po daily -Stool OB negative -B12 and thyroid normal -Monitor trend -Transfuse if Hg<7.0 Problems reviewed: Yes Code(s): D64.9 - ANEMIA, UNSPECIFIED (2) 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 Assessment/Plan: -A1c at 8.4 -Levemir change to 25 U BID -Diabetic diet -BGM AC HS -ISS Problems reviewed: Yes Code(s): E11.621 - TYPE 2 DIABETES MELLITUS WITH FOOT ULCER; L97.529 - NON- PRESSURE CHRONIC ULCER OTH PRT LEFT FOOT W UNSP SEVERITY (3) Gangrene of toe of left foot Assessment/Plan: -Compliance with ambulation discussed -Podiatry on board -Vascular surgery on board -Dressing to be changed by Podiatry -IV abx as per ID -ID on board CONTINUE ZOSYN ADD LINEZOLID X 14D WILL NEED TO COMPLETE 6W COURSE OF IV ANTIBIOTIC FOR OSTEO -Has a tunnel cath -S/P TMA -Pain management Acetaminophen 1000 mg po Q6H PRN for pain 1-3 Oxycodone 15 mg po Q4H PRN for pain 4-6 Morphine 4 mg IVP Q4H PRN for pain 7-10 -Continue maintenance methadone Problems reviewed: Yes Code(s): I96 - GANGRENE, NOT ELSEWHERE CLASSIFIED (4) Methadone maintenance therapy patient Assessment/Plan: -Continue maintenance dose Problems reviewed: Yes Code(s): F11.20 - OPIOID DEPENDENCE, UNCOMPLICATED Condition: Stable - Instructions Referrals: Chano Manning MD [Primary Care Provider] - Disposition: [facility] - Home Medications Comprehensive Discharge Medication List: Ambulatory Orders Gabapentin 600 mg PO TID 03/24/20 Acetaminophen [Tylenol .Extra-Strength -] 1,000 mg PO BID 03/25/20 Metformin HCl [Glucophage] 1,000 mg PO BID 03/25/20 Methadone [Dolophine -] 130 mg PO DAILY 03/25/20 Oxycodone HCl 10 mg PO Q8H PRN 03/25/20 Piperacillin/Tazob 3.375 gm [Zosyn -] 3.375 gm IVPB TID 03/25/20 Insulin (Levemir) [Levemir Vial] 30 units SQ 0700,2200 units 04/04/20 Insulin Sliding Scale [Novolog Vial Sliding Scale -] 1 vial SQ ACHS units 04/04/20 Iron Polysaccharides [Niferex-150 -] 150 mg PO DAILY capsule 04/04/20 Levothyroxine [Synthroid -] 175 mcg PO DAILY@0700 tablet 04/04/20 Linezolid [Zyvox (Restricted To Id) -] 600 mg PO BID tablet 04/04/20
[2020-04-04] MEDS ORDERED: PT OWN MED DRAWER 7, Y5N ONE (08:55)
[2020-04-04] MEDS: LINEZOLID 600 MG TABLET (RESTRICTED TO ID) PO SCH (09:15)
[2020-04-04] MEDS: IRON POLYSACCHARIDES 150 MG CAPSULE PO SCH (09:15)
[2020-04-04 09:32] LABS: ALBUMIN 2.7 g/dl (3.4-5.0); BILIRUBIN,TOTAL 0.2 mg/dL (0.2-1); BLOOD UREA NITROGEN 19.4 mg/dL (7-18); CALCIUM 9.6 mg/dL (8.5-10.1); CREATININE 1.3 mg/dL (0.55-1.3); TOT PROT 7.6 g/dl (6.4-8.2)
[2020-04-04 15:51] VITALS: BP 147/84; PULSE 82
[2020-04-04 16:03] VITALS: TEMP 98.3
--- NOTE | 2020-04-04 16:40 | PN ---
Progress Note, Physician History of Present Illness: Pt seen and examined at bedside. He is awake and alert. He denies shortness of breath. - Current Medication List Current Medications: Active Medications Acetaminophen (Tylenol -) 1,000 mg PO Q6HPO PRN PRN Reason: PAIN LEVEL 1 - 3 Last Admin: 04/03/20 20:07 Dose: 1,000 mg Documented by: Gabapentin (Neurontin -) 600 mg PO TID [facility] Last Admin: 04/04/20 14:02 Dose: 600 mg Documented by: Piperacillin Sod/Tazobactam (Sod 3.375 gm/ Dextrose) 50 mls @ 100 mls/hr IVPB Q8H-IV [facility]; Protocol Last Admin: 04/04/20 09:14 Dose: 100 mls/hr Documented by: Insulin Aspart (Novolog Vial Sliding Scale -) 1 vial SQ ACHS [facility]; Protocol Last Admin: 04/04/20 16:21 Dose: Not Given Documented by: Insulin Detemir (Levemir Vial) 30 units SQ 0700,2200 [facility] Last Admin: 04/04/20 06:33 Dose: 30 units Documented by: Levothyroxine Sodium 100 mcg/ (Levothyroxine Sodium 88 mcg) 188 mcg PO DAILY@0700 [facility] Last Admin: 04/04/20 06:31 Dose: 188 mcg Documented by: Linezolid (Zyvox (Restricted To Id) -) 600 mg PO BID [facility] Last Admin: 04/04/20 09:15 Dose: 600 mg Documented by: Methadone HCl 120 mg/ (Methadone HCl 10 mg) 130 mg PO DAILY@0600 [facility] Last Admin: 04/04/20 06:29 Dose: 130 mg Documented by: Morphine Sulfate (Morphine Sulfate) 4 mg IVPUSH Q4H PRN PRN Reason: PAIN LEVEL 7 - 10 Last Admin: 04/04/20 14:18 Dose: 4 mg Documented by: Oxycodone HCl (Roxicodone -) 15 mg PO Q4H PRN PRN Reason: PAIN LEVEL 4 - 6 Last Admin: 04/03/20 17:02 Dose: 15 mg Documented by: Polysaccharide Iron Complex (Niferex-150 -) 150 mg PO DAILY [facility] Last Admin: 04/04/20 09:15 Dose: 150 mg Documented by: - Objective Vital Signs: Vital Signs Temperature 98.3 F 04/04/20 15:45 Pulse Rate 82 04/04/20 14:00 Respiratory Rate 18 04/04/20 14:00 Blood Pressure 147/84 04/04/20 14:00 O2 Sat by Pulse Oximetry (%) 100 04/04/20 09:00 Constitutional: Yes: Calm Eyes: Yes: Conjunctiva Clear HENT: Yes: Atraumatic Neck: Yes: Supple Cardiovascular: Yes: S1, S2 Respiratory: Yes: CTA Bilaterally Gastrointestinal: Yes: Soft Genitourinary: Yes: WNL Musculoskeletal: Yes: WNL Edema: No 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: Oriented Psychiatric: Yes: Oriented Labs: CBC, BMP 04/04/20 07:55 04/04/20 07:55 INR, PTT INR 1.12 (0.83-1.09) H 03/28/20 15:55 Problem List - Problems (1) Amputation at midfoot Code(s): S98.319A - COMPLETE TRAUMATIC AMPUTATION OF UNSP MIDFOOT, INIT ENCNTR Qualifiers: Laterality: left (2) Diabetes Code(s): E11.9 - TYPE 2 DIABETES MELLITUS WITHOUT COMPLICATIONS Assessment/Plan Current Medications Generic Name Dose Route Start Last Admin Trade Name Freq PRN Reason Stop Dose Admin Acetaminophen 1,000 mg 03/30/20 11:56 04/03/20 20:07 Tylenol - PO 1,000 mg Q6HPO PRN Administration PAIN LEVEL 1 - 3 Gabapentin 600 mg 03/29/20 14:00 04/04/20 14:02 Neurontin - PO 600 mg TID [facility] Administration Piperacillin Sod/Tazobactam 50 mls @ 100 mls/hr 04/01/20 18:00 04/04/20 09:14 Sod 3.375 gm/ Dextrose IVPB 100 mls/hr Q8H-IV [facility] Administration Protocol Insulin Aspart 1 vial 03/29/20 11:00 04/04/20 16:21 Novolog Vial Sliding Scale - SQ Not Given ACHS [facility] Protocol Insulin Detemir 30 units 04/04/20 07:00 04/04/20 06:33 Levemir Vial SQ 30 units 0700,2200 [facility] Administration Levothyroxine Sodium 100 mcg/ 188 mcg 04/04/20 07:00 04/04/20 06:31 Levothyroxine Sodium 88 mcg PO 188 mcg DAILY@0700 [facility] Administration Linezolid 600 mg 04/01/20 22:00 04/04/20 09:15 Zyvox (Restricted To Id) - PO 600 mg BID [facility] Administration Methadone HCl 120 mg/ 130 mg 03/30/20 06:00 04/04/20 06:29 Methadone HCl 10 mg PO 130 mg DAILY@0600 [facility] Administration Morphine Sulfate 4 mg 03/30/20 12:10 04/04/20 14:18 Morphine Sulfate IVPUSH 4 mg Q4H PRN Administration PAIN LEVEL 7 - 10 Oxycodone HCl 15 mg 03/30/20 12:07 04/03/20 17:02 Roxicodone - PO 15 mg Q4H PRN Administration PAIN LEVEL 4 - 6 Polysaccharide Iron Complex 150 mg 03/29/20 13:00 04/04/20 09:15 Niferex-150 - PO 150 mg DAILY [facility] Administration Impression 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 hyperkalemia 3. htn 4. dm 5. hx opiate use on methadone 6. possible nephrolithiasis Plan - potassium stable - renal function improving - repeat ultrasound as outpt - stone workup as outpt - low sodium diet - check protein to past due accounts clerk ratio - cont wound care - avoid nsaids
--- NOTE | 2020-04-09 21:23 | OP ---
DATE OF OPERATION: 03/29/2020 SURGEON: Jaron Rothman DPM ENVIRONMENTAL ENGINEERING INTERN: Jordan Christianson DPM PREOPERATIVE DIAGNOSIS: Gangrene of the left foot. POSTOPERATIVE DIAGNOSIS: Gangrene of the left foot. PROCEDURE: Transmetatarsal amputation of the 1st, 3rd, and 4th rays of the left foot, revision of the 5th metatarsal, excision of lateral wound, left skin flap with 1/4-inch Iodoform packing, utilizing retention sutures, monika. IMPLANTS: Monika. ANESTHESIA: Local with sedation. DESCRIPTION OF PROCEDURE: After noting all preoperative vital signs within normal limits and after the surgical consent was signed and witnessed, the patient was brought to the OR and placed on a table in supine position. An IV line had been started prior to the patient coming to the OR. Once the patient was on the table, the patient's foot was anesthetized after he was being sedated. Once this was done, the foot was then prepped and draped in usual sterile fashion. The procedure was as follows. Attention was directed to the gangrenous big toe and 3rd toe. These two toes were resected using sharp and blunt dissection and sent to pathology. The 4th toe was not gangrenous, however, was required to be removed to create the flap for the transmetatarsal amputation to be complete and for proper flap creation. The 4th toe was also resected and sent down to Pathology. At this time, an incision was created in the anterior aspect of the foot, exposing metatarsal heads 1, 3, 4, and the partal remains of metatarsal 5. Once this was done, utilizing a sagittal saw, the 1st metatarsal was transected at the mid- shaft. The 3rd metatarsal was transected proximal to the mid-shaft. The 4th metatarsal was transected proximal to the mid-shaft as well. Utilizing the same sagittal saw, the remaining portion of the 5th metatarsal, approximately another 25% was resected. All these specimens were sent down to Pathology with the gangrenous toes. Once this was done, the wound was explored for any necrotic tissue. The necrotic tissue was debrided and removed including any unecessary tendons. The wound was flushed utilizing antibiotic irrigation. Once this was done, the skin flap was created from the plantar aspect and formed into a flap to connect to the dorsal aspect of the foot around the wounds that had existed prior to the incisions. The dorsal wound edges were debrided to bleeding. Once this was done and the plantar flap was lined up properly and attached, utilizing monika and 3-0 nylon. The flap was reapproximated with the dorsal aspect skin. Iodoform 1/4-inch packing was put into place at the distal aspect into the wound, allowing for any drainage. Once this was done, Xeroform gauze was placed over the wound areas. Dry sterile gauze, and a Margie dressing were applied with an Abdirizak bandage. The patient tolerated the anesthesia and the procedure well. Patient returned to the recovery room with vital signs stable and vascular status grossly intact to TMA site. CARLA Boudreaux/[id number] TOM
== END 2020-04-04 17:59 | DRG 305 ==
LOC: JER 14:01 → JERBED 14:31 → J5S 18:02
PROVIDERS: ADMIT Family Medicine; ATTEND Family Medicine
PROC: 0Y6N0ZD Detachment at Left Foot, Partial 4th Ray, Open Approach (ICD-10-PCS; 2020-03-29)
PROC: 0Y6N0ZF Detachment at Left Foot, Partial 5th Ray, Open Approach (ICD-10-PCS; 2020-03-29)
PROC: 0HXNXZZ Transfer Left Foot Skin, External Approach (ICD-10-PCS; 2020-03-29)
PROC: 0JBR0ZZ Excision of Left Foot Subcutaneous Tissue and Fascia, Open Approach (ICD-10-PCS; 2020-03-29)
PROC: 0Y6N0Z9 Detachment at Left Foot, Partial 1st Ray, Open Approach (ICD-10-PCS; principal; 2020-03-29 07:30)
PROC: 0Y6N0ZC Detachment at Left Foot, Partial 3rd Ray, Open Approach (ICD-10-PCS; 2020-03-29 07:30)
DX: E11.52 Type 2 diabetes mellitus with diabetic peripheral angiopathy with gangrene (principal); E03.9 Hypothyroidism, unspecified; E11.51 Type 2 diabetes mellitus with diabetic peripheral angiopathy without gangrene; I10 Essential (primary) hypertension; M86.172 Other acute osteomyelitis, left ankle and foot; M86.672 Other chronic osteomyelitis, left ankle and foot; L97.529 Non-pressure chronic ulcer of other part of left foot with unspecified severity; E87.5 Hyperkalemia; B96.5 Pseudomonas (aeruginosa) (mallei) (pseudomallei) as the cause of diseases classified elsewhere; R74.8 Abnormal levels of other serum enzymes; E11.621 Type 2 diabetes mellitus with foot ulcer; I96 Gangrene, not elsewhere classified; E11.69 Type 2 diabetes mellitus with other specified complication; F11.20 Opioid dependence, uncomplicated; D64.9 Anemia, unspecified; F41.8 Other specified anxiety disorders; E11.65 Type 2 diabetes mellitus with hyperglycemia
CPT/HCPCS: 36415; 71045-TC-FY; 73630-TC-LT; 76775-TC; 80053; 81003; 82272; 82570; 82962; 83036; 84156; 84443; 85025; 85610; 85651; 85730; 86140; 86850; 86900; 86901; 87040; 87070; 87186; 87205; 88305-TC; 88311-TC; 93005; 93010; 94760; 97116-GP; 97161-GP; 99285-25; J1644; U0003

== ENCOUNTER → 2020-05-30 | Day surgery (SDC) | payer OTHER | END | disposition home or self-care (01) | LOC: JRADIR 10:01 | PROVIDERS: ATTEND Internal Medicine Infectious Disease | PROC: 0JPT0WZ Removal of Totally Implantable Vascular Access Device from Trunk Subcutaneous Tissue and Fascia, Open Approach (ICD-10-PCS; principal; 2020-05-30) | DX: Z45.2 Encounter for adjustment and management of vascular access device (principal) | CPT/HCPCS: 36589 ==

== ENCOUNTER 2021-02-06 10:42 | Emergency (ER) | payer OTHER ==
[2021-02-06 10:54] VITALS: TEMP 97.6; BMI 23.6
[2021-02-06 12:53] LABS: BASO % 0.7 % (0-2.0); EOS % 1.7 % (0-4.5); HEMATOCRIT 34.5 % (35.4-49); LYMPH % 14.8 % (8-40); MCHC 34.8 g/dl (32.0-35.9); MEAN CELL VOLUME 86.1 fl (80-96); MEAN PLT VOLUME 8.7 fl (7.5-11.1); MONO % 6.5 % (3.8-10.2); NEUT % 76.3 % (42.8-82.8); PLATELET COUNT 224 K/MM3 (134-434); RBC 4.01 M/mm3 (4.00-5.60); RDW 13.1 % (11.9-15.9); WHITE BLOOD COUNT 7.4 K/mm3 (4.0-10.0)
[2021-02-06 13:14] LABS: CHLORIDE 96 mmol/L (98-107); SODIUM 130 mmol/L (136-145)
[2021-02-06 13:16] LABS: ALBUMIN 3.3 g/dl (3.4-5.0); ANION GAP 6 MMOL/L (8-16); BLOOD UREA NITROGEN 23.2 mg/dL (7-18); CALCIUM 8.9 mg/dL (8.5-10.1); CO2 28 mmol/L (21-32)
[2021-02-06 13:19] LABS: SGOT/AST 13 U/L (15-37); SGPT/ALT 17 U/L (13-61)
[2021-02-06 13:20] LABS: CREATININE 1.6 mg/dL (0.55-1.3)
[2021-02-06 13:21] LABS: BILIRUBIN,TOTAL 0.6 mg/dL (0.2-1); TOT PROT 7.1 g/dl (6.4-8.2)
[2021-02-06 13:22] LABS: ALK PHOS 230 U/L (45-117)
[2021-02-06 13:27] LABS: GLUCOSE,RANDOM 506 mg/dL (74-106)
[2021-02-06] MEDS ORDERED: SODIUM CHLORIDE 0.9% 1000 ML INFUS.BAG IV ONE ×2 (13:37→16:49)
[2021-02-06 13:40] LABS: ERYTHROCYTE SEDIMENTATION RATE 67 mm/hr (0-20)
[2021-02-06] MEDS ORDERED: INSULIN REGULAR HUMAN 100 UNITS/ML *VIAL IVPUSH ONE (16:47)
[2021-02-06 18:13] VITALS: BP 171/81; PULSE 62
== END 2021-02-06 18:10 | disposition home or self-care (01) ==
LOC: JER 10:42
PROC: 3E013VG Introduction of Insulin into Subcutaneous Tissue, Percutaneous Approach (ICD-10-PCS; principal; 2021-02-06)
DX: E11.65 Type 2 diabetes mellitus with hyperglycemia (principal); E11.52 Type 2 diabetes mellitus with diabetic peripheral angiopathy with gangrene
CPT/HCPCS: 36415; 73130-TC-LT-FY; 73130-TC-RT-FY; 80053; 82962; 85025; 85651; 86140; 99285-25

== ENCOUNTER 2021-09-10 13:36 | Inpatient (IN) | payer OTHER ==
[2021-09-10 16:48] LABS: CHLORIDE 94 mmol/L (98-107); SODIUM 130 mmol/L (136-145)
[2021-09-10 16:49] LABS: BASO % 0.4 % (0-2.0); EOS % 0.3 % (0-4.5); HEMATOCRIT 28.8 % (35.4-49); HEMOGLOBIN 9.7 GM/dL (11.7-16.9); LYMPH % 7.3 % (8-40); MCHC 33.8 g/dl (32.0-35.9); MEAN CELL VOLUME 85.8 fl (80-96); MEAN PLT VOLUME 7.7 fl (7.5-11.1); MONO % 5.4 % (3.8-10.2); NEUT % 86.6 % (42.8-82.8); PLATELET COUNT 331 10^3/uL (134-434); RBC 3.36 M/mm3 (4.00-5.60); RDW 12.7 % (11.9-15.9); WHITE BLOOD COUNT 10.9 K/mm3 (4.0-10.0)
[2021-09-10 16:50] LABS: ANION GAP 7 MMOL/L (8-16); BLOOD UREA NITROGEN 24.6 mg/dL (7-18); CALCIUM 8.5 mg/dL (8.5-10.1); CO2 29 mmol/L (21-32)
[2021-09-10 16:51] LABS: ALBUMIN 2.1 g/dl (3.4-5.0)
[2021-09-10 16:54] LABS: SGOT/AST 35 U/L (15-37); SGPT/ALT 15 U/L (13-61)
[2021-09-10 16:55] LABS: BILIRUBIN,TOTAL 0.5 mg/dL (0.2-1); TOT PROT 6.9 g/dl (6.4-8.2)
[2021-09-10 16:56] LABS: ALK PHOS 190 U/L (45-117)
[2021-09-10 17:24] LABS: GLUCOSE,RANDOM 550 mg/dL (74-106)
[2021-09-11 01:09] LABS: CHLORIDE 94 mmol/L (98-107); SODIUM 133 mmol/L (136-145)
[2021-09-11 01:10] LABS: CALCIUM 8.8 mg/dL (8.5-10.1)
[2021-09-11 01:11] LABS: ANION GAP 10 MMOL/L (8-16); CO2 29 mmol/L (21-32); GLUCOSE,RANDOM 370 mg/dL (74-106)
[2021-09-11 01:14] LABS: CREATININE 1.6 mg/dL (0.55-1.3)
[2021-09-11 08:07] LABS: BASO % 0.3 % (0-2.0); EOS % 0.3 % (0-4.5); HEMATOCRIT 24.9 % (35.4-49); HEMOGLOBIN 8.5 GM/dL (11.7-16.9); LYMPH % 6.4 % (8-40); MCHC 34.2 g/dl (32.0-35.9); MEAN CELL VOLUME 84.8 fl (80-96); MEAN PLT VOLUME 7.6 fl (7.5-11.1); MONO % 6.7 % (3.8-10.2); NEUT % 86.3 % (42.8-82.8); PLATELET COUNT 321 10^3/uL (134-434); RBC 2.94 M/mm3 (4.00-5.60); RDW 12.6 % (11.9-15.9); WHITE BLOOD COUNT 11.4 K/mm3 (4.0-10.0)
[2021-09-11 08:21] LABS: CHLORIDE 99 mmol/L (98-107); SODIUM 136 mmol/L (136-145)
[2021-09-11 08:28] LABS: CALCIUM 8.4 mg/dL (8.5-10.1)
[2021-09-11 08:29] LABS: ALBUMIN 1.8 g/dl (3.4-5.0); ANION GAP 9 MMOL/L (8-16); BLOOD UREA NITROGEN 25.2 mg/dL (7-18); CO2 28 mmol/L (21-32); GLUCOSE,RANDOM 235 mg/dL (74-106); IRON SERUM 10 ug/dL (50-175); MAGNESIUM 2.1 mg/dL (1.8-2.4)
[2021-09-11 08:31] LABS: PHOSPHOROUS 3.3 mg/dL (2.5-4.9)
[2021-09-11 08:32] LABS: CREATININE 2.1 mg/dL (0.55-1.3); SGOT/AST 16 U/L (15-37); SGPT/ALT 12 U/L (13-61)
[2021-09-11 08:33] LABS: BILIRUBIN,TOTAL 0.4 mg/dL (0.2-1); TOT PROT 6.1 g/dl (6.4-8.2)
[2021-09-11 08:34] LABS: ALK PHOS 179 U/L (45-117)
[2021-09-11 08:40] LABS: TOTAL IRON BINDING CAPACITY 164 ug/dL (250-450)
[2021-09-11 09:32] LABS: ERYTHROCYTE SEDIMENTATION RATE > 140 mm/hr (0-20)
[2021-09-12 11:03] LABS: BASO % 0.4 % (0-2.0); EOS % 1.6 % (0-4.5); HEMOGLOBIN 8.2 GM/dL (11.7-16.9); LYMPH % 6.7 % (8-40); MEAN CELL VOLUME 85.2 fl (80-96); MEAN PLT VOLUME 7.6 fl (7.5-11.1); MONO % 7.6 % (3.8-10.2); NEUT % 83.7 % (42.8-82.8); PLATELET COUNT 333 10^3/uL (134-434); RBC 2.82 M/mm3 (4.00-5.60); RDW 12.8 % (11.9-15.9); WHITE BLOOD COUNT 12.2 K/mm3 (4.0-10.0)
[2021-09-12 11:04] LABS: INR 1.32 (0.83-1.09); PROTHROMBIN TIME (PATIENT) 14.8 SEC (9.7-13.0)
[2021-09-12 11:06] LABS: ACTIVATED PTT 30.4 SECONDS (25.2-36.5)
[2021-09-12 11:33] LABS: ALBUMIN 1.7 g/dl (3.4-5.0); CALCIUM 8.4 mg/dL (8.5-10.1); MAGNESIUM 2.3 mg/dL (1.8-2.4)
[2021-09-12 11:34] LABS: BLOOD UREA NITROGEN 39.3 mg/dL (7-18)
[2021-09-12 11:36] LABS: CREATININE 3.2 mg/dL (0.55-1.3); PHOSPHOROUS 3.8 mg/dL (2.5-4.9)
[2021-09-12 11:38] LABS: BILIRUBIN,TOTAL 0.7 mg/dL (0.2-1); TOT PROT 6.1 g/dl (6.4-8.2)
[2021-09-13 09:09] LABS: BASO % 0.4 % (0-2.0); EOS % 1.8 % (0-4.5); HEMOGLOBIN 7.9 GM/dL (11.7-16.9); LYMPH % 6.4 % (8-40); MCH 29.4 pg (25.7-33.7); MCHC 34.2 g/dl (32.0-35.9); MEAN CELL VOLUME 86.2 fl (80-96); MEAN PLT VOLUME 7.5 fl (7.5-11.1); NEUT % 85.4 % (42.8-82.8); PLATELET COUNT 313 10^3/uL (134-434); RBC 2.67 M/mm3 (4.00-5.60); RDW 12.5 % (11.9-15.9)
[2021-09-13 10:15] LABS: ALBUMIN 1.5 g/dl (3.4-5.0); CALCIUM 8.3 mg/dL (8.5-10.1)
[2021-09-13 10:17] LABS: CREATININE 4.1 mg/dL (0.55-1.3); PHOSPHOROUS 4.7 mg/dL (2.5-4.9)
[2021-09-13 10:18] LABS: BILIRUBIN,TOTAL 0.2 mg/dL (0.2-1)
[2021-09-13 10:21] LABS: MAGNESIUM 2.3 mg/dL (1.8-2.4)
[2021-09-13 11:42] LABS: CHOLESTEROL 103 mg/dL (50-200); HDL CHOLESTEROL 14 mg/dL (40-60); LDL CHOLESTEROL (ONLY SJRH) 56 mg/dL (5-100); TRIGLYCERIDES 213 mg/dL (0-150)
[2021-09-13 14:53] LABS: EPI CELLS 33 /uL (0-25.1); HYALINE CASTS 3 /uL (0-3.1); URINE APPEARANCE TURBID; URINE BILIRUBIN NEGATIVE (NEGATIVE); URINE COLOR YELLOW; URINE GLUCOSE (UA) TRACE (NEGATIVE); URINE KETONE TRACE (NEGATIVE); URINE LEUK ESTERASE NEGATIVE (NEGATIVE); URINE NITRITE NEGATIVE (NEGATIVE); URINE PROTEIN 1+ (NEGATIVE); URINE RBC 12 /uL (0-23.9)
[2021-09-13 14:56] LABS: URINE WBC 85.9 /uL (0-25.8)
[2021-09-13 15:05] LABS: YEAST NON SEEN (NEGATIVE)
[2021-09-14 09:15] LABS: BASO % 0.6 % (0-2.0); EOS % 4.4 % (0-4.5); HEMATOCRIT 24.4 % (35.4-49); HEMOGLOBIN 8.1 GM/dL (11.7-16.9); MCH 29.1 pg (25.7-33.7); MCHC 33.4 g/dl (32.0-35.9); MEAN PLT VOLUME 7.8 fl (7.5-11.1); MONO % 8.9 % (3.8-10.2); NEUT % 76.1 % (42.8-82.8); PLATELET COUNT 347 10^3/uL (134-434); RDW 12.9 % (11.9-15.9); WHITE BLOOD COUNT 4.3 K/mm3 (4.0-10.0)
[2021-09-14 09:32] LABS: CHLORIDE 97 mmol/L (98-107); SODIUM 131 mmol/L (136-145)
[2021-09-14 09:35] LABS: ALBUMIN 1.6 g/dl (3.4-5.0); ANION GAP 9 MMOL/L (8-16); BLOOD UREA NITROGEN 57.4 mg/dL (7-18); CO2 25 mmol/L (21-32)
[2021-09-14 09:38] LABS: CREATININE 4.4 mg/dL (0.55-1.3); SGOT/AST 11 U/L (15-37); SGPT/ALT 13 U/L (13-61)
[2021-09-14 09:39] LABS: BILIRUBIN,TOTAL 0.1 mg/dL (0.2-1)
[2021-09-14 09:40] LABS: TOT PROT 6.1 g/dl (6.4-8.2)
[2021-09-14 11:50] LABS: ALK PHOS 295 U/L (45-117); GLUCOSE,RANDOM 573 mg/dL (74-106)
[2021-09-15 08:37] LABS: BASO % 0.5 % (0-2.0); EOS % 3.6 % (0-4.5); HEMATOCRIT 25.9 % (35.4-49); HEMOGLOBIN 8.8 GM/dL (11.7-16.9); LYMPH % 4.8 % (8-40); MCH 28.9 pg (25.7-33.7); MCHC 33.9 g/dl (32.0-35.9); MEAN CELL VOLUME 85.3 fl (80-96); MEAN PLT VOLUME 7.4 fl (7.5-11.1); NEUT % 85.1 % (42.8-82.8); PLATELET COUNT 437 10^3/uL (134-434); RBC 3.04 M/mm3 (4.00-5.60); RDW 12.8 % (11.9-15.9); WHITE BLOOD COUNT 5.9 K/mm3 (4.0-10.0)
[2021-09-15 11:50] LABS: CALCIUM 8.3 mg/dL (8.5-10.1)
[2021-09-15 11:51] LABS: ALBUMIN 1.7 g/dl (3.4-5.0); BLOOD UREA NITROGEN 47.2 mg/dL (7-18)
[2021-09-15 11:53] LABS: CREATININE 2.7 mg/dL (0.55-1.3)
[2021-09-15 11:55] LABS: BILIRUBIN,TOTAL 0.2 mg/dL (0.2-1); TOT PROT 6.2 g/dl (6.4-8.2)
[2021-09-16 08:28] LABS: BASO % 0.7 % (0-2.0); EOS % 5.9 % (0-4.5); HEMATOCRIT 25.6 % (35.4-49); HEMOGLOBIN 8.6 GM/dL (11.7-16.9); LYMPH % 13.7 % (8-40); MCHC 33.8 g/dl (32.0-35.9); MEAN CELL VOLUME 85.6 fl (80-96); MEAN PLT VOLUME 7.1 fl (7.5-11.1); MONO % 12.7 % (3.8-10.2); PLATELET COUNT 404 10^3/uL (134-434); RBC 2.98 M/mm3 (4.00-5.60); RDW 12.6 % (11.9-15.9); WHITE BLOOD COUNT 4.9 K/mm3 (4.0-10.0)
[2021-09-16 08:41] LABS: CALCIUM 8.4 mg/dL (8.5-10.1)
[2021-09-16 08:42] LABS: ALBUMIN 1.7 g/dl (3.4-5.0); BLOOD UREA NITROGEN 26.6 mg/dL (7-18); MAGNESIUM 2.2 mg/dL (1.8-2.4)
[2021-09-16 08:45] LABS: CREATININE 1.5 mg/dL (0.55-1.3); PHOSPHOROUS 2.4 mg/dL (2.5-4.9)
[2021-09-16 08:46] LABS: BILIRUBIN,TOTAL 0.2 mg/dL (0.2-1); TOT PROT 6.3 g/dl (6.4-8.2)
[2021-09-16 10:40] LABS: ANISOCYTOSIS 0; HELMET CELLS 0; HOWELL-JOLLY BODIES 0; MACROCYTOSIS 0; OVALOCYTE 0; PLATELET ESTIMATE NORMAL; ROULEAU 0; SICKELED CELLS 0; TARGET CELLS 0; TEAR DROP CELLS 0; TOXIC GRANULATION 0
[2021-09-16 15:31] VITALS: BMI 28.9
[2021-09-17 09:53] LABS: HEMATOCRIT 24.9 % (35.4-49); HEMOGLOBIN 8.5 GM/dL (11.7-16.9); MCH 28.8 pg (25.7-33.7); MCHC 34.2 g/dl (32.0-35.9); MEAN CELL VOLUME 84.1 fl (80-96); MEAN PLT VOLUME 6.6 fl (7.5-11.1); PLATELET COUNT 469 10^3/uL (134-434); RBC 2.96 M/mm3 (4.00-5.60); RDW 12.7 % (11.9-15.9); WHITE BLOOD COUNT 6.2 K/mm3 (4.0-10.0)
[2021-09-17 10:21] LABS: CALCIUM 8.5 mg/dL (8.5-10.1)
[2021-09-17 10:22] LABS: ALBUMIN 1.7 g/dl (3.4-5.0); BLOOD UREA NITROGEN 13.4 mg/dL (7-18); MAGNESIUM 1.8 mg/dL (1.8-2.4); TOT PROT 6.3 g/dl (6.4-8.2)
[2021-09-17 10:24] LABS: BILIRUBIN,TOTAL 0.1 mg/dL (0.2-1)
[2021-09-17 10:25] LABS: CREATININE 1.2 mg/dL (0.55-1.3); PHOSPHOROUS 3.5 mg/dL (2.5-4.9)
[2021-09-17 11:18] LABS: ANISOCYTOSIS 0; HELMET CELLS 0; HOWELL-JOLLY BODIES 0; MACROCYTOSIS 0; OVALOCYTE 0; PLATELET ESTIMATE NORMAL; ROULEAU 0; SICKELED CELLS 0; TARGET CELLS 0; TEAR DROP CELLS 0; TOXIC GRANULATION 0
[2021-09-18 09:29] LABS: HEMATOCRIT 27.5 % (35.4-49); HEMOGLOBIN 9.5 GM/dL (11.7-16.9); MCH 28.9 pg (25.7-33.7); MCHC 34.4 g/dl (32.0-35.9); PLATELET COUNT 585 10^3/uL (134-434); RBC 3.28 M/mm3 (4.00-5.60); WHITE BLOOD COUNT 5.7 K/mm3 (4.0-10.0)
[2021-09-18 10:04] LABS: ALBUMIN 1.9 g/dl (3.4-5.0); BLOOD UREA NITROGEN 14.1 mg/dL (7-18); MAGNESIUM 1.8 mg/dL (1.8-2.4)
[2021-09-18 10:07] LABS: CREATININE 1.2 mg/dL (0.55-1.3); PHOSPHOROUS 3.8 mg/dL (2.5-4.9)
[2021-09-18 10:09] LABS: BILIRUBIN,TOTAL 0.2 mg/dL (0.2-1); TOT PROT 6.9 g/dl (6.4-8.2)
[2021-09-18 11:26] LABS: ANISOCYTOSIS 2+; MACROCYTOSIS 0; PLATELET ESTIMATE INCREASED; TEAR DROP CELLS 1+
[2021-09-19 12:25] LABS: HEMATOCRIT 31.2 % (35.4-49); HEMOGLOBIN 10.5 GM/dL (11.7-16.9); MCH 28.8 pg (25.7-33.7); MCHC 33.6 g/dl (32.0-35.9); MEAN CELL VOLUME 85.8 fl (80-96); MEAN PLT VOLUME 6.8 fl (7.5-11.1); PLATELET COUNT 667 10^3/uL (134-434); RBC 3.64 M/mm3 (4.00-5.60); RDW 13.1 % (11.9-15.9); WHITE BLOOD COUNT 6.2 K/mm3 (4.0-10.0)
[2021-09-19 12:41] LABS: CALCIUM 9.3 mg/dL (8.5-10.1)
[2021-09-19 12:45] LABS: CREATININE 1.2 mg/dL (0.55-1.3)
[2021-09-20 09:33] LABS: HEMATOCRIT 28.2 % (35.4-49); HEMOGLOBIN 9.7 GM/dL (11.7-16.9); MCH 29.3 pg (25.7-33.7); MCHC 34.4 g/dl (32.0-35.9); MEAN PLT VOLUME 7.1 fl (7.5-11.1); PLATELET COUNT 686 10^3/uL (134-434); RBC 3.31 M/mm3 (4.00-5.60); RDW 13.2 % (11.9-15.9); WHITE BLOOD COUNT 6.4 K/mm3 (4.0-10.0)
[2021-09-20 10:06] LABS: ALBUMIN 2.2 g/dl (3.4-5.0); BLOOD UREA NITROGEN 23.1 mg/dL (7-18); CALCIUM 8.9 mg/dL (8.5-10.1)
[2021-09-20 10:09] LABS: CREATININE 1.4 mg/dL (0.55-1.3)
[2021-09-20 10:11] LABS: BILIRUBIN,TOTAL 0.6 mg/dL (0.2-1); TOT PROT 7.1 g/dl (6.4-8.2)
[2021-09-21 08:40] LABS: HEMATOCRIT 29.5 % (35.4-49); MCH 28.9 pg (25.7-33.7); MCHC 33.9 g/dl (32.0-35.9); MEAN CELL VOLUME 85.3 fl (80-96); MEAN PLT VOLUME 6.7 fl (7.5-11.1); PLATELET COUNT 615 10^3/uL (134-434); RBC 3.46 M/mm3 (4.00-5.60); RDW 13.3 % (11.9-15.9); WHITE BLOOD COUNT 6.1 K/mm3 (4.0-10.0)
[2021-09-21 09:04] LABS: ALBUMIN 2.2 g/dl (3.4-5.0); CALCIUM 9.1 mg/dL (8.5-10.1)
[2021-09-21 09:05] LABS: BLOOD UREA NITROGEN 21.7 mg/dL (7-18)
[2021-09-21 09:08] LABS: CREATININE 1.3 mg/dL (0.55-1.3)
[2021-09-21 09:09] LABS: BILIRUBIN,TOTAL 0.4 mg/dL (0.2-1); TOT PROT 6.9 g/dl (6.4-8.2)
[2021-09-22 09:13] LABS: HEMATOCRIT 32.2 % (35.4-49); HEMOGLOBIN 11.1 GM/dL (11.7-16.9); MCH 29.1 pg (25.7-33.7); MCHC 34.4 g/dl (32.0-35.9); MEAN CELL VOLUME 84.5 fl (80-96); PLATELET COUNT 640 10^3/uL (134-434); RBC 3.81 M/mm3 (4.00-5.60); RDW 13.6 % (11.9-15.9); WHITE BLOOD COUNT 6.7 K/mm3 (4.0-10.0)
[2021-09-22 09:39] LABS: BLOOD UREA NITROGEN 29.8 mg/dL (7-18); CALCIUM 9.8 mg/dL (8.5-10.1)
[2021-09-22 09:42] LABS: CREATININE 1.4 mg/dL (0.55-1.3)
[2021-09-22 09:44] LABS: BILIRUBIN,TOTAL 0.3 mg/dL (0.2-1); TOT PROT 7.8 g/dl (6.4-8.2)
[2021-09-22 09:50] LABS: ALBUMIN 2.6 g/dl (3.4-5.0)
[2021-09-22 15:35] VITALS: BP 140/78; PULSE 77; TEMP 98.5
== END 2021-09-23 02:51 | DRG 349 ==
LOC: JER 13:36 → JERBED 17:43 → J6S 09-11 21:37
PROVIDERS: ADMIT Internal Medicine; ATTEND Internal Medicine
PROC: 0JBP0ZZ Excision of Left Lower Leg Subcutaneous Tissue and Fascia, Open Approach (ICD-10-PCS; principal; 2021-09-13)
PROC: 0J9P0ZX Drainage of Left Lower Leg Subcutaneous Tissue and Fascia, Open Approach, Diagnostic (ICD-10-PCS; 2021-09-13)
DX: T87.44 Infection of amputation stump, left lower extremity (principal); Y83.9 Surgical procedure, unspecified as the cause of abnormal reaction of the patient, or of later complication, without mention of misadventure at the time of the procedure; A40.1 Sepsis due to streptococcus, group B; E11.51 Type 2 diabetes mellitus with diabetic peripheral angiopathy without gangrene; E11.65 Type 2 diabetes mellitus with hyperglycemia; N17.9 Acute kidney failure, unspecified; D63.1 Anemia in chronic kidney disease; L03.116 Cellulitis of left lower limb; N18.9 Chronic kidney disease, unspecified; Z89.512 Acquired absence of left leg below knee; E11.40 Type 2 diabetes mellitus with diabetic neuropathy, unspecified; E78.5 Hyperlipidemia, unspecified; E03.9 Hypothyroidism, unspecified; I13.10 Hypertensive heart and chronic kidney disease without heart failure, with stage 1 through stage 4 chronic kidney disease, or unspecified chronic kidney disease
CPT/HCPCS: 36415; 71045-TC-FY; 73562-TC-LT-FY; 73700-TC-RT; 76775-TC; 80048; 80053; 80061; 81003; 82272; 82436; 82550; 82570; 82728; 82962; 83540; 83550; 83735; 84100; 84133; 84300; 84443; 84484; 85025; 85027; 85045; 85610; 85651; 85730; 86140; 86160; 86850; 86900; 86901; 87040; 87070; 87077; 87205; 88304-TC; 93005; 93010; 94010; 94760; 97116-GP; 97162-GP; 99285-25; C9803; J0131; J0878; J1644; U0003; U0005

== ENCOUNTER 2022-04-30 13:11 | Inpatient (IN) | payer OTHER ==
[2022-04-30 18:26] LABS: BASO % 0.5 % (0-2.0); EOS % 2.8 % (0-4.5); HEMATOCRIT 25.5 % (35.4-49); HEMOGLOBIN 8.4 GM/dL (11.7-16.9); LYMPH % 13.6 % (8-40); MCH 26.3 pg (25.7-33.7); MCHC 32.8 g/dl (32.0-35.9); MEAN CELL VOLUME 80.4 fl (80-96); MEAN PLT VOLUME 6.9 fl (7.5-11.1); MONO % 6.9 % (3.8-10.2); NEUT % 76.2 % (42.8-82.8); PLATELET COUNT 436 10^3/uL (134-434); RBC 3.17 M/mm3 (4.00-5.60); RDW 14.6 % (11.9-15.9)
[2022-04-30 18:49] LABS: CALCIUM 8.9 mg/dL (8.5-10.1)
[2022-04-30 18:50] LABS: ALBUMIN 2.7 g/dl (3.4-5.0); BLOOD UREA NITROGEN 22.9 mg/dL (7-18)
[2022-04-30 18:53] LABS: CREATININE 1.5 mg/dL (0.55-1.3)
[2022-04-30 18:54] LABS: TOT PROT 7.5 g/dl (6.4-8.2)
[2022-04-30 18:55] LABS: BILIRUBIN,TOTAL 0.2 mg/dL (0.2-1)
[2022-04-30] MEDS ORDERED: SODIUM CHLORIDE 500 ML IV STA (22:20)
[2022-04-30] MEDS ORDERED: methaDONE HCL 10 MG TABLET (FOR DETOX USE ONLY) PO ONE (22:34)
[2022-04-30] MEDS ORDERED: LORazepam 0.5 MG TABLET PO PRN (22:36)
[2022-04-30] MEDS ORDERED: traMADol HCL 50 MG TABLET PO PRN (22:36)
[2022-04-30] MEDS ORDERED: methaDONE HCL 40 MG DISPERSABLE TABLET ONE (23:33)
[2022-04-30] MEDS ORDERED: methaDONE HCL 10 MG TABLET ONE (23:33)
[2022-05-01 03:18] VITALS: BMI 28.2
[2022-05-01] MEDS: HEPARIN NA (PORCINE) 5,000 UNITS/ML 1ML VIAL SQ SCH ×3 (06:07→21:24)
[2022-05-01] MEDS: INSULIN SLIDING SCALE (NOVOLOG) 1 VIAL SQ SCH ×4 (06:13→21:24)
[2022-05-01 09:17] LABS: HEMATOCRIT 25.1 % (35.4-49); HEMOGLOBIN 8.4 GM/dL (11.7-16.9); MCH 26.6 pg (25.7-33.7); MCHC 33.6 g/dl (32.0-35.9); MEAN CELL VOLUME 79.2 fl (80-96); MEAN PLT VOLUME 7.3 fl (7.5-11.1); PLATELET COUNT 442 10^3/uL (134-434); RBC 3.17 M/mm3 (4.00-5.60); RDW 14.4 % (11.9-15.9); WHITE BLOOD COUNT 7.4 K/mm3 (4.0-10.0)
[2022-05-01 09:19] LABS: ALBUMIN 2.5 g/dl (3.4-5.0)
[2022-05-01 09:20] LABS: BLOOD UREA NITROGEN 19.6 mg/dL (7-18); MAGNESIUM 2.3 mg/dL (1.8-2.4)
[2022-05-01 09:22] LABS: CREATININE 1.3 mg/dL (0.55-1.3); PHOSPHOROUS 3.6 mg/dL (2.5-4.9)
[2022-05-01 09:24] LABS: BILIRUBIN,TOTAL 0.3 mg/dL (0.2-1); TOT PROT 7.2 g/dl (6.4-8.2)
[2022-05-01] MEDS: ESCITALOPRAM OXALATE 10 MG TABLET PO SCH (10:03)
[2022-05-01] MEDS: ENALAPRIL MALEATE 10 MG TABLET PO SCH (10:03)
[2022-05-01] MEDS: LEVOTHYROXINE NA 100 MCG TABLET (FP) PO SCH (10:03)
[2022-05-01] MEDS: amLODIPine BESYLATE 10 MG TABLET (FP) PO SCH (10:03)
[2022-05-01 13:23] LABS: RETICULOCYTES 2.67 % (0.5-1.5)
[2022-05-01] MEDS ORDERED: AMPICILLIN NA/SULBACTAM NA 3 GM VIAL ONE ×2 (15:14→21:09)
[2022-05-01] MEDS ORDERED: SODIUM CHLORIDE 100 ML IVPB ONE ×2 (15:15→21:10)
[2022-05-01] MEDS: AMPICILLIN NA/SULBACTAM NA 3 GM in SODIUM CHLORIDE 100 ML IVPB SCH ×2 (16:08→21:22)
[2022-05-01] MEDS: COLLAGENASE CLOSTRIDIUM HIST. 30 GRAMS TUBE TP SCH (17:59)
[2022-05-01] MEDS ORDERED: traMADol HCL 50 MG TABLET PO PRN (21:07)
[2022-05-01] MEDS ORDERED: INSULIN (NOVOLOG) ASPART 100 UNITS/ML 10ML VIAL ONE (21:09)
[2022-05-01] MEDS: hydrOXYzine PAMOATE 25 MG CAPSULE (FP) PO PRN (21:23)
[2022-05-01] MEDS: ATORVASTATIN CA 40 MG TABLET (FP) PO SCH (21:23)
[2022-05-01] MEDS: MELATONIN 5 MG TABLETS PO SCH (21:23)
[2022-05-01] MEDS ORDERED: methaDONE HCL 10 MG TABLET PO ONE (22:58)
[2022-05-02] MEDS ORDERED: AMPICILLIN NA/SULBACTAM NA 3 GM VIAL ONE ×4 (01:59→23:17)
[2022-05-02] MEDS ORDERED: SODIUM CHLORIDE 100 ML IVPB ONE ×4 (02:00→23:17)
[2022-05-02] MEDS: traMADol HCL 50 MG TABLET PO PRN ×2 (02:08→17:28)
[2022-05-02] MEDS: AMPICILLIN NA/SULBACTAM NA 3 GM in SODIUM CHLORIDE 100 ML IVPB SCH ×4 (02:09→23:31)
[2022-05-02] MEDS ORDERED: methaDONE HCL 40 MG DISPERSABLE TABLET PO SCH (06:00)
[2022-05-02] MEDS: INSULIN SLIDING SCALE (NOVOLOG) 1 VIAL SQ SCH ×4 (07:03→23:32)
[2022-05-02] MEDS: HEPARIN NA (PORCINE) 5,000 UNITS/ML 1ML VIAL SQ SCH ×4 (07:03→23:35)
[2022-05-02] MEDS ORDERED: methaDONE HCL 10 MG TABLET ONE (07:15)
[2022-05-02] MEDS ORDERED: methaDONE HCL 40 MG DISPERSABLE TABLET ONE (07:15)
[2022-05-02] MEDS: ENALAPRIL MALEATE 10 MG TABLET PO SCH (09:07)
[2022-05-02] MEDS: amLODIPine BESYLATE 10 MG TABLET (FP) PO SCH (09:07)
[2022-05-02] MEDS: COLLAGENASE CLOSTRIDIUM HIST. 30 GRAMS TUBE TP SCH (09:08)
[2022-05-02] MEDS: LEVOTHYROXINE NA 100 MCG TABLET (FP) PO SCH (09:08)
[2022-05-02] MEDS: ESCITALOPRAM OXALATE 10 MG TABLET PO SCH (09:08)
[2022-05-02 09:11] LABS: HEMATOCRIT 23.3 % (35.4-49); HEMOGLOBIN 7.7 GM/dL (11.7-16.9); MCH 26.3 pg (25.7-33.7); MCHC 33.1 g/dl (32.0-35.9); MEAN CELL VOLUME 79.4 fl (80-96); MEAN PLT VOLUME 7.1 fl (7.5-11.1); PLATELET COUNT 384 10^3/uL (134-434); RBC 2.93 M/mm3 (4.00-5.60); RDW 14.5 % (11.9-15.9); WHITE BLOOD COUNT 7.1 K/mm3 (4.0-10.0)
[2022-05-02 09:27] LABS: CALCIUM 8.8 mg/dL (8.5-10.1)
[2022-05-02 09:28] LABS: BLOOD UREA NITROGEN 18.2 mg/dL (7-18)
[2022-05-02 09:31] LABS: CREATININE 1.4 mg/dL (0.55-1.3)
[2022-05-02] MEDS: MELATONIN 5 MG TABLETS PO SCH (23:32)
[2022-05-02] MEDS: hydrOXYzine PAMOATE 25 MG CAPSULE (FP) PO PRN (23:32)
[2022-05-02] MEDS: ATORVASTATIN CA 40 MG TABLET (FP) PO SCH (23:32)
[2022-05-03] MEDS ORDERED: SODIUM CHLORIDE 100 ML IVPB ONE ×2 (02:10→08:49)
[2022-05-03] MEDS ORDERED: AMPICILLIN NA/SULBACTAM NA 3 GM VIAL ONE ×2 (02:10→08:48)
[2022-05-03] MEDS: AMPICILLIN NA/SULBACTAM NA 3 GM in SODIUM CHLORIDE 100 ML IVPB SCH ×2 (02:19→10:21)
[2022-05-03] MEDS ORDERED: traMADol HCL 50 MG TABLET PO PRN (03:39)
[2022-05-03] MEDS ORDERED: methaDONE HCL 40 MG DISPERSABLE TABLET ONE (06:12)
[2022-05-03] MEDS ORDERED: methaDONE HCL 10 MG TABLET ONE (06:12)
[2022-05-03] MEDS: INSULIN SLIDING SCALE (NOVOLOG) 1 VIAL SQ SCH ×2 (06:25→12:17)
[2022-05-03] MEDS: HEPARIN NA (PORCINE) 5,000 UNITS/ML 1ML VIAL SQ SCH (06:25)
[2022-05-03 07:21] VITALS: BP 130/66; PULSE 66; RESP 20; TEMP 99.5
[2022-05-03 07:22] LABS: HEMATOCRIT 21.6 % (35.4-49); HEMOGLOBIN 7.2 GM/dL (11.7-16.9); MCH 26.4 pg (25.7-33.7); MCHC 33.3 g/dl (32.0-35.9); MEAN CELL VOLUME 79.2 fl (80-96); MEAN PLT VOLUME 7.2 fl (7.5-11.1); PLATELET COUNT 366 10^3/uL (134-434); RBC 2.73 M/mm3 (4.00-5.60); RDW 14.4 % (11.9-15.9); WHITE BLOOD COUNT 6.8 K/mm3 (4.0-10.0)
[2022-05-03 07:48] LABS: CALCIUM 8.6 mg/dL (8.5-10.1)
[2022-05-03 07:49] LABS: BLOOD UREA NITROGEN 20.5 mg/dL (7-18)
[2022-05-03 07:52] LABS: CREATININE 1.5 mg/dL (0.55-1.3)
[2022-05-03] MEDS: amLODIPine BESYLATE 10 MG TABLET (FP) PO SCH (10:22)
[2022-05-03] MEDS: LEVOTHYROXINE NA 100 MCG TABLET (FP) PO SCH (10:23)
[2022-05-03] MEDS: COLLAGENASE CLOSTRIDIUM HIST. 30 GRAMS TUBE TP SCH (10:23)
[2022-05-03] MEDS: ESCITALOPRAM OXALATE 10 MG TABLET PO SCH (10:23)
[2022-05-03] MEDS: ENALAPRIL MALEATE 10 MG TABLET PO SCH (10:23)
== END 2022-05-03 12:00 | DRG 344 ==
LOC: JER 13:11 → JERBED 17:21 → OBSVTOIN 19:43 → J7W 05-01 00:43
PROVIDERS: ADMIT Hospitalist; ATTEND Internal Medicine
PROC: 0JH63XZ Insertion of Tunneled Vascular Access Device into Chest Subcutaneous Tissue and Fascia, Percutaneous Approach (ICD-10-PCS; principal; 2022-05-02)
PROC: 05HM33Z Insertion of Infusion Device into Right Internal Jugular Vein, Percutaneous Approach (ICD-10-PCS; 2022-05-02)
PROC: B513ZZA Fluoroscopy of Right Jugular Veins, Guidance (ICD-10-PCS; 2022-05-02)
PROC: 3E033GC Introduction of Other Therapeutic Substance into Peripheral Vein, Percutaneous Approach (ICD-10-PCS; 2022-05-02)
DX: E11.69 Type 2 diabetes mellitus with other specified complication (principal); M86.8X7 Other osteomyelitis, ankle and foot; E11.22 Type 2 diabetes mellitus with diabetic chronic kidney disease; E11.40 Type 2 diabetes mellitus with diabetic neuropathy, unspecified; L89.614 Pressure ulcer of right heel, stage 4; N18.6 End stage renal disease; E11.621 Type 2 diabetes mellitus with foot ulcer; F11.20 Opioid dependence, uncomplicated; E11.51 Type 2 diabetes mellitus with diabetic peripheral angiopathy without gangrene; L97.419 Non-pressure chronic ulcer of right heel and midfoot with unspecified severity; D64.9 Anemia, unspecified; F41.9 Anxiety disorder, unspecified; L97.519 Non-pressure chronic ulcer of other part of right foot with unspecified severity; R45.1 Restlessness and agitation; E11.65 Type 2 diabetes mellitus with hyperglycemia; E03.9 Hypothyroidism, unspecified
CPT/HCPCS: 36415; 36558; 71045-TC-FY; 80048; 80053; 82962; 83540; 83550; 83735; 84100; 85025; 85027; 85045; 86140; 86850; 86900; 86901; 87040; 93005; 93010; 93926-TC; 97116-GP; 97161-GP; 99285-25; C9803-CS; G0277; G0378; J1644; U0003; U0005

== ENCOUNTER → 2022-05-29 | Day surgery (SDC) | payer OTHER ==
[~2022-05-29] MED LIST: ALTEPLASE (CATHFLO) 2 MG/2 ML VIAL IA ONE
== END | disposition home or self-care (01) ==
LOC: JRADIR 10:50
PROVIDERS: ATTEND Family Medicine
PROC: 3C1ZX8Z Irrigation of Indwelling Device using Irrigating Substance, External Approach (ICD-10-PCS; principal; 2022-05-29)
DX: T82.898A Other specified complication of vascular prosthetic devices, implants and grafts, initial encounter (principal); M86.9 Osteomyelitis, unspecified
CPT/HCPCS: 36593

== ENCOUNTER → 2022-07-03 | Day surgery (SDC) | payer OTHER | END | disposition home or self-care (01) | LOC: JRADIR 10:43 | PROVIDERS: ATTEND Internal Medicine Infectious Disease | PROC: 05PY03Z Removal of Infusion Device from Upper Vein, Open Approach (ICD-10-PCS; principal; 2022-07-03) | DX: Z45.2 Encounter for adjustment and management of vascular access device (principal) | CPT/HCPCS: 36589 ==